=== PATIENT | female | born 1960 | race Caucasian/White ===

== ENCOUNTER 2023-04-05 09:28 | Outpatient (CLI) | payer OTHER, SELFPAY | END 2023-04-05 09:29 | disposition home or self-care (01) | PROVIDERS: PCP Emergency Medicine; Visit Provider Emergency Medicine | DX: Z00.00 Encounter for general adult medical examination without abnormal findings (principal); E03.9 Hypothyroidism, unspecified; E78.5 Hyperlipidemia, unspecified; E78.1 Pure hyperglyceridemia; E04.1 Nontoxic single thyroid nodule | CPT/HCPCS: 80053; 80061; 84443 ==

== ENCOUNTER 2023-06-20 14:42 | Outpatient (CLI) | payer OTHER, SELFPAY ==
--- NOTE | 2023-06-20 15:00 | CRLHL7_ITS ---
For Patients: As a result of the Century Cures Act, medical imaging exams and procedure reports are released immediately into your electronic medical record. You may view this report before your referring provider. If you have questions, please contact your health care provider. BILATERAL SCREENING MAMMOGRAM WITH COMPUTER-AIDED DETECTION AND TOMOSYNTHESIS TECHNIQUE: CC and MLO views were obtained. These mammographic images have been obtained using full-field digital technique. These mammographic images were interpreted with the benefit of computer-aided detection. Breast Tomosynthesis was used in this interpretation. COMPARISON FILM: 01/13/22, 01/12/21, 12/19/18. FINDINGS: There are scattered areas of fibroglandular density IMPRESSION: There is no radiographic evidence for malignancy. ASSESSMENT: BI-RADS Category 1: Negative RECOMMENDATION: Routine screening mammogram in 1 year. A lay language report of this examination will be provided to the patient. López Johnston M.D. Diagnostic Radiologist [email or web address] SHIRLEY/Dictated by: López Johnston MD @ 06/23/2023 9:04:00 AM (Electronically Signed)
== END 2023-06-20 14:43 | disposition home or self-care (01) ==
LOC: MAMMO 14:43
PROVIDERS: PCP Emergency Medicine; Visit Provider Emergency Medicine
DX: Z12.31 Encounter for screening mammogram for malignant neoplasm of breast (principal)
CPT/HCPCS: 77063; 77067

== ENCOUNTER 2023-10-18 09:04 | Outpatient (CLI) | payer OTHER, SELFPAY | END 2023-10-18 09:05 | disposition home or self-care (01) | LOC: NFLDREF 10-25 15:24 | PROVIDERS: PCP Emergency Medicine; Referring Provider Emergency Medicine; Visit Provider Emergency Medicine | DX: E78.2 Mixed hyperlipidemia (principal) | CPT/HCPCS: 80061 ==

== ENCOUNTER 2024-06-12 08:11 | Outpatient (CLI) | payer OTHER, SELFPAY ==
--- OUTSIDE RECORDS SUMMARY | 2024-06-12 08:15 | XMS_ITS | Clinical Summary ---
Author Organization [facility] Address [address] [place] [address] Care Team Providers Care Assembler Name Role Phone Chritsa Mortensen Primary Care Provider [phone] Allergies Active Allergy Reactions Criticality Noted Date Comments Amoxicillin 12/03/2013 Ampicillin 12/03/2013 Iodinated Contrast Media Swelling,Rash,Cough Low Lip Swelling Sulfa Antibiotics 12/03/2013 Medications Medication Sig Dispensed Refills Start Date End Date Status Venlafaxine HCl (EFFEXOR PO) Take 75 mg by mouth daily Active LEVOTHYROXINE SODIUM PO Take 75 mcg by mouth daily Active Simvastatin (ZOCOR PO) Take 20 mg by mouth At Bedtime Active HYDROcodone-acetamin ophen (NORCO) 5-325 MG per tablet Take 1 tablet by mouth every 6 hours as needed for moderate to severe pain or pain 15 tablet 07/11/2017 Active Active Problems Problem Noted Date Diagnosed Date S/P total right hip arthroplasty 05/23/2024 COVID-19 05/23/2024 Fear of flying 05/23/2024 Hepatic steatosis 05/23/2024 History of thyroidectomy 05/23/2024 Hx of blood clots 05/23/2024 Irritable bowel 05/23/2024 Osteoarthritis of foot 05/23/2024 Carpal tunnel syndrome 03/22/2022 Constipation 04/02/2020 Fatigue 04/02/2020 Tendinitis 12/19/2018 Pulmonary nodule 09/19/2016 Thyroid nodule 09/19/2016 Personal history of other malignant neoplasm of skin 02/13/2015 Benign renal tumor 05/21/2014 Overview: Overview: cryotherapy at [place] Chronic insomnia 05/21/2014 Fibromyalgia 05/21/2014 Hyperlipidemia 05/21/2014 Menopause present 05/21/2014 AAKASH on CPAP 05/21/2014 Pulmonary embolism 05/21/2014 Overview: Overview: on BCP. Seasonal allergies 05/21/2014 Squamous cell cancer of skin of forearm 05/21/20 14 Vaginal atrophy 05/21/2014 Encounters Date Type Department Care Team Description 05/23/2024 5:48 PM CDT - 05/23/2024 11:[address] [facility] Emergency Dept [address] [place] [address] Rober Hernandez MD Closed dislocation of right hip, initial encounter (H) (Primary Dx); Right hip pain; S/P total right hip arthroplasty Discharge Disposition: Home or Self Care 05/23/2024 Travel from Last 3 Months Social History Tobacco Use Types Packs/Day Years Used Date Smoking Tobacco: Never Assessed Adolescent Education Answer Date Record ed Getting School Help Needed Not on file 05/23 Sex and Gender Information Value Date Recorded Sex Assigned at Not on file Gender Identity Not on file Sexual Orientation Not on file Last Filed Vital Signs Vital Sign Reading Time Taken Comments Blood Pressure 128/88 05/23/2024 10:45 PM CDT Pulse 84 05/23/2024 10:45 PM CDT Temperature 36.4 ??C (97.6 ??F) 05/23/2024 7:30 PM CD T Respiratory Rate 19 05/23/2024 9:28 PM CDT Oxygen Saturation 97% 05/23/2024 10:55 PM CDT Inhaled Oxygen Concentration - - Weight 90.7 kg (200 lb) 05/23/2024 7:58 PM CDT Height 162.6 cm (5' 4) 05/23/2024 7:58 PM CDT Body Mass Index 34.33 05/23/2024 7:58 PM CDT Plan of Treatment Health Maintenance Due Date Last Done Comments ADVANCE CARE PLANNING 1959 ANNUAL REVIEW OF HM ORDERS 1959 CT COLONOGRAPHY 1959 FIT 1959 FLEX SIG 1959 GLUCOSE 1959 LIPID 1959 TSH W/FREE T4 REFLEX 1959 YEARLY PREVENTIVE VISIT 1959 COLONOSCOPY 1969 HIV SCREENING 1974 HEPATITIS C SCREENING 1977 RSV VACCINE ( & 60+) (1 - 1-dose 60+ series) 2019 PAP 04/02/2023 04/02/2020 PHQ-2 (once per calendar year) 2023 MAMMO SCREENING 01/14/2024 01/13/2022, 12/16, 01/13/2022, Additional history exists INFLUENZA VACCINE (#1) 2024 , 07/11/2022, 07/11/2022, Additional history exists COLORECTAL CANCER SCREENING 02/08/2025 sDNA (Cologuard) 02/08/2025 02/08/2022 DTAP/TDAP/TD IMMUNIZATION (7 - Td or Tdap) 01/14/2032 01/13/2022, 04/13/2011, 05/16/2003, Additional history exists Pneumococcal Vaccine: Pediatrics (0 to 5 Years) and At-Risk Patients (6 to 64 Years) Aged Out 02/22/2012 No longer eligible based on patient's age to complete this topic ZOSTER IMMUNIZATION Completed 04/01/2019, 01/12/2019, 12/19/2018 COVID-19 Vaccine Completed 09/03/2023, 12/2021, 01/14/2022, Additional history exists HPV IMMUNIZATION Aged Out No longer e ligible based on patient's age to complete this topic MENINGITIS IMMUNIZATION Aged Out No l onger eligible based on patient's age to complete this topic RSV MONOCLONAL ANTIBODY Aged Out No l onger eligible based on patient's age to complete this topic Procedures Procedure Name Priority Date/Time Associated Diagnosis Comments XR PELVIS AND HIP RIGHT 1 VIEW STAT 05/23/2024 9:47 PM CDT SEDATION Routine 05/23/2024 8:15 PM CDT XR PELVIS AND HIP RIGHT 1 VIEW STAT 05/23/2024 6:45 PM CDT from Last 3 Months Results * XR Pelvis w Hip Right 1 View (05/23/2024 9:47 PM CDT) Only the most recent of2 resultswithin the time period is included. Anatomical Region Laterality Modality Abdomen/Pelvis Right Digital Radiogra phy 05/23/2024 9:47 PM CDT Impressions 05/23/2024 9:49 PM CDT IMPRESSION: No comparisons/prereduction film is available. Postoperative changes of bilateral total hip arthroplasty. Components appear well-seated on this examination and there is no dislocation. Pelvis negative for fracture. Degenerative change at the SI joints bilaterally. Narrative 05/23/2024 9:49 PM CDT EXAM: XR PELVIS AND HIP RIGHT 1 VIEW LOCATION: [facility] DATE: 05/23/2024 INDICATION: assess dislocation reduction COMPARISON: None. Procedure Note Dwain Jones MD - 05/23/2024 EXAM: XR PELVIS AND HIP RIGHT 1 VIEW LOCATION: [facility] DATE: 05/23/2024 INDICATION: assess dislocation reduction COMPARISON: None. IMPRESSION: No comparisons/prereduction film is available. Postoperativechanges of bilateral total hip arthroplasty. Components appear well-seatedon this examination and there is no dislocation. Pelvis negative forfracture. Degenerative change at the SI joints bilaterally. Rober Hernandez MD IMG DIAGNOSTIC IMAGI NG ORDERABLES * Sedation (05/23/2024 8:15 PM CDT) Narrative Rober Hernandez MD - 05/23/2024 8:15 PM CDT Rober Hernandez MD ? 05/23/2024 11:05 PM [facility] Procedure: Sedation Date/Time: 05/23/2024 8:15 PM Performed by: Rober Hernandez MD Authorized by: Rober Hernandez MD ?? Risks, benefits and alternatives discussed. ED EVALUATION: ?I have performed an Emergency Department Evaluation including taking a history and physical examination, this evaluation will be documented in the electronic medical record for this ED encounter. ??ASA Class: Class 2- mild systemic disease, no acute problems, no functional limitations ??Mallampati: Grade 3- soft palate visible, posterior pharyngeal wall not visible ??NPO Status: appropriately NPO for procedure UNIVERSAL PROTOCOL Site Marked: Yes Prior Images Obtained and Reviewed: ??Yes Required items: Required blood products, implants, devices and special equipment available ?? Patient identity confirmed: ??Verbally with patient and provided demographic data Patient was reevaluated immediately before administering moderate or deep sedation or anesthesia Confirmation Checklist: ??Patient's identity using two indicators, relevant allergies, procedure was appropriate and matched the consent or emergent situation and correct equipment/implants were available Time out: Immediately prior to the procedure a time out was called ?? [place] Protocol: the Joint Commission [place] Protocol was followed ?? Preparation: Patient was prepped and draped in usual sterile fashion ?? SEDATION Patient Sedated: Yes ?? Sedation: ??Propofol Vital signs: Vital signs monitored during sedation ?? PROCEDURE Patient Tolerance: ??Patient tolerated the procedure well with no immediate complications Length of time physician/provider present for 1:1 monitoring during sedation: 5 Rober Hernandez MD PROCEDURE/MINOR SURG ICAL ORDERABLES from Last 3 Months Care Teams Assembler Relationship Specialty Start Date End Date Christa Mortensen PCP - General Internal Medicine 07/11/17
--- OUTSIDE RECORDS SUMMARY | 2024-06-12 08:15 | XMS_ITS | Encounter Summary ---
Author Organization [facility] Address [address] [place] [id number] Care Team Providers Care [employer] Machine Operator Name Role Phone Christa Mortensen Primary Care Provider Encounter Details Date Type Department Care Team (Latest Contact Info) Description 05/23/2024 Travel Social History Tobacco Use Types Packs/Day Years Used Date Smoking Tobacco: Never Assessed Adolescent Education Answer Date Record ed Getting School Help Needed Not on file 05/23 Sex and Gender Information Value Date Recorded Sex Assigned at Not on file Gender Identity Not on file Sexual Orientation Not on file documented as of this encounter Plan of Treatment Not on file documented as of this encounter Visit Diagnoses Not on filedocumented in this encounter Care Teams [employer] Machine Operator Relationship Specialty Start Date End Date Christa Mortensen PCP - General Internal Medicine 07/11/17 documented as of this encounter
--- OUTSIDE RECORDS SUMMARY | 2024-06-12 08:15 | XMS_ITS | Clinical Summary ---
Author Organization [facility] Address [address] [place] [address] Care Team Providers Care Appellate Court Judge Name Role Phone Elsewhere, Pcp Primary Care Provider Unavailabl e Source Comments Patient records contain information from all sites at [facility]. For routine questions regarding patient records, call [phone] during business hours, M-F 8:00 AM - 5:00 PM Central Time. Record requests for emergency care only can be directed to [phone] at any time.[facility] Allergies Active Allergy Reactions Criticality Noted Date Comments Adhesive Tape-Silicones Other (see comments) Low 12/31/2002 Tingles-irritation. Amoxicillin Hives (Reselect Reaction) Medium 09/13/2012 Ampicillin Hives (Reselect Reaction) Medium 09/29/2017 Erythromycin GI intolerance Medium 11/01/2013 Iodinated Contrast Media Cough,Itching,Rash,Sh ortness of breath (Reselect Reaction),Anaphylaxis High 12/24/2019 lips , face itchy, coughing flushed Pollen Extracts Other (see comments),GI intolerance,Headache Medium 01/12/2021 Itchy eyes, congestion, sinus infection Seasonal allergies Sulfa (Sulfonamide Antibiotics) Itching High 05/21/2009 Hives, dry mouth Medications Medication Sig Dispensed Refills Start Date End Date Status cetirizine HCl (ZYRTEC ORAL) Take 1 tablet by mouth daily as needed. Active DME CPAPIndications:Obst ructive Sleep Apnea Adult DME Order 1 Device 05/03/2021 Active ALPRAZolam (Xanax) 0.5 mg tablet Take 1 tablet (0.5 mg total) by mouth as needed for anxiety. For flying 15 tablet 3 01/13/2022 Active triamcinolone (NASACORT) 55 mcg/actuation nasal spray INSTILL 2 SPRAYS IN EACH NOSTRIL DAILY. 6.7 mL 1 11/16/2022 Active levothyroxine (SYNTHROID, LEVOTHROID) 75 mcg tabletIndications:No dule Thyroid Take 1 tablet (75 mcg total) by mouth every morning before breakfast. 30 tablet 02/27/2023 Active DULoxetine (CYMBALTA) [address] capsuleIndications:F ibromyalgia Take 1 capsule (20 mg total) by mouth daily. 90 capsule 02/27/2023 Active rosuvastatin (CRESTOR) 10 mg tablet Take 10 mg by mouth daily. 04/28/2023 Active amitriptyline (ELAVIL) 25 mg tablet Take 25 mg by mouth at bedtime. 06/28/2023 Active Wegovy 0.25 mg/0.5 mL pen injector injection 0.25 mg. 05/20/2024 Active Hospital, Clinic, or Other Facility Administered Medication Ordered Dose Route Frequency Start Date End Date Status aminolevulinic acid HCL 20 % external solution 1 Application (Levulan)Indications:Kerat osis Actinic 1 Application top Once 05/23/2024 05/23/2024 Ended Active Problems Problem Noted Date Diagnosed Date Carpal Tunnel Syndrome Left 03/23/2023 Carpal Tunnel Syndrome Right 10/04/2022 Carpal Tunnel Syndrome Bilateral 03/22/2022 Morbid Obesity Body Mass Index 40.0-44.9 Adult 0 01/13/2022 Postmenopausal Atrophic Vaginitis 01/13/2022 Encounter For Immunization 01/13/2022 Constipation 04/02/2020 Fatigue 04/02/2020 Cancer Skin Basal Cell Personal History 04/02/20 20 Tendinitis 12/19/2018 Nodule Thyroid 09/21/2016 Cancer Skin Squamous Cell Personal History 02/13 Fibromyalgia 05/21/2014 Menopause 05/21/2014 Mass Kidney 01/05/2012 Hyperlipidemia 09/14/2006 Sleep Apnea Resolved Problems Problem Noted Date Diagnosed Date Resolved Date 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 Instability Total Hip Arthroplasty Initial Right (HCC) (Primary Dx) 05/29/2024 12:45 PM CDT - 05/29/2024 11:59 PM CDT Hospital Encounter Department of Radiology, [facility], in [place], [place] [address] [place] [phone] Steven Hui M.D. Arthroplasty Total Hip Replacement Status Post Right Discharge Disposition: Home or Self Care 05/28/2024 10:30 AM CDT Clinical Communication Virtual Review in [address] [phone] Pre-visit Intake 05/24/2024 Clinical Communication Department of Orthopedic Surgery in [address] [phone] Hamzah Todd M.D. Return Call Request 05/23/2024 1:00 PM CDT Clinical Support Department of Dermatology in [address] [phone] Nabila Guerrero, [facility] Vanda Finley, R.N. Keratosis Actinic Discharge Disposition: Home or Self Care 05/09/2024 CPAP Download Remote Patient Monitoring [facility] [address] [place] [address] [facility], Provider 04/08/2024 CPAP Download Remote Patient Monitoring [facility] [address] [place] [address] [facility], Provider from Last 3 Months Immunizations Name Administration Dates Next Due H1N1 All Forms 12/07/2009 Influenza (IM) Preservative Free 08/08/2011,08/16 Influenza Split 07/16/2017, 6,06/16/2015,2013,07/16/2013,07/16/2011,08/11/2010,0 06/19/2009,08/27/2003,08/16/2002, 996 Influenza, Injectable, Mdck, Preservative Free, Quadrivalent 07/11/2022,07/19/2017 Influenza, Seasonal, Injectable 07/18/20 13,08/06/2007,09/14/2006,2002,08/16/2002,10/16/1995 Influenza, Unspecified 07/28/2021,2014,06/11/2014,2010,08/11/2010,06/19/2009 PPSV23 02/22/2012 RZV (SHINGRIX) 04/01/2019, 9,12/19/2018(Deferr ed: 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) SARS-COV-2 (COVID-19) - MODERNA(Discontinued) 01/04/2021 Td (Adult), adsorbed 05/16/2003,10/16/1992 Td, (Adult) Unspecified 05/16/2003,10/16/1992 Tdap 01/13/2022,04/13/2011 influenza high dose (65 year s or older) (PF) 07/16/2017,07/16/2016,06/16/2015 influenza vaccine quad (FLUZONE/FLUARIX) (6 months and older)(PF) 07/11/2020,08/11/2019,07/09/2018,2015,07/21/2015,06/11/2014 Family History Medical History Relation Name Comments Coronary artery disease Father Tyrel Ernst Coronary artery disease Maternal Grandfather Du Bhatt ing Stroke Maternal Grandmother Ingrid Segundo Lung cancer Mother Ambreen Purdyterer Stroke Paternal Grandfather Manoj Purdyterer Stroke Paternal Grandmother Vane Blanchard Other cancer Sister Bladder cancer Relation Name Status Comments Father Tyrel Ernst Maternal Grandfather Du Valencia Maternal Grandmother Ingrid Segundo Mother Ambreen Fitterer Paternal Grandfather Manoj Fitterer Paternal Grandmother Vane Blanchard Sister Bladder cancer Social History Tobacco Use Types Packs/Day Years Used Date Smoking Tobacco: Never Passive Smoke Exposure: Past Smokeless Tobacco: Never Passive Exposure Comments:Mo m & Dad Smoked growing up Alcohol Use Standard Drinks/Week Comments Yes 0 (1 standard drink = 0.6 oz pur e alcohol) [facility] Utilities Answer Date Recorded In the past 12 months has th e electric, gas, oil, or water company threatened to shut off services in your home? No 01/01/2024 Humiliation, Afraid, Rape, and Kick questionnair e Answer Date Recorded Within the last year, have y ou been afraid of your partner or ex-partner? No 09/29/2022 Within the last year, have y ou been humiliated or emotionally abused in other ways by your partner or ex-partner? No Within the last year, have y ou been kicked, hit, slapped, or otherwise physically hurt by your partner or ex-partner? No 09/29/2022 Within the last year, have y ou been raped or forced to have any kind of sexual activity by your partner or ex-partner? No 09/29/2022 Social Connection and Isolat ion Panel [NHANES] Answer Date Recorded In a typical week, how many times do you talk on the phone with family, friends, or neighbors? More than three times a week 09/29/2022 How often do you get togethe r with friends or relatives? Twice a week 09/29/2022 How often do you attend chur or sabianism services? Never 09/29/2022 Do you belong to any clubs o r organizations such as jehovah's witness groups, unions, fraternal or athletic groups, or school groups? Yes 09/29/2022 How often do you attend meet ings of the clubs or organizations you belong to? More than 4 times per year 09/29/2022 Are you , , di vorced, , never , or living with a partner? 09/29/2022 AUDIT-C Answer Date Recorded Q1: How often do you have a drink containing alc ohol? Monthly or less 09/29/2022 Q2: How many drinks containi ng alcohol do you have on a typical day when you are drinking? 1 or 2 09/29/2022 Q3: How often do you have si x or more drinks on one occasion? Never 09/29/2022 Overall Financial Resource Strain (CARDIA) Answe r Date Recorded How hard is it for you to pa y for the very basics like food, housing, medical care, and heating? Not hard at all 09/29/2022 PHQ-2 Answer Date Recorded PHQ-2 Score 0 03/18/2022 [facility] - Occupational Stress Questionnaire Answer Date Recorded Do you feel stress - tense, restless, nervous, or anxious, or unable to sleep at night because your mind is troubled all the time - these days? Not at all 09/29/2022 Exercise Vital Sign Answer Date Recorde d On average, how many days pe r week do you engage in moderate to strenuous exercise (like a brisk walk)? 3 days 01/01/2024 On average, how many minutes do you engage in exercise at this level? 40 min 01/01/2024 Hunger Vital Sign Answer Date Recorded Within the past 12 months, y ou worried that your food would run out before you got the money to buy more. Never true 01/01/20 24 Within the past 12 months, t he food you bought just didn't last and you didn't have money to get more. Never true 01/01/2024 PRAPARE - Transportation Answer Date Re corded In the past 12 months, has l ack of transportation kept you from medical appointments or from getting medications? No 12/14 In the past 12 months, has l ack of transportation kept you from meetings, work, or from getting things needed for daily living? No 01/01/2024 Depression Answer Date Recor ded PHQ-9 Total Score (max 27) 1 03/18 Nutrition Answer Date Recorded On average, how many serving s of fruits and vegetables do you eat per day (serving size is equal to 1 cup or approximately the size of a tennis ball)? 3-5 01/01/2024 Dental Answer Date Recorded Dental: Regular Dentist Yes 05/02/20 21 Employment Answer Date Recorded Employment status Retired 01/01/2024 Housing Stability Answer Date Recorded What is your living situation today? I have a [facility] place to live 01/01/2024 Education Answer Date Recorded What is the highest level of school you have completed or the highest degree you have received? 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) 09/29/2022 Sex and Gender Information Value Date Recorded Sex Assigned at Female 12/17/2018 7:47 AM DIRECTOR OF HOME ECONOMICS Gender Identity Female 12/17/2018 7:47 AM DIRECTOR OF HOME ECONOMICS Sexual Orientation Straight 12/17/2018 7: 47 AM DIRECTOR OF HOME ECONOMICS Last Filed Vital Signs Vital Sign Reading Time Taken Comments Blood Pressure 113/75 04/28/2023 11:00 AM CDT Pulse 65 04/28/2023 11:05 AM CDT Temperature 37 ??C (98.6 ??F) 04/28/2023 11:05 AM CDT Respiratory Rate 15 04/28/2023 11:05 AM CDT Oxygen Saturation 92% 04/28/2023 11:05 AM CDT Inhaled Oxygen Concentration - - Weight 103 kg (226 lb 13.7 oz) 04/28/2023 7:58 A M CDT Height 162.6 cm (5' 4) 04/28/2023 7:58 AM CDT Body Mass Index 38.94 04/28/2023 7:58 AM CDT Plan of Treatment Health Maintenance Due Date Last Done Comments CT Colonography 1959 FIT 1959 HIV Screening 1960 Colonoscopy 09/01/2018 09/01/2008 Mammogram 01/13/2023 01/13/2022, 12/16, 01/12/2021, Additional history exists Thyroid Stimulating Hormone (TSH) test for thyroid function 01/13/2023 01/13/2022, 01/12/2021, 03/30/2020, Additional history exists Depression Screening (Annual PHQ-2) 10/16/2023 Influenza Vaccine (#1) 2024 , 07/11/2022, 07/28/2021, Additional history exists Fasting Glucose for Diabetes Screening 01/13/2025 01/13/2022, 01/12/2021, 12/24/2019, Additional history exists Cologuard 02/15/2025 02/15/2022, 0403/2022, 02/06/2019 Colorectal Cancer Screening 02/15/2025 Cervical Cancer Screening 04/02/20252019, 04/02/2020, 09/29/2017, Additional history exists Lipid (Cholesterol) Screening 06/09/2027 06/09/2022, 05/18/2022, 01/13/2022, Additional history exists DTaP,Tdap,and Td Vaccines (3 - Td or Tdap) 01/14/2032 01/13/2022, 04/13/2011, 05/16/2003, Additional history exists Pneumococcal vaccine (0-64 years) Aged Out 02/22/2012 No longer eligible based on patient's age to complete this topic Hepatitis C Screening Completed 05/09/2014 , 05/09/2014, 10/23/2013, Additional history exists Zoster Vaccines Completed 04/01/2019, 12/16, 12/19/2018 COVID-19 Vaccine Completed 09/03/2023, 12/2021, 01/14/2022, Additional history exists Medical Devices Implanted Type Area Flight Follower Device Identifier Shelf Expiration Date Model / Serial / Lot Hardware E.G. Pins/Screws/Ro ds Hardware e.g. pins/screws/ rods Neck Description:Clips present af ter thyroid removal. Guide Wire-Ball Tip 3 X 800 - Orr [id number] Implanted:Qty: 1 on 05/07/2013 Hardware e.g. pins/screws/ rods Ivelisse Description:Device Manufactu rer - Minden Bandar.. Device Status Text - HARDWARE- 80867. [facility] Data - [id number]. Pullman Screw 2 Canc 6.5 X 20 - [place]r [id number] Implanted:Qty: 1 on 05/07/2013 Hardware e.g. pins/screws/ rods [employer] Description:Device Manufactu rer - [employer]. Device Status Text - HARDWARE-46288. Pullman Screw 2 Canc 6.5 X 25 - [place]r [id number] Implanted:Qty: 1 on 05/07/2013 Hardware e.g. pins/screws/ rods [employer] Description:Device Manufactu rer - [employer]. Device Status Text - HARDWARE-01322. Pullman Screw 2 Canc 6.5 X 15 - Orr [id number] Implanted:Qty: 2 on 05/07/2013 Hardware e.g. pins/screws/ rods [employer] Description:Device Manufactu rer - J [employer]. Device Status Text - HARDWARE-67584. Guide Wire-Ball Tip 3 X 800 - [place]r [id number] Implanted:Qty: 1 on 10/22/2013 Hardware e.g. pins/screws/ rods [employer]velisse Description:Device Manufactu rer - Minden Bandar.. Device Status Text - HARDWARE- 93727. [facility] Data - [id number]. Pullman Screw 2 Canc 6.5 X 15 - [place]r [id number] Implanted:Qty: 1 on 10/22/2013 Hardware e.g. pins/screws/ rods [employer] Description:Device Manufactu rer - [employer]. Device Status Text - HARDWARE-76548. Pullman Screw 2 Canc 6.5 X 25 - [place]r [id number] Implanted:Qty: 2 on 10/22/2013 Hardware e.g. pins/screws/ rods [employer] Description:Device Manufactu rer - [employer]. Device Status Text - HARDWARE-18565. Pullman Liner Altrx +4 Neut 32x48 - Orr [id number] Implanted:Qty: 1 on 05/07/2013 Hip Implant Other/Legacy - See Implant Description [employer] Description:Device Manufactu [employer] - [email or web address]. Body Location - Other. Left. Device Status Text - HIP [id number]. Pullman Shell Multi 2 48mm - Orr [id number] Implanted:Qty: 1 on 05/07/2013 Hip Implant Other/Legacy - See Implant Description [employer] Description:Device Manufactu [employer] - [employer]. Body Location - Other. Left. Device Status Text - HIP [id number]. [place]-Stem [place] 3 Hi - Orr [id number] Implanted:Qty: 1 on 05/07/2013 Hip Implant Other/Legacy - See Implant Description [employer] Description:Device Manufactu [employer] - [employer]. Body Location - Other. Left. Device Status Text - HIP [id number]. Delta-Head Ceramic 32mm +1 - Orr [id number] Implanted:Qty: 1 on 05/07/2013 Hip Implant Other/Legacy - See Implant Description [employer] Description:Device Manufactu [employer]ius - [employer]. Body Location - Other. Left. Device Status Text - HIP [id number]. Delta-Head Ceramic 32mm +1 - Orr [id number] Implanted:Qty: 1 on 10/22/2013 Hip Implant Other/Legacy - See Implant Description [employer] Description:Device Manufactu rer - [employer]. Body Location - Other. Right. Device Status Text - [id number] [id number]. Stem [place] 3x Hi 135 - Orr [id number] Implanted:Qty: 1 on 10/22/2013 Hip Implant Other/Legacy - See Implant Description [employer] Description:Device Manufactu rer - [employer]. Body Location - Other. Right. Device Status Text - HIP [id number]. Pullman Shell Multi 2 48mm - Orr [id number] Implanted:Qty: 1 on 10/22/2013 Hip Implant Other/Legacy - See Implant Description [employer] Description:Device Manufactu rer - [employer]. Body Location - Other. Right. Device Status Text - HIP [id number]. Pullman Liner Altrx +4 Neut 32x48 - Orr [id number] Implanted:Qty: 1 on 10/22/2013 Hip Implant Other/Legacy - See Implant Description [employer] Description:Device Manufactu rer - [employer]. Body Location - Other. Right. Device Status Text - HIP [id number]. Mitralclip-10/16 Implanted:10/2016 (Quantity not on file) Mitralclip Neck Procedures Procedure Name Priority Date/Time Associated Diagnosis Comments DX HIP AND PELVIS RIGHT 2-3 VIEWS RAD - Routine (most inpatients and all outpatients) 05/29/2024 1:23 PM CDT Arthroplasty Total Hip Replacement Status Post Right OUTSIDE DX SKELETAL Routine 05/23/2024 9 :45 PM CDT OUTSIDE DX SKELETAL Routine 05/23/2024 6 :35 PM CDT LIPID PANEL, S Routine 06/09/2022 8:32 AM CDT Hyperlipidemia COLOGUARD Routine 02/08/2022 1:00 PM CDT Screening Cancer Colon BI BREAST SCREENING BILATERAL WITH TOMOSYNTHESIS RAD - Routine (most inpatients and all outpatients) 01/13/2022 11:53 AM CDT Screening Mammogram Breast Cancer BASIC METABOLIC PANEL, S/P Routine 01/13/2022 9:44 AM CDT General Medical Examination Adult THYROID-STIMULATING HORMONE-SENSITIVE (S-TSH) Routine 01/13/2022 9:44 AM CDT Nodule Thyroid General Medical Examination Adult THINPREP W/HPV CO-TEST SCREEN Routine 04/02/2020 1:26 PM CDT Pap Smear Examination BONE DONOR 6 MONTH SCREEN TEST SET Routine 05/09/2014 9:32 AM CDT from Last 3 Months or Most Recently Relevant to Health Maintenance Results * DX Hip And Pelvis Right 2-3 Views (05/29/2024 1:23 PM CDT) Anatomical Region Laterality Modality Lower Extremity, Pelvis, Hip , Musculoskeletal RST LOS, Musculoskeletal ARZ LOS, Muskuloskeletal FLA LOS Right Digit al Radiography Impressions 05/29/2024 1:57 PM CDT Right HERMES. No radiographic evidence of loosening. Left HERMES. 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 Bilateral greater trochanter enthesopathy. Narrative 05/29/2024 1:57 PM CDT EXAM: ??DX HIP AND PELVIS RIGHT 2-3 VIEWS Procedure Note Chun Keller M.D. - 05/29/2024 EXAM: DX HIP AND PELVIS RIGHT 2-3 VIEWS IMPRESSION: Right HERMES. No radiographic evidence of loosening. Left HERMES. Degenerativearthritis of the lower lumbar spine, SI joints and pubic symphysis.Bilateral greater trochanter enthesopathy. Steven ALVAREZ DIAGNOSTIC IMAGI NG PROCEDURES * XR PELVIS AND HIP RIGHT 1 VIEW-Outside Skeletal Xray (05/23/2024 9:45 PM CDT) Only the most recent of2 resultswithin the time period is included. Narrative [facility]IMS - 05/24/2024 2:18 PM CDT This order has been created and auto-finalized to support the import of outside images. If available, original interpretation can be found on the Media Tab in Chart Review, in Document Viewer, as an image in QREADS or as an Addendum. If a re-interpretation or overread is required please follow defined workflow.?? Provider Not In System IMG DIAGNOSTIC IM AGING PROCEDURES [facility] NA * (ABNORMAL) Lipid Panel (06/09/2022 8:32 AM CDT) Triglycerides 363(H) mg/dL 06/10/2022 4:00 PM CDT DTL Comment: ----REFERENCE VALUE---- Normal: <150 mg/dL Borderline High: 150-199 mg/dL High: 200-499 mg/dL Very High: > or =500 mg/dL Cholesterol, Total 190 mg/dL 2021 4:00 PM CDT DTL Comment: ----REFERENCE VALUE---- Desirable: < 200 mg/dL Borderline High: 200 - 239 mg/dL High: > or = 240 mg/dL Cholesterol, LDL, Calculated 90 mg/dL 06/10/2022 4:00 PM CDT DTL Comment: ----REFERENCE VALUE---- Desirable: <100 mg/dL Above Desirable: 100-129 mg/dL Borderline High: 130-159 mg/dL High: 160-189 mg/dL Very High: >=190 mg/dL ----ADDITIONAL INFORMATION---- LDL cholesterol calculated using the Tsai/NIH equation. Cholesterol, HDL, S 40(L) >=50 mg/dL 06/10/2022 4:00 PM CDT DTL Cholesterol, Non-HDL, Calculated 150 mg/dL 06/10/2022 4:00 PM CDT DTL Comment: ----REFERENCE VALUE---- Desirable: <130 mg/dL Above Desirable: 130-159 mg/dL Borderline High: 160-189 mg/dL High: 190-219 mg/dL Very High: > or =220 mg/dL Fasting (8 HR or more) Unknown 06/10/2022 2:59 PM CDT DTL Blood (Blood, Venous) 06/09/2022 8:32 AM CDT 06/10/2022 2:59 PM CDT Narrative Resulting Agency Comment Mailed In Specimen Cammy Joe Marni THOMAS C.N.P., M.S.N. LAB BLOOD ADD-ON [facility] [address] [place] [address], [facility] [address] [place] [address] * Cologuard-Sent Out Lab (02/08/2022 1:00 PM CDT) Result Negative Negative 02/15/2022 6:59 PM CDT EXLI Comment: NEGATIVE TEST RESULT. A negative Cologuard result indicates a low likelihood that a colorectal cancer (CRC) or advanced adenoma (adenomatous polyps with more advanced pre-malignant features) ??is present. The chance that a person with a negative Cologuard test has a colorectal cancer is less than 1 in 1500 (negative predictive value >99.9%) or has an ??advanced adenoma is less than ??5.3% (negative predictive value 94.7%). These data are based on a prospective cross-sectional study of 10,000 individuals at average risk for colorectal cancer who were screened with both Cologuard and colonoscopy. (Tori Meraz et al, N Engl J Med 2014;370(14):7442-9083) The normal value (reference range) for this assay is negative. COLOGUARD RE-SCREENING RECOMMENDATION: Periodic colorectal cancer screening is an important part of preventive healthcare for asymptomatic individuals at average risk for colorectal cancer. ??Following a negative Cologuard result, the [place] Cancer Society and U.S. Multi-Society Task Force screening guidelines recommend a Cologuard re-screening interval of 3 years. References: [place] [employer] Guideline for Colorectal Cancer Screening: https://www.cancer.org/cancer/xrbyz-ujazhk-mfmjud/detection- diagnosis-staging/acs-recommendations.html.; Regis ALLISON, Hoang RICKETTS, Melina CHAN, Colorectal Cancer Screening: Recommendations for Physicians and Patients from the U.S. Multi-Society Task Force on Colorectal Cancer Screening , Am J Gastroenterology 2017; 112:0872-7083. TEST DESCRIPTION: Composite algorithmic analysis of stool DNA-biomarkers with hemoglobin immunoassay. ?? Quantitative values of individual biomarkers are not reportable and are not associated with individual biomarker result reference ranges. Cologuard is intended for colorectal cancer screening of adults of either sex, 45 years or older, who are at average-risk for colorectal cancer (CRC). Cologuard has been approved for use by the U.S. FDA. The performance of Cologuard was established in a cross sectional study of average-risk adults aged 50-84. Cologuard performance in patients ages 45 to 49 years was estimated by sub-group analysis of near-age groups. Colonoscopies performed for a positive result may find as the most clinically significant lesion: colorectal cancer [4.0%], advanced adenoma (including sessile serrated polyps greater than or equal to 1cm diameter) [20%] or non- advanced adenoma [31%]; or no colorectal neoplasia [45%]. These estimates are derived from a prospective cross-sectional screening study of 10,000 individuals at average risk for colorectal cancer who were screened with both Cologuard and colonoscopy. (Tori Joe. et al, N Engl J Med 2014;370(14):2588-8274.) Cologuard may produce a false negative or false positive result (no colorectal cancer or precancerous polyp present at colonoscopy follow up). A negative Cologuard test result does not guarantee the absence of CRC or advanced adenoma (pre-cancer). The current Cologuard screening interval is every 3 years. ([place] [employer] and U.S. Multi-Society Task Force). Cologuard performance data in a 10,000 patient pivotal study using colonoscopy as the reference method can be accessed at the following location: [email or web address] Additional description of the [employer] test process, warnings and precautions can be found at [email or web address]. Stool (Stool) 02/08/2022 1:0 0 PM CDT 02/09/2022 1:22 PM CDT Cammy Grider APRN, C.N.P., M.S.N. LAB BODY FLUIDS AND STOOLS ORDERABLES [facility] [address] [place] [address] [facility] [address] [facility], [address] [place] [address] * BI Breast Screening Bilateral with Tomosynthesis (01/13/2022 11:53 AM CDT) Anatomical Region Laterality Modality Breast, Breast Imaging RST L OS, Breast Imaging ARZ LOS, Breast Imaging FLA LOS Bilateral Mammography 01/13/2022 12:2 1 PM CDT Impressions 01/13/2022 1:25 PM CDT Negative. RECOMMENDATION: ??Annual Screening Mammogram ASSESSMENT: ??BI-RADS: 1: Negative. Narrative 01/13/2022 1:25 PM CDT EXAM: ??BI BREAST SCREENING BILATERAL WITH TOMOSYNTHESIS Current study was evaluated with a Computer Aided Detection (CAD) system. INDICATION: ??Screening mammogram. COMPARISON: ??Prior exam(s) were available and reviewed for comparison. DENSITY: ??b. There are scattered areas of fibroglandular density. FINDINGS: ??No mammographic findings of malignancy. Procedure Note Juani Templeton M.D. - 01/13/2022 EXAM: BI BREAST SCREENING BILATERAL WITH TOMOSYNTHESIS Current study was evaluated with a Computer Aided Detection (CAD) system. INDICATION: Screening mammogram. COMPARISON: Prior exam(s) were available and reviewed for comparison. DENSITY: b. There are scattered areas of fibroglandular density. FINDINGS: No mammographic findings of malignancy. IMPRESSION: Negative. RECOMMENDATION: Annual Screening Mammogram ASSESSMENT: BI-RADS: 1: Negative. Cammy Grider APRN, C.N.P., M.S.N. IMG BI PROCEDURES * S-TSH (Thyroid-Stimulating Hormone - Sensitive) (01/13/2022 9:44 AM CDT) TSH, Sensitive 2.8 0.3 - 4.2 mIU/L 01/13/2022 11:10 AM CDT DTL Blood (Blood, Venous) 01/13/2022 9:44 AM CDT 01/13/2022 10:41 AM CDT Cammy Joe Marni THOMAS C.N.P., M.S.N. LAB BLOOD ADD-ON [facility] [address] [place] [address], [facility] [address] [place] [address] * (ABNORMAL) Basic Metabolic Panel (01/13/2022 9:44 AM CDT) Pathologist [facility] Potassium, S 4.9 3.6 - 5.2 mmol/L 01/13/2022 11:01 AM CDT DTL Sodium, S 144 135 - 145 mmol/L 01/13/2022 11:01 AM CDT DTL Chloride, S 105 98 - 107 mmol/L 01/13/2022 11:01 AM CDT DTL Bicarbonate, S 27 22 - 29 mmol/L 01/13/2022 11:01 AM CDT DTL Anion Gap 12 7 - 15 01/13/2022 11:01 AM CDT DTL BUN (Blood Urea Nitrogen), S 18 6 - 21 mg/dL 01/13/2022 11:01 AM CDT DTL Creatinine 1.06(H) 0.59 - 1.04 mg/dL 01/13/2022 11:01 AM CDT DTL eGFR-Non Black/ 56(L) >=60 mL/min/BSA 01/13/2022 11:01 AM CDT DTL Comment: ----ADDITIONAL INFORMATION---- Estimated GFR calculated using the 2009 CKD_EPI creatinine equation. eGFR-Black/Afri can Cuban 65 >=60 mL/min/BSA 01/13/2022 11:01 AM CDT DTL Comment: ----ADDITIONAL INFORMATION---- Estimated GFR calculated using the 2009 CKD_EPI creatinine equation. Calcium, Total, S 9.1 8.8 - 10.2 mg/dL 01/13/2022 11:01 AM CDT DTL Glucose, S 98 70 - 140 mg/dL 01/13/2022 11:01 AM CDT DTL Blood (Blood, Venous) 01/13/2022 9:44 AM CDT 01/13/2022 10:40 AM CDT Cammy T Marni THOMAS C.N.P., M.S.N. LAB BLOOD ADD-ON [facility] [address] [place] [address], [facility] D[facility] [address] [place] [address] * ThinPrep w/HPV Co-Test Screen (04/02/2020 1:26 PM CDT) 04/21/2020 8:09 AM CDT DTL Report electronically signed by JACQUELINE Tanner(ASCP) I verify that I have examined all relevant slides/materials for the specimen(s) and rendered or confirmed the diagnosis. 04/21/2020 8:09 AM CDT DTL Gross Description Received specimen in a ThinPrep vial. 04/21/2020 8:09 AM CDT DTL Pap Test Source Cervical/Endocervi ravi 04/21/2020 8:09 AM CDT DTL Clinical History post menopausal 04/2020 8:09 AM CDT DTL Menstrual Status(LMP, PM, ) post menopausal 04/21/2020 8:09 AM CDT DTL Hormone Therapy/Contracep tives estrogen ring 04/21/2020 8:09 AM CDT DTL Interpretation Cervical/Endocervi ravi ??(ThinPrep): Satisfactory for Evaluation Endocervical/trans formation zone components absent Negative for Intraepithelial Lesion or Malignancy ??High Risk HPV testing results are NEGATIVE. See specific genotype results below. HPV with Genotyping, PCR, ThinPrep: ??HPV High Risk Type 16, PCR: ??NEGATIVE ??HPV High Risk Type 18, PCR: ??NEGATIVE ??HPV other High Risk types, PCR: ??NEGATIVE Other High Risk HPV types include: 31, 33, 35, 39, 45, 51, 52, 56, 58, 59, 66, and 68. 04/21/2020 8:09 AM CDT DTL Varies (Cervix/Endocerv ix) 04/02/2020 1:26 PM CDT 04/02/2020 4:01 PM CDT Mariely Kaiser APRN.NJuan AP., M.S.N. LAB PAP PATHDX ORDERABLES Performing Organization Address City/[facility]/ZIP Co de Phone Number [facility] [address] [place] [address], [facility] D[facility] [address] [place] [address] * Bone Donor 6 Month Screen Test Set (05/09/2014 9:32 AM CDT) Donor HBcore Antibody Negative [facility] HCV Ab Screen Donor Negative [facility] HX Hiv-1/-2, Plus O Ab Screen Donor Negative [facility] 05/09/2014 9:32 AM CDT 05/09/2014 9:32 AM CDT Girish Bradford M.D. 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
--- OUTSIDE RECORDS SUMMARY | 2024-06-12 08:15 | XMS_ITS | Encounter Summary ---
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 Name Role Phone Lennie Mortensenanne Primary Care Provider [phone] Reason for Visit * Reason Comments Hip Pain Dislocation Encounter Details Date Type Department Care Team (Late st Contact Info) Description 05/23/2024 5:48 PM CDT - 05/23/2024 11:06 PM CDT Emergency [facility] Emergency Dept [address] [place] [address] Rober Hernandez MD [facility] [address] [place] [place], [place] [id number] Closed dislocation of right hip, initial encounter (H) (Primary Dx); Right hip pain; S/P total right hip arthroplasty Discharge Disposition: Home or Self Care Social History Tobacco Use Types Packs/Day Years Used Date Smoking Tobacco: Never Assessed Adolescent Education Answer Date Record ed Getting School Help Needed Not on file 05/23 Sex and Gender Information Value Date Recorded Sex Assigned at Not on file Gender Identity Not on file Sexual Orientation Not on file documented as of this encounter Last Filed Vital Signs Vital Sign Reading [...] Mass Index 34.33 05/23/2024 7:58 PM CDT documented in this encounter Discharge Instructions * Discharge Instructions* Rober Hernandez MD - 05/23/2024 6:10 PM CDT Use crutches for walking. Do not put more than toe-touch weight on your right foot. Follow-up with orthopedic surgery for reevaluation of your repeated dislocations. Keep your knees and toes pointed forward when you sit in a chair, walk, or stand. Do not sit with your legs crossed. Do not bend at the waist more than 90??. Be careful when leaning or when moving in bed to keep yourlegs as straight ahead as possible. * Attachments The following attachments cannot be sent through Care Everywhere. * Hip Dislocation (Gabonese) documented in this encounter Medications at Time of Discharge Medication Sig Dispensed Refills Start Date End Date HYDROcodone-acetaminophe n (NORCO) 5-325 MG per tablet Take 1 tablet by mouth every 6 hours as needed for moderate to severe pain or pain 15 tablet 07/11/2017 LEVOTHYROXINE SODIUM PO Take 75 mcg by mouth daily Simvastatin (ZOCOR PO) Take 20 mg by mouth At Bedtime Venlafaxine HCl (EFFEXOR PO) Take 75 mg by mouth daily documented as of this encounter Progress Notes * Kaelyn Toledo RT - 05/23/2024 8:14 PM CDT An ETCO2 monitor was placed on the pt with 7LPM bled in. Pt sats dropped to the mid 70s and ETCO2 to 0. The Ambu bag was used for about 2 minutes, and sat went back up into the high 90s. ETCO2 went up to 42 Suction, and airways were setup and present in the room, but not needed. Pt was able to maintain airway throughout the procedure with no intervention needed. ETCO2 levels were maintained between 33-42 documented in this encounter ED Notes * Barbara Anna RN - 05/23/2024 7:04 PM CDT Bed: ED32 Expected date: Expected time: Means of arrival: Comments: Room 30 * Barbara Milton RN - 05/23/2024 5:51 PM CDT Pt BIBA from home for suspected hip dislocation. Pt had hip replacement 2013 and hip dislocation [id number]. Pt was leaning over in chair and felt her hip slide out. Pain 10/10, pt given 1mg dilaudid by EMS without much relief. VSS, BG 126. * Barbara Anna RN - 05/23/2024 5:48 PM CDT Bed: ED30 Expected date: Expected time: Means of arrival: Comments: [facility]-63 y/o F * Rober Hernandez MD - 05/23/2024 5:48 PM CDTAssociated Order(s): Sedation Emergency Department Note History of Present Illness Chief Complaint Right hip pain HPI Kyleigh Toure is a very pleasant 63 year old female presenting with right hip pain. The patientreports she was sitting in a chair at home, when she leaned down to itch her foot and felt her right hip dislocate. She rates her pain 10/10 at the emergency department. Kyleigh states she has had her right hip dislocated before in 2018, and notes this feels the same. She endorses bilateral hip repl acement surgery, from 2012 and 2013. While present at the emergency department, Kyleigh claims to be experiencing a muscle spasm in her right hip region. Independent Historian None Review of External Notes I personally reviewed notes from the patient's clinic visit dated today. This provided me with information regarding patient's recent clinical course. I personally reviewed the patient's chart, including available medication list and available past medical history, past surgical history, family history, and social history. Physical Exam Patient Vitals for the past 24 hrs: BP Temp Temp src Pulse Resp SpO2 Height Weight 05/23/245 -- -- -- -- -- 97 % -- -- 05/23/242244 128/88 -- -- 84 -- -- -- -- 05/23/242236 -- -- -- -- -- 100 % -- -- 05/23/242231 136/85 -- -- 77 -- -- -- -- 05/23/242218 127/89 -- -- 80 -- 97 % -- -- 05/23/242200 -- -- -- -- -- 92 % -- -- 05/23/242199 (!) 147/99 -- -- 80 -- (!) 86 % -- -- 05/23/242152 -- -- -- 73 -- 93 % -- -- 05/23/242147 133/88 -- -- -- -- -- -- -- 05/23/242127 124/82 -- -- 80 19 100 % -- -- 05/23/242114 121/77 -- -- 81 18 (!) 85 % -- -- 05/23/242103 -- -- -- 82 19 93 % -- -- 05/23/242099 107/77 -- -- 78 16 (!) 87 % -- -- 05/23/242049 128/86 -- -- 76 10 96 % -- -- 05/23/242044 (!) 132/108 -- -- 75 -- -- -- -- 05/23/242043 -- -- -- 76 (!) 32 98 % -- -- 05/23/242029 106/76 -- -- 74 -- -- -- -- 05/23/242029 116/77 -- -- 74 12 100 % -- -- 05/23/242014 103/73 -- -- 79 13 97 % -- -- 05/23/242010 -- -- -- 81 13 99 % -- -- 05/23/242009 111/79 -- -- 90 10 99 % -- -- 05/23/242007 -- -- -- 91 10 (!) 87 % -- -- 05/23/242006 113/89 -- -- 90 12 98 % -- -- 05/23/241999 -- -- -- 78 -- -- -- -- 05/23/241999 131/87 -- -- 79 14 93 % -- -- 05/23/241958 -- -- -- -- (!) 7 -- -- -- 05/23/241957 -- -- -- -- -- -- 1.626 m (5' 4) 90.7 kg (200 lb) 05/23/241944 -- -- -- 84 11 95 % -- -- 05/23/241929 128/82 97.6 ??F (36.4 ??C) Oral 75 12 96 % -- -- 05/23/241929 128/82 -- -- -- -- -- -- -- 05/23/241928 -- -- -- 79 12 96 % -- -- 05/23/241925 -- -- -- 77 13 93 % -- -- 05/23/24 1819 -- -- -- -- -- 98 % -- -- 05/23/24 1753 (!) 141/85 97.5 ??F (36.4 ??C) Oral 95 22 99 % -- -- Physical Exam Vitals and nursing note reviewed. Constitutional: General: She is in acute distress. Appearance: Normal appearance. She is not ill-appearing or diaphoretic. Cardiovascular: Rate and Rhythm: Normal rate. Pulses: Normal pulses. Musculoskeletal: General: No swelling, tenderness, deformity or signs of injury. Comments: Right lower extremity is held in internal rotation of the hip in flexion at the knee. Significant pain with range of motion. Skin: General: Skin is warm and dry. Findings: No bruising or erythema. Neurological: Mental Status: She is alert and oriented to person, place, and time. Sensory: No sensory deficit. Motor: No weakness. Diagnostics Lab Results Labs Ordered and Resulted from Time of ED Arrival to Time of ED Departure - No data to display Imaging XR Pelvis w Hip Right 1 View Final Result IMPRESSION: No comparisons/prereduction film is available. Postoperative changes of bilateral totalhip arthroplasty. Components appear well-seated on this examination and there is no dislocation. Pelvis negative for fracture. Degenerative change at the SI joints bilaterally. XR Pelvis w Hip Right 1 View (Results Pending) EKG No ECG performed. Independent Interpretation See ED Course below ED Course Medications Administered Medications HYDROmorphone (PF) (DILAUDID) injection 0.5 mg (0.5 mg Intravenous $Given 05/23/241924) ondansetron (ZOFRAN) injection 4 mg (4 mg Intravenous $Given 05/23/241922) propofol (DIPRIVAN) injection 10 mg/mL vial (has no administration in time range) HYDROmorphone (DILAUDID) injection 1 mg (1 mg Intravenous $Given 05/23/241802) propofol (DIPRIVAN) injection 10 mg/mL vial (100 mg Intravenous $Given 05/23/242005) [facility] Procedure: Sedation Date/Time: 05/23/2024 8:15 PM Performed by: Rober Hernandez MD Authorized by: Rober Hernandez MD Risks, benefits and alternatives discussed. ED EVALUATION: I have performed an Emergency Department Evaluation including taking a history and physical examination, this evaluation will be documented in the electronic medical record for this ED encounter. ASA Class: Class 2- mild systemic disease, no acute problems, no functional limitations Mallampati: Grade 3- soft palate visible, posterior pharyngeal wall not visible NPO Status: appropriately NPO for procedure UNIVERSAL PROTOCOL Site Marked: Yes Prior Images Obtained and Reviewed: Yes Required items: Required blood products, implants, devices and special equipment available Patient identity confirmed: Verbally with patient and provided demographic data Patient was reevaluated immediately before administering moderate or deep sedation or anesthesia Confirmation Checklist: Patient's identity using two indicators, relevant allergies, procedure was appropriate and matched the consent or emergent situation and correct equipment/implants were available Time out: Immediately prior to the procedure a time out was called [place] Protocol: the Joint Commission [place] Protocol was followed Preparation: Patient was prepped and draped in usual sterile fashion SEDATION Patient Sedated: Yes Sedation: Propofol Vital signs: Vital signs monitored during sedation PROCEDURE Patient Tolerance: Patient tolerated the procedure well with no immediate complications Length of time physician/provider present for 1:1 monitoring during sedation: 5 Dislocation Reduction Procedure: Dislocation Reduction Consent: Written from Patient Risks Discussed: Pain, need for repeat attempts, fracture, neurovascular injury, unsuccessful attempts, and need to go to [place] Protocol: [place] protocol was followed and time out conducted just prior to starting procedure, confirming patient identity, site/side, procedure, patient position, and availability of correct equipment and implants. Indication: Dislocated Hip Right Location: Right Hip Anesthesia/Sedation: Sedation: The patient was sedated, see separate procedure note for details. Procedure Detail: I manipulated the joint including External rotation and Traction-counter traction Post procedure assessment: Gross deformity resolved , Neurovascular intact , and ROM improved Patient Status: The patient tolerated the procedure well: Yes. There were no complications. Discussion of Management See ED Course below Social Determinants of Health adding to complexity of care None. ED Course Independent Interpretation / Discussion of Management / Repeat Assessments ED Course as of 05/23/24 2305 Maria May 23, [id number] I obtained history and examined the patient as noted above 1856 XR Pelvis w Hip Right 1 View I independently interpreted the patient's pelvis and hip x-ray; notable for hip dislocation. 2302 XR Pelvis w Hip Right 1 View I independently interpreted the patient's pelvis and right hip x-ray; successful reduction of dislocation. Medical Decision Making / Diagnosis [facility] Diagnoses: None MIPS None MDM Patient presenting with right hip pain. No history of trauma. High suspicion for hip dislocation based on presentation and patient history. Patient is neurovascularly intact upon arrival. Obtained x-ray of pelvis and right hip, confirming dislocation of artificial hip. This was reduced using procedural sedation as above. Patient was monitored in the emergency department, repeat imaging was performed and showed successful reduction. Patient was provided with crutches and advised to follow-up with orthopedic surgery with toe-touch weightbearing until then. Patient did have some low SpO2 readings while in the emergency department. I did reevaluate her. I suspect this is secondary to the total of 2.5 mg of hydromorphone she received via EMS and while in the emergency department; owing to decrease in sympathetic tone following reduction. On reevaluation, the patient is breathing easily, has no complaints, feels comfortable, SpO2 reading 97%. Patient was discharged. Disposition The patient was discharged. Diagnosis ICD-10-CM 1. Closed dislocation of right hip, initial encounter (H) S73.004A Crutches Order 2. Right hip pain M25.551 3. S/P total right hip arthroplasty Z96.641 Discharge Medications New Prescriptions No medications on file Rober Hernandez MD 05/23/24 9732 documented in this encounter Plan of Treatment Not on file documented as of this encounter Procedures Procedure Name Priority Date/Time Associated Diagnosis Comments XR PELVIS AND HIP RIGHT 1 VIEW STAT 05/23/2024 9:47 PM CDT SEDATION Routine 05/23/2024 8:15 PM CDT XR PELVIS AND HIP RIGHT 1 VIEW STAT 05/23/2024 6:45 PM CDT documented in this encounter Results * XR Pelvis w Hip Right 1 View (05/23/2024 9:47 PM CDT) Anatomical Region Laterality Modality Abdomen/Pelvis Right Digital [...] PELVIS AND HIP RIGHT 1 VIEW LOCATION: [facility] DATE: 05/23/2024 INDICATION: assess dislocation reduction COMPARISON: None. Procedure Note Dwain Jones MD - 05/23/2024 EXAM: XR PELVIS AND HIP RIGHT 1 VIEW LOCATION: [facility] DATE: 05/23/2024 INDICATION: assess dislocation reduction [...] Rober Hernandez MD ? 05/23/2024 11:05 PM [facility] Procedure: Sedation Date/Time: 05/23/2024 8:15 PM [...] procedure a time out was called ?? [place] Protocol: the Joint Commission [place] Protocol was followed ?? Preparation: Patient was prepped and draped in usual sterile fashion ?? SEDATION Patient Sedated: Yes ?? Sedation: ??Propofol Vital signs: Vital signs monitored during sedation ?? PROCEDURE Patient Tolerance: ??Patient tolerated the procedure well with no immediate complications Length of time physician/provider present for 1:1 monitoring during sedation: 5 Rober Hernandez MD PROCEDURE/MINOR SURG ICAL ORDERABLES * XR Pelvis w Hip Right 1 View (05/23/2024 6:45 PM CDT) Anatomical Region Laterality Modality Abdomen/Pelvis Right Digital Radiogra phy 05/23/2024 6:45 PM CDT Impressions 05/24/2024 9:54 AM CDT IMPRESSION: Postoperative changes bilateral total hip arthroplasty. Superolateral dislocation of the right hip. No evidence for fracture but repeat films following reduction recommended. Pelvis negative for fracture. Degenerative change at the SI joint bilaterally. Narrative 05/24/2024 9:54 AM CDT EXAM: XR PELVIS AND HIP RIGHT 1 VIEW LOCATION: [facility] DATE: 05/23/2024 INDICATION: cncern for dislocatin COMPARISON: None. Procedure Note Dwain Jones MD - 05/24/2024 EXAM: XR PELVIS AND HIP RIGHT 1 VIEW LOCATION: [facility] DATE: 05/23/2024 INDICATION: cncern for dislocatin COMPARISON: None. IMPRESSION: Postoperative changes bilateral total hip arthroplasty.Superolateral dislocation of the right hip. No evidence for fracture butrepeat films following reduction recommended. Pelvis negative forfracture. Degenerative change at the SI joint bilaterally. Rober Hernandez MD IMG DIAGNOSTIC IMAGI NG ORDERABLES documented in this encounter Visit Diagnoses Diagnosis Closed dislocation of right hip, initial encounter (H)- Primary Right hip pain Pain in joint, pelvic region and thigh S/P total right hip arthroplasty S/P total right hip arthroplasty documented in this encounter Administered Medications Inactive Administered Medications - up to 3 most recent administrations Medication Order MAR Action Action Date Dose Rate Site HYDROmorphone (DILAUDID) injection 1 mg 1 mg, Intravenous, ONCE, On Maria 05/23/24 at 1800, For 1 dose $Given 05/23/2024 6:03 PM CDT 1 mg HYDROmorphone (PF) (DILAUDID) injection 0.5 mg 0.5 mg, Intravenous, EVERY 30 MIN PRN, severe pain, Starting on Maria 05/23/24 at 1801 $Given 05/23/2024 7:25 PM CDT 0.5 mg ondansetron (ZOFRAN) injection 4 mg 4 mg, Intravenous, EVERY 30 MIN PRN, nausea, vomiting, Administer over 2-5 Minutes, Starting on Maria 05/23/24 at 1809, For 3 doses, May repeat in 30 minutes as needed, up to 3 doses. $Given 05/23/2024 7:23 PM CDT 4 mg $Given 05/23/2024 6:13 PM CDT 4 mg propofol (DIPRIVAN) injection 10 mg/mL vial 91 mg (rounded from 90.7 mg = 1 mg/kg ? 90.7 kg), Intravenous, ONCE, On Maria 05/23/24 at 1850, For 1 dose, Split dose into 20-40 mg increments and give IV push every 10 seconds until induction. Provider must be present. For non-intubated patients follow Deep Sedation Policy. $Given 05/23/2024 8:06 PM CDT 100 mg propofol (DIPRIVAN) injection 10 mg/mL vial 23 mg (rounded from 22.675 mg = 0.25 mg/kg ? 90.7 kg), Intravenous, EVERY 1 MIN PRN, sedation, Starting on Maria 05/23/24 at 1844, IV push every 30-60 seconds to maintain sedation. Provider must be present. For non-intubated patients follow Deep Sedation Policy. documented in this encounter Active and Recently Administered Medications Times are shown in CDT. Scheduled Medication Order 05/21/2024 05/22/2024 05/23/2024 HYDROmorphone (DILAUDID) injection 1 mg (COMPLETED) 1 mg, Intravenous, ONCE, On Maria 05/23/24 at 1800, For 1 dose 1803 ($Given - Provi caroline: Babrara Milton RN) propofol (DIPRIVAN) injection 10 mg/mL vial (COMPLETED) 91 mg (rounded from 90.7 mg = 1 mg/kg ? 90.7 kg), Intravenous, ONCE, On Maria 05/23/24 at 1850, For 1 dose, Split dose into 20-40 mg increments and give IV push every 10 seconds until induction. Provider must be present. For non-intubated patients follow Deep Sedation Policy. 2005 ($Given - Provi caroline: Ishan Wallace RN - Comment: MILO Hernandez) PRN Medication Order 05/21/2024 05/22/2024 05/23/2024 HYDROmorphone (PF) (DILAUDID) injection 0.5 mg 0.5 mg, Intravenous, EVERY 30 MIN PRN, severe pain, Starting on Maria 05/23/24 at 1801 192 ($Given - Provi caroline: Betty Patterson RN) ondansetron (ZOFRAN) injection 4 mg 4 mg, Intravenous, EVERY 30 MIN PRN, nausea, vomiting, Administer over 2-5 Minutes, Starting on Maria 05/23/24 at 1809, For 3 doses, May repeat in 30 minutes as needed, up to 3 doses. 181 ($Given - Provi caroline: Barbara Milton RN)1922 ($Given - Provider: Betty Patterson RN) propofol (DIPRIVAN) injection 10 mg/mL vial 23 mg (rounded from 22.675 mg = 0.25 mg/kg ? 90.7 kg), Intravenous, EVERY 1 MIN PRN, sedation, Starting on Maria 05/23/24 at 1844, IV push every 30-60 seconds to maintain sedation. Provider must be present. For non-intubated patients follow Deep Sedation Policy. 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
--- OUTSIDE RECORDS SUMMARY | 2024-06-12 08:15 | XMS_ITS | Referral Summary ---
Author Organization [place] Address [address] [place] [address] Care Team Providers Care Scrap Crane Operator Name Role Phone Christa Mortensen Primary Care Provider Encounters Date Type Department Care Team Description 05/23/2024 Travel 05/23/2024 5:48 PM CDT - 05/23/2024 11:06 PM CDT Emergency [facility] Emergency Dept [address] [place] [address] Rober Hernandez MD Closed dislocation of right hip, initial encounter (H) (Primary Dx); Right hip pain; S/P total right hip arthroplasty Discharge Disposition: Home or Self Care from Last 3 Months Allergies Active Allergy Reactions Criticality Noted Date [...] renal tumor 05/21/2014 Overview: Overview: cryotherapy at [facility] Chronic insomnia 05/21/2014 Fibromyalgia 05/21/2014 Hyperlipidemia 05/21/2014 Menopause present 05/21/2014 AAKASH on CPAP 05/21/2014 Pulmonary embolism 05/21/2014 Overview: Overview: on BCP. Seasonal allergies 05/21/2014 Squamous cell cancer of skin of forearm 05/21/20 14 Vaginal atrophy 05/21/2014 Social History Tobacco Use Types Packs/Day Years [...] 05/23/2024 7:58 PM CDT Plan of Treatment Not on file Procedures Procedure Name Priority Date/Time Associated Diagnosis [...] PELVIS AND HIP RIGHT 1 VIEW LOCATION: [facility] DATE: 05/23/2024 INDICATION: assess dislocation reduction COMPARISON: None. Procedure Note Dwain Jones MD - 05/23/2024 EXAM: XR PELVIS AND HIP RIGHT 1 VIEW LOCATION: [facility] DATE: 05/23/2024 INDICATION: assess dislocation reduction [...] Rober Hernandez MD ? 05/23/2024 11:05 PM [facility] Procedure: Sedation Date/Time: 05/23/2024 8:15 PM [...] procedure a time out was called ?? [place] Protocol: the Joint [facility] [place] Protocol was followed ?? Preparation: Patient was [...] ORDERABLES from Last 3 Months Care Teams Scrap Crane Operator Relationship Specialty Start Date End Date Christa Mortensen PCP - General Internal Medicine 07/11/17
--- OUTSIDE RECORDS SUMMARY | 2024-06-12 08:16 | XMS_ITS | Encounter Summary ---
Author Organization [facility] Address [address] [place] [address] Care Team Providers Care Weather Strip Mechanic Name Role Phone Elsewhere, Pcp Primary Care Provider Unavailabl e Encounter Details Date Type Department Care Team (Late st Contact Info) Description 04/08/2024 CPAP Download Remote Patient Monitoring [facility] [address] [place] [address] [facility], Provider Social History Tobacco Use Types Packs/Day Years Used Date Smoking Tobacco: Never Passive Smoke Exposure: Past Smokeless Tobacco: Never Passive Exposure Comments:Mo m & Dad Smoked growing up Alcohol Use Standard Drinks/Week Comments Yes 0 (1 standard drink = 0.6 oz pur e alcohol) [facility] Utilities Answer Date Recorded In the past 12 months has e electric, gas, oil, or water [employer] threatened to shut off services in your [...] 09/29/2022 How often do you attend chur ch or catholic services? Never 09/29/2022 Do you belong to any clubs o r organizations such as worship groups, unions, fraternal or athletic groups, or [...] Answer Date Recorded PHQ-2 Score 0 03/18/2022 [facility] - Occupational Stress Questionnaire Answer Date Recorded [...] Date Recorded Dental: Regular Dentist Yes 05/02/20 Employment Answer Date Recorded Employment status Retired 01/01/2024 Housing Stability Answer Date Recorded What is your living situation today? I have a [facility] place to live 01/01/2024 Education Answer Date Recorded What is the highest level of school you have completed or the highest degree you have received? 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, CHERYL) 09/29/2022 Sex and Gender Information Value Date Recorded Sex Assigned at Female 12/17/2018 7:47 AM RADIOLOGY SUPERVISOR Gender Identity Female 12/17/2018 7:47 AM RADIOLOGY SUPERVISOR Sexual Orientation Straight 12/17/2018 7: 47 AM RADIOLOGY SUPERVISOR documented as of this encounter Plan of Treatment Not on file documented as of this encounter Visit Diagnoses Not on filedocumented in this encounter Additional Health Concerns Assessment Noted Time PHQ-9 Depression Total Score: 1 03/18/20 22 7:24 AM CDT documented as of this encounter Care Teams Weather Strip Mechanic Relationship Specialty Start Date End Date Elsewhere, Pcp PCP - General Family Medicine 10/07/21 documented as of this encounter
--- OUTSIDE RECORDS SUMMARY | 2024-06-12 08:16 | XMS_ITS | Encounter Summary ---
Author Organization [facility] Address [address] [place] [address] Care Team Providers Care Wood Buffer Name Role Phone Elsewhere, Pcp Primary Care Provider Unavailabl e Encounter Details Date Type Department Care Team (Late st Contact Info) Description 11/13/2013 Historical Ophthalmology RST OPH Brad Hodges M.D. [facility] [place] [address] Social History Tobacco Use Types Packs/Day Years Used Date Smoking Tobacco: Never Assessed Sex and Gender Information Value Date Recorded Sex Assigned at Female 12/17/2018 7:47 AM SUPERVISOR RESIDENTIAL Gender Identity Female 12/17/2018 7:47 AM SUPERVISOR RESIDENTIAL Sexual Orientation Straight 12/17/2018 7: 47 AM SUPERVISOR RESIDENTIAL documented as of this encounter Progress Notes * Brad Hodges M.D. - 11/13/2013 3:10 PM CST Eye General CHIEF COMPLAINT Shingles HISTORY OF PRESENT ILLNESS Patient states that focusing has been difficult, she also states she is haveing Headache; both eyes; x 3 weeks; improving since first noted; symptoms reported at level of 2/10. Patient denies flashesof light, or floaters. NILES - Confirmed above. IMPRESSION / REPORT / PLAN #1 Zoster V1 distribution, RIGHT No ocular involvement at this time. Completed course of Valtrex Discussed if pain continues in [place] may need to discuss with PCP for treatment of neuropathic pain Dilated exam annually, sooner prn #2 Dry eye syndrome, bilateral preservative free artificial tears prn, humidifier, omega 3 supplements, lid hygiene DIAGNOSIS #1 Zoster V1 distribution, RIGHT #2 Dry eye syndrome, bilateral CDM Reports - EYEGEN Id: [id number] Status: Fnl documented in this encounter Plan of Treatment Not on file documented as of this encounter Visit Diagnoses Not on filedocumented in this encounter Care Teams Wood Buffer Relationship Specialty Start Date End Date Elsewhere, Pcp PCP - General Family Medicine 10/07/21 documented as of this encounter
--- OUTSIDE RECORDS SUMMARY | 2024-06-12 08:16 | XMS_ITS | Clinical Summary ---
Author Organization [facility] Address [place], [place] [address] Care Team Providers Care Die Storage Clerk Name Role Phone Christa Mortensen Primary Care Provider [phone] Allergies Active Allergy Reactions Criticality Noted Date Comments Amoxicillin Hives 03/04/2014 Ampicillin Hives 03/04/2014 Iodinated Contrast Media Cough,Flushing 020 Sulfa (Sulfonamide Antibiotics) Hives 02/14 Medications Medication Sig Dispensed Refills Start Date End Date Status levothyroxine (SYNTHROID) 25 mcg tablet Take 75 mcg by mouth. Active rosuvastatin (CRESTOR) 5 mg tablet Take 5 mg by mouth once daily. 3 09/17/2019 Active ESTRING 2 mg (7.5 mcg /24 hour) vaginal ring INSERT ONE RING INTO THE VAGINA ONCE FOR ONE DOSE, FOLLOW PACKAGE DIRECTIONS 3 09/17/2019 Active triamcinolone, 55 mcg each actuation, nasal (NASACORT AQ) 55 mcg nasal spray Inhale in the nostril(s). 03/04/2014 Active DULoxetine (CYMBALTA) 20 mg Delayed-release capsule Take 20 mg by mouth. 07/13/2020 Acti ve Active Problems No known active problems Social History Tobacco Use Types Packs/Day Years Used Date Smoking Tobacco: Never Smokeless Tobacco: Never Social Connections Answer Date Recorded Frequency of Communication with Friends and Fami ly Not on file 10/16/2021 Financial Resource Strain Answer Date R ecorded Difficulty of Paying Living Expenses Not on file 10/16/2021 Difficulty of Paying Living Expenses Not on file 10/16/2021 Sex and Gender Information Value Date Recorded Sex Assigned at Not on file Gender Identity Not on file Sexual Orientation Not on file Obstetrics History Last Filed Vital Signs Vital Sign Reading Time Taken Comments Blood Pressure 119/60 07/23/2020 5:07 PM CDT Pulse 81 07/23/2020 5:07 PM CDT Temperature 36.9 ??C (98.5 ??F) 09/26/2019 12:[address] Respiratory Rate - - Oxygen Saturation 98% 07/23/2020 5:16 PM CDT Inhaled Oxygen Concentration - - Weight - - Height - - Body Mass Index - - Plan of Treatment Health Maintenance Due Date Last Done Comments Tdap 1970 Depression screening for age 12+ 1971 HIV for age 15-65 1974 BMI (ht and wt on same day) for age 18+ 1977 Hepatitis C screening for ag e 18-79 1977 Tetanus booster 1979 Pap test for age 21-65 1980 Colonoscopy through age 75 2004 Lipids for age 45-75 2004 Mammogram for age 45-75 2004 Zoster (shingles) series for age 50+ (1 of 2) 2009 COVID-19 vaccine series ( - 2022-24 season) 2023 Influenza for age 50-64 06/16/2024 Pneumococcal series for age 6-64 Aged Out No longer eligible based on patient's age to complete this topic Care Teams Die Storage Clerk Relationship Specialty Start Date End Date Christa Mortensen PCP - General 09/26/19
--- OUTSIDE RECORDS SUMMARY | 2024-06-12 08:16 | XMS_ITS | Encounter Summary ---
Author Organization [facility] Address [address] [place] [address] Care Team Providers Care Goring Cutter Name Role Phone Elsewhere, Pcp Primary Care Provider Unavailabl e Reason for Visit * Outpatient (Routine) - Closed Specialty Diagnoses / Procedures Referred By Nathalia t Referred To Contact Orthopedic Surgery Steven Hui M.D. [address] [place] [phone] Hamzah Todd M.D. [address] [place] [phone] Referral ID Status Reason Start Date Expiration Date Visits Re quested Visits Authorized [id number] Closed 05/26/2024 2025 1 1 Encounter Details Date Type Department Care Team (Late st Contact Info) Description 05/29/2024 2:00 PM CDT Office Visit Department of Orthopedic Surgery in [place], [place] [address] [place] [phone] Hamzah Todd M.D. [address] [place] [phone] Instability Total Hip Arthroplasty Initial Right (HCC) (Primary Dx) Social History Tobacco Use Types Packs/Day Years Used Date Smoking Tobacco: Never Passive Smoke Exposure: Past Smokeless Tobacco: Never Passive Exposure Comments:Mo m & Dad Smoked growing up Alcohol Use Standard Drinks/Week Comments Yes 0 (1 standard drink = 0.6 oz pur e alcohol) [facility] Utilities Answer Date Recorded In the past 12 months has e electric, gas, oil, or water company [...] How often do you attend chur or latter day services? Never 09/29/2022 Do you belong to [...] Answer Date Recorded PHQ-2 Score 0 03/18/2022 [facility] - Occupational Stress Questionnaire Answer Date Recorded [...] 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, ACCESS REP, CHERYL) 09/29/2022 Sex and Gender Information Value Date Recorded Sex Assigned at Female 12/17/2018 7:47 AM GARMENT TAG STRINGER Gender Identity Female 12/17/2018 7:47 AM GARMENT TAG STRINGER Sexual Orientation Straight 12/17/2018 7: 47 AM GARMENT TAG STRINGER documented as of this encounter Progress Notes * Hamzah Todd M.D. - 05/29/2024 2:00 PM CDT SUBJECTIVE CHIEF COMPLAINT/REASON FOR VISIT Right hip recurrent instability. HISTORY OF PRESENT ILLNESS The patient is a delightful 63-year-old woman well known to me. She underwent ceramic on polyethylene right total hip replacement back in 2013. She had an early subluxation episode within the first 6weeks or so of surgery and sustained a true dislocation requiring closed reduction under anesthesiain 2017. She had been doing very well until approximately 1 week ago when she engaged in a flexion internal rotation maneuver to scratch her leg and sustained another dislocation. This was successfully treated at an outside hospital with closed reduction. Since this episode, she is not having any apprehension, but does have some discomfort and some lateral clicking sensation. She has been rather cautious and has been using crutches. OBJECTIVE PHYSICAL EXAMINATION General: Awake and alert. No acute distress. Musculoskeletal : She is walking with a level gait. She has good motor strength to manual motor testing. I did not stress range of motion. Her neurovascular examination distally is grossly intact forstrength and sensation. DIAGNOSTICS Plain radiographs show well-fixed implants in good position. There is no evidence for implant damage. There is no evidence for wear or osteolysis. She does have some degenerative change in the visualized lower lumbar spine. ASSESSMENT / PLAN #1 Recurrent instability, status post primary right total hip arthroplasty PLAN: I had a lengthy discussion with the patient and her today. We reviewed options to include muscle strengthening with continued hip precautions plus or minus planning for revision surgery. We discussed the revision surgery in detail. This would most likely entail acetabular revision with slight component reorientation and conversion to a dual-mobility articulation. At this time, she would like to go ahead and start planning for surgery. She understands that the risk of continued dislocation episodes is rather high at this point, given her multiple prior dislocations as well as the length of time since her surgery to this dislocation episode. The patient does have some travel upcoming, and we will do our best to identify a time that works for her for surgical scheduling. All questions answered. Hamzah Todd M.D. CT CT Job ID: [id number] documented in this encounter Plan of Treatment Not on file documented as of this encounter Visit Diagnoses Diagnosis Instability Total Hip Arthroplasty Initial Right (HCC)- Primary documented in this encounter Additional Health Concerns Assessment Noted Time PHQ-9 Depression Total Score: 1 03/18/20 22 7:24 AM CDT documented as of this encounter Care Teams Goring Cutter Relationship Specialty Start Date End Date Elsewhere, Pcp PCP - General Family Medicine 10/07/21 documented as of this encounter
--- OUTSIDE RECORDS SUMMARY | 2024-06-12 08:16 | XMS_ITS | Encounter Summary ---
Author Organization [facility] Address [address] [place] [address] Care Team Providers Care Director University Name Role Phone Elsewhere, Pcp Primary Care Provider Unavailabl e Encounter Details Date Type Department Care Team (Late st Contact Info) Description 11/01/2013 Historical Ophthalmology RST OPH Brad Hodges M.D. [facility] [place] [address] Social History Tobacco Use Types Packs/Day Years Used Date Smoking Tobacco: Never Assessed Sex and Gender Information Value Date Recorded Sex Assigned at Female 12/17/2018 7:47 AM OSCILLOGRAPH TECHNICIAN Gender Identity Female 12/17/2018 7:47 AM OSCILLOGRAPH TECHNICIAN Sexual Orientation Straight 12/17/2018 7: 47 AM OSCILLOGRAPH TECHNICIAN documented as of this encounter Progress Notes * Brad Hodges M.D. - 11/01/2013 2:40 PM CST Eye General CHIEF COMPLAINT Shingles, right forehead HISTORY OF PRESENT ILLNESS Shingles; right forehead area; x 2 days; constant; worse since first noticed. Feels like she is having a hard time finding clear vision is glasses. NILES - Confirmed above. IMPRESSION / REPORT / PLAN #1 Zoster V1 distribution, RIGHT No ocular involvement at this time. Started Valtrex 1g TID today given by PCP RTC 10-14 days to reassess for any uveitis component and recheck IOP, sooner prn worsening DIAGNOSIS #1 Zoster V1 distribution, RIGHT CDM Reports - EYEGEN Id: [id number] Status: Fnl documented in this encounter Plan of Treatment Not on file documented as of this encounter Visit Diagnoses Not on filedocumented in this encounter Care Teams Director University Relationship Specialty Start Date End Date Elsewhere, Pcp PCP - General Family Medicine 10/07/21 documented as of this encounter
--- OUTSIDE RECORDS SUMMARY | 2024-06-12 08:16 | XMS_ITS | Encounter Summary ---
Author Organization [facility] Address [address] [place] [address] Care Team Providers Care Brokerage Clerk Name Role Phone Elsewhere, Pcp Primary Care Provider Unavailnoé e Reason for Referral * Outpatient (Routine) - Closed Specialty Diagnoses / Procedures Referred By Nathalia t Referred To Contact Diagnoses Arthroplasty Total Hip Replacement Status Post Right Procedures DX Hip And Pelvis Right 2-3 Views DX Hip And Pelvis Right 4+ Views Steven Hui M.D. 200 [place] [phone] [facility] Referral ID Status Reason Start Date Expiration Date Visits Re quested Visits Authorized [id number] Closed 05/26/2024 05/26/2025 1 1 * Outpatient (Routine) - Closed Specialty Diagnoses / Procedures Referred By Nathalia t Referred To Contact Orthopedic Surgery Steven Hui M.D. 200 [place] [phone] Hamzah Todd M.D. 200 [place] [phone] Referral ID Status Reason Start Date Expiration Date Visits Re quested Visits Authorized [id number] Closed 05/26/2024 2025 1 1 Reason for Visit * Reason Onset Date Comments Return Call Request 05/24/2024 Encounter Details Date Type Department Care Team (Latest Contact Info) Description 05/24/2024 Clinical Communication Department of Orthopedic Surgery in [place], [place] 200 [place] [address] Hamzah Todd M.D. 200 [place] [phone] Return Call Request Social History Tobacco Use Types Packs/Day Years Used Date Smoking Tobacco: Never Passive Smoke Exposure: Past Smokeless Tobacco: Never Passive Exposure Comments:Mo m & Dad Smoked growing up Alcohol Use Standard Drinks/Week Comments Yes 0 (1 standard drink = 0.6 oz pur e alcohol) [facility] Utilities Answer Date Recorded In the past 12 months has e electric, gas, oil, or water [employer] threatened to shut off services in your [...] often do you attend chur ch or restoration services? Never 09/29/2022 Do you belong to any clubs o r organizations such as muslim groups, unions, fraternal or athletic groups, or [...] Answer Date Recorded PHQ-2 Score 0 03/18/2022 [facility]at [facility] - Occupational Stress Questionnaire Answer Date [...] your living situation today? I have a [facility] place to live 01/01/2024 Education Answer Date Recorded What is the highest level of school you have completed or the highest degree you have received? 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, ACTING MANAGER, CHERYL) 09/29/2022 Sex and Gender Information Value Date Recorded Sex Assigned at Female 12/17/2018 7:47 AM AFTER SCHOOL TEACHER Gender Identity Female 12/17/2018 7:47 AM AFTER SCHOOL TEACHER Sexual Orientation Straight 12/17/2018 7: 47 AM AFTER SCHOOL TEACHER documented as of this encounter Miscellaneous Notes * Telephone Encounter - Steven Hui M.D. - 05/26/2024 7:21 PM CDT I spoke with Mrs. Kyleigh Edgar over the phone this afternoon. Recall that she underwent right THAwith Dr. Todd in 2013. This was complicated by a provoked dislocation (combination flexion-internal rotation position) in 2016 that was closed reduced at an OSH. She was seen in Dr. Todd's clinic shortly thereafter and recommended to return to activities involving the hip as tolerated, and counseled on hip dislocation precautions. Unfortunately, she patient reports sustaining another provoked dislocation last week 05/23/24. This was successfully close reduced in [place] [facility]. Since that time she has remained nonweightbearing on the right hip with crutches, per the recommendations of the ED providers. She denies current pain within the hip, and denies any antecedent sensations of pain or instability leading up to her most recent dislocation. I recommended that she remain touch weightbearing on the right lower extremity, to maintain strict posterior hip precautions, and orders were placed for her to return to Dr. Todd clinic on a first available basis (with XR to precede) for re-evaluation and further discussion. The patient expressed understanding of and agreement with this treatment plan. All questions and concerns were addressed. Steven Hui MD Resident to Dr. Todd documented in this encounter Plan of Treatment Scheduled Referrals Name Type Priority Associated Diagnoses Order Schedule Orthopedic Surgery office visit (clinic) Outpatient Referral Routine Expected: 05/26/2024, Expires: 08/26/2025 documented as of this encounter Results * DX Hip And Pelvis Right [...] and pubic symphysis.Bilateral greater trochanter enthesopathy. Steven Hui M.D. IMG DIAGNOSTIC IMAGI NG PROCEDURES documented in this encounter Visit Diagnoses Diagnosis Arthroplasty Total Hip Replacement Status Post Right- Primary Arthroplasty Total Hip Replacement Status Post Right documented in this encounter Additional Health Concerns Assessment Noted Time PHQ-9 Depression Total Score: 1 03/18/20 22 7:24 AM CDT documented as of this encounter Care Teams Brokerage Clerk Relationship Specialty Start Date End Date Elsewhere, Pcp PCP - General Family Medicine 10/07/21 documented as of this encounter
--- OUTSIDE RECORDS SUMMARY | 2024-06-12 08:16 | XMS_ITS | Encounter Summary ---
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 [address] [place] [phone] [facility] Referral ID Status Reason Start Date Expiration Date Visits Re quested Visits Authorized [id number] Closed 05/26/2024 05/26/2025 1 1 Encounter Details Date Type Department Care Team (Latest Contact Info) Description 05/29/2024 12:45 PM CDT - 05/29/2024 11:59 PM CDT Hospital Encounter Department of Radiology, [facility], in [place], [place] [address] [place] [address] Steven Hui M.D. 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 Never 09/29/2022 Do you belong to any clubs o r organizations such as orthodoxy groups, unions, fraternal or athletic groups, or [...] Answer Date Recorded PHQ-2 Score 0 03/18/2022 [facility] of Occupat ional [facility] - Occupational Stress Questionnaire Answer Date [...] 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, ROOM SERVICE ATTENDANT, CHERYL) 09/29/2022 Sex and Gender Information Value Date Recorded Sex Assigned at Female 12/17/2018 7:47 AM GAS DISPATCHER Gender Identity Female 12/17/2018 7:47 AM GAS DISPATCHER Sexual Orientation Straight 12/17/2018 7: 47 AM GAS DISPATCHER documented as of this encounter Medications at Time of Discharge Medication Sig Dispensed Refills Start Date End Date ALPRAZolam (Xanax) 0.5 mg tablet Take 1 tablet (0.5 mg total) by mouth as needed for anxiety. For flying 15 tablet 3 01/13/2022 amitriptyline (ELAVIL) 25 mg tablet Take 25 mg by mouth at bedtime. 06/28/2023 cetirizine HCl (ZYRTEC ORAL) Take 1 tablet by mouth daily as needed. DME CPAPIndications:Obstruct chris Sleep Apnea Adult DME Order 1 Device 05/03/2021 DULoxetine (CYMBALTA) [address] capsuleIndications:Fibro myalgia Take 1 capsule (20 mg total) by mouth daily. 90 capsule 02/27/2023 levothyroxine (SYNTHROID, LEVOTHROID) 75 mcg tabletIndications:Nodule Thyroid Take 1 tablet (75 mcg total) by mouth every morning before breakfast. 30 tablet 02/27/2023 rosuvastatin (CRESTOR) 10 mg tablet Take 10 mg by mouth daily. 04/28/2023 triamcinolone (NASACORT) 55 mcg/actuation nasal spray INSTILL 2 SPRAYS IN EACH NOSTRIL DAILY. 6.7 mL 1 11/16/2022 Wegovy 0.25 mg/0.5 mL pen injector injection 0.25 mg. 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
--- OUTSIDE RECORDS SUMMARY | 2024-06-12 08:16 | XMS_ITS | Encounter Summary ---
Author Organization [facility] Address [address] [place] [address] Care Team Providers Care Information Technology Professor Name Role Phone Elsewhere, Pcp Primary Care Provider Unavailabl e Reason for Visit * Reason Onset Date Comments Pre-visit Intake 05/28/2024 Encounter Details Date Type Department Care Team (Latest Contact Info) Description 05/28/2024 10:30 AM CDT Clinical Communication Virtual Review in [place], [place] [address] [place] [address] Pre-visit Intake Social History Tobacco Use Types Packs/Day Years Used Date Smoking Tobacco: Never Passive Smoke Exposure: Past Smokeless Tobacco: Never Passive Exposure Comments:Mo m & Dad Smoked growing up Alcohol Use Standard Drinks/Week Comments Yes 0 (1 standard drink = 0.6 oz pur e alcohol) [facility] Utilities Answer Date Recorded In the past 12 months has [facility] [employer], gas, oil, or water [employer] threatened to shut off services in your [...] often do you attend chur ch or nondenominational services? Never 09/29/2022 Do you belong to any clubs o r organizations such as jain groups, unions, fraternal or athletic groups, or [...] Answer Date Recorded PHQ-2 Score 0 03/18/2022 [facility] Questionnaire Answer Date [...] your living situation today? I have a [facility] place to live 01/01/2024 Education Answer Date Recorded What is the highest level of school you have completed or the highest degree you have received? 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, SEED CUTTER, CHERYL) 09/29/2022 Sex and Gender Information Value Date Recorded Sex Assigned at Female 12/17/2018 7:47 AM CIO Gender Identity Female 12/17/2018 7:47 AM CIO Sexual Orientation Straight 12/17/2018 7: 47 AM CIO documented as of this encounter Plan of Treatment Not on file documented as of this encounter Visit Diagnoses Not on filedocumented in this encounter Additional Health Concerns Assessment Noted Time PHQ-9 Depression Total Score: 1 03/18/20 22 7:24 AM CDT documented as of this encounter Care Teams Information Technology Professor Relationship Specialty Start Date End Date Elsewhere, Pcp PCP - General Family Medicine 10/07/21 documented as of this encounter
--- OUTSIDE RECORDS SUMMARY | 2024-06-12 08:16 | XMS_ITS | Encounter Summary ---
Author Organization [facility] Address [address] [place] [address] Care Team Providers Care Graphic Design Teacher Name Role Phone Elsewhere, Pcp Primary Care Provider Unavailabl e Encounter Details Date Type Department Care Team (Late st Contact Info) Description 08/06/2007 Historical Ophthalmology [facility] O[facility] Felicitas Flores M.D. Social History Tobacco Use Types Packs/Day Years Used Date Smoking Tobacco: Never Assessed Sex and Gender Information Value Date Recorded Sex Assigned at Female 12/17/2018 7:47 AM SURVEYOR GEOPHYSICAL PROSPECTING Gender Identity Female 12/17/2018 7:47 AM SURVEYOR GEOPHYSICAL PROSPECTING Sexual Orientation Straight 12/17/2018 7: 47 AM SURVEYOR GEOPHYSICAL PROSPECTING documented as of this encounter Progress Notes * Felicitas Flores M.D. - 08/06/2007 2:48 PM CDT Eye General CHIEF COMPLAINT Patient states headaches and vertigo HISTORY OF PRESENT ILLNESS Automated visual field completed. States that she has had headaches for years. Vertigo started before labor day 07. Earlier in the year she had a severe headache and at that time she noted blurred vision in the right eye off to the right. It resolved in a few minutes. No numbness or tingling. Aleveusually relieves the headaches. Denies eye pain, flashing lights or double vision. JAL: She wasn't having any field defects but on the internists exam she couldn't see fingers way down to the left. Had side vision problems for an hour with a RODNEY ~ a year ago. Hx of migraines and fibromyalgia. IMPRESSION / REPORT / PLAN #1 Visual field report, Normal visual field both eyes. #2 Headache, with no ocular cause, with no ocular findings. #3 Vertigo, with no ocular cause, with no ocular findings. DIAGNOSIS #1 Visual field report, Normal visual field both eyes. #2 Headache, with no ocular cause, with no ocular findings. #3 Vertigo, with no ocular cause, with no ocular findings. CDM Reports - EYEGEN Id: [id number] Status: Fnl documented in this encounter Plan of Treatment Not on file documented as of this encounter Visit Diagnoses Not on filedocumented in this encounter Care Teams Graphic Design Teacher Relationship Specialty Start Date End Date Elsewhere, Pcp PCP - General Family Medicine 10/07/21 documented as of this encounter
--- OUTSIDE RECORDS SUMMARY | 2024-06-12 08:16 | XMS_ITS | Clinical Summary ---
Author Organization [facility] Address [address], [place] [address] Care Team Providers Care Gas Station Clerk Name Role Phone Nilda Molina MD Primary Care Provider + [phone] Source Comments You are receiving this document as you are listed as the primary care provider,follow-up provider, or the patient has been referred to you for consultation.This is in compliance with the Medicare andMedicaid EHR Incentive Program,which states Providers who transition their patient to another setting of careor provider of care or refers their patient to another provider of care shouldprovide summary care record for each transition of care or referral. Supremex Allergies Active Allergy Reactions Criticality Noted Date Comments Amoxicillin 03/04/2014 Ampicillin 03/04/2014 Iodinated Contrast Media Rash 09/13/2021 Erythromycin 11/01/2013 Other reaction(s): GI intolerance Sulfa Antibiotics Hives 03/04/2014 Medications Medication Sig Dispensed Refills Start Date End Date Status ESTRADIOL VAGINAL (AKA ESTRING) [address] 2 mg vaginally every 3 months. Insert 1 ring. Remove and replace with a new ring every 3 months 05/21/2014 Active simvastatin (AKA ZOCOR) 10 MG tabletIndications:H yperlipidemia (HRC) Take 1 tablet by mouth nightly. 90 tablet 3 05/21/2014 Active diphenhydrAMINE (AKA BENADRYL) 25 MG capsule Take 25 mg by mouth every 6 hours as needed for Itching. taking two tablets nightly 12/26/2014 Active Triamcinolone Acetonide (NASACORT NA) Place into each nostril. Two puffs in each nostril daily 03/04/2014 Active venlafaxine (EFFEXOR) 75 MG tablet Take 75 mg by mouth daily (every 24 hours). 03/04/2014 Active levothyroxine (SYNTHROID) 25 MCG tablet Take 75 mcg by mouth. Active simvastatin (ZOCOR) 40 MG tablet Take 40 mg by mouth daily at bedtime. Active ALBUterol sulfate HFA 108 (90 Base) MCG/ACT inhaler Inhale 1-2 Puffs every 4 hours as needed for Wheezing. 1 Inhaler 02/09/2019 Active Additional Information Patient not taking.Reported on 09/13/2021 guaifenesin-codeine (ROBITUSSINAC) 100-10 MG/5ML solution Take 5 mL by mouth every 4 hours as needed. 118 mL 02/09/2019 Active Additional Information Patient not taking.Reported on 09/13/2021 DULoxetine (CYMBALTA) 20 MG capsule 07/08/2021 Active rosuvastatin (CRESTOR) 5 MG tablet 07/08/2021 Active naproxen sodium (ANAPROX) 220 MG tablet Take 220 mg by mouth two times a day with meals. Active Active Problems Problem Noted Date Diagnosed Date Thyroid nodule 09/19/2016 Pulmonary nodule 09/19/2016 Fibromyalgia 05/21/2014 Hyperlipidemia 05/21/2014 AAKASH on CPAP 05/21/2014 Chronic insomnia 05/21/2014 Seasonal allergies 05/21/2014 Menopause 05/21/2014 Pulmonary embolism 05/21/2014 Overview (05/20/2016): on BCP. 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 at [place] Squamous cell cancer of skin of forearm 05/21/20 14 Immunizations Name Administration Dates Next Due Influenza IIV4 (Quadrivalent) 0.5mL (88048) 02/2016,07/21/2015,06/11/2014 PPSV23 (Pneumovax) 02/22/2012 TDAP (BOOSTRIX) 04/13/2011 Family History Medical History Relation Name Comments Early Father Heart Attack Father Heart Disease Father High Cholesterol Father Cancer Mother Cancer, Lung Mother Heart Disease Maternal Grandfather High Cholesterol Maternal Grandfather Arthritis Maternal Grandmother Stroke Maternal Grandmother Heart Disease Paternal Grandfather High Cholesterol Paternal Grandfather Stroke Paternal Grandmother Miscarriages / Stillbirths Sister Relation Name Status Comments Father (Age 51) Mother Alive Daughter Alive Maternal Grandfather Maternal Grandmother Paternal Grandfather Paternal Grandmother Sister Alive 2 Social History Tobacco Use Types Packs/Day Years Used Date Smoking Tobacco: Never Smokeless Tobacco: Never Alcohol Use Standard Drinks/Week Comments Yes 2 (1 standard drink = 0.6 oz pur e alcohol) occasionally Sex and Gender Information Value Date Recorded Sex Assigned at Not on file Gender Identity Not on file Sexual Orientation Not on file Last Filed Vital Signs Vital Sign Reading Time Taken Comments Blood Pressure 120/79 09/13/2021 4:57 PM NETWORK PRICING CONSULTANT Pulse 73 09/13/2021 4:57 PM NETWORK PRICING CONSULTANT Temperature 36.4 ??C (97.5 ??F) 04/26/2022 4:52 PM CD T Respiratory Rate 20 09/13/2021 4:57 PM NETWORK PRICING CONSULTANT Oxygen Saturation 97% 09/13/2021 4:57 PM NETWORK PRICING CONSULTANT Inhaled Oxygen Concentration - - Weight 101.6 kg (224 lb) 04/26/2022 4:52 PM CDT Height 162.6 cm (5' 4) 04/26/2022 4:52 PM CDT Body Mass Index 38.45 04/26/2022 4:52 PM CDT Plan of Treatment Health Maintenance Due Date Last Done Comments Cervical Cancer Screening Due 1959 Hep C Screening (Preventive Services) 1959 HIV Screening (Preventive Services) 1975 Adult Preventive Visit 1977 Cholesterol 2004 Colonoscopy 10/16/2018 10/16/2008 (Completed) Mammogram 11/20/2018 11/20/2017 (Completed) COVID-19 Vaccine ( season) 2023 01/14/2022, 08/30/2021, 02/01/2021, Additional history exists Influenza (#1) 2024 07/28/2021, 06/17, 08/11/2019, Additional history exists DTaP/Tdap/Td (3 - Tdap) 01/14/2032 01/14/20 22, 04/13/2011, 05/16/2003, Additional history exists Pneumococcal Aged Out 02/22/2012 No longer eligi ble based on patient's age to complete this topic Zoster/Shingles Completed 04/01/2019, 01/12/2019 HepA Aged Out No longer eligi ble based on patient's age to complete this topic HepB Aged Out No longer eligi ble based on patient's age to complete this topic Hib Aged Out No longer eligi ble based on patient's age to complete this topic IPV (Polio) Aged Out No longer eligi ble based on patient's age to complete this topic MCV4 Aged Out No longer eligi ble based on patient's age to complete this topic Care Teams Gas Station Clerk Relationship Specialty [place] [address] [place] [address] PCP - General Family Practice 06/07/21
--- OUTSIDE RECORDS SUMMARY | 2024-06-12 08:16 | XMS_ITS | Referral Summary ---
Author Organization [facility] Address [address] [place] [address] Care Team Providers Care Offset Proof Press Operator Name Role Phone Elsewhere, Pcp Primary Care Provider Unavailabl e Source Comments Patient records contain information from all sites at [facility]. For routine questions regarding patient records, call [phone] during business hours, M-F 8:00 AM - 5:00 PM Central Time. Record requests for emergency care only can be directed to [phone] at any time.[facility] Encounters Date Type Department Care Team Description 06/09/2024 CPAP Download Remote Patient Monitoring [facility] [address] [place] [address] [facility], Provider 05/29/2024 12:45 PM CDT - 05/29/2024 11:59 PM CDT Hospital Encounter Department of Radiology, [facility], in [place], [place] [address] [place] [phone] Steven Hui M.D. Arthroplasty Total Hip Replacement Status Post Right Discharge Disposition: Home or Self Care 05/29/2024 2:00 PM CDT Office Visit Department of Orthopedic Surgery in [place], [place] [address] [place] [phone] Hamzah Todd M.D. Instability Total Hip Arthroplasty Initial Right (HCC) (Primary Dx) 05/28/2024 10:30 AM CDT Clinical Communication Virtual Review in [place], [place] 200 [place] [address] Pre-visit Intake 05/24/2024 Clinical Communication Department of Orthopedic Surgery in [place], [place] [address] [place] [phone] Hamzah Todd M.D. Return Call Request 05/23/2024 1:00 PM CDT Clinical Support Department of Dermatology in [place], [place] [address] [place] [address] Nabila Guerrero, ION, PJuan AAVanda Enriquez R.N. Keratosis Actinic Discharge Disposition: Home or Self Care 05/09/2024 CPAP Download Remote Patient Monitoring [facility] [address] [place] [address] [facility], Provider 04/08/2024 CPAP Download Remote Patient Monitoring [facility] [address] [place] [address] [facility], Provider from Last 3 Months Allergies Active Allergy [...] 12/19/2018 Overview (12/19/2018): Overview: Overview: cryotherapy at [facility] Keratosis Seborrheic 04/20/2012 019 Immunizations Name Administration Dates Next Due H1N1 All Forms 12/07/2009 Influenza (IM) Preservative Free 08/08/2011,08/16 Influenza Split 07/16/2017, 6,06/16/2015,2013,07/16/2013,07/16/2011,08/11/2010,0 06/19/2009,08/27/2003,08/16/2002, 996 Influenza, Injectable, Mdck, Preservative Free, Quadrivalent 07/11/2022,07/19/2017 Influenza, Seasonal, Injectable 07/18/20 13,08/06/2007,09/14/2006,2002,08/16/2002,10/16/1995 Influenza, Unspecified 07/28/2021,2014,06/11/2014,2010,08/11/2010,06/19/2009 PPSV23 02/22/2012 RZV (SHINGRIX) 04/01/2019, 9,12/19/2018(Deferr ed: Not available from mail sorting supervisor) SARS-COV-2 (COVID-19) - MODERNA(Discontinued) 01/04/2021 Td (Adult), adsorbed 05/16/2003,10/16/1992 Td, (Adult) Unspecified 05/16/2003,10/16/1992 Tdap 01/13/2022,04/13/2011 influenza high dose (65 year s or older) (PF) 07/16/2017,07/16/2016,06/16/2015 influenza vaccine quad (FLUZONE/FLUARIX) (6 months and older)(PF) 07/11/2020,08/11/2019,07/09/2018,2015,07/21/2015,06/11/2014 Social History Tobacco Use Types Packs/Day Years Used Date Smoking Tobacco: Never Passive Smoke Exposure: Past Smokeless Tobacco: Never Passive Exposure Comments:Mo m & Dad Smoked growing up Alcohol Use Standard Drinks/Week Comments Yes 0 (1 standard drink = 0.6 oz pur e alcohol) [facility] Utilities Answer Date Recorded In the past 12 months has e [employer], gas, oil, or water [employer] threatened to shut off services in your [...] How often do you attend chur or adventist services? Never 09/29/2022 Do you belong to any clubs o r organizations such as restorationist groups, unions, fraternal or athletic groups, or [...] Answer Date Recorded PHQ-2 Score 0 03/18/2022 [facility] [place] of Occupat ional Health - Occupational Stress [...] your living situation today? I have a [facility] place to live 01/01/2024 Education Answer Date Recorded What is the highest level of school you have completed or the highest degree you have received? 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, DIRECTOR PART, CHERYL) 09/29/2022 Sex and Gender Information Value Date Recorded Sex Assigned at Female 12/17/2018 7:47 AM LUMBER SORTER Gender Identity Female 12/17/2018 7:47 AM LUMBER SORTER Sexual Orientation Straight 12/17/2018 7: 47 AM LUMBER SORTER Last Filed Vital Signs Vital Sign Reading [...] 04/28/2023 7:58 AM CDT Plan of Treatment Not on file Medical Devices Implanted Type Area Supplier Diversity Director Device Identifier Shelf Expiration Date Model / Serial / Lot Hardware E.G. Pins/Screws/Ro ds Hardware e.g. pins/screws/ rods Neck Description:Clips present af ter thyroid removal. Guide Wire-Ball Tip 3 X 800 - [place]r [id number] Implanted:Qty: 1 on 05/07/2013 Hardware e.g. pins/screws/ rods [place] Description:Device Manufactu rer - Ivelisse Bandar.. Device Status Text - HARDWARE- 84067. GELA Data - [id number]. [place] Screw 2 Canc 6.5 X 20 - [place]r [id number] Implanted:Qty: 1 on 05/07/2013 Hardware e.g. pins/screws/ rods [employer] Description:Device Manufactu rer - [employer]. Device Status Text - HARDWARE-24157. [place] Screw 2 Canc 6.5 X 25 - [place]r [id number] Implanted:Qty: 1 on 05/07/2013 Hardware e.g. pins/screws/ rods [employer] Description:Device Manufactu rer - [employer]. Device Status Text - HARDWARE-79054. [place] Screw 2 Canc 6.5 X 15 - [place]r [id number] Implanted:Qty: 2 on 05/07/2013 Hardware e.g. pins/screws/ rods [employer] Description:Device Manufactu rer - [employer]. Device Status Text - HARDWARE-61667. Guide Wire-Ball Tip 3 X 800 - [place] [id number] Implanted:Qty: 1 on 10/22/2013 Hardware e.g. pins/screws/ rods [place] Description:Device Manufactu rer - Ivelisse Bandar.. Device Status Text - HARDWARE- 71732. GELA Data - [id number]. [place] Screw 2 Canc 6.5 X 15 - [place] [id number] Implanted:Qty: 1 on 10/22/2013 Hardware e.g. pins/screws/ rods [employer] Description:Device Manufactu rer - [employer]. Device Status Text - HARDWARE-79444. [place] Screw 2 Canc 6.5 X 25 - [place] [id number] Implanted:Qty: 2 on 10/22/2013 Hardware e.g. pins/screws/ rods [employer] Description:Device Manufactu rer - [employer]. Device Status Text - HARDWARE-78810. [place] Liner Altrx +4 Neut 32x48 - Orr [id number] Implanted:Qty: 1 on 05/07/2013 Hip Implant Other/Legacy - See Implant Description [employer] Description:Device Manufactu rer - [employer]. Body Location - Other. Left. Device Status Text - HIP [id number]. [place] Shell Multi 2 48mm - Orr [id number] Implanted:Qty: 1 on 05/07/2013 Hip Implant Other/Legacy - See Implant Description [employer] Description:Device Manufactu rer - [employer]. Body Location - Other. Left. Device Status Text - HIP [id number]. [place]em [place] 3 Hi - Orr [id number] Implanted:Qty: 1 on 05/07/2013 Hip Implant Other/Legacy - See Implant Description [employer] Description:Device Manufactu rer - [employer]. Body Location - Other. Left. Device Status Text - HIP [id number]. Delta-Head Ceramic 32mm +1 - Orr [id number] Implanted:Qty: 1 on 05/07/2013 Hip Implant Other/Legacy - See Implant Description [employer] Description:Device Manufactu rer - [employer]. Body Location - Other. Left. Device Status Text - HIP [id number]. Delta-Head Ceramic 32mm +1 - Orr [id number] Implanted:Qty: 1 on 10/22/2013 Hip Implant Other/Legacy - See Implant Description [employer] Description:Device Manufactu rer - [employer]. Body Location - Other. Right. Device Status Text - HIP [id number]. Stem [place] 3x Hi 135 - Orr [id number] Implanted:Qty: 1 on 10/22/2013 Hip Implant Other/Legacy - See Implant Description [employer] Description:Device Manufactu rer - [employer]. Body Location - Other. Right. Device Status Text - HIP IMP-538164. [place] Shell Multi 2 48mm - Orr [id number] Implanted:Qty: 1 on 10/22/2013 Hip Implant Other/Legacy - See Implant Description [employer] Description:Device Manufactu rer - [employer]. Body Location - Other. Right. Device Status Text - HIP [id number]. [place] Liner Altrx +4 Neut 32x48 - Orr [id number] Implanted:Qty: 1 on 10/22/2013 Hip Implant Other/Legacy - See Implant Description [employer] Description:Device Manufactu rer - [employer]. Body Location - Other. Right. Device Status Text - HIP [id number]. Mitralclip-10/16 Implanted:10/2016 (Quantity not on file) Mitralclip [...] In System IMG DIAGNOSTIC IM AGING PROCEDURES IIMS NA * (ABNORMAL) Lipid Panel (06/09/2022 8:32 [...] Resulting Agency Comment Mailed In Specimen Cammy Grider APRN, C.N.P., M.S.N. LAB BLOOD ADD-ON [facility] - [facility] [address] [place] [address], [place] DTL [facility] [address] [place] [address] * Cologuard-Sent Out Lab (02/08/2022 1:00 PM [...] Joe. et al, N Engl J Med 2014;370(14):1514-4203) The normal value (reference range) for this assay is negative. COLOGUARD RE-SCREENING RECOMMENDATION: Periodic colorectal cancer screening is an important part of preventive healthcare for asymptomatic individuals at average risk for colorectal cancer. ??Following a negative Cologuard result, the [place] Cancer Society and U.S. Multi-Society Task Force screening guidelines recommend a Cologuard re-screening interval of 3 years. References: [place] Cancer Society Guideline for Colorectal Cancer Screening: https://www.cancer.org/cancer/usmiy-jeetzu-fazaij/detection- diagnosis-staging/acs-recommendations.html.; Regis DK, Hoang RICKETTS, Melina SolorioK, Colorectal Cancer Screening: Recommendations for Physicians and Patients from the U.S. Multi-Society Task Force on Colorectal Cancer Screening , Am J Gastroenterology 2017; 112:4973-1122. TEST DESCRIPTION: Composite algorithmic analysis of stool [...] Joe. et al, N Engl J Med 2014;370(14):4945-5271.) Cologuard may produce a false negative or false positive result (no colorectal cancer or precancerous polyp present at colonoscopy follow up). A negative Cologuard test result does not guarantee the absence of CRC or advanced adenoma (pre-cancer). The current Cologuard screening interval is every 3 years. ([place] Cancer Society and U.S. Multi-Society Task Force). Cologuard performance data in a 10,000 patient pivotal study using colonoscopy as the reference method can be accessed at the following location: www.L2/results. Additional description of the Cologuard test process, warnings and precautions can be found at www.BehavioSecogROLIrd.com. Stool (Stool) 02/08/2022 1:0 0 PM CDT 02/09/2022 1:22 PM CDT Cammy Grider APRN C.N.P., M.S.N. LAB BODY FLUIDS AND STOOLS ORDERABLES [employer] [address] [place] [address] [employer] [address] [facility], [address] [place] [address] * BI Breast Screening Bilateral with Tomosynthesis [...] Annual Screening Mammogram ASSESSMENT: BI-RADS: 1: Negative. Isrrael Kaiser APRNN.P., M.S.N. IMG BI PROCEDURES * S-TSH (Thyroid-Stimulating Hormone - Sensitive) (01/13/2022 9:44 AM CDT) TSH, Sensitive 2.8 0.3 - 4.2 mIU/L 01/13/2022 11:10 AM CDT DTL Blood (Blood, Venous) 01/13/2022 9:44 AM CDT 01/13/2022 10:41 AM CDT Isrrael Kaiser APRNN.P., M.S.N. LAB BLOOD ADD-ON [facility] [address] [place] [address], [facility] [address] [place] [address] * (ABNORMAL) Basic Metabolic Panel (01/13/2022 9:44 AM CDT) Potassium, S 4.9 3.6 - 5.2 mmol/L [...] the 2009 CKD_EPI creatinine equation. eGFR-Black/Afri can Fijian 65 >=60 mL/min/BSA 01/13/2022 11:01 AM CDT DTL Comment: ----ADDITIONAL INFORMATION---- Estimated GFR calculated using the 2009 CKD_EPI creatinine equation. Calcium, Total, S 9.1 8.8 - 10.2 mg/dL 01/13/2022 11:01 AM CDT DTL Glucose, S 98 70 - 140 mg/dL 01/13/2022 11:01 AM CDT DTL Blood (Blood, Venous) 01/13/2022 9:44 AM CDT 01/13/2022 10:40 AM CDT Cammy Joe Marni THOMAS C.N.P., M.S.N. LAB BLOOD ADD-ON [facility] [address] [place] [address], [place] DTL [facility] [address] [place] [address] * ThinPrep w/HPV Co-Test Screen (04/02/2020 1:26 [...] 1:26 PM CDT 04/02/2020 4:01 PM CDT Cammy Grider APRN, C.N.P., M.S.N. LAB PAP PATHDX ORDERABLES Performing Organization Address City/[facility]/ZIP Co de Phone Number [facility] [address] [place] [address], [facility] DTL [facility] [address] [place] [address] * Bone Donor 6 Month Screen Test Set (05/09/2014 9:32 AM CDT) Donor HBcore Antibody Negative [facility] HCV Ab Screen Donor Negative [facility] HX Hiv-1/-2, Plus O Ab Screen Donor Negative [facility] 05/09/2014 9:32 AM CDT 05/09/2014 9:32 AM CDT Girish Bradford M.D. LAB BLOOD NON ADD-ON Performing Organization Address City/[facility]/ZIP Co de Phone Number [facility] [address] [place], [place] [address] from Last 3 Months or Most Recently Relevant to Health Maintenance Care Teams Offset Proof Press Operator Relationship Specialty Start Date End Date Elsewhere, Pcp PCP - General Family Medicine 10/07/21
--- OUTSIDE RECORDS SUMMARY | 2024-06-12 08:16 | XMS_ITS | Encounter Summary ---
Author Organization [facility] Address [address] [place] [address] Care Team Providers Care Heel Curver Name Role Phone Elsewhere, Pcp Primary Care Provider Unavailabl e Encounter Details Date Type Department Care Team (Late st Contact Info) Description 05/09/2024 CPAP Download Remote Patient Monitoring [facility] [address] [place] [address] [facility], Provider Social History Tobacco Use Types Packs/Day Years Used Date Smoking Tobacco: Never Passive Smoke Exposure: Past Smokeless Tobacco: Never Passive Exposure Comments:Mo m & Dad Smoked growing up Alcohol Use Standard Drinks/Week Comments Yes 0 (1 standard drink = 0.6 oz pur e alcohol) [facility] Utilities Answer Date Recorded In the past 12 months has e electric, gas, oil, or water [employer] threatened to shut off services in your [...] often do you attend chur ch or rastafarian services? Never 09/29/2022 Do you belong to any clubs o r organizations such as mandaeism groups, unions, fraternal or athletic groups, or [...] Answer Date Recorded PHQ-2 Score 0 03/18/2022 [facility] - [...] living situation today? I have a [facility] place to live 01/01/2024 Education Answer Date Recorded What is the highest level of school you have completed or the highest degree you have received? 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, CRM SOLUTION ARCHITECT, CHERYL) 09/29/2022 Sex and Gender Information Value Date Recorded Sex Assigned at Female 12/17/2018 7:47 AM EDGER SAW OPERATOR Gender Identity Female 12/17/2018 7:47 AM EDGER SAW OPERATOR Sexual Orientation Straight 12/17/2018 7: 47 AM EDGER SAW OPERATOR documented as of this encounter Plan of Treatment Not on file documented as of this encounter Visit Diagnoses Not on filedocumented in this encounter Additional Health Concerns Assessment Noted Time PHQ-9 Depression Total Score: 1 03/18/20 22 7:24 AM CDT documented as of this encounter Care Teams Heel Curver Relationship Specialty Start Date End Date Elsewhere, Pcp PCP - General Family Medicine 10/07/21 documented as of this encounter
--- OUTSIDE RECORDS SUMMARY | 2024-06-12 08:16 | XMS_ITS | Encounter Summary ---
Author Organization [facility] Address [address] [place] [address] Care Team Providers Care Compactor Driver Name Role Phone Elsewhere, Pcp Primary Care Provider Unavailabl e Encounter Details Date Type Department Care Team (Late st Contact Info) Description 06/09/2024 CPAP Download Remote Patient Monitoring [facility] [address] [place] [address] [facility], Provider Social History Tobacco Use Types Packs/Day Years Used Date Smoking Tobacco: Never Passive Smoke Exposure: Past Smokeless Tobacco: Never Passive Exposure Comments:Mo m & Dad Smoked growing up Alcohol Use Standard Drinks/Week Comments Yes 0 (1 standard drink = 0.6 oz pur e alcohol) [facility] Utilities Answer Date Recorded In the past 12 months has e electric, gas, oil, or water [employer] threatened to shut off services in your [...] often do you attend chur ch or voodoo services? Never 09/29/2022 Do you belong to any clubs o r organizations such as orthodox groups, unions, fraternal or athletic groups, or [...] Answer Date Recorded PHQ-2 Score 0 03/18/2022 [facility] Occupat ional Health - Occupational Stress [...] your living situation today? I have a [facility] place to live 01/01/2024 Education Answer Date Recorded What is the highest level of school you have completed or the highest degree you have received? 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, SKIN CARVER, CHERYL) 09/29/2022 Sex and Gender Information Value Date Recorded Sex Assigned at Female 12/17/2018 7:47 AM COOK HELPER Gender Identity Female 12/17/2018 7:47 AM COOK HELPER Sexual Orientation Straight 12/17/2018 7: 47 AM COOK HELPER documented as of this encounter Plan of Treatment Not on file documented as of this encounter Visit Diagnoses Not on filedocumented in this encounter Additional Health Concerns Assessment Noted Time PHQ-9 Depression Total Score: 1 03/18/20 22 7:24 AM CDT documented as of this encounter Care Teams Compactor Driver Relationship Specialty Start Date End Date Elsewhere, Pcp PCP - General Family Medicine 10/07/21 documented as of this encounter
--- OUTSIDE RECORDS SUMMARY | 2024-06-12 08:16 | XMS_ITS | Encounter Summary ---
Author Organization [facility] Address [address] [place] [address] Care Team Providers Care Government Auditor Name Role Phone Elsewhere, Pcp Primary Care Provider Unavailabl e Reason for Visit * Outpatient (Routine) - Closed Specialty Diagnoses / Procedures Referred By Contmaite t Referred To Contact Dermatology Diagnoses Keratosis Actinic Procedures MAGGI JESSIKA-U/ ALA (PDT) Nabila Guerrero MPAS, P.A.-[facility] Referral ID Status Reason Start Date Expiration Date Visits Re quested Visits Authorized [id number] Closed 01/03/2024 01/02/2025 1 1 Encounter Details Date Type Department Care Team (Latest Contact Info) Description 05/23/2024 1:00 PM CDT Clinical Support Department of Dermatology in [place], [place] [address] [place] [phone] Nabila Guerrero MPAS, P.A.-CVanda Rodríguez, R.NJuan A [address] [place] [phone] Keratosis Actinic Discharge Disposition: Home or Self Care Social History Tobacco Use Types Packs/Day Years Used Date Smoking Tobacco: Never Passive Smoke Exposure: Past Smokeless Tobacco: Never Passive Exposure Comments:Mo m & Dad Smoked growing up Alcohol Use Standard Drinks/Week Comments Yes 0 (1 standard drink = 0.6 oz pur e alcohol) [facility] Utilities Answer Date Recorded In the past 12 months has [employer] electric, gas, oil, or water company threatened [...] week 09/29/2022 How often do you attend [facility] or taoism services? Never 09/29/2022 Do you belong to any clubs o r organizations such as islam groups, unions, fraternal or athletic groups, or [...] Answer Date Recorded PHQ-2 Score 0 03/18/2022 [facility] Occupat ional Health - Occupational [...] your living situation today? I have a [facility] place to live 01/01/2024 Education Answer Date Recorded What is the highest level of school you have completed or the highest degree you have received? 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, AUTOMATION DESIGN ENGINEER, CHERYL) 09/29/2022 Sex and Gender Information Value Date Recorded Sex Assigned at Female 12/17/2018 7:47 AM LEAD ELECTRICAL CONTROLS ENGINEER Gender Identity Female 12/17/2018 7:47 AM LEAD ELECTRICAL CONTROLS ENGINEER Sexual Orientation Straight 12/17/2018 7: 47 AM LEAD ELECTRICAL CONTROLS ENGINEER documented as of this encounter Plan of Treatment Not on file documented as of this encounter Visit Diagnoses Diagnosis Keratosis Actinic documented in this encounter Administered Medications Inactive Administered Medications - up to 3 most recent administrations Medication Order MAR Action Action Date Dose Rate Site aminolevulinic acid HCL 20 % external solution 1 Application (Levulan) 1 Application, topical, Once, On Maria 05/23/24 at 1345, For 1 dose Given 05/23/2024 1:22 PM CDT 1 Application documented in this encounter Additional Health Concerns Assessment Noted Time PHQ-9 Depression Total Score: 1 03/18/20 22 7:24 AM CDT documented as of this encounter Care Teams Government Auditor Relationship Specialty Start Date End Date Elsewhere, Pcp PCP - General Family Medicine 10/07/21 documented as of this encounter
--- OUTSIDE RECORDS SUMMARY | 2024-06-12 08:16 | XMS_ITS | Encounter Summary ---
Author Organization [facility] Address [address] [place] [address] Care Team Providers Care Head Miller Name Role Phone Elsewhere, Pcp Primary Care Provider Unavailabl e Encounter Details Date Type Department Care Team (Late st Contact Info) Description 03/08/2024 CPAP Download Remote Patient Monitoring [facility] [address] [place] [address] [facility], Provider Social History Tobacco Use Types Packs/Day Years Used Date Smoking Tobacco: Never Passive Smoke Exposure: Past Smokeless Tobacco: Never Passive Exposure Comments:Mo m & Dad Smoked growing up Alcohol Use Standard Drinks/Week Comments Yes 0 (1 standard drink = 0.6 oz pur e alcohol) [facility] Utilities Answer Date Recorded In the past 12 months has e electric, gas, oil, or water [employer] threatened to shut off services in your [...] often do you attend chur ch or synagogue services? Never 09/29/2022 Do you belong to any clubs o r organizations such as holiness groups, unions, fraternal or athletic groups, or [...] Answer Date Recorded PHQ-2 Score 0 03/18/2022 [facility] of Occupat ional Health - Occupational [...] your living situation today? I have a [facility] place to live 01/01/2024 Education Answer Date Recorded What is the highest level of school you have completed or the highest degree you have received? 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eina, MEd, CANTEEN MANAGER, CHERYL) 09/29/2022 Sex and Gender Information Value Date Recorded Sex Assigned at Female 12/17/2018 7:47 AM FERMENTING CELLARS SUPERVISOR Gender Identity Female 12/17/2018 7:47 AM FERMENTING CELLARS SUPERVISOR Sexual Orientation Straight 12/17/2018 7: 47 AM FERMENTING CELLARS SUPERVISOR documented as of this encounter Plan of Treatment Not on file documented as of this encounter Visit Diagnoses Not on filedocumented in this encounter Additional Health Concerns Assessment Noted Time PHQ-9 Depression Total Score: 1 03/18/20 22 7:24 AM CDT documented as of this encounter Care Teams Head Miller Relationship Specialty Start Date End Date Elsewhere, Pcp PCP - General Family Medicine 10/07/21 documented as of this encounter
--- OUTSIDE RECORDS SUMMARY | 2024-06-12 08:16 | XMS_ITS ---
Author Organization [facility] Address [address] [place] [address] Care Team Providers Care Community Center Director Name Role Phone Unavailable Unavailable Unavailable Surgery Details Not on file Complications Check Surgery Details section. Procedure Estimated Blood Loss Check Surgery Details section. Procedure Findings Check Surgery Details section. Procedure Specimens Taken Check Surgery Details section.
== END 2024-06-12 08:12 | disposition home or self-care (01) ==
PROVIDERS: PCP Emergency Medicine; Visit Provider Emergency Medicine
DX: R73.03 Prediabetes (principal); E78.1 Pure hyperglyceridemia; E78.2 Mixed hyperlipidemia; E03.9 Hypothyroidism, unspecified; G47.00 Insomnia, unspecified
CPT/HCPCS: 80048

== ENCOUNTER 2024-06-25 18:26 | Outpatient (CLI) | payer OTHER, SELFPAY ==
--- OUTSIDE RECORDS SUMMARY | 2024-06-25 18:28 | XMS_ITS | Clinical Summary ---
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 Seasonal allergies 05/21/2014 Squamous cell cancer of skin of forearm 05/21/20 14 Vaginal atrophy 05/21/2014 Encounters Date Type Department Care Team Description 05/23/2024 5:48 PM CDT - 05/23/2024 11:06 PM CDT Emergency [facility] Emergency Dept [address] [place] [address] Rober Hernandez MD Closed dislocation of right [...] 1974 HEPATITIS C SCREENING 1977 RSV VACCINE (1 - 1-dose 60+ series) 2019 PAP [...] PELVIS AND HIP RIGHT 1 VIEW LOCATION: [facility] DATE: 05/23/2024 INDICATION: assess dislocation reduction COMPARISON: None. Procedure Note Dwain Jones MD - 05/23/2024 EXAM: XR PELVIS AND HIP RIGHT 1 VIEW LOCATION: [facility] DATE: 05/23/2024 INDICATION: assess dislocation reduction COMPARISON: [...] Rober Hernandez MD ? 05/23/2024 11:[address] [facility] Procedure: Sedation Date/Time: 05/23/2024 8:15 PM Performed [...] procedure a time out was called ?? [place] Protocol: the Joint Commission [place] Protocol was followed ?? Preparation: Patient was [...] ORDERABLES from Last 3 Months Care Teams Preschool Aide Relationship Specialty Start Date End Date Christa Mortensen PCP - General Internal Medicine 07/11/17
--- OUTSIDE RECORDS SUMMARY | 2024-06-25 18:28 | XMS_ITS | Encounter Summary ---
Author Organization [facility] Address [address] [place] [address] Care Team Providers Care Vamp Strap Ironer Name Role Phone Christa Mortensen Primary Care [...] on filedocumented in this encounter Care Teams Vamp Strap Ironer Relationship Specialty Start Date End Date Christa Mortensen PCP - General Internal Medicine 07/11/17 documented as of this encounter
--- OUTSIDE RECORDS SUMMARY | 2024-06-25 18:28 | XMS_ITS | Encounter Summary ---
Author Organization [facility] Address [address] [place] [address] Care Team Providers Care Electro Plater Name Role Phone Lennie Mortensenanne Primary Care Provider [phone] Reason for Visit * Reason Comments Hip Pain Dislocation Encounter Details Date Type Department Care Team (Late st Contact Info) Description 05/23/2024 5:48 PM CDT - 05/23/2024 11:06 PM CDT Emergency [facility] Emergency Dept [address] [place] [address] Rober Hernandez MD [facility] [address] [place], [place] [id number] Closed dislocation of right hip, initial encounter [...] sent through Care Everywhere. * Hip Dislocation (Thai) documented in this encounter Medications at Time [...] had hip replacement 2013 and hip dislocation [id number]. Pt was leaning over in chair and [...] mg/mL vial (100 mg Intravenous $Given 05/23/242005) [facility] Procedure: Sedation Date/Time: 05/23/2024 8:15 PM Performed [...] the procedure a time out was called [place] Protocol: the Joint Commission [place] Protocol was followed Preparation: Patient was prepped [...] attempts, and need to go to [place] Protocol: [place] protocol was followed and time out conducted [...] of dislocation. Medical Decision Making / Diagnosis [facility] Diagnoses: None MIPS None MDM Patient presenting [...] medications on file Rober Hernandez MD 05/23/24 [id number] documented in this encounter Plan of Treatment [...] PELVIS AND HIP RIGHT 1 VIEW LOCATION: [facility] DATE: 05/23/2024 INDICATION: assess dislocation reduction COMPARISON: None. Procedure Note Dwain Jones MD - 05/23/2024 EXAM: XR PELVIS AND HIP RIGHT 1 VIEW LOCATION: [facility] DATE: 05/23/2024 INDICATION: assess dislocation reduction [...] Rober Hernandez MD ? 05/23/2024 11:05 PM [facility] Procedure: Sedation Date/Time: 05/23/2024 8:15 PM [...] procedure a time out was called ?? [place] Protocol: the Joint Commission [place] Protocol was followed ?? Preparation: Patient was [...] PELVIS AND HIP RIGHT 1 VIEW LOCATION: [facility] DATE: 05/23/2024 INDICATION: cncern for dislocatin COMPARISON: None. Procedure Note Dwain Jones MD - 05/24/2024 EXAM: XR PELVIS AND HIP RIGHT 1 VIEW LOCATION: [facility] DATE: 05/23/2024 INDICATION: cncern for dislocatin [...] 1 dose 1803 ($Given - Provi caroline: Barbara Milton RN) propofol (DIPRIVAN) injection 10 mg/mL [...] order) documented in this encounter Care Teams Electro Plater Relationship Specialty Start Date End Date Christa Mortensen PCP - General Internal Medicine 07/11/17 documented as of this encounter
--- OUTSIDE RECORDS SUMMARY | 2024-06-25 18:28 | XMS_ITS | Referral Summary ---
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 Procedure Note Dwain Jones MD - 05/23/2024 EXAM: XR PELVIS AND HIP RIGHT 1 VIEW LOCATION: [facility] DATE: 05/23/2024 INDICATION: assess dislocation [...] Rober Hernandez MD ? 05/23/2024 11:05 PM [facility] Procedure: Sedation Date/Time: 05/23/2024 8:15 [...] procedure a time out was called ?? [place] Protocol: [facility] [place] Protocol was followed ?? Preparation: Patient was [...] ORDERABLES from Last 3 Months Care Teams Hardware Designer Relationship Specialty Start Date End Date FestusChrista PCP - General Internal Medicine 07/11/17
--- OUTSIDE RECORDS SUMMARY | 2024-06-25 18:28 | XMS_ITS | Clinical Summary ---
Author Organization [facility] Address [address] [place] [address] Care Team Providers Care Services Manager Name Role Phone Elsewhere, Pcp Primary Care Provider Unavailabl e Source Comments Patient records contain information from all sites at [facility]. For routine questions regarding patient records, call [phone] during business hours, M-F 8:00 AM - 5:00 PM Central Time. Record requests for emergency care only can be directed to [phone] at any time.[facility] Allergies Active Allergy Reactions Criticality Noted Date [...] pen injector injection 0.25 mg. 05/20/2024 Active Active Problems Problem Noted Date Diagnosed [...] 12/19/2018 Overview (12/19/2018): Overview: Overview: cryotherapy at [place] Keratosis Seborrheic 04/20/2012 019 Encounters Date Type Department Care Team Description 06/09/2024 CPAP Download Remote Patient Monitoring [address] [phone] [facility], Reny Sosa, Ph.D. 05/29/2024 2:00 PM CDT Office Visit Department of Orthopedic Surgery in [place], [place] [address] [place] [phone] Hamzah Todd M.D. Instability Total Hip Arthroplasty Initial Right (HCC) (Primary Dx) 05/29/2024 12:45 PM CDT - 05/29/2024 11:59 PM CDT Hospital Encounter Department of Radiology, [facility], in [place], [place] [address] [place] [phone] Steven Hui M.D. Arthroplasty Total Hip Replacement Status Post Right Discharge Disposition: Home or Self Care 05/28/2024 10:30 AM CDT Clinical Communication Virtual Review in [address] [phone] Pre-visit Intake 05/24/2024 Clinical Communication Department of Orthopedic Surgery in [address] [phone] Hamzah Todd M.D. Return Call Request 05/23/2024 1:00 PM CDT Clinical Support Department of Dermatology in [address] [address] Nabila Guerrero, [facility] Vanda Finley, R.N. Keratosis [facility]inic Discharge Disposition: Home or Self Care 05/09/2024 CPAP Download Remote Patient Monitoring [facility] [address] [place] [phone] [facility], ProviderReny, Ph.D. 04/08/2024 CPAP Download Remote Patient Monitoring [facility] [address] [place] [phone] [facility], ProviderReny, Ph.D. from Last 3 Months Immunizations Name Administration Dates Next Due H1N1 All Forms 12/07/2009 Influenza Split 07/16/2017, 6,06/16/2015,2013,07/16/2013,07/16/2011,08/11/2010,0 06/19/2009,08/27/2003,08/16/2002, 996 Influenza, Injectable, Mdck, Preservative Free, Quadrivalent 07/11/2022,07/19/2017 Influenza, Seasonal, Injectable 07/18/20 13,08/06/2007,09/14/2006,2002,08/16/2002,10/16/1995 Influenza, Unspecified 07/28/2021,2014,06/11/2014,2010,08/11/2010,06/19/2009 PPSV23 02/22/2012 RZV (SHINGRIX) 04/01/2019, 9,12/19/2018(Deferr ed: Not available from flat examiner) SARS-COV-2 (COVID-19) - MODERNA(Discontinued) 01/04/2021 Td (Adult), adsorbed 05/16/2003,10/16/1992 Td, (Adult) Unspecified 05/16/2003,10/16/1992 Tdap 01/13/2022,04/13/2011 influenza trivalent high dos e (HD)(PF) 07/16/2017,07/16/2016,06/16/2015 influenza trivalent vaccine (6 months and older)(PF) 08/08/2011,09/02/2008 influenza vaccine quad (FLUZONE/FLUARIX) (6 months and older)(PF) 07/11/2020,08/11/2019,07/09/2018,2015,07/21/2015,06/11/2014 Family History Medical History Relation Name Comments Coronary artery disease Father Tyrel Ernst Coronary artery disease Maternal Grandfather Du Dem ing Stroke Maternal Grandmother Ingrid Segundo Lung cancer Mother Ambreenryann Purdyterer Stroke Paternal Grandfather Manoj Purdyterer Stroke Paternal Grandmother Vane Blanchard Other cancer Sister Bladder cancer Relation Name Status Comments Father Tyrel Fitterer Maternal Grandfather [place] Maternal Grandmother Ingrid Honken Mother Ambreen Fitterer Paternal Grandfather Manoj Fitterer Paternal Grandmother Vane Blanchard Sister Bladder cancer Social History Tobacco Use Types Packs/Day Years Used Date Smoking Tobacco: Never Passive Smoke Exposure: Past Smokeless Tobacco: Never Passive Exposure Comments:Mo m & Dad Smoked growing up Alcohol Use Standard Drinks/Week Comments Yes 0 (1 standard drink = 0.6 oz pur e alcohol) [facility] Utilities Answer Date Recorded In [...] often do you attend chur ch or sikhism services? Never 09/29/2022 Do you belong to [...] Answer Date Recorded PHQ-2 Score 0 03/18/2022 [facility] - Occupational Stress Questionnaire Answer Date [...] 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, MEDICAL TECHNOLOGIST CLINICAL, CHERYL) 09/29/2022 Sex and Gender Information Value Date Recorded Sex Assigned at Female 12/17/2018 7:47 AM TEXTILE SLITTING MACHINE OPERATOR Gender Identity Female 12/17/2018 7:47 AM TEXTILE SLITTING MACHINE OPERATOR Sexual Orientation Straight 12/17/2018 7: 47 AM TEXTILE SLITTING MACHINE OPERATOR Last Filed Vital Signs Vital Sign Reading [...] 04/28/2023 7:58 AM CDT Plan of Treatment Upcoming Encounters Date Type Department Care Team (Latest Contact Info) Description 09/16/2024 11:43 AM TEXTILE SLITTING MACHINE OPERATOR Hospital Encounter [facility] 02 4 AM ADMIT [address] [place] [address] Hamzah Todd M.D. [address] [place] [phone] 09/16/2024 11:43 AM TEXTILE SLITTING MACHINE OPERATOR - 09/16/2024 3:15 PM TEXTILE SLITTING MACHINE OPERATOR Surgery [facility] MAIN OR [address] [place] [address] Hamzah Todd M.D. [address] [place] [address] ARTHROPLASTY REVISION HIP - ACETABULAR Scheduled Procedures Name Priority Associated Diagnoses Date/Ti me ARTHROPLASTY REVISION HIP Instability Total Hip Arthroplasty Subsequent Right 09/16/2024 11:43 AM TEXTILE SLITTING MACHINE OPERATOR Health Maintenance Due Date Last Done Comments [...] 12/24/2019, Additional history exists Cologuard 02/15/2025 02/15/2022, /03/2022, 02/06/2019 Colorectal Cancer Screening 02/15/2025 Cervical Cancer [...] exists Medical Devices Implanted Type Area Flight Radio Operator Device Identifier Shelf Expiration Date Model / Serial / Lot Hardware E.G. Pins/Screws/Ro ds Hardware e.g. pins/screws/ rods Neck Description:Clips present af ter thyroid removal. Guide Wire-Ball Tip 3 X 800 - [place]r [id number] Implanted:Qty: 1 on 05/07/2013 Hardware e.g. pins/screws/ rods [place] Description:Device Manufactu [facility] [place] Bandar.. Device Status Text - HARDWARE- 90233. [facility] Data - [id number]. [place] Screw 2 Canc 6.5 X 20 - Orr [id number] Implanted:Qty: 1 on 05/07/2013 Hardware e.g. pins/screws/ rods [employer] Description:Device Manufactu rer - [employer]. Device Status Text - HARDWARE-49247. [place] Screw 2 Canc 6.5 X 25 - Orr [id number] Implanted:Qty: 1 on 05/07/2013 Hardware e.g. pins/screws/ rods [employer] Description:Device Manufactu rer - [employer]. Device Status Text - HARDWARE-90644. [place] Screw 2 Canc 6.5 X 15 - Orr [id number] Implanted:Qty: 2 on 05/07/2013 Hardware e.g. pins/screws/ rods [employer] Description:Device Manufactu rer - [employer]. Device Status Text - HARDWARE-96272. Guide Wire-Ball Tip 3 X 800 - Orr [id number] Implanted:Qty: 1 on 10/22/2013 Hardware e.g. pins/screws/ rods [place] Description:Device Manufactu rer - Ivelisse Bandar.. Device Status Text - HARDWARE- 91530. [facility] Data - [id number]. [place] Screw 2 Canc 6.5 X 15 - Orr [id number] Implanted:Qty: 1 on 10/22/2013 Hardware e.g. pins/screws/ rods [employer] Description:Device Manufactu rer - [employer]. Device Status Text - HARDWARE-92165. [place] Screw 2 Canc 6.5 X 25 - Orr [id number] Implanted:Qty: 2 on 10/22/2013 Hardware e.g. pins/screws/ rods [employer] Description:Device Manufactu rer - [employer]. Device Status Text - HARDWARE-00996. [place] Liner Altrx +4 Neut 32x48 - Orr [id number] Implanted:Qty: 1 on 05/07/2013 Hip Implant Other/Legacy - See Implant Description [employer] Description:Device Manufactu [place] - [employer]. Body Location - Other. Left. Device Status Text - HIP IMP-048631. [place] Shell Multi 2 48mm - Orr [id number] Implanted:Qty: 1 on 05/07/2013 Hip Implant Other/Legacy - See Implant Description [employer] Description:Device Manufactu rer - [employer]. Body Location - Other. Left. Device Status Text - HIP IMP-809927. [place]-Stem [place] 3 Hi - Orr [id number] Implanted:Qty: 1 on 05/07/2013 Hip Implant Other/Legacy - See Implant Description [employer] Description:Device Manufactu rer - [employer]. Body Location - Other. Left. Device Status Text - HIP IMP-109710. Delta-Head Ceramic 32mm +1 - Orr [id number] Implanted:Qty: 1 on 05/07/2013 Hip Implant Other/Legacy - See Implant Description [employer] Description:Device Manufactu rer - [employer]. Body Location - Other. Left. Device Status Text - HIP IMP-105278. Delta-Head Ceramic 32mm +1 - Orr [id number] Implanted:Qty: 1 on 10/22/2013 Hip Implant Other/Legacy - See Implant Description [employer] Description:Device Manufactu rer - [employer]. Body Location - Other. Right. Device Status Text - HIP IMP-418882. Stem [place] 3x Hi 135 - Orr [id number] Implanted:Qty: 1 on 10/22/2013 Hip Implant Other/Legacy - See Implant Description [employer] Description:Device Manufactu rer - [employer]. Body Location - Other. Right. Device Status Text - HIP IMP-165992. [place] Shell Multi 2 48mm - Orr [id number] Implanted:Qty: 1 on 10/22/2013 Hip Implant Other/Legacy - See Implant Description [employer] Description:Device Manufactu rer - [employer]. Body Location - Other. Right. Device Status Text - HIP IMP-368996. [place] Liner Altrx +4 Neut 32x48 - Orr [id number] Implanted:Qty: 1 on 10/22/2013 Hip Implant Other/Legacy - See Implant Description [employer] Description:Device Manufactu rer - [employer]. Body Location - Other. Right. Device Status Text - HIP IMP-111166. Mitralclip-10/16 Implanted:10/2016 (Quantity not on file) Mitralclip [...] Hui M.D. IMG DIAGNOSTIC IMAGI NG PROCEDURES * XR PELVIS [...] Grider APRN, C.N.P., M.S.N. LAB BLOOD ADD-ON [facility] [address] [place] [address], [facility] [address] [place] [address] * Cologuard-Sent Out Lab (02/08/2022 1:00 PM [...] screened with both Cologuard and colonoscopy. (Tori Pham al, N Engl J Med 2014;370(14):3995-6568) The normal value (reference range) for this assay is negative. COLOGUARD RE-SCREENING RECOMMENDATION: Periodic colorectal cancer screening is an important part of preventive healthcare for asymptomatic individuals at average risk for colorectal cancer. ??Following a negative Cologuard result, the [place] Cancer Society and U.S. Multi-Society Task Force screening guidelines recommend a Cologuard re-screening interval of 3 years. References: [place] Cancer Society Guideline for Colorectal Cancer Screening: https://www.cancer.org/cancer/ucrxd-gsmazd-dlwido/detection- diagnosis-staging/acs-recommendations.html.; Regis DK, Hoang RICKETTS, Melina SolorioK, Colorectal Cancer Screening: Recommendations for Physicians and Patients from the U.S. Multi-Society Task Force on Colorectal Cancer Screening , Am J Gastroenterology 2017; 112:0024-6601. TEST DESCRIPTION: Composite algorithmic analysis of stool [...] screened with both Cologuard and colonoscopy. (Tori Pham al, N Engl J Med 2014;370(14):1934-7695.) Cologuard may produce a false negative or false positive result (no colorectal cancer or precancerous polyp present at colonoscopy follow up). A negative Cologuard test result does not guarantee the absence of CRC or advanced adenoma (pre-cancer). The current Cologuard screening interval is every 3 years. ([place] Cancer Society and U.S. Multi-Society Task Force). Cologuard performance data in a 10,000 patient pivotal study using colonoscopy as the reference method can be accessed at the following location: www.Sprout/results. Additional description of the Cologuard test process, warnings and precautions can be found at www.cologuard.com. Stool (Stool) 02/08/2022 1:0 0 PM CDT 02/09/2022 1:22 PM CDT Isrrael Kaiser APRNN.P., M.S.N. LAB BODY FLUIDS AND STOOLS ORDERABLES Performing Organization Address City/State/[facility] Co de Phone Number [employer] [address] [place] [address] [employer] [address] [facility], [address] [place] [address] * BI Breast Screening Bilateral with Tomosynthesis [...] AM CDT 01/13/2022 10:41 AM CDT Cammy Grider APRN, C.N.P., M.S.N. LAB BLOOD ADD-ON [facility] [place] [address] [place] [address], [facility] [address] [place] [address] * (ABNORMAL) Basic Metabolic Panel (01/13/2022 9:44 [...] the 2009 CKD_EPI creatinine equation. eGFR-Black/Afri can [place] 65 >=60 mL/min/BSA 01/13/2022 11:01 AM CDT DTL Comment: ----ADDITIONAL INFORMATION---- Estimated GFR calculated using the 2009 CKD_EPI creatinine equation. Calcium, Total, S 9.1 8.8 - 10.2 mg/dL 01/13/2022 11:01 AM CDT DTL Glucose, S 98 70 - 140 mg/dL 01/13/2022 11:01 AM CDT DTL Blood (Blood, Venous) 01/13/2022 9:44 AM CDT 01/13/2022 10:40 AM CDT Cammy Grider APRN C.N.P., M.S.N. LAB BLOOD ADD-ON [facility] [place] [address], [facility] [place] [address] * ThinPrep w/HPV Co-Test Screen (04/02/2020 1:26 PM CDT) 04/21/2020 8:09 AM CDT DTL Report electronically signed by JACQEULINE Tanner(ASCP) I verify that I have examined [...] CDT 04/02/2020 4:01 PM CDT Cammy Grider APRN C.N.P., M.S.N. LAB PAP PATHDX ORDERABLES Performing Organization Address City/State/[facility] Co de Phone Number [facility] [place] [address] [place] [address], [facility] [address] [place] [address] * Bone Donor 6 Month Screen Test Set (05/09/2014 9:32 AM CDT) Donor HBcore Antibody Negative [facility] [place] HCV Ab Screen Donor Negative [facility] [place] HX Hiv-1/-2, Plus O Ab Screen Donor Negative [facility] [place] 05/09/2014 9:32 AM CDT 05/09/2014 9:32 AM CDT Girish Bradford M.D. LAB BLOOD NON ADD-ON [facility] [address] [place] [address], [facility] from Last 3 Months or Most Recently Relevant to Health Maintenance Care Teams Services Manager Relationship Specialty Start Date End Date Elsewhere, Pcp PCP - General Family Medicine 10/07/21
--- OUTSIDE RECORDS SUMMARY | 2024-06-25 18:29 | XMS_ITS | Encounter Summary ---
Author Organization [facility] Address [address] [place] [address] Care Team Providers Care Grain Elevator Operator Name Role Phone Elsewhere, Pcp Primary Care Provider Unavailabl e Reason for Visit * Outpatient (Routine) - Closed Specialty Diagnoses / Procedures Referred By Nathalia t Referred To Contact Orthopedic Surgery Steven Hui M.D. [address] [place] [phone] Hamzah Todd M.D. [address] [place] [phone] Referral ID Status Reason Start Date Expiration Date Visits Re quested Visits Authorized [id number] Closed 05/26/2024 2025 1 1 Encounter Details Date Type Department Care Team (Late st Contact Info) Description 05/29/2024 2:00 PM CDT Office Visit Department of Orthopedic Surgery in [place], [place] [address] [place] [phone] Hamzah Todd M.D. [address] [place] [phone] Instability Total Hip Arthroplasty Initial Right (HCC) (Primary Dx) Social History Tobacco Use Types Packs/Day Years Used Date Smoking Tobacco: Never Passive Smoke Exposure: Past Smokeless Tobacco: Never Passive Exposure Comments:Mo m & Dad Smoked growing up Alcohol Use Standard Drinks/Week Comments Yes 0 (1 standard drink = 0.6 oz pur e alcohol) [facility] Utilities Answer Date Recorded In [...] How often do you attend chur or orthodoxy services? Never 09/29/2022 Do you belong to any clubs o r organizations such as mormonism groups, unions, fraternal or athletic groups, or [...] Answer Date Recorded PHQ-2 Score 0 03/18/2022 [facility] - Occupational Stress Questionnaire Answer Date Recorded [...] 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, PUBLIC WELFARE DIRECTOR, CHERYL) 09/29/2022 Sex and Gender Information Value Date Recorded Sex Assigned at Female 12/17/2018 7:47 AM MACHINE SNELLER Gender Identity Female 12/17/2018 7:47 AM MACHINE SNELLER Sexual Orientation Straight 12/17/2018 7: 47 AM MACHINE SNELLER documented as of this encounter Progress Notes [...] Hamzah Todd M.D. CT CT Job ID: [id number] documented in this encounter Plan of Treatment Upcoming Encounters Date Type Department Care Team (Latest Contact Info) Description 09/16/2024 11:43 AM MACHINE SNELLER Hospital Encounter [facility] 02 4 AM ADMIT [address] [place] [address] Hamzah Todd M.D. [address] [place] [phone] 09/16/2024 11:43 AM MACHINE SNELLER - 09/16/2024 3:15 PM MACHINE SNELLER Surgery [facility] MAIN OR [address] [place] [address] Hamzah Todd M.D. [address] [place] [phone] ARTHROPLASTY REVISION HIP - ACETABULAR Scheduled Procedures Name Priority Associated Diagnoses Date/Ti me ARTHROPLASTY REVISION HIP Instability Total Hip Arthroplasty Subsequent Right 09/16/2024 11:43 AM MACHINE SNELLER documented as of this encounter Visit Diagnoses Diagnosis Instability Total Hip Arthroplasty Initial Right (HCC)- Primary Instability Total Hip Arthroplasty Subsequent Right documented in this encounter Additional Health Concerns Assessment Noted Time PHQ-9 Depression Total Score: 1 03/18/20 22 7:24 AM CDT documented as of this encounter Care Teams Grain Elevator Operator Relationship Specialty Start Date End Date Elsewhere, Pcp PCP - General Family Medicine 10/07/21 documented as of this encounter
--- OUTSIDE RECORDS SUMMARY | 2024-06-25 18:29 | XMS_ITS | Encounter Summary ---
Author Organization [facility] Address [address] [place] [address] Care Team Providers Care Orthopedic Coder Name Role Phone Elsewhere, Pcp Primary Care Provider Unavailabl e Encounter Details Date Type Department Care Team (Late st Contact Info) Description 04/08/2024 CPAP Download Remote Patient Monitoring [facility] [address] [place] [address] [facility], Provider, M.B., Ph.D. Social History Tobacco Use Types Packs/Day Years Used Date Smoking Tobacco: Never Passive Smoke Exposure: Past Smokeless Tobacco: Never Passive Exposure Comments:Mo m & Dad Smoked growing up Alcohol Use Standard Drinks/Week Comments Yes 0 (1 standard drink = 0.6 oz pur e alcohol) [facility] Utilities Answer Date Recorded In the past 12 months has [employer], gas, oil, or water [employer] threatened to shut off services in your [...] often do you attend chur ch or restorationism services? Never 09/29/2022 Do you belong to any clubs o r organizations such as congregational groups, unions, fraternal or athletic groups, or [...] Answer Date Recorded PHQ-2 Score 0 03/18/2022 [facility] Questionnaire Answer Date Recorded [...] your living situation today? I have a [facility] place to live 01/01/2024 Education Answer Date Recorded What is the highest level of school you have completed or the highest degree you have received? 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, BOND TRADER, CHERYL) 09/29/2022 Sex and Gender Information Value Date Recorded Sex Assigned at Female 12/17/2018 7:47 AM WHARF LABOURER Gender Identity Female 12/17/2018 7:47 AM WHARF LABOURER Sexual Orientation Straight 12/17/2018 7: 47 AM WHARF LABOURER documented as of this encounter Plan of Treatment Upcoming Encounters Date Type Department Care Team (Latest Contact Info) Description 09/16/2024 11:43 AM WHARF LABOURER Hospital Encounter [facility] 02 4 AM ADMIT [address] [place] [phone] Hamzah Todd M.D. [address] [place] [phone] 09/16/2024 11:43 AM WHARF LABOURER - 09/16/2024 3:15 PM WHARF LABOURER Surgery [facility] MAIN OR [address] [place] [phone] Hamzah Todd M.D. [address] [place] [address] ARTHROPLASTY REVISION HIP - ACETABULAR Scheduled Procedures Name Priority Associated Diagnoses Date/Ti me ARTHROPLASTY REVISION HIP Instability Total Hip Arthroplasty Subsequent Right 09/16/2024 11:43 AM WHARF LABOURER documented as of this encounter Visit Diagnoses Not on filedocumented in this encounter Additional Health Concerns Assessment Noted Time PHQ-9 Depression Total Score: 1 03/18/20 22 7:24 AM CDT documented as of this encounter Care Teams Orthopedic Coder Relationship Specialty Start Date End Date Elsewhere, Pcp PCP - General Family Medicine 10/07/21 documented as of this encounter
--- OUTSIDE RECORDS SUMMARY | 2024-06-25 18:29 | XMS_ITS | Clinical Summary ---
Author Organization [email or web address] Address [address], [place] [address] Care Team Providers Care Assistant Customer Service Manager Name Role Phone Nilda Molina MD Primary Care Provider + [phone] Source Comments You are receiving this document [...] for each transition of care or referral. 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 Overview (05/20/2016): cryotherapy at [place] Squamous cell cancer of skin of forearm 05/21/20 14 Immunizations Name Administration Dates Next Due Influenza IIV4 (Quadrivalent) 0.5mL (62956) 02/2016,07/21/2015,06/11/2014 PPSV23 (Pneumovax) 02/22/2012 TDAP (BOOSTRIX) 04/13/2011 [...] Comments Blood Pressure 120/79 09/13/2021 4:57 PM TELEPHONE LINES REPAIRER Pulse 73 09/13/2021 4:57 PM TELEPHONE LINES REPAIRER Temperature 36.4 ??C (97.5 ??F) 04/26/2022 4:52 PM CD T Respiratory Rate 20 09/13/2021 4:57 PM TELEPHONE LINES REPAIRER Oxygen Saturation 97% 09/13/2021 4:57 PM TELEPHONE LINES REPAIRER Inhaled Oxygen Concentration - - Weight 101.6 [...] 11/20/2018 11/20/2017 (Completed) COVID-19 Vaccine ( season) 2024 01/14/2022, 08/30/2021, 02/01/2021, Additional history exists Influenza [...] age to complete this topic Care Teams Assistant Customer Service Manager Relationship Specialty [place] [address] [place] [address] PCP - General Family Practice 06/07/21
--- OUTSIDE RECORDS SUMMARY | 2024-06-25 18:29 | XMS_ITS | Encounter Summary ---
Author Organization [facility] Address [address] [place] [address] Care Team Providers Care Hammer Driver Name Role Phone Elsewhere, Pcp Primary Care Provider Unavailabl e Encounter Details Date Type Department Care Team (Late st Contact Info) Description 06/09/2024 CPAP Download Remote Patient Monitoring [facility] [address] [place] [address] [facility], Provider, M.B., Ph.D. Social History Tobacco Use Types Packs/Day Years Used Date Smoking Tobacco: Never Passive Smoke Exposure: Past Smokeless Tobacco: Never Passive Exposure Comments:Mo m & Dad Smoked growing up Alcohol Use Standard Drinks/Week Comments Yes 0 (1 standard drink = 0.6 oz pur e alcohol) [facility] Utilities Answer Date Recorded In the past 12 months has e [employer], gas, oil, or water [employer] threatened to shut off services in your [...] often do you attend chur ch or amish services? Never 09/29/2022 Do you belong to any clubs o r organizations such as mandaen groups, unions, fraternal or athletic groups, or [...] Answer Date Recorded PHQ-2 Score 0 03/18/2022 [facility]ational Stress Questionnaire Answer Date [...] your living situation today? I have a [facility] place to live 01/01/2024 Education Answer Date Recorded What is the highest level of school you have completed or the highest degree you have received? 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, MECHANICAL MANUFACTURING TECHNICIAN, CHERYL) 09/29/2022 Sex and Gender Information Value Date Recorded Sex Assigned at Female 12/17/2018 7:47 AM COLLISION CENTER MANAGER Gender Identity Female 12/17/2018 7:47 AM COLLISION CENTER MANAGER Sexual Orientation Straight 12/17/2018 7: 47 AM COLLISION CENTER MANAGER documented as of this encounter Plan of Treatment Upcoming Encounters Date Type Department Care Team (Latest Contact Info) Description 09/16/2024 11:43 AM COLLISION CENTER MANAGER Hospital Encounter RST 02 4 AM ADMIT [address] [place] [phone] Hamzah Todd M.D. [address] [place] [phone] 09/16/2024 11:43 AM COLLISION CENTER MANAGER - 09/16/2024 3:15 PM COLLISION CENTER MANAGER Surgery [facility] MAIN OR [address] [place] [phone] Hamzah Todd M.D. [address] [place] [address] ARTHROPLASTY REVISION HIP - ACETABULAR Scheduled Procedures Name Priority Associated Diagnoses Date/Ti me ARTHROPLASTY REVISION HIP Instability Total Hip Arthroplasty Subsequent Right 09/16/2024 11:43 AM COLLISION CENTER MANAGER documented as of this encounter Visit Diagnoses Not on filedocumented in this encounter Additional Health Concerns Assessment Noted Time PHQ-9 Depression Total Score: 1 03/18/20 22 7:24 AM CDT documented as of this encounter Care Teams Hammer Driver Relationship Specialty Start Date End Date Elsewhere, Pcp PCP - General Family Medicine 10/07/21 documented as of this encounter
--- OUTSIDE RECORDS SUMMARY | 2024-06-25 18:29 | XMS_ITS | Encounter Summary ---
Author Organization [facility] Address [address] [place] [address] Care Team Providers Care Retail Business Analyst Name Role Phone Elsewhere, Pcp Primary Care Provider Unavailabl e Encounter Details Date Type Department Care Team (Late st Contact Info) Description 11/01/2013 Historical Ophthalmology RST OPH rBad Hodges M.D. [facility] [place] [address] Social History Tobacco Use Types Packs/Day Years Used Date Smoking Tobacco: Never Assessed Sex and Gender Information Value Date Recorded Sex Assigned at Female 12/17/2018 7:47 AM DIRECTOR INDUSTRIAL MUSEUM Gender Identity Female 12/17/2018 7:47 AM DIRECTOR INDUSTRIAL MUSEUM Sexual Orientation Straight 12/17/2018 7: 47 AM DIRECTOR INDUSTRIAL MUSEUM documented as of this encounter Progress Notes [...] distribution, RIGHT CDM Reports - EYEGEN Id: [id number] Status: Fnl documented in this encounter Plan of Treatment Upcoming Encounters Date Type Department Care Team (Latest Contact Info) Description 09/16/2024 11:43 AM DIRECTOR INDUSTRIAL MUSEUM Hospital Encounter BRENNAN MANE 4 AM ADMIT [address] [place] [address] Hamzah Todd M.D. [address] [place] [phone] 09/16/2024 11:43 AM DIRECTOR INDUSTRIAL MUSEUM - 09/16/2024 3:15 PM DIRECTOR INDUSTRIAL MUSEUM Surgery [facility] MAIN OR [address] [place] [address] Hamzah Todd M.D. [address] [place] [phone] ARTHROPLASTY REVISION HIP - ACETABULAR Scheduled Procedures Name Priority Associated Diagnoses Date/Ti me ARTHROPLASTY REVISION HIP Instability Total Hip Arthroplasty Subsequent Right 09/16/2024 11:43 AM DIRECTOR INDUSTRIAL MUSEUM documented as of this encounter Visit Diagnoses Not on filedocumented in this encounter Care Teams Retail Business Analyst Relationship Specialty Start Date End Date Elsewhere, Pcp PCP - General Family Medicine 10/07/21 documented as of this encounter
--- OUTSIDE RECORDS SUMMARY | 2024-06-25 18:29 | XMS_ITS | Encounter Summary ---
Author Organization [facility] Address [address] [place] [address] Care Team Providers Care Novelty Balloon Assembler And Packer Name Role Phone Elsewhere, Pcp Primary Care Provider Unavailabl e Encounter Details Date Type Department Care Team (Late st Contact Info) Description 05/09/2024 CPAP Download Remote Patient Monitoring [facility] [address] [place] [address] [facility], Provider, M.B., Ph.D. Social History Tobacco Use Types Packs/Day Years Used Date Smoking Tobacco: Never Passive Smoke Exposure: Past Smokeless Tobacco: Never Passive Exposure Comments:Mo m & Dad Smoked growing up Alcohol Use Standard Drinks/Week Comments Yes 0 (1 standard drink = 0.6 oz pur e alcohol) [facility] Utilities Answer Date Recorded In the past 12 months has e [employer], gas, oil, or water [employer] threatened to shut off services in your [...] often do you attend chur ch or zoroastrianism services? Never 09/29/2022 Do you belong to any clubs o r organizations such as latter-day groups, unions, fraternal or athletic groups, or [...] Answer Date Recorded PHQ-2 Score 0 03/18/2022 [facility] Questionnaire Answer Date [...] your living situation today? I have a [facility] place to live 01/01/2024 Education Answer Date Recorded What is the highest level of school you have completed or the highest degree you have received? 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, BOOKKEEPER, CHERYL) 09/29/2022 Sex and Gender Information Value Date Recorded Sex Assigned at Female 12/17/2018 7:47 AM PROCESSING REP Gender Identity Female 12/17/2018 7:47 AM PROCESSING REP Sexual Orientation Straight 12/17/2018 7: 47 AM PROCESSING REP documented as of this encounter Plan of Treatment Upcoming Encounters Date Type Department Care Team (Latest Contact Info) Description 09/16/2024 11:43 AM PROCESSING REP Hospital Encounter RST 02 4 AM ADMIT [address] [place] [phone] Hamzah Todd M.D. [address] [place] [phone] 09/16/2024 11:43 AM PROCESSING REP - 09/16/2024 3:15 PM PROCESSING REP Surgery RST [facility] MAIN OR [address] [place] [phone] Hamzah Todd M.D. [address] [place] [address] ARTHROPLASTY REVISION HIP - ACETABULAR Scheduled Procedures Name Priority Associated Diagnoses Date/Ti me ARTHROPLASTY REVISION HIP Instability Total Hip Arthroplasty Subsequent Right 09/16/2024 11:43 AM PROCESSING REP documented as of this encounter Visit Diagnoses Not on filedocumented in this encounter Additional Health Concerns Assessment Noted Time PHQ-9 Depression Total Score: 1 03/18/20 22 7:24 AM CDT documented as of this encounter Care Teams Novelty Balloon Assembler And Packer Relationship Specialty Start Date End Date Elsewhere, Pcp PCP - General Family Medicine 10/07/21 documented as of this encounter
--- OUTSIDE RECORDS SUMMARY | 2024-06-25 18:29 | XMS_ITS | Referral Summary ---
Author Organization [facility] Address [address] [place] [address] Care Team Providers Care Clay Carman Name Role Phone Elsewhere, Pcp Primary Care Provider Unavailabl e Source Comments Patient records contain information from all sites at [facility]. For routine questions regarding patient records, call [phone] during business hours, M-F 8:00 AM - 5:00 PM Central Time. Record requests for emergency care only can be directed to [phone] at any time.[facility] Encounters Date Type Department Care Team Description 06/09/2024 CPAP Download Remote Patient Monitoring [facility] [address] [place] [address] [facility], Provider, M.B., Ph.D. 05/29/2024 12:45 PM CDT - 05/29/2024 11:59 PM CDT Hospital Encounter Department of Radiology, [facility], in [place], [place] [address] [place] [phone] Steven Hui M.D. Arthroplasty Total Hip Replacement Status Post Right Discharge Disposition: Home or Self Care 05/29/2024 2:00 PM CDT Office Visit Department of Orthopedic Surgery in [place], [place] [address] [place] [phone] Hamzah Todd M.D. Instability Total Hip Arthroplasty Initial Right (HCC) (Primary Dx) 05/28/2024 10:30 AM CDT Clinical Communication Virtual Review in [place], [place] [address] [place] [address] Pre-visit Intake 05/24/2024 Clinical Communication Department of Orthopedic Surgery in [place], [place] [address] [place] [address] Hamzah Todd M.D. Return Call Request 05/23/2024 1:00 PM CDT Clinical Support Department of Dermatology in [place], [place] [address] [place] [phone] Nabila Guerrero, ION, P.A.-C. Vanda Finley R.N. Keratosis Actinic Discharge Disposition: Home or Self Care 05/09/2024 CPAP Download Remote Patient Monitoring [facility] [address] [place] [address] [facility], ProviderReny, Ph.D. 04/08/2024 CPAP Download Remote Patient Monitoring [facility] [address] [place] [address] [facility], ProviderReny, Ph.D. 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 Overview (12/19/2018): Overview: Overview: cryotherapy at [facility] Keratosis Seborrheic 04/20/2012 019 Immunizations Name Administration Dates Next Due H1N1 All Forms 12/07/2009 Influenza Split 07/16/2017, 6,06/16/2015,2013,07/16/2013,07/16/2011,08/11/2010,0 06/19/2009,08/27/2003,08/16/2002, 996 Influenza, Injectable, Mdck, Preservative Free, Quadrivalent 07/11/2022,07/19/2017 Influenza, Seasonal, Injectable 07/18/20 13,08/06/2007,09/14/2006,2002,08/16/2002,10/16/1995 Influenza, Unspecified 07/28/2021,2014,06/11/2014,2010,08/11/2010,06/19/2009 PPSV23 02/22/2012 RZV (SHINGRIX) 04/01/2019, 9,12/19/2018(Deferr ed: Not available from business excellence leader) SARS-COV-2 (COVID-19) - MODERNA(Discontinued) 01/04/2021 Td (Adult), [...] drink = 0.6 oz pur e alcohol) [facility] Utilities Answer Date Recorded In the past 12 months has e [employer], gas, oil, or water [employer] threatened to shut off services in your [...] How often do you attend chur or jainism services? Never 09/29/2022 Do you belong to any clubs o r organizations such as episcopalian groups, unions, fraternal or athletic groups, or [...] Answer Date Recorded PHQ-2 Score 0 03/18/2022 [facility] [place] [facility] - Occupational Stress [...] your living situation today? I have a [facility] place to live 01/01/2024 Education Answer Date Recorded What is the highest level of school you have completed or the highest degree you have received? 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, SPEECH AND LANGUAGE ASSISTANT, CHERYL) 09/29/2022 Sex and Gender Information Value Date Recorded Sex Assigned at Female 12/17/2018 7:47 AM SENIOR DENTIST Gender Identity Female 12/17/2018 7:47 AM SENIOR DENTIST Sexual Orientation Straight 12/17/2018 7: 47 AM SENIOR DENTIST Last Filed Vital Signs Vital Sign Reading [...] (Latest Contact Info) Description 09/16/2024 11:43 AM SENIOR DENTIST Hospital Encounter RST RO 02 4 AM ADMIT [address] [place] [address] Hamzah Todd M.D. [address] [place] [phone] 09/16/2024 11:43 AM SENIOR DENTIST - 09/16/2024 3:15 PM SENIOR DENTIST Surgery RST [facility] MAIN OR [address] [place] [address] Hamzah Todd M.D. [address] [place] [address] ARTHROPLASTY REVISION HIP - ACETABULAR Scheduled Procedures Name Priority Associated Diagnoses Date/Ti me ARTHROPLASTY REVISION HIP Instability Total Hip Arthroplasty Subsequent Right 09/16/2024 11:43 AM SENIOR DENTIST Medical Devices Implanted Type Area Associate Entertainment Editor Device Identifier Shelf Expiration Date Model / Serial / Lot Hardware E.G. Pins/Screws/Ro ds Hardware e.g. pins/screws/ rods Neck Description:Clips present af ter thyroid removal. Guide Wire-Ball Tip 3 X 800 - [place]r [id number] Implanted:Qty: 1 on 05/07/2013 Hardware e.g. pins/screws/ rods [employer]isse Description:Device Manufactu rer - Gipsy Bandar.. Device Status Text - HARDWARE- 79080. [facility] Data - [id number]. [place] Screw 2 Canc 6.5 X 20 - Orr [id number] Implanted:Qty: 1 on 05/07/2013 Hardware e.g. pins/screws/ rods [employer] Description:Device Manufactu rer - J [employer] J [employer]o. Device Status Text - HARDWARE-23098. [place] Screw 2 Canc 6.5 X 25 - Orr [id number] Implanted:Qty: 1 on 05/07/2013 Hardware e.g. pins/screws/ rods [employer] Description:Device Manufactu rer - J & J Ortho. Device Status Text - HARDWARE-27411. [place] Screw 2 Canc 6.5 X 15 - Orr [id number] Implanted:Qty: 2 on 05/07/2013 Hardware e.g. pins/screws/ rods [employer] Description:Device Manufactu rer - J & J Ortho. Device Status Text - HARDWARE-50397. Guide Wire-Ball Tip 3 X 800 - Orr [id number] Implanted:Qty: 1 on 10/22/2013 Hardware e.g. pins/screws/ rods Gipsy Description:Device Manufactu rer - Gipsy Bandar.. Device Status Text - HARDWARE- 82118. [facility] Data - [id number]. [place] Screw 2 Canc 6.5 X 15 - Orr [id number] Implanted:Qty: 1 on 10/22/2013 Hardware e.g. pins/screws/ rods [employer] Description:Device Manufactu rer - J & Kuailexue Ortho. Device Status Text - HARDWARE-20455. [place] Screw 2 Canc 6.5 X 25 - Orr [id number] Implanted:Qty: 2 on 10/22/2013 Hardware e.g. pins/screws/ rods [employer] Description:Device Manufactu H2Mob - J & J Ortho. Device Status Text - HARDWARE-95129. [place] Liner Altrx +4 Neut 32x48 - Orr [id number] Implanted:Qty: 1 on 05/07/2013 Hip Implant Other/Legacy - See Implant Description [employer] Description:Device Manufactu [place]. Body Location - Other. Left. Device Status Text - HIP [id number]. [place] Shell Multi 2 48mm - Orr [id number] Implanted:Qty: 1 on 05/07/2013 Hip Implant Other/Legacy - See Implant Description [employer] Description:Device Manufactu [place]key. Body Location - Other. Left. Device Status Text - HIP [id number]. [place]-Stem [place] 3 Hi - Orr [id number] Implanted:Qty: 1 on 05/07/2013 Hip Implant Other/Legacy - See Implant Description [employer] Description:Device Manufactu rer - J [employer] J [employer]. Body Location - Other. Left. Device Status Text - HIP [id number]. Delta-Head Ceramic 32mm +1 - Orr [id number] Implanted:Qty: 1 on 05/07/2013 Hip Implant Other/Legacy - See Implant Description [employer] Description:Device Manufactu rer - J & J Healthcare. Body Location - Other. Left. Device Status Text - HIP [id number]. Delta-Head Ceramic 32mm +1 - Orr [id number] Implanted:Qty: 1 on 10/22/2013 Hip Implant Other/Legacy - See Implant Description [employer] Description:Device Manufactu rer - J [employer] J Healthcare. Body Location - Other. Right. Device Status Text - HIP IMP-260339. Stem [place] 3x Hi 135 - Orr [id number] Implanted:Qty: 1 on 10/22/2013 Hip Implant Other/Legacy - See Implant Description [employer] Description:Device Manufactu rer - J [employer] J Healthcare. Body Location - Other. Right. Device Status Text - HIP [id number]. [place] Shell Multi 2 48mm - Orr [id number] Implanted:Qty: 1 on 10/22/2013 Hip Implant Other/Legacy - See Implant Description [employer] Description:Device Manufactu rer - J & J Healthcare. Body Location - Other. Right. Device Status Text - HIP [id number]. [place] Liner Altrx +4 Neut 32x48 - Orr [id number] Implanted:Qty: 1 on 10/22/2013 Hip Implant Other/Legacy - See Implant Description [employer] Description:Device Manufactu rer - J & J Healthcare. Body Location - Other. Right. Device Status Text - HIP IMP-[id number]. Mitralclip-10/16 Implanted:10/2016 (Quantity not on file) Mitralclip [...] PELVIS RIGHT 2-3 VIEWS Procedure Note Chun Kellre M.D. - 05/29/2024 EXAM: DX HIP AND [...] resultswithin the time period is included. Narrative IIWI - 05/24/2024 2:18 PM CDT This order [...] In System IMG DIAGNOSTIC IM AGING PROCEDURES [facility] NA * (ABNORMAL) Lipid Panel (06/09/2022 [...] Grider APRN, C.N.P., M.S.N. LAB BLOOD ADD-ON [facility] [address] [place] [address] * Cologuard-Sent Out Lab (02/08/2022 1:00 PM [...] (Tori Pham al, N Engl J Med 2014;370(14):6647-8749) The normal value (reference range) for this assay is negative. COLOGUARD RE-SCREENING RECOMMENDATION: Periodic colorectal cancer screening is an important part of preventive healthcare for asymptomatic individuals at average risk for colorectal cancer. ??Following a negative Cologuard result, the [place] Cancer Society and U.S. Multi-Society Task Force screening guidelines recommend a Cologuard re-screening interval of 3 years. References: [place] Cancer Society Guideline for Colorectal Cancer Screening: https://www.cancer.org/cancer/bhlqa-jjarfo-kahuvt/detection- diagnosis-staging/acs-recommendations.html.; Regis DK, Hoang RICKETTS, Melina SolorioK, Colorectal Cancer Screening: Recommendations for Physicians and Patients from the U.S. Multi-Society Task Force on Colorectal Cancer Screening , Am J Gastroenterology 2017; 112:3542-6191. TEST DESCRIPTION: Composite algorithmic analysis of stool [...] Meraz et al, N Engl J Med 2014;370(14):1476-8687.) Cologuard may produce a false negative or false positive result (no colorectal cancer or precancerous polyp present at colonoscopy follow up). A negative Cologuard test result does not guarantee the absence of CRC or advanced adenoma (pre-cancer). The current Cologuard screening interval is every 3 years. ([place] Cancer Society and U.S. Multi-Society Task Force). Cologuard performance data in a 10,000 patient pivotal study using colonoscopy as the reference method can be accessed at the following location: www.Explorra/results. Additional description of the Cologuard test process, warnings and precautions can be found at www.cologuard.com. Stool (Stool) 02/08/2022 1:0 0 PM CDT 02/09/2022 1:22 PM CDT Isrrael Kaiser APRNN.P., M.S.N. LAB BODY FLUIDS AND STOOLS ORDERABLES [employer] [address] [place] [address] [employer] [address] [place] [address], [address] [place] [address] * BI Breast Screening Bilateral with Tomosynthesis [...] Hormone - Sensitive) (01/13/2022 9:44 AM CDT) Pathologist [facility] [place] TSH, Sensitive 2.8 0.3 - 4.2 mIU/L 01/13/2022 11:10 AM CDT DTL Blood (Blood, Venous) 01/13/2022 9:44 AM CDT 01/13/2022 10:41 AM CDT Cammy Grider APRN, C.N.P., M.S.N. LAB BLOOD ADD-ON [facility] [address] [facility] [address] [place] [address] * (ABNORMAL) Basic Metabolic Panel (01/13/2022 9:44 AM CDT) Pathologist [facility] [place] Potassium, S 4.9 3.6 - 5.2 mmol/L [...] the 2009 CKD_EPI creatinine equation. eGFR-Black/Afri can [place] 65 >=60 mL/min/BSA 01/13/2022 11:01 AM CDT DTL Comment: ----ADDITIONAL INFORMATION---- Estimated GFR calculated using the 2009 CKD_EPI creatinine equation. Calcium, Total, S 9.1 8.8 - 10.2 mg/dL 01/13/2022 11:01 AM CDT DTL Glucose, S 98 70 - 140 mg/dL 01/13/2022 11:01 AM CDT DTL Blood (Blood, Venous) 01/13/2022 9:44 AM CDT 01/13/2022 10:40 AM CDT Cammy Grider APRN, C.N.P., M.S.N. LAB BLOOD ADD-ON [facility] 200 [place] [address], [place] [address] * ThinPrep w/HPV Co-Test Screen (04/02/2020 1:26 [...] CDT 04/02/2020 4:01 PM CDT Mariely Kaiser APRN.N.P., M.S.N. LAB PAP PATHDX ORDERABLES Performing Organization Address City/[facility]/ZIP Co de Phone Number [facility] [address] [place] [address], [facility] DTL [facility] [address] [place] [address] * Bone Donor 6 Month Screen Test Set (05/09/2014 9:32 AM CDT) Donor HBcore Antibody Negative [facility] HCV Ab Screen Donor Negative [facility] HX Hiv-1/-2, Plus O Ab Screen Donor Negative [facility] 05/09/2014 9:32 AM CDT 05/09/2014 9:32 AM CDT Girish Bradford M.D. LAB BLOOD NON ADD-ON [facility] [address] from Last 3 Months or Most Recently Relevant to Health Maintenance Care Teams Clay Carman Relationship Specialty Start Date End Date Elsewhere, Pcp PCP - General Family Medicine 10/07/21
--- OUTSIDE RECORDS SUMMARY | 2024-06-25 18:29 | XMS_ITS | Encounter Summary ---
Author Organization [facility] Address [address] [place] [address] Care Team Providers Care Hammer Setter Name Role Phone Elsewhere, Pcp Primary Care Provider Unavailabl e Reason for Visit * Outpatient (Routine) - Closed Specialty Diagnoses / Procedures Referred By Contmaite t Referred To Contact Dermatology Diagnoses Keratosis Actinic Procedures MAGGI JESSIKA-U/ ALA (PDT) Nabila Guerrero MPAS, P.A.-C. [facility] Referral ID Status Reason Start Date Expiration Date Visits Re quested Visits Authorized [id number] Closed 01/03/2024 01/02/2025 1 1 Encounter Details Date Type Department Care Team (Latest Contact Info) Description 05/23/2024 1:00 PM CDT Clinical Support Department of Dermatology in [place], [place] [address] [place] [phone] Nabila Guerrero MPAS, P.A.-CVanda Rodríguez, R.NJuan A [address] [place] [phone] Keratosis Actinic Discharge Disposition: Home or Self Care Social History Tobacco Use Types Packs/Day Years Used Date Smoking Tobacco: Never Passive Smoke Exposure: Past Smokeless Tobacco: Never Passive Exposure Comments:Mo m & Dad Smoked growing up Alcohol Use Standard Drinks/Week Comments Yes 0 (1 standard drink = 0.6 oz pur e alcohol) [facility] Utilities Answer Date Recorded In the past 12 months has [employer] electric, gas, oil, or water company threatened [...] week 09/29/2022 How often do you attend [facility] or sabianist services? Never 09/29/2022 Do you belong to any clubs o r organizations such as faith groups, unions, fraternal or athletic groups, or [...] Answer Date Recorded PHQ-2 Score 0 03/18/2022 [facility] of Occupat ional Health - Occupational Stress [...] your living situation today? I have a [facility] place to live 01/01/2024 Education Answer Date Recorded What is the highest level of school you have completed or the highest degree you have received? 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, GLASS SANDER, CHERYL) 09/29/2022 Sex and Gender Information Value Date Recorded Sex Assigned at Female 12/17/2018 7:47 AM AUTOMOBILE UPHOLSTERER Gender Identity Female 12/17/2018 7:47 AM AUTOMOBILE UPHOLSTERER Sexual Orientation Straight 12/17/2018 7: 47 AM AUTOMOBILE UPHOLSTERER documented as of this encounter Plan of Treatment Upcoming Encounters Date Type Department Care Team (Latest Contact Info) Description 09/16/2024 11:43 AM AUTOMOBILE UPHOLSTERER Hospital Encounter [facility] 02 4 AM ADMIT [address] [place] [address] Hamzah Todd M.D. [address] [place] [address] 09/16/2024 11:43 AM AUTOMOBILE UPHOLSTERER - 09/16/2024 3:15 PM AUTOMOBILE UPHOLSTERER Surgery [facility] MAIN OR [address] [place] [address] Hamzah Todd M.D. [address] [place] [address] ARTHROPLASTY REVISION HIP - ACETABULAR Scheduled Procedures Name Priority Associated Diagnoses Date/Ti me ARTHROPLASTY REVISION HIP Instability Total Hip Arthroplasty Subsequent Right 09/16/2024 11:43 AM AUTOMOBILE UPHOLSTERER documented as of this encounter Visit Diagnoses Diagnosis Keratosis Actinic Instability Total Hip Arthroplasty Subsequent Right documented in this encounter Administered Medications Inactive [...] as of this encounter Care Teams Hammer Setter Relationship Specialty Start Date End Date Elsewhere, Pcp PCP - General Family Medicine 10/07/21 documented as of this encounter
--- OUTSIDE RECORDS SUMMARY | 2024-06-25 18:29 | XMS_ITS | Encounter Summary ---
Author Organization [facility] Address [address] [place] [address] Care Team Providers Care Decontamination Worker Name Role Phone Elsewhere, Pcp Primary Care Provider Unavailabl e Reason for Visit * Reason Onset Date Comments Pre-visit Intake 05/28/2024 Encounter Details Date Type Department Care Team (Latest Contact Info) Description 05/28/2024 10:30 AM CDT Clinical Communication Virtual Review in [place], [place] 200 [place] [address] Pre-visit Intake Social History Tobacco Use Types Packs/Day Years Used Date Smoking Tobacco: Never Passive Smoke Exposure: Past Smokeless Tobacco: Never Passive Exposure Comments:Mo m & Dad Smoked growing up Alcohol Use Standard Drinks/Week Comments Yes 0 (1 standard drink = 0.6 oz pur e alcohol) [facility] Utilities Answer Date Recorded In the past 12 months has [facility] [employer], gas, oil, or water [employer] threatened to shut off services in your [...] often do you attend chur ch or jain services? Never 09/29/2022 Do you belong to any clubs o r organizations such as taoism groups, unions, fraternal or athletic groups, or [...] Answer Date Recorded PHQ-2 Score 0 03/18/2022 [facility]ational [facility] Questionnaire Answer Date [...] your living situation today? I have a [facility] place to live 01/01/2024 Education Answer Date Recorded What is the highest level of school you have completed or the highest degree you have received? 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, PROFESSOR OF BIBLICAL STUDIES, CHERYL) 09/29/2022 Sex and Gender Information Value Date Recorded Sex Assigned at Female 12/17/2018 7:47 AM UX RESEARCHER Gender Identity Female 12/17/2018 7:47 AM UX RESEARCHER Sexual Orientation Straight 12/17/2018 7: 47 AM UX RESEARCHER documented as of this encounter Plan of Treatment Upcoming Encounters Date Type Department Care Team (Latest Contact Info) Description 09/16/2024 11:43 AM UX RESEARCHER Hospital Encounter [facility] 02 4 AM ADMIT [address] [place] [phone] Hamzah Todd M.D. [address] [place] [phone] 09/16/2024 11:43 AM UX RESEARCHER - 09/16/2024 3:15 PM UX RESEARCHER Surgery [facility] MAIN OR [address] [place] [phone] Hamzah Todd M.D. [address] [place] [address] ARTHROPLASTY REVISION HIP - ACETABULAR Scheduled Procedures Name Priority Associated Diagnoses Date/Ti me ARTHROPLASTY REVISION HIP Instability Total Hip Arthroplasty Subsequent Right 09/16/2024 11:43 AM UX RESEARCHER documented as of this encounter Visit Diagnoses Not on filedocumented in this encounter Additional Health Concerns Assessment Noted Time PHQ-9 Depression Total Score: 1 03/18/20 22 7:24 AM CDT documented as of this encounter Care Teams Decontamination Worker Relationship Specialty Start Date End Date Elsewhere, Pcp PCP - General Family Medicine 10/07/21 documented as of this encounter
--- OUTSIDE RECORDS SUMMARY | 2024-06-25 18:29 | XMS_ITS | Encounter Summary ---
Author Organization [facility] Address [address] [place] [address] Care Team Providers Care Open Claims Representative Name Role Phone Elsewhere, Pcp Primary Care Provider Unavailabl e Encounter Details Date Type Department Care Team (Late st Contact Info) Description 08/06/2007 Historical Ophthalmology [facility] Felicitas Flores M.D. Social History Tobacco Use Types Packs/Day Years Used Date Smoking Tobacco: Never Assessed Sex and Gender Information Value Date Recorded Sex Assigned at Female 12/17/2018 7:47 AM FINANCIAL PLANNER Gender Identity Female 12/17/2018 7:47 AM FINANCIAL PLANNER Sexual Orientation Straight 12/17/2018 7: 47 AM FINANCIAL PLANNER documented as of this encounter Progress Notes [...] ocular findings. CDM Reports - EYEGEN Id: [id number] Status: Fnl documented in this encounter Plan of Treatment Upcoming Encounters Date Type Department Care Team (Latest Contact Info) Description 09/16/2024 11:43 AM FINANCIAL PLANNER Hospital Encounter [facility] 02 4 AM ADMIT [address] [place] [address] Hamzah Todd M.D. [address] [place] [phone] 09/16/2024 11:43 AM FINANCIAL PLANNER - 09/16/2024 3:15 PM FINANCIAL PLANNER Surgery [facility] MAIN OR [address] [place] [address] Hamzah Todd M.D. [address] [place] [phone] ARTHROPLASTY REVISION HIP - ACETABULAR Scheduled Procedures Name Priority Associated Diagnoses Date/Ti me ARTHROPLASTY REVISION HIP Instability Total Hip Arthroplasty Subsequent Right 09/16/2024 11:43 AM FINANCIAL PLANNER documented as of this encounter Visit Diagnoses Not on filedocumented in this encounter Care Teams Open Claims Representative Relationship Specialty Start Date End Date Elsewhere, Pcp PCP - General Family Medicine 10/07/21 documented as of this encounter
--- OUTSIDE RECORDS SUMMARY | 2024-06-25 18:29 | XMS_ITS | Encounter Summary ---
Author Organization [facility] Address [address] [place] [address] Care Team Providers Care Foot Roentgenologist Name Role Phone Elsewhere, Pcp Primary Care Provider Unavailabl e Encounter Details Date Type Department Care Team (Late st Contact Info) Description 11/13/2013 Historical Ophthalmology [facility] Brad Hodges M.D. [facility] [place] [address] Social History Tobacco Use Types Packs/Day Years Used Date Smoking Tobacco: Never Assessed Sex and Gender Information Value Date Recorded Sex Assigned at Female 12/17/2018 7:47 AM STITCHING DEPARTMENT SUPERVISOR Gender Identity Female 12/17/2018 7:47 AM STITCHING DEPARTMENT SUPERVISOR Sexual Orientation Straight 12/17/2018 7: 47 AM STITCHING DEPARTMENT SUPERVISOR documented as of this encounter Progress Notes [...] syndrome, bilateral CDM Reports - EYEGEN Id: [id number] Status: Fnl documented in this encounter Plan of Treatment Upcoming Encounters Date Type Department Care Team (Latest Contact Info) Description 09/16/2024 11:43 AM STITCHING DEPARTMENT SUPERVISOR Hospital Encounter [place] [address] 4 AM ADMIT [address] [place] [address] Hamzah Todd M.D. [address] [place] [phone] 09/16/2024 11:43 AM STITCHING DEPARTMENT SUPERVISOR - 09/16/2024 3:15 PM STITCHING DEPARTMENT SUPERVISOR Surgery [facility] OR [address] [place] [address] Hamzah Todd M.D. [address] [place] [phone] ARTHROPLASTY REVISION HIP - ACETABULAR Scheduled Procedures Name Priority Associated Diagnoses Date/Ti me ARTHROPLASTY REVISION HIP Instability Total Hip Arthroplasty Subsequent Right 09/16/2024 11:43 AM STITCHING DEPARTMENT SUPERVISOR documented as of this encounter Visit Diagnoses Not on filedocumented in this encounter Care Teams Foot Roentgenologist Relationship Specialty Start Date End Date Elsewhere, Pcp PCP - General Family Medicine 10/07/21 documented as of this encounter
--- OUTSIDE RECORDS SUMMARY | 2024-06-25 18:29 | XMS_ITS | Clinical Summary ---
Author Organization [facility] Address [place], [place] [address] Care Team Providers Care It Solutions Sales Consultant Name Role Phone Christa Mortensen Primary Care Provider [phone] Allergies Active Allergy Reactions Criticality Noted Date [...] COVID-19 vaccine series ( - 2022-24 season) 2024 Influenza for age 50-64 06/16/2024 Pneumococcal series for age 6-64 Aged Out No longer eligible based on patient's age to complete this topic Care Teams It Solutions Sales Consultant Relationship Specialty Start Date End Date Christa Mortensen PCP - General 09/26/19
--- OUTSIDE RECORDS SUMMARY | 2024-06-25 18:29 | XMS_ITS | Encounter Summary ---
Author Organization [facility] Address [address] [place] [address] Care Team Providers Care Sales Engineer Engineered Products Name Role Phone Elsewhere, Pcp Primary Care Provider Unavailnoé e Reason for Referral * Outpatient (Routine) - Closed Specialty Diagnoses / Procedures Referred By Nathalia t Referred To Contact Diagnoses Arthroplasty Total Hip Replacement Status Post Right Procedures DX Hip And Pelvis Right 2-3 Views DX Hip And Pelvis Right 4+ Views Steven Hui M.D. 200 [place] [address] [facility] Referral ID Status Reason Start Date Expiration Date Visits Re quested Visits Authorized [id number] Closed 05/26/2024 05/26/2025 1 1 * Outpatient (Routine) - Closed Specialty Diagnoses / Procedures Referred By Nathalia t Referred To Contact Orthopedic Surgery Steven Hui M.D. 200 [place] [address] Hamzah Todd M.D. 200 [place] [address] Referral ID Status Reason Start Date Expiration Date Visits Re quested Visits Authorized [id number] Closed 05/26/2024 2025 1 1 Reason for Visit * Reason Onset Date Comments Return Call Request 05/24/2024 Encounter Details Date Type Department Care Team (Latest Contact Info) Description 05/24/2024 Clinical Communication Department of Orthopedic Surgery in [place], [place] 200 [place] [address] Hamzah Todd M.D. 200 [place] [address] Return Call Request Social History Tobacco Use Types Packs/Day Years Used Date Smoking Tobacco: Never Passive Smoke Exposure: Past Smokeless Tobacco: Never Passive Exposure Comments:Mo m & Dad Smoked growing up Alcohol Use Standard Drinks/Week Comments Yes 0 (1 standard drink = 0.6 oz pur e alcohol) [facility] Utilities Answer Date Recorded In the past 12 months has e electric, gas, oil, or water [employer] threatened to shut off services in your [...] any clubs o r organizations such as buddhism groups, unions, fraternal or athletic groups, or [...] Answer Date Recorded PHQ-2 Score 0 03/18/2022 [facility] of Occupat ional [facility] - Occupational Stress Questionnaire Answer Date [...] your living situation today? I have a [facility] place to live 01/01/2024 Education Answer Date Recorded What is the highest level of school you have completed or the highest degree you have received? 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, FOOD TECHNOLOGIST, CHERYL) 09/29/2022 Sex and Gender Information Value Date Recorded Sex Assigned at Female 12/17/2018 7:47 AM SAP TREASURY CONSULTANT Gender Identity Female 12/17/2018 7:47 AM SAP TREASURY CONSULTANT Sexual Orientation Straight 12/17/2018 7: 47 AM SAP TREASURY CONSULTANT documented as of this encounter Miscellaneous Notes [...] 05/23/24. This was successfully close reduced in [facility]. Since that time she has remained [...] (Latest Contact Info) Description 09/16/2024 11:43 AM SAP TREASURY CONSULTANT Hospital Encounter [facility] 02 4 AM ADMIT [address] [place] [address] Hamzah Todd M.D. [address] [place] [address] 09/16/2024 11:43 AM SAP TREASURY CONSULTANT - 09/16/2024 3:15 PM SAP TREASURY CONSULTANT Surgery [facility] MAIN OR [address] [place] [address] Hamzah Todd M.D. [address] [place] [address] ARTHROPLASTY REVISION HIP - ACETABULAR Scheduled Procedures Name Priority Associated Diagnoses Date/Ti me ARTHROPLASTY REVISION HIP Instability Total Hip Arthroplasty Subsequent Right 09/16/2024 11:43 AM SAP TREASURY CONSULTANT Scheduled Referrals Name Type Priority Associated Diagnoses [...] Arthroplasty Total Hip Replacement Status Post Right Instability Total Hip Arthroplasty Subsequent Right documented in this encounter Additional Health Concerns Assessment Noted Time PHQ-9 Depression Total Score: 1 03/18/20 22 7:24 AM CDT documented as of this encounter Care Teams Sales Engineer Engineered Products Relationship Specialty Start Date End Date Elsewhere, Pcp PCP - General Family Medicine 10/07/21 documented as of this encounter
--- OUTSIDE RECORDS SUMMARY | 2024-06-25 18:29 | XMS_ITS | Encounter Summary ---
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 200 [place] [address] [facility] Referral ID Status Reason Start Date Expiration Date Visits Re quested Visits Authorized [id number] Closed 05/26/2024 05/26/2025 1 1 Reason for Visit * Outpatient (Routine) - Closed Specialty Diagnoses / Procedures Referred By Nathalia colon Referred To Contact Diagnoses Arthroplasty Total Hip Replacement Status Post Right Procedures DX Hip And Pelvis Right 2-3 Views DX Hip And Pelvis Right 4+ Views Setven Hui M.D. [address] [place] [phone] [facility] Referral ID Status Reason Start Date Expiration Date Visits Re quested Visits Authorized [id number] Closed 05/26/2024 05/26/2025 1 1 Encounter Details Date Type Department Care Team (Latest Contact Info) Description 05/29/2024 12:45 PM CDT - 05/29/2024 11:59 PM CDT Hospital Encounter Department of Radiology, [facility], in [place], [place] [address] [place] [address] Steven Hui M.D. 200 [place] [address] Arthroplasty Total Hip Replacement Status Post Right Discharge Disposition: Home or Self Care Social History Tobacco Use Types Packs/Day Years Used Date Smoking Tobacco: Never Passive Smoke Exposure: Past Smokeless Tobacco: Never Passive Exposure Comments:Mo m & Dad Smoked growing up Alcohol Use Standard Drinks/Week Comments Yes 0 (1 standard drink = 0.6 oz pur e alcohol) [facility] Utilities Answer Date Recorded In [...] often do you attend chur ch or buddhist services? Never 09/29/2022 Do you belong to [...] Date Recorded PHQ-2 Score 0 03/18/2022 [facility] of Occupat ional [facility] - Occupational Stress Questionnaire Answer Date [...] 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, CHEMICAL PRODUCTION ENGINEER, CHERYL) 09/29/2022 Sex and Gender Information Value Date Recorded Sex Assigned at Female 12/17/2018 7:47 AM PRESTO LOG OPERATOR Gender Identity Female 12/17/2018 7:47 AM PRESTO LOG OPERATOR Sexual Orientation Straight 12/17/2018 7: 47 AM PRESTO LOG OPERATOR documented as of this encounter Medications at [...] (Latest Contact Info) Description 09/16/2024 11:43 AM PRESTO LOG OPERATOR Hospital Encounter [facility] 02 4 AM ADMIT [address] [place] [address] Hamzah Todd M.D. [address] [place] [address] 09/16/2024 11:43 AM PRESTO LOG OPERATOR - 09/16/2024 3:15 PM PRESTO LOG OPERATOR Surgery [facility] MAIN OR [address] [place] [address] Hamzah Todd M.D. [address] [place] [address] ARTHROPLASTY REVISION HIP - ACETABULAR Scheduled Procedures Name Priority Associated Diagnoses Date/Ti me ARTHROPLASTY REVISION HIP Instability Total Hip Arthroplasty Subsequent Right 09/16/2024 11:43 AM PRESTO LOG OPERATOR documented as of this encounter Procedures Procedure [...] HERMES. No radiographic evidence of loosening. Left HERMSE. Degenerativearthritis of the lower lumbar spine, SI [...] documented as of this encounter Care Teams Bingo Clerk Relationship Specialty Start Date End Date Elsewhere, Pcp PCP - General Family Medicine 10/07/21 documented as of this encounter
--- OUTSIDE RECORDS SUMMARY | 2024-06-25 18:29 | XMS_ITS ---
Author Organization [facility] Address [address] [place] [address] Care Team Providers Care Reducer Name Role Phone Unavailable Unavailable Unavailable Surgery Details Not on file Complications Check Surgery Details section. Procedure Estimated Blood Loss Check Surgery Details section. Procedure Findings Check Surgery Details section. Procedure Specimens Taken Check Surgery Details section.
--- NOTE | 2024-06-25 18:40 | CRLHL7_ITS ---
For Patients: As a result of the Century Cures Act, medical imaging exams and procedure reports are released immediately into your electronic medical record. You may view this report before your referring provider. If you have questions, please contact your health care provider. BILATERAL SCREENING MAMMOGRAM WITH COMPUTER-AIDED DETECTION AND TOMOSYNTHESIS TECHNIQUE: CC and MLO views were obtained. These mammographic images have been obtained using full-field digital technique. These mammographic images were interpreted with the benefit of computer-aided detection. Breast Tomosynthesis was used in this interpretation. COMPARISON FILM: 06/20/23, 01/13/22, 01/12/21. FINDINGS: There are scattered areas of fibroglandular density. IMPRESSION: There is no radiographic evidence for malignancy. ASSESSMENT: BI-RADS Category 1: Negative RECOMMENDATION: Routine screening mammogram in 1 year. A lay language report of this examination will be provided to the patient. López Johnston M.D. Diagnostic Radiologist [email or web address] SP/Dictated by: López Johnston MD @ 06/27/2024 10:22:00 AM (Electronically Signed)
== END 2024-06-25 18:27 | disposition home or self-care (01) ==
LOC: MAMMO 18:27
PROVIDERS: PCP Emergency Medicine; Visit Provider Emergency Medicine
DX: Z12.31 Encounter for screening mammogram for malignant neoplasm of breast (principal)
CPT/HCPCS: 77063; 77067

== ENCOUNTER 2024-07-17 09:02 | Outpatient (CLI) | payer OTHER, SELFPAY ==
--- OUTSIDE RECORDS SUMMARY | 2024-07-18 08:39 | XMS_ITS | Clinical Summary ---
Author Organization [facility] Address [address] [place] [address] Care Team Providers Care Machine Packaging Technician Name Role Phone Christa Mortensen Primary Care Provider [phone] Allergies Active Allergy Reactions Criticality Noted Date [...] renal tumor 05/21/2014 Overview: Overview: cryotherapy at [facility] Chronic insomnia 05/21/2014 Fibromyalgia 05/21/2014 Hyperlipidemia 05/21/2014 Menopause present 05/21/2014 AAKASH on CPAP 05/21/2014 Pulmonary embolism 05/21/2014 Overview: Overview: on BCP. Seasonal allergies 05/21/2014 Squamous cell cancer of skin of forearm 05/21/20 14 Vaginal atrophy 05/21/2014 Encounters Date Type Department Care Team Description 05/23/2024 5:48 PM CDT - 05/23/2024 11:06 PM CDT Emergency [facility] [place] [facility] [address] [place] [address] Rober Hernandez MD Closed dislocation of right [...] HIV SCREENING 1974 HEPATITIS C SCREENING 1977 PAP 04/02/2023 04/02/2020 PHQ-2 (once per calendar year) 2023 MAMMO SCREENING 01/14/2024 01/13/2022, 03/10/2021, 01/13/2022, Additional history exists COVID-19 Vaccine ( season) 2024 09/03/2023, 06/18/2022, 01/14/2022, Additional history exists INFLUENZA VACCINE (#1) 2024 , 07/11/2022, 07/11/2022, Additional history exists COLORECTAL CANCER SCREENING 02/08/2025 sDNA (Cologuard) 02/08/2025 02/08/2022 DTAP/TDAP/TD IMMUNIZATION (7 - Td or Tdap) 01/14/2032 01/13/2022, 04/13/2011, 05/16/2003, Additional history exists RSV VACCINE (1 - 1-dose 75+ series) 2034 Pneumococcal Vaccine: Pediatrics (0 to 5 Years) and At-Risk Patients (6 to 64 Years) Aged Out 02/22/2012 No longer eligible based on patient's age to complete this topic ZOSTER IMMUNIZATION Completed 04/01/2019, 01/12/2019, 12/19/2018 HPV IMMUNIZATION Aged Out No longer e [...] PELVIS AND HIP RIGHT 1 VIEW LOCATION: [facility] DATE: 05/23/2024 INDICATION: assess dislocation reduction COMPARISON: None. Procedure Note Dwain Jones MD - 05/23/2024 EXAM: XR PELVIS AND HIP RIGHT 1 VIEW LOCATION: [facility] DATE: 05/23/2024 INDICATION: assess [...] Rober Hernandez MD ? 05/23/2024 11:05 PM [facility] Procedure: Sedation Date/Time: 05/23/2024 [...] procedure a time out was called ?? [place] Protocol: the Joint Commission [place] Protocol was followed ?? Preparation: Patient was [...] ORDERABLES from Last 3 Months Care Teams Machine Packaging Technician Relationship Specialty Start Date End Date Christa Mortensen PCP - General Internal Medicine 07/11/17
--- OUTSIDE RECORDS SUMMARY | 2024-07-18 08:39 | XMS_ITS | Referral Summary ---
Author Organization [facility] Address [address] [place] [address] Care Team Providers Care Road Passenger Firer Name Role Phone Christa Mortensen Primary Care Provider Encounters Date Type Department Care Team Description 05/23/2024 Travel 05/23/2024 5:48 PM CDT - 05/23/2024 11:[address] 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 Procedure Note Dwain Jones MD - 05/23/2024 EXAM: XR PELVIS AND HIP RIGHT 1 VIEW LOCATION: [facility] DATE: 05/23/2024 INDICATION: assess dislocation reduction [...] Hernandez MD - 05/23/2024 8:15 PM CDT Roebr Hernandez MD ? 05/23/2024 11:05 PM [facility] Procedure: Sedation Date/Time: 05/23/2024 8:15 PM [...] procedure a time out was called ?? Phenix Protocol: the Joint [facility] Phenix Protocol was followed ?? Preparation: Patient was [...] ORDERABLES from Last [address] Passenger Firer Relationship Specialty Start Date End Date FestusChrista PCP - General Internal Medicine 07/11/17
--- OUTSIDE RECORDS SUMMARY | 2024-07-18 08:39 | XMS_ITS | Encounter Summary ---
Author Organization [facility] Address [address] [place] [address] Care Team Providers Care Child Therapist Name Role Phone Lennie Mortensenanne Primary Care Provider [phone] Reason for Visit * Reason Comments Hip Pain Dislocation Encounter Details Date Type Department Care Team (Late st Contact Info) Description 05/23/2024 5:48 PM CDT - 05/23/2024 11:[address] [facility] Emergency Dept [address] [place] [address] Rober Hernandez MD [facility] [address] [place], [place] [id number] Closed dislocation of right hip, initial encounter [...] sent through Care Everywhere. * Hip Dislocation (Bolivian) documented in this encounter Medications at Time [...] had hip replacement 2013 and hip dislocation [id number]. Pt was leaning over in chair and [...] mg/mL vial (100 mg Intravenous $Given 05/23/242005) [facility] Procedure: Sedation Date/Time: 05/23/2024 8:15 [...] the procedure a time out was called Anderson Protocol: the Joint Commission Anderson Protocol was followed Preparation: Patient was prepped [...] attempts, and need to go to [place] Anderson Protocol: Anderson protocol was followed and time out conducted [...] of dislocation. Medical Decision Making / Diagnosis [facility] Diagnoses: None MIPS None MDM Patient presenting [...] medications on file Rober Hernandez MD 05/23/24 2435 documented in this encounter Plan of Treatment [...] PELVIS AND HIP RIGHT 1 VIEW LOCATION: [facility] DATE: 05/23/2024 INDICATION: assess dislocation reduction COMPARISON: None. Procedure Note Dwain Jones MD - 05/23/2024 EXAM: XR PELVIS AND HIP RIGHT 1 VIEW LOCATION: [facility] DATE: 05/23/2024 INDICATION: assess dislocation [...] Rober Hernandez MD ? 05/23/2024 11:05 PM [facility] Procedure: Sedation Date/Time: 05/23/2024 8:15 [...] procedure a time out was called ?? Anderson Protocol: the Joint Commission Anderson Protocol was followed ?? Preparation: Patient was [...] PELVIS AND HIP RIGHT 1 VIEW LOCATION: [facility] DATE: 05/23/2024 INDICATION: cncern for dislocatin COMPARISON: None. Procedure Note Dwain Jones MD - 05/24/2024 EXAM: XR PELVIS AND HIP RIGHT 1 VIEW LOCATION: [facility] DATE: 05/23/2024 INDICATION: cncern for [...] order) documented in this encounter Care Teams Child Therapist Relationship Specialty Start Date End Date Christa Mortensen PCP - General Internal Medicine 07/11/17 documented as of this encounter
--- OUTSIDE RECORDS SUMMARY | 2024-07-18 08:39 | XMS_ITS | Encounter Summary ---
Author Organization [facility] Address [address] [place] [address] Care Team Providers Care Equipment Operat0R Name Role Phone Christa Mortensen Primary Care [...] on filedocumented in this encounter Care Teams Equipment Operat0R Relationship Specialty Start Date End Date Christa Mortensen PCP - General Internal Medicine 07/11/17 documented as of this encounter
--- OUTSIDE RECORDS SUMMARY | 2024-07-18 08:39 | XMS_ITS | Clinical Summary ---
Author Organization [facility] Address [address] [place] [address] Care Team Providers Care Optician Manager Name Role Phone Elsewhere, Pcp Primary Care Provider Unavailabl e Source Comments Patient records contain information from all sites at [facility]. For routine questions regarding patient records, call [phone] during business hours, M-F 8:00 AM - 5:00 PM Central Time. Record requests for emergency care only can be directed to [phone] at any time.[facility] Allergies Active Allergy Reactions Criticality Noted Date [...] Active Problems Problem Noted Date Diagnosed Date Obesity Body Mass Index 30-39.9 Adult 07/10/2024 Other Pulmonary Embolism Without Acute Cor Pulmo nale 07/10/2024 Fatty Liver 05/23/2024 Hypothyroidism Postsurgical 05/23/2024 Carpal Tunnel Syndrome Left 03/23/2023 Carpal Tunnel [...] 12/19/2018 Overview (12/19/2018): Overview: Overview: cryotherapy at [facility] Keratosis Seborrheic 04/20/2012 019 Encounters Date Type Department Care Team Description 07/10/2024 CPAP Download Remote Patient Monitoring [facility] [address] [place] [address] [facility], Reny Sosa, Ph.D. 06/09/2024 CPAP Download Remote Patient Monitoring [facility] [address] [place] [phone] [facility], Reny Sosa, Ph.D. 05/29/2024 2:00 PM CDT Office Visit Department of Orthopedic Surgery in [address] [address] Hamzah Todd M.D. Instability Total Hip Arthroplasty Initial Right (HCC) (Primary Dx) 05/29/2024 12:45 PM CDT - 05/29/2024 11:59 PM CDT Hospital Encounter Department of Radiology, [facility], in [address] [address] Steven Hui M.D. Arthroplasty Total Hip Replacement Status Post Right Discharge Disposition: Home or Self Care 05/28/2024 10:30 AM CDT Clinical Communication Virtual Review in [address] [address] Pre-visit Intake 05/24/2024 Clinical Communication Department of Orthopedic Surgery in [address] [address] Hamzah Todd M.D. Return Call Request 05/23/2024 1:00 PM CDT Clinical Support Department of Dermatology in [address] [address] Nabila Guerrero, [facility] Vanda Finley, R.N. Keratosis Actinic Discharge Disposition: Home or Self Care 05/09/2024 CPAP Download Remote Patient Monitoring [facility] [address] [place] [phone] [facility], Reny Sosa, Ph.D. from Last 3 Months Immunizations Name Administration Dates Next Due H1N1 All Forms 12/07/2009 Influenza Split 07/16/2017, 6,06/16/2015,2013,07/16/2013,07/16/2011,08/11/2010,0 06/19/2009,08/27/2003,08/16/2002, 996 Influenza, Injectable, Mdck, Preservative Free, Quadrivalent 07/11/2022,07/19/2017 Influenza, Seasonal, Injectable 07/18/20 13,08/06/2007,09/14/2006,2002,08/16/2002,10/16/1995 Influenza, Unspecified 07/28/2021,2014,06/11/2014,2010,08/11/2010,06/19/2009 PPSV23 02/22/2012 RZV (SHINGRIX) 04/01/2019, 9,12/19/2018(Deferr ed: Not available from recruiting associate) SARS-COV-2 (COVID-19) - MODERNA(Discontinued) 01/04/2021 Td (Adult), [...] Grandmother Ingrid Segundo Lung cancer Mother Ambreen Fitterer Stroke Paternal Grandfather Manoj Fitterer Stroke Paternal Grandmother Vane Blanchard Other cancer Sister Bladder cancer Relation Name Status Comments Father Tyrel Fitterer Maternal Grandfather Du Valencia Maternal Grandmother Ingrid Honken Mother Ambreen Fitterer Paternal Grandfather Manoj Fitterer Paternal Grandmother Vane Blanchard Sister Bladder cancer Social History Tobacco Use Types Packs/Day Years Used Date Smoking Tobacco: Never Passive Smoke Exposure: Past Smokeless Tobacco: Never Passive Exposure Comments:Mo m & Dad Smoked growing up Alcohol Use Standard Drinks/Week Comments Yes 0 (1 standard drink = 0.6 oz pur e alcohol) [facility] Utilities Answer Date Recorded In [...] How often do you attend chur or confucianism services? Never 09/29/2022 Do you belong to any clubs o r organizations such as mu-ism groups, unions, fraternal or athletic groups, or [...] Answer Date Recorded PHQ-2 Score 0 03/18/2022 [facility]at [facility] - Occupational Stress Questionnaire Answer Date [...] 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, CAUSTIC CRESYLATE SHIFT SUPERINTENDENT, CHERYL) 09/29/2022 Sex and Gender Information Value Date Recorded Sex Assigned at Female 12/17/2018 7:47 AM SUPERVISOR NEWSP[employer] Gender Identity Female 12/17/2018 7:47 AM SUPERVISOR [employer] Sexual Orientation Straight 12/17/2018 7: 47 AM SUPERVISOR NEWSP[employer] Last Filed Vital Signs Vital Sign Reading [...] Department Care Team (Latest Contact Info) Description 08/29/2024 9:30 AM SUPERVISOR NEWSP[employer] Clinical Communication Virtual Review in [address] [phone] 09/02/2024 7:50 AM SUPERVISOR NEWSPAPER DELIVERIES Appointment Department of Laboratory Medicine and Pathology, [facility] in [address] [phone] Hamzah Todd M.D. [address] [place] [phone] 09/02/2024 9:00 AM SUPERVISOR NEWSP[employer] Comprehensive Visit Preoperative Evaluation Center in [address] [address] Hamzah Todd M.D. [address] [place] [phone] 09/02/2024 1:30 PM SUPER[employer]OR [employer] Office Visit Department of Orthopedic Surgery in [address] [address] Hamzah Todd M.D. [address] [place] [phone] 09/03/2024 1:30 PM SUPER[employer] Procedure visit Department of Orthopedic Surgery in [place], [place] [address] [place] [address] Hola Gross M.D. [address] [place] [phone] 09/16/2024 11:43 AM SUPERVISOR NEWSP[employer]IVER[employer] Hospital Encounter [facility] 02 4 AM ADMIT [address] [place] [phone] Hamzah Todd M.D. [address] [place] [phone] 09/16/2024 11:43 AM SUPERVISOR NEWSPAPER DELIVERIES - 09/16/2024 3:15 PM SUPERVISOR NEWSPAPER DELIVERIES Surgery [facility] MAIN OR [address] [place] [address] Hamzah Todd M.D. [address] [place] [phone] ARTHROPLASTY REVISION HIP - ACETABULAR Scheduled Procedures Name Priority Associated Diagnoses Date/Ti me ARTHROPLASTY REVISION HIP Instability Total Hip Arthroplasty Subsequent Right 09/16/2024 11:43 AM SUPERVISOR NEWSP[employer]IVERIES Health Maintenance Due Date Last Done Comments CT Colonography 1959 FIT 1959 HIV Screening 1960 Colonoscopy 09/01/2018 09/01/2008 RSV vaccine - (32-36 weeks) or 60+ years (1 - Risk 60-74 years 1-dose series) 2019 Mammogram 01/13/2023 01/13/2022, 12/16, 01/12/2021, Additional history exists Thyroid Stimulating Hormone (TSH) test for thyroid function 01/13/2023 01/13/2022, 01/12/2021, 03/30/2020, Additional history exists Depression Screening (Annual PHQ-2) 10/16/2023 COVID-19 Vaccine ( season) 2024 09/03/2023, 06/18/2022, 01/14/2022, Additional history exists Influenza Vaccine (#1) 2024 , 07/11/2022, 07/28/2021, Additional history exists Fasting Glucose for Diabetes Screening 01/13/2025 01/13/2022, 01/12/2021, 12/24/2019, Additional history exists Cologuard 02/15/2025 02/15/2022, 01/15, 02/06/2019 Colorectal Cancer Screening 02/15/2025 Cervical Cancer [...] exists Zoster Vaccines Completed 04/01/2019, 12/16, 12/19/2018 Medical Devices Implanted Type Area Ammonium Nitrate Crystallizer Device Identifier Shelf Expiration Date Model / Serial / Lot Hardware E.G. Pins/Screws/Ro ds Hardware e.g. pins/screws/ rods Neck Description:Clips present af ter thyroid removal. Guide Wire-Ball Tip 3 X 800 - Orr [id number] Implanted:Qty: 1 on 05/07/2013 Hardware e.g. pins/screws/ rods Elrod Description:Device Manufactu [facility] - Ivelisse Bandar.. Device Status Text - HARDWARE- 26422. [facility] Data - [id number]. Gowen Screw 2 Canc 6.5 X 20 - Orr [id number] Implanted:Qty: 1 on 05/07/2013 Hardware e.g. pins/screws/ rods [employer]im [employer] Description:Device Manufactu rer - [employer]. Device Status Text - HARDWARE-33499. Gowen Screw 2 Canc 6.5 X 25 - Orr [id number] Implanted:Qty: 1 on 05/07/2013 Hardware e.g. pins/screws/ rods [employer] Description:Device Manufactu rer - [employer]. Device Status Text - HARDWARE-66415. Gowen Screw 2 Canc 6.5 X 15 - Orr [id number] Implanted:Qty: 2 on 05/07/2013 Hardware e.g. pins/screws/ rods [employer] Description:Device Manufactu rer - [employer]. Device Status Text - HARDWARE-96889. Guide Wire-Ball Tip 3 X 800 - Orr [id number] Implanted:Qty: 1 on 10/22/2013 Hardware e.g. pins/screws/ rods Elrod Description:Device Manufactu rer - Ivelisse Bandar.. Device Status Text - HARDWARE- 03259. [facility] Data - [id number]. Gowen Screw 2 Canc 6.5 X 15 - Orr [id number] Implanted:Qty: 1 on 10/22/2013 Hardware e.g. pins/screws/ rods [employer] Description:Device Manufactu rer - [employer]. Device Status Text - HARDWARE-95900. Gowen Screw 2 Canc 6.5 X 25 - Orr [id number] Implanted:Qty: 2 on 10/22/2013 Hardware e.g. pins/screws/ rods [employer] Description:Device Manufactu rer - [employer]. Device Status Text - HARDWARE-76578. Gowen Liner Altrx +4 Neut 32x48 - Orr [id number] Implanted:Qty: 1 on 05/07/2013 Hip Implant Other/Legacy - See Implant Description [employer] Description:Device Manufactu Kim[employer] - [employer]. Body Location - Other. Left. Device Status Text - HIP IMP-[id number]. Gowen Shell Multi 2 48mm - Orr [id number] Implanted:Qty: 1 on 05/07/2013 Hip Implant Other/Legacy - See Implant Description [employer] Description:Device Manufactu rer - [employer]. Body Location - Other. Left. Device Status Text - HIP IMP-112652. [place]-Stem [place] 3 Hi - Orr [id number] Implanted:Qty: 1 on 05/07/2013 Hip Implant Other/Legacy - See Implant Description [employer] Description:Device Manufactu rer - [employer]. Body Location - Other. Left. Device Status Text - HIP IMP-044433. Delta-Head Ceramic 32mm +1 - Orr [id number] Implanted:Qty: 1 on 05/07/2013 Hip Implant Other/Legacy - See Implant Description [employer] Description:Device Manufactu rer - [employer]. Body Location - Other. Left. Device Status Text - HIP IMP-624388. Delta-Head Ceramic 32mm +1 - Orr [id number] Implanted:Qty: 1 on 10/22/2013 Hip Implant Other/Legacy - See Implant Description [employer] Description:Device Manufactu rer - [employer]. Body Location - Other. Right. Device Status Text - HIP IMP-735258. Stem [place] 3x Hi 135 - Orr [id number] Implanted:Qty: 1 on 10/22/2013 Hip Implant Other/Legacy - See Implant Description [employer] Description:Device Manufactu rer - [employer]. Body Location - Other. Right. Device Status Text - HIP IMP-[id number]. Gowen Shell Multi 2 48mm - Orr [id number] Implanted:Qty: 1 on 10/22/2013 Hip Implant Other/Legacy - See Implant Description [employer] Description:Device Manufactu rer - [employer]. Body Location - Other. Right. Device Status Text - HIP IMP-228331. Gowen Liner Altrx +4 Neut 32x48 - Orr [id number] Implanted:Qty: 1 on 10/22/2013 Hip Implant Other/Legacy - See Implant Description [employer] Description:Device Manufactu rer - [employer]. Body Location - Other. Right. Device Status Text - HIP IMP-812069. Mitralclip-10/16 Implanted:10/2016 (Quantity not on file) Mitralclip [...] In System IMG DIAGNOSTIC IM AGING PROCEDURES [facility] NA * (ABNORMAL) Lipid Panel (06/09/2022 [...] Grider APRN, C.N.P., M.S.N. LAB BLOOD ADD-ON [place] [address] [place] [address], [facility] [address] [place] [address] * Cologuard-Sent Out Lab (02/08/2022 1:00 PM [...] screened with both Cologuard and colonoscopy. (Tori Nguyen, N Engl J Med 2014;370(14):8359-7737) The normal value (reference range) for this assay is negative. COLOGUARD RE-SCREENING RECOMMENDATION: Periodic colorectal cancer screening is an important part of preventive healthcare for asymptomatic individuals at average risk for colorectal cancer. ??Following a negative Cologuard result, the [place] [employer] Society and U.S. Multi-Society Task Force screening guidelines recommend a Cologuard re-screening interval of 3 years. References: [place] [employer] Guideline for Colorectal Cancer Screening: https://www.cancer.org/cancer/wfoaz-pibsab-valvos/detection- diagnosis-staging/acs-recommendations.html.; Regis DK, Hoang RICKETTS, Melina SolorioK, Colorectal Cancer Screening: Recommendations for Physicians and Patients from the U.S. Multi-Society Task Force on Colorectal Cancer Screening , Am J Gastroenterology 2017; 112:6345-9296. TEST DESCRIPTION: Composite algorithmic analysis of stool [...] screened with both Cologuard and colonoscopy. (Tori Nguyen, N Engl J Med 2014;370(14):6265-5458.) Cologuard may produce a false negative or false positive result (no colorectal cancer or precancerous polyp present at colonoscopy follow up). A negative Cologuard test result does not guarantee the absence of CRC or advanced adenoma (pre-cancer). The current Cologuard screening interval is every 3 years. ([place] [employer] Society and U.S. Multi-Society Task Force). Cologuard performance data in a 10,000 patient pivotal study using colonoscopy as the reference method can be accessed at the following location: www.SimplyBox.kooldiner/results. Additional description of the Cologuard test process, warnings and precautions can be found at www.cologuard.com. Stool (Stool) 02/08/2022 1:0 0 PM CDT 02/09/2022 1:22 PM CDT Cammy Grider APRN, C.N.P., M.S.N. LAB BODY FLUIDS AND STOOLS ORDERABLES [employer] [address] [place] [address] [employer] [address] [place] [address], [address] [place] [address] * BI Breast Screening Bilateral with Tomosynthesis [...] Grider APRN, C.N.P., M.S.N. LAB BLOOD ADD-ON [address] [address], [facility] [address] [place] [address] * (ABNORMAL) Basic Metabolic Panel (01/13/2022 9:44 [...] the 2009 CKD_EPI creatinine equation. eGFR-Black/Afri can Haitian 65 >=60 mL/min/BSA 01/13/2022 11:01 AM CDT [...] Grider APRN C.N.P., M.S.N. [place] [address], [facility] [place] [address] * ThinPrep w/HPV Co-Test Screen (04/02/2020 1:26 [...] 1:26 PM CDT 04/02/2020 4:01 PM CDT Isrrael Kaiser APRNNJuan AP., M.S.N. LAB PAP PATHDX ORDERABLES Performing Organization Address City/[facility]/ZIP Co de Phone Number [facility] [address] [place] [address], [facility] DTL [facility] [address] [place] [address] * Bone Donor 6 Month Screen Test Set (05/09/2014 9:32 AM CDT) Donor HBcore Antibody Negative [facility] HCV Ab Screen Donor Negative [facility] HX Hiv-1/-2, Plus O Ab Screen Donor Negative [facility] 05/09/2014 9:32 AM CDT 05/09/2014 9:32 AM CDT Girish Bradford M.D. LAB BLOOD NON ADD-ON [facility] [address] [place] [address], [facility] from Last 3 Months or Most Recently Relevant to Health Maintenance Care Teams Optician Manager Relationship Specialty Start Date End Date Elsewhere, Pcp PCP - General Family Medicine 10/07/21
--- OUTSIDE RECORDS SUMMARY | 2024-07-18 08:40 | XMS_ITS | Encounter Summary ---
Author Organization [facility] Address [address] [place] [address] Care Team Providers Care Consulting Systems Engineer Name Role Phone Elsewhere, Pcp Primary Care Provider Unavailabl e Encounter Details Date Type Department Care Team (Late st Contact Info) Description 04/08/2024 CPAP Download Remote Patient Monitoring [facility] [address] [place] [address] [facility], Provider, M.B., Ph.D. Social History Tobacco Use Types Packs/Day Years Used Date Smoking Tobacco: Never Passive Smoke Exposure: Past Smokeless Tobacco: Never Passive Exposure Comments:Mo m & Dad Smoked growing up Alcohol Use Standard Drinks/Week Comments Yes 0 (1 standard drink = 0.6 oz pur e alcohol) [facility] Utilities Answer Date Recorded In the past 12 months has e [email or web address], gas, oil, or water [employer] threatened to shut off services in your [...] often do you attend chur ch or samaritan services? Never 09/29/2022 Do you belong to any clubs o r organizations such as christian groups, unions, fraternal or athletic groups, or [...] Answer Date Recorded PHQ-2 Score 0 03/18/2022 [facility] Questionnaire Answer Date [...] your living situation today? I have a [facility] place to live 01/01/2024 Education Answer Date Recorded What is the highest level of school you have completed or the highest degree you have received? 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, BRINELL TESTER, CHERYL) 09/29/2022 Sex and Gender Information Value Date Recorded Sex Assigned at Female 12/17/2018 7:47 AM COMPLIANCE REPRESENTATIVE Gender Identity Female 12/17/2018 7:47 AM COMPLIANCE REPRESENTATIVE Sexual Orientation Straight 12/17/2018 7: 47 AM COMPLIANCE REPRESENTATIVE documented as of this encounter Plan of Treatment Upcoming Encounters Date Type Department Care Team (Latest Contact Info) Description 08/29/2024 9:30 AM COMPLIANCE REPRESENTATIVE Clinical Communication Virtual Review in [place], [place] 200 [place] [address] 09/02/2024 7:50 AM COMPLIANCE REPRESENTATIVE Appointment Department of Laboratory Medicine and Pathology, [facility], in [place], [place] [address] [place] [phone] Hamzah Todd M.D. [address] [place] [phone] 09/02/2024 9:00 AM COMPLIANCE REPRESENTATIVE Comprehensive Visit Preoperative Evaluation Center in [place], [place] [address] [place] [phone] Hamzah Todd M.D. [address] [place] [phone] 09/02/2024 1:30 PM COMPLIANCE REPRESENTATIVE Office Visit Department of Orthopedic Surgery in [place], [place] [address] [place] [phone] Hamzah Todd M.D. [address] [place] [phone] 09/03/2024 1:30 PM COMPLIANCE REPRESENTATIVE Procedure visit Department of Orthopedic Surgery in [place], [place] [address] [place] [phone] Hola Gross M.D. [address] [place] [phone] 09/16/2024 11:43 AM COMPLIANCE REPRESENTATIVE Hospital Encounter RST RO 02 4 AM ADMIT [address] [place] [phone] Hamzah Todd M.D. [address] [place] [phone] 09/16/2024 11:43 AM COMPLIANCE REPRESENTATIVE - 09/16/2024 3:15 PM COMPLIANCE REPRESENTATIVE Surgery RST RO MAIN OR [address] [place] [address] Hamzah Todd M.D. [address] [place] [phone] ARTHROPLASTY REVISION HIP - ACETABULAR Scheduled Procedures Name Priority Associated Diagnoses Date/Ti me ARTHROPLASTY REVISION HIP Instability Total Hip Arthroplasty Subsequent Right 09/16/2024 11:43 AM COMPLIANCE REPRESENTATIVE documented as of this encounter Visit Diagnoses Not on filedocumented in this encounter Additional Health Concerns Assessment Noted Time PHQ-9 Depression Total Score: 1 03/18/20 22 7:24 AM CDT documented as of this encounter Care Teams Consulting Systems Engineer Relationship Specialty Start Date End Date Elsewhere, Pcp PCP - General Family Medicine 12/23/21 documented as of this encounter
--- OUTSIDE RECORDS SUMMARY | 2024-07-18 08:40 | XMS_ITS | Encounter Summary ---
Author Organization [facility] Address [address] [place] [address] Care Team Providers Care Non Destructive Testing Engineer Name Role Phone Elsewhere, Pcp Primary Care Provider Unavailabl e Encounter Details Date Type Department Care Team (Late st Contact Info) Description 07/10/2024 CPAP Download Remote Patient Monitoring [facility] [address] [place] [address] [facility], Provider, M.B., Ph.D. Social History Tobacco Use Types Packs/Day Years Used Date Smoking Tobacco: Never Passive Smoke Exposure: Past Smokeless Tobacco: Never Passive Exposure Comments:Mo m & Dad Smoked growing up Alcohol Use Standard Drinks/Week Comments Yes 0 (1 standard drink = 0.6 oz pur e alcohol) [facility] Utilities Answer Date Recorded In the past 12 months has e [employer], gas, oil, or water [employer] threatened to shut off services in your [...] often do you attend chur ch or evangelical services? Never 09/29/2022 Do you belong to [...] Answer Date Recorded PHQ-2 Score 0 03/18/2022 [facility] Questionnaire Answer Date Recorded [...] your living situation today? I have a [facility] place to live 01/01/2024 Education Answer Date Recorded What is the highest level of school you have completed or the highest degree you have received? 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, [employer] PIPING DESIGNER, CHERYL) 09/29/2022 Sex and Gender Information Value Date Recorded Sex Assigned at Female 12/17/2018 7:47 AM PLUMBING WAREHOUSE HELPER Gender Identity Female 12/17/2018 7:47 AM PLUMBING WAREHOUSE HELPER Sexual Orientation Straight 12/17/2018 7: 47 AM PLUMBING WAREHOUSE HELPER documented as of this encounter Plan of Treatment Upcoming Encounters Date Type Department Care Team (Latest Contact Info) Description 08/29/2024 9:30 AM PLUMBING WAREHOUSE HELPER Clinical Communication Virtual Review in [place], [place] 200 [place] [address] 09/02/2024 7:50 AM PLUMBING WAREHOUSE HELPER Appointment Department of Laboratory Medicine and Pathology, [facility], in [place], [place] [address] [place] [phone] Hamzah Todd M.D. [address] [place] [phone] 09/02/2024 9:00 AM PLUMBING WAREHOUSE HELPER Comprehensive Visit Preoperative Evaluation Center in [place], [place] [address] [place] [phone] Hamzah Todd M.D. [address] [place] [phone] 09/02/2024 1:30 PM PLUMBING WAREHOUSE HELPER Office Visit Department of Orthopedic Surgery in [place], [place] [address] [place] [phone] Hamzah Todd M.D. [address] [place] [phone] 09/03/2024 1:30 PM PLUMBING WAREHOUSE HELPER Procedure visit Department of Orthopedic Surgery in [place], [place] [address] [place] [phone] Hola Gross M.D. [address] [place] [phone] 09/16/2024 11:43 AM PLUMBING WAREHOUSE HELPER Hospital Encounter RST RO 02 4 AM ADMIT [address] [place] [phone] Hamzah Todd M.D. [address] [place] [phone] 09/16/2024 11:43 AM PLUMBING WAREHOUSE HELPER - 09/16/2024 3:15 PM PLUMBING WAREHOUSE HELPER Surgery RST RO MAIN OR [address] [place] [address] Hamzah Todd M.D. [address] [place] [phone] ARTHROPLASTY REVISION HIP - ACETABULAR Scheduled Procedures Name Priority Associated Diagnoses Date/Ti me ARTHROPLASTY REVISION HIP Instability Total Hip Arthroplasty Subsequent Right 09/16/2024 11:43 AM PLUMBING WAREHOUSE HELPER documented as of this encounter Visit Diagnoses Not on filedocumented in this encounter Additional Health Concerns Assessment Noted Time PHQ-9 Depression Total Score: 1 03/18/20 22 7:24 AM CDT documented as of this encounter Care Teams Non Destructive Testing Engineer Relationship Specialty Start Date End Date Elsewhere, Pcp PCP - General Family Medicine 12/23/21 documented as of this encounter
--- OUTSIDE RECORDS SUMMARY | 2024-07-18 08:40 | XMS_ITS ---
Author Organization [facility] Address [address] [place] [address] Care Team Providers Care Allergy And Immunology Chief Name Role Phone Unavailable Unavailable Unavailable Surgery Details Not on file Complications Check Surgery Details section. Procedure Estimated Blood Loss Check Surgery Details section. Procedure Findings Check Surgery Details section. Procedure Specimens Taken Check Surgery Details section.
--- OUTSIDE RECORDS SUMMARY | 2024-07-18 08:40 | XMS_ITS | Referral Summary ---
Author Organization [facility] Address [address] [place] [address] Care Team Providers Care Rehabilitation Therapist Name Role Phone Elsewhere, Pcp Primary Care Provider Unavailabl e Source Comments Patient records contain information from all sites at [facility]. For routine questions regarding patient records, call [phone] during business hours, M-F 8:00 AM - 5:00 PM Central Time. Record requests for emergency care only can be directed to [phone] at any time.[facility] Encounters Date Type Department Care Team Description 07/10/2024 CPAP Download Remote Patient Monitoring [facility] [address] [place] [address] [facility], Reny Sosa, Ph.D. 06/09/2024 CPAP Download Remote Patient Monitoring [facility] [address] [place] [address] [facility], Reny Sosa, Ph.D. 05/29/2024 12:45 PM CDT - 05/29/2024 11:59 PM CDT Hospital Encounter Department of Radiology, [facility], in [place], [place] [address] [place] [phone] Steven Hui M.D. Arthroplasty Total Hip Replacement Status Post Right Discharge Disposition: Home or Self Care 05/29/2024 2:00 PM CDT Office Visit Department of Orthopedic Surgery in [place], [place] [address] [place] [phone] Hamzah Todd M.D. Instability Total Hip Arthroplasty Initial Right (HCC) (Primary Dx) 05/28/2024 10:30 AM CDT Clinical Communication Virtual Review in [place], [place] 200 [place] [address] Pre-visit Intake 05/24/2024 Clinical Communication Department of Orthopedic Surgery in [place], [place] [address] [place] [phone] Hamzah Todd M.D. Return Call Request 05/23/2024 1:00 PM CDT Clinical Support Department of Dermatology in [place], [place] [address] [place] [phone] Nabila Guerrero, ION, P.A.-C. Vanda Finley RJuan AN. Keratosis Actinic Discharge Disposition: Home or Self Care 05/09/2024 CPAP Download Remote Patient Monitoring [facility] [address] [place] [address] [facility], Sheila, MNani, Ph.D. from Last 3 Months Allergies Active [...] 12/19/2018 Overview (12/19/2018): Overview: Overview: cryotherapy at [place] Keratosis Seborrheic 04/20/2012 019 Immunizations Name Administration Dates Next Due H1N1 All Forms 12/07/2009 Influenza Split 07/16/2017, 6,06/16/2015,2013,07/16/2013,07/16/2011,08/11/2010,0 06/19/2009,08/27/2003,08/16/2002, 996 Influenza, Injectable, Mdck, Preservative Free, Quadrivalent 07/11/2022,07/19/2017 Influenza, Seasonal, Injectable 07/18/20 13,08/06/2007,09/14/2006,2002,08/16/2002,10/16/1995 Influenza, Unspecified 07/28/2021,2014,06/11/2014,2010,08/11/2010,06/19/2009 PPSV23 02/22/2012 RZV (SHINGRIX) 04/01/2019, 9,12/19/2018(Deferr ed: Not available from systems checkout mechanic) SARS-COV-2 (COVID-19) - MODERNA(Discontinued) 01/04/2021 Td (Adult), [...] drink = 0.6 oz pur e alcohol) [facility] Utilities Answer Date Recorded In the past 12 months has e [employer], gas, oil, or water [employer] threatened to shut off services in your [...] often do you attend chur ch or islam services? Never 09/29/2022 Do you belong to any clubs o r organizations such as catholic groups, unions, fraternal or athletic groups, or [...] Score 0 03/18/2022 [facility] - Occupational [...] living situation today? I have a [facility] place to live 01/01/2024 Education Answer Date Recorded What is the highest level of school you have completed or the highest degree you have received? 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 [address] [place] [phone] 09/02/2024 9:00 AM MOTORCYCLE SUBASSEMBLY REPAIRER Comprehensive Visit Preoperative Evaluation Center in [address] [phone] Hamzah Todd M.D. [address] [place] [phone] 09/02/2024 1:30 PM MOTORCYCLE SUBASSEMBLY REPAIRER Office Visit Department of Orthopedic Surgery in [address] [phone] Hamzah Todd M.D. [address] [place] [phone] 09/03/2024 1:30 PM MOTORCYCLE SUBASSEMBLY REPAIRER Procedure visit Department of Orthopedic Surgery in [address] [phone] Hola Gross M.D. [address] [place] [phone] 09/16/2024 11:43 AM MOTORCYCLE SUBASSEMBLY REPAIRER Hospital Encounter RST ROEI 02 4 AM ADMIT [address] [place] [address] Hamzah Todd M.D. [address] [place] [address] 09/16/2024 11:43 AM MOTORCYCLE SUBASSEMBLY REPAIRER - 09/16/2024 3:15 PM MOTORCYCLE SUBASSEMBLY REPAIRER Surgery RST ROEI MAIN OR [address] [place] [address] Hamzah Todd M.D. [address] [place] [address] ARTHROPLASTY REVISION HIP - ACETABULAR Scheduled Procedures Name Priority Associated Diagnoses Date/Ti me ARTHROPLASTY REVISION HIP Instability Total Hip Arthroplasty Subsequent Right 09/16/2024 11:43 AM MOTORCYCLE SUBASSEMBLY REPAIRER Medical Devices Implanted Type Area Commercial Front Load Driver Device Identifier Shelf Expiration Date Model / Serial / Lot Hardware E.G. Pins/Screws/Ro ds Hardware e.g. pins/screws/ rods Neck Description:Clips present af ter thyroid removal. Guide Wire-Ball Tip 3 X 800 - [place]r [id number] Implanted:Qty: 1 on 05/07/2013 Hardware e.g. pins/screws/ rods Potter Description:Device Manufactu rer - Ivelisse Bandar.. Device Status Text - HARDWARE- 14375. [facility] Data - [id number]. Guys Screw 2 Canc 6.5 X 20 - [place]r [id number] Implanted:Qty: 1 on 05/07/2013 Hardware e.g. pins/screws/ rods [employer] Description:Device Manufactu rer - J [employer]. Device Status Text - HARDWARE-20701. Guys Screw 2 Canc 6.5 X 25 - [place]r [id number] Implanted:Qty: 1 on 05/07/2013 Hardware e.g. pins/screws/ rods [employer] Description:Device Manufactu rer - J [employer]. Device Status Text - HARDWARE-94642. Guys Screw 2 Canc 6.5 X 15 - [place]r [id number] Implanted:Qty: 2 on 05/07/2013 Hardware e.g. pins/screws/ rods [employer] Description:Device Manufactu rer - J [employer] Orth[employer]. Device Status Text - HARDWARE-79666. Guide Wire-Ball Tip 3 X 800 - Orr [id number] Implanted:Qty: 1 on 10/22/2013 Hardware e.g. pins/screws/ rods Potter Description:Device Manufactu rer - Potter Bandar.. Device Status Text - HARDWARE- 77457. [facility] Data - [id number]. Guys Screw 2 Canc 6.5 X 15 - [place]r [id number] Implanted:Qty: 1 on 10/22/2013 Hardware e.g. pins/screws/ rods [employer] Description:Device Manufactu rer - J [employer]. Device Status Text - HARDWARE-89488. Guys Screw 2 Canc 6.5 X 25 - [place]r [id number] Implanted:Qty: 2 on 10/22/2013 Hardware e.g. pins/screws/ rods [employer] Description:Device Manufactu rer - J [employer]. Device Status Text - HARDWARE-61416. Guys Liner Altrx +4 Neut 32x48 - Orr [id number] Implanted:Qty: 1 on 05/07/2013 Hip Implant Other/Legacy - See Implant Description [employer] Description:Device Manufactu [employer] - [employer]. Body Location - Other. Left. Device Status Text - HIP IMP-[id number]. Guys Shell Multi 2 48mm - Orr [id number] Implanted:Qty: 1 on 05/07/2013 Hip Implant Other/Legacy - See Implant Description [employer] Description:Device Manufactu [employer] - [employer]. Body Location - Other. Left. Device Status Text - HIP [id number]. Codington-Stem [place] 3 Hi - Orr [id number] Implanted:Qty: 1 on 05/07/2013 Hip Implant Other/Legacy - See Implant Description [employer] Description:Device Manufactu [employer] - [employer] & [employer]. Body Location - Other. Left. Device Status Text - HIP [id number]. Delta-Head Ceramic 32mm +1 - Orr [id number] Implanted:Qty: 1 on 05/07/2013 Hip Implant Other/Legacy - See Implant Description [employer] Description:Device Manufactu rer - J [employer]. Body Location - Other. Left. Device Status Text - HIP [id number]. Delta-Head Ceramic 32mm +1 - Orr [id number] Implanted:Qty: 1 on 10/22/2013 Hip Implant Other/Legacy - See Implant Description [employer]im [employer] Description:Device Manufactu rer - J [employer]. Body Location - Other. Right. Device Status Text - HIP IMP-237384. Stem Codington 3x Hi 135 - Orr [id number] Implanted:Qty: 1 on 10/22/2013 Hip Implant Other/Legacy - See Implant Description [employer] Description:Device Manufactu rer - J [employer]. Body Location - Other. Right. Device Status Text - HIP [id number]. Guys Shell Multi 2 48mm - Orr [id number] Implanted:Qty: 1 on 10/22/2013 Hip Implant Other/Legacy - See Implant Description [employer] Description:Device Manufactu rer - J [employer]. Body Location - Other. Right. Device Status Text - HIP IMP-[id number]. Guys Liner Altrx +4 Neut 32x48 - Orr [id number] Implanted:Qty: 1 on 10/22/2013 Hip Implant Other/Legacy - See Implant Description [employer] Description:Device Manufactu rer - J [employer]. Body Location - Other. Right. Device Status Text - HIP IMP-[id number]. Mitralclip-10/16 Implanted:10/2016 (Quantity not on file) Mitralclip [...] symphysis.Bilateral greater trochanter enthesopathy. Steven Hui M.D. [facility] DIAGNOSTIC IMAGI NG PROCEDURES * XR PELVIS AND HIP RIGHT 1 VIEW-Outside Skeletal Xray (05/23/2024 9:45 PM CDT) Only the most recent of2 resultswithin the time period is included. Narrative GABRIELA - 05/24/2024 2:18 PM CDT This order [...] In System IMG DIAGNOSTIC IM AGING PROCEDURES [facility] NA * (ABNORMAL) Lipid Panel (06/09/2022 8:32 [...] Resulting Agency Comment Mailed In Specimen Cammy Mariely Drake APRN.N.Darius., M.S.N. LAB BLOOD ADD-ON [facility] [address] [place] [address], [facility] [address] [place] [address] * Cologuard-Sent Out Lab (02/08/2022 1:00 PM [...] Meraz et al, N Engl J Med 2014;370(14):7818-1746) The normal value (reference range) for this assay is negative. COLOGUARD RE-SCREENING RECOMMENDATION: Periodic colorectal cancer screening is an important part of preventive healthcare for asymptomatic individuals at average risk for colorectal cancer. ??Following a negative Cologuard result, the [place] Cancer Society and U.S. Multi-Society Task Force screening guidelines recommend a Cologuard re-screening interval of 3 years. References: [place] [employer] Society Guideline for Colorectal Cancer Screening: https://www.cancer.org/cancer/louwn-tgoydg-fdhlrn/detection- diagnosis-staging/acs-recommendations.html.; Regis ALLISON, Hoang RICKETTS, Melina SolorioK, Colorectal Cancer Screening: Recommendations for Physicians and Patients from the U.S. Multi-Society Task Force on Colorectal Cancer Screening , Am J Gastroenterology 2017; 112:7013-6627. TEST DESCRIPTION: Composite algorithmic analysis of stool [...] Meraz et al, N Engl J Med 2014;370(14):0066-0424.) Cologuard may produce a false negative or false positive result (no colorectal cancer or precancerous polyp present at colonoscopy follow up). A negative Cologuard test result does not guarantee the absence of CRC or advanced adenoma (pre-cancer). The current Cologuard screening interval is every 3 years. ([place] Cancer Society and U.S. Multi-Society Task Force). Cologuard performance data in a 10,000 patient pivotal study using colonoscopy as the reference method can be accessed at the following location: www.[employer].convoy therapeutics/results. Additional description of the Cologuard test process, warnings and precautions can be found at www.[employer].convoy therapeutics. Stool (Stool) 02/08/2022 1:0 0 PM CDT 02/09/2022 1:22 PM CDT Cammy Grider APRN, C.N.P., M.S.N. LAB BODY FLUIDS AND STOOLS ORDERABLES [facility] [address] [place] [address] [facility] [employer] [address] [facility], [address] [place] [address] * BI Breast Screening Bilateral with Tomosynthesis [...] Mammogram ASSESSMENT: BI-RADS: 1: Negative. Isrrael Kaiser APRNNJensen, M.S.N. IMG BI PROCEDURES * S-TSH (Thyroid-Stimulating Hormone - Sensitive) (01/13/2022 9:44 AM CDT) TSH, Sensitive 2.8 0.3 - 4.2 mIU/L 01/13/2022 11:10 AM CDT DTL Blood (Blood, Venous) 01/13/2022 9:44 AM CDT 01/13/2022 10:41 AM CDT Cmamy Grider APRN C.N.P., M.S.N. LAB BLOOD ADD-ON [facility] [address] [place] [address], [facility] [address] [place] [address] * (ABNORMAL) Basic Metabolic Panel (01/13/2022 9:44 AM CDT) Pathologist [facility] Potassium, S 4.9 3.6 - 5.2 mmol/L [...] the 2009 CKD_EPI creatinine equation. eGFR-Black/Afri can [place] 65 >=60 mL/min/BSA 01/13/2022 11:01 AM CDT DTL Comment: ----ADDITIONAL INFORMATION---- Estimated GFR calculated using the 2009 CKD_EPI creatinine equation. Calcium, Total, S 9.1 8.8 - 10.2 mg/dL 01/13/2022 11:01 AM CDT DTL Glucose, S 98 70 - 140 mg/dL 01/13/2022 11:01 AM CDT DTL Blood (Blood, Venous) 01/13/2022 9:44 AM CDT 01/13/2022 10:40 AM CDT Cammy Tatyana Grider APRN C.N.P., M.S.N. LAB BLOOD ADD-ON [facility] [address] [place] [address], [facility] [place] [address] [place] [address] * ThinPrep w/HPV Co-Test Screen (04/02/2020 1:26 [...] APRN, C.N.P., M.S.N. LAB PAP PATHDX ORDERABLES [facility] [address] [place] [address], [facility] DTL [facility] [address] [place] [address] * Bone Donor 6 Month Screen Test Set (05/09/2014 9:32 AM CDT) Donor HBcore Antibody Negative [facility] HCV Ab Screen Donor Negative [facility] HX Hiv-1/-2, Plus O Ab Screen Donor Negative [facility] 05/09/2014 9:32 AM CDT 05/09/2014 9:32 AM CDT Girish Bradford M.D. LAB BLOOD NON ADD-ON [facility] [address] [place] [address], [facility] from Last 3 Months or Most Recently Relevant to Health Maintenance Care Teams Rehabilitation Therapist Relationship Specialty Start Date End Date Elsewhere, Pcp PCP - General Family Medicine 10/07/21
--- OUTSIDE RECORDS SUMMARY | 2024-07-18 08:40 | XMS_ITS | Encounter Summary ---
Author Organization [facility] Address [address] [place] [address] Care Team Providers Care Work Over Rig Operator Name Role Phone Elsewhere, Pcp Primary Care Provider Unavailabl e Reason for Visit * Outpatient (Routine) - Closed Specialty Diagnoses / Procedures Referred By Contmaite t Referred To Contact Dermatology Diagnoses Keratosis Actinic Procedures MAGGI JESSIKA-U/ ALA (PDT) Nabila Guerrero MPAS, P.A.-C. [facility] Referral ID Status Reason Start Date Expiration Date Visits Re quested Visits Authorized [id number] Closed 01/03/2024 01/02/2025 1 1 Encounter Details Date Type Department Care Team (Latest Contact Info) Description 05/23/2024 1:00 PM CDT Clinical Support Department of Dermatology in [place], [place] [address] [place] [phone] Nabila Guerrero MPAS, P.A.-CVanda Rodríguez, R.NJuan A [address] [place] [phone] Keratosis Actinic Discharge Disposition: Home or Self Care Social History Tobacco Use Types Packs/Day Years Used Date Smoking Tobacco: Never Passive Smoke Exposure: Past Smokeless Tobacco: Never Passive Exposure Comments:Mo m & Dad Smoked growing up Alcohol Use Standard Drinks/Week Comments Yes 0 (1 standard drink = 0.6 oz pur e alcohol) [facility] Utilities Answer Date Recorded In the past 12 months has [employer], gas, oil, or water company threatened [...] often do you attend [facility] or baptist services? Never 09/29/2022 Do you belong to any clubs o r organizations such as baptism groups, unions, fraternal or athletic groups, or [...] Answer Date Recorded PHQ-2 Score 0 03/18/2022 [facility] - Occupational [...] your living situation today? I have a [facility] place to live 01/01/2024 Education Answer Date Recorded What is the highest level of school you have completed or the highest degree you have received? 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, RIVET BUCKER, CHERYL) 09/29/2022 Sex and Gender Information Value Date Recorded Sex Assigned at Female 12/17/2018 7:47 AM INFECTION CONTROL MANAGER Gender Identity Female 12/17/2018 7:47 AM INFECTION CONTROL MANAGER Sexual Orientation Straight 12/17/2018 7: 47 AM INFECTION CONTROL MANAGER documented as of this encounter Plan of Treatment Upcoming Encounters Date Type Department Care Team (Latest Contact Info) Description 08/29/2024 9:30 AM INFECTION CONTROL MANAGER Clinical Communication Virtual Review in [place], [place] 200 [place] [address] 09/02/2024 7:50 AM INFECTION CONTROL MANAGER Appointment Department of Laboratory Medicine and Pathology, [facility], in [place], [place] [address] [place] [phone] Hamzah Todd M.D. [address] [place] [phone] 09/02/2024 9:00 AM INFECTION CONTROL MANAGER Comprehensive Visit Preoperative Evaluation Center in [place], [place] [address] [place] [phone] Hamzah Todd M.D. [address] [place] [phone] 09/02/2024 1:30 PM INFECTION CONTROL MANAGER Office Visit Department of Orthopedic Surgery in [place], [place] [address] [place] [phone] Hamzah Todd M.D. [address] [place] [phone] 09/03/2024 1:30 PM INFECTION CONTROL MANAGER Procedure visit Department of Orthopedic Surgery in [place], [place] [address] [place] [phone] Hola Gross M.D. [address] [place] [phone] 09/16/2024 11:43 AM INFECTION CONTROL MANAGER Hospital Encounter RST ROEI 02 4 AM ADMIT [address] [place] [phone] Hamzah Todd M.D. [address] [place] [phone] 09/16/2024 11:43 AM INFECTION CONTROL MANAGER - 09/16/2024 3:15 PM INFECTION CONTROL MANAGER Surgery RST RO MAIN OR [address] [place] [address] Hamzah Todd M.D. [address] [place] [address] ARTHROPLASTY REVISION HIP - ACETABULAR Scheduled Procedures Name Priority Associated Diagnoses Date/Ti me ARTHROPLASTY REVISION HIP Instability Total Hip Arthroplasty Subsequent Right 09/16/2024 11:43 AM INFECTION CONTROL MANAGER documented as of this encounter Visit [...] documented as of this encounter Care Teams Work Over Rig Operator Relationship Specialty Start Date End Date Elsewhere, Pcp PCP - General Family Medicine 10/07/21 documented as of this encounter
--- OUTSIDE RECORDS SUMMARY | 2024-07-18 08:40 | XMS_ITS | Encounter Summary ---
Author Organization [facility] Address [address] [place] [address] Care Team Providers Care Prom Burn Off Operator Name Role Phone Elsewhere, Pcp Primary Care Provider Unavailabl e Reason for Visit * Reason Onset Date Comments Pre-visit Intake 05/28/2024 Encounter Details Date Type Department Care Team (Latest Contact Info) Description 05/28/2024 10:30 AM CDT Clinical Communication Virtual Review in [place], [place] 200 [place] [address] Pre-visit Intake Social History Tobacco Use Types Packs/Day Years Used Date Smoking Tobacco: Never Passive Smoke Exposure: Past Smokeless Tobacco: Never Passive Exposure Comments:Mo m & Dad Smoked growing up Alcohol Use Standard Drinks/Week Comments Yes 0 (1 standard drink = 0.6 oz pur e alcohol) [facility] Utilities Answer Date Recorded In the past 12 months has [facility] [employer], gas, oil, or water [employer] threatened to shut off services in your [...] often do you attend chur ch or moravian services? Never 09/29/2022 Do you belong to any clubs o r organizations such as confucianism groups, unions, fraternal or athletic groups, or [...] Answer Date Recorded PHQ-2 Score 0 03/18/2022 [facility] Questionnaire Answer Date Recorded [...] your living situation today? I have a [facility] place to live 01/01/2024 Education Answer Date Recorded What is the highest level of school you have completed or the highest degree you have received? 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) 09/29/2022 Sex and Gender Information Value Date Recorded Sex Assigned at Female 12/17/2018 7:47 AM WEB PRESS ROLL TENDER Gender Identity Female 12/17/2018 7:47 AM WEB PRESS ROLL TENDER Sexual Orientation Straight 12/17/2018 7: 47 AM WEB PRESS ROLL TENDER documented as of this encounter Plan of Treatment Upcoming Encounters Date Type Department Care Team (Latest Contact Info) Description 08/29/2024 9:30 AM WEB PRESS ROLL TENDER Clinical Communication Virtual Review in [place], [place] 200 [place] [phone] 09/02/2024 7:50 AM WEB PRESS ROLL TENDER Appointment Department of Laboratory Medicine and Pathology, [facility], in [place], [place] [address] [place] [phone] Hamzah Todd M.D. [address] [place] [phone] 09/02/2024 9:00 AM WEB PRESS ROLL TENDER Comprehensive Visit Preoperative Evaluation Center in [place], [place] [address] [place] [address] Hamzah Todd M.D. [address] [place] [phone] 09/02/2024 1:30 PM WEB PRESS ROLL TENDER Office Visit Department of Orthopedic Surgery in [place], [place] [address] [place] [phone] Hamzah Todd M.D. [address] [place] [phone] 09/03/2024 1:30 PM WEB PRESS ROLL TENDER Procedure visit Department of Orthopedic Surgery in [place], [place] [address] [place] [phone] Hola Gross M.D. [address] [place] [phone] 09/16/2024 11:43 AM WEB PRESS ROLL TENDER Hospital Encounter RST ROEI 02 4 AM ADMIT [address] [place] [phone] Hamzah Todd M.D. [address] [place] [phone] 09/16/2024 11:43 AM WEB PRESS ROLL TENDER - 09/16/2024 3:15 PM WEB PRESS ROLL TENDER Surgery [facility] MAIN OR [address] [place] [address] Hamzah Todd M.D. [address] [place] [phone] ARTHROPLASTY REVISION HIP - ACETABULAR Scheduled Procedures Name Priority Associated Diagnoses Date/Ti me ARTHROPLASTY REVISION HIP Instability Total Hip Arthroplasty Subsequent Right 09/16/2024 11:43 AM WEB PRESS ROLL TENDER documented as of this encounter Visit Diagnoses Not on filedocumented in this encounter Additional Health Concerns Assessment Noted Time PHQ-9 Depression Total Score: 1 03/18/20 22 7:24 AM CDT documented as of this encounter Care Teams Prom Burn Off Operator Relationship Specialty Start Date End Date Elsewhere, Pcp PCP - General Family Medicine 10/07/21 documented as of this encounter
--- OUTSIDE RECORDS SUMMARY | 2024-07-18 08:40 | XMS_ITS | Encounter Summary ---
Author Organization [facility] Address [address] [place] [address] Care Team Providers Care Project Manager/Team Coach Name Role Phone Elsewhere, Pcp Primary Care Provider Unavailabl e Encounter Details Date Type Department Care Team (Late st Contact Info) Description 11/13/2013 Historical Ophthalmology RST OPH Brad Hodges M.D. [facility] [place] [address] Social History Tobacco Use Types Packs/Day Years Used Date Smoking Tobacco: Never Assessed Sex and Gender Information Value Date Recorded Sex Assigned at Female 12/17/2018 7:47 AM TUBE STATION ATTENDANT Gender Identity Female 12/17/2018 7:47 AM TUBE STATION ATTENDANT Sexual Orientation Straight 12/17/2018 7: 47 AM TUBE STATION ATTENDANT documented as of this encounter Progress Notes [...] syndrome, bilateral CDM Reports - EYEGEN Id: [id number] Status: Fnl documented in this encounter Plan of Treatment Upcoming Encounters Date Type Department Care Team (Latest Contact Info) Description 08/29/2024 9:30 AM TUBE STATION ATTENDANT Clinical Communication Virtual Review in [address] [phone] 09/02/2024 7:50 AM TUBE STATION ATTENDANT Appointment Department of Laboratory Medicine and Pathology, [facility], in [address] [phone] Hamzah Todd M.D. [address] [place] [phone] 09/02/2024 9:00 AM TUBE STATION ATTENDANT Comprehensive Visit Preoperative Evaluation Center in [address] [phone] Hamzah Todd M.D. [address] [place] [phone] 09/02/2024 1:30 PM TUBE STATION ATTENDANT Office Visit Department of Orthopedic Surgery in [address] [phone] Hamzah Todd M.D. [address] [place] [phone] 09/03/2024 1:30 PM TUBE STATION ATTENDANT Procedure visit Department of Orthopedic Surgery in [address] [phone] Hola Gross M.D. [address] [place] [phone] 09/16/2024 11:43 AM TUBE STATION ATTENDANT Hospital Encounter RST ROEI 02 4 AM ADMIT [address] [place] [phone] Hamzah Todd M.D. [address] [place] [address] 09/16/2024 11:43 AM TUBE STATION ATTENDANT - 09/16/2024 3:15 PM TUBE STATION ATTENDANT Surgery [facility] MAIN OR [address] [place] [address] Hamzah Todd M.D. [address] [place] [address] ARTHROPLASTY REVISION HIP - ACETABULAR Scheduled Procedures Name Priority Associated Diagnoses Date/Ti me ARTHROPLASTY REVISION HIP Instability Total Hip Arthroplasty Subsequent Right 09/16/2024 11:43 AM TUBE STATION ATTENDANT documented as of this encounter Visit Diagnoses Not on filedocumented in this encounter Care Teams Project Manager/Team Coach Relationship Specialty Start Date End Date Elsewhere, Pcp PCP - General Family Medicine 10/07/21 documented as of this encounter
--- OUTSIDE RECORDS SUMMARY | 2024-07-18 08:40 | XMS_ITS | Encounter Summary ---
Author Organization [facility] Address [address] [place] [address] Care Team Providers Care Extrusion Die Corrector Name Role Phone Elsewhere, Pcp Primary Care Provider Unavailabl e Encounter Details Date Type Department Care Team (Late st Contact Info) Description 06/09/2024 CPAP Download Remote Patient Monitoring [facility] [address] 200 [place] [address] [facility], Provider, M.B., Ph.D. Social History Tobacco Use Types Packs/Day Years Used Date Smoking Tobacco: Never Passive Smoke Exposure: Past Smokeless Tobacco: Never Passive Exposure Comments:Mo m & Dad Smoked growing up Alcohol Use Standard Drinks/Week Comments Yes 0 (1 standard drink = 0.6 oz pur e alcohol) [facility] Utilities Answer Date Recorded In the past 12 months has e [employer], gas, oil, or water [employer] threatened to shut off services in [...] often do you attend chur ch or congregational services? Never 09/29/2022 Do you belong to any clubs o r organizations such as mormon groups, unions, fraternal or athletic groups, or [...] 0 03/18/2022 [facility] Questionnaire Answer [...] your living situation today? I have a [facility] place to live 01/01/2024 Education Answer Date Recorded What is the highest level of school you have completed or the highest degree you have received? 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, SILK BLOCKER, CHERYL) 09/29/2022 Sex and Gender Information Value Date Recorded Sex Assigned at Female 12/17/2018 7:47 AM SOCIAL SERVICE WORKER Gender Identity Female 12/17/2018 7:47 AM SOCIAL SERVICE WORKER Sexual Orientation Straight 12/17/2018 7: 47 AM SOCIAL SERVICE WORKER documented as of this encounter Plan of Treatment Upcoming Encounters Date Type Department Care Team (Latest Contact Info) Description 08/29/2024 9:30 AM SOCIAL SERVICE WORKER Clinical Communication Virtual Review in [place], [place] 200 [place] [address] 09/02/2024 7:50 AM SOCIAL SERVICE WORKER Appointment Department of Laboratory Medicine and Pathology, [facility], in [place], [place] [address] [place] [phone] Hamzah Todd M.D. [address] [place] [phone] 09/02/2024 9:00 AM SOCIAL SERVICE WORKER Comprehensive Visit Preoperative Evaluation Center in [place], [place] [address] [place] [phone] Hamzah Todd M.D. [address] [place] [phone] 09/02/2024 1:30 PM SOCIAL SERVICE WORKER Office Visit Department of Orthopedic Surgery in [place], [place] [address] [place] [phone] Hamzah Todd M.D. [address] [place] [phone] 09/03/2024 1:30 PM SOCIAL SERVICE WORKER Procedure visit Department of Orthopedic Surgery in [place], [place] [address] [place] [phone] Hola Gross M.D. [address] [place] [phone] 09/16/2024 11:43 AM SOCIAL SERVICE WORKER Hospital Encounter RST RO 02 4 AM ADMIT [address] [place] [phone] Hamzah Todd M.D. [address] [place] [phone] 09/16/2024 11:43 AM SOCIAL SERVICE WORKER - 09/16/2024 3:15 PM SOCIAL SERVICE WORKER Surgery RST RO MAIN OR [address] [place] [address] Hamzah Todd M.D. [address] [place] [phone] ARTHROPLASTY REVISION HIP - ACETABULAR Scheduled Procedures Name Priority Associated Diagnoses Date/Ti me ARTHROPLASTY REVISION HIP Instability Total Hip Arthroplasty Subsequent Right 09/16/2024 11:43 AM SOCIAL SERVICE WORKER documented as of this encounter Visit Diagnoses Not on filedocumented in this encounter Additional Health Concerns Assessment Noted Time PHQ-9 Depression Total Score: 1 03/18/20 22 7:24 AM CDT documented as of this encounter Care Teams Extrusion Die Corrector Relationship Specialty Start Date End Date Elsewhere, Pcp PCP - General Family Medicine 12/23/21 documented as of this encounter
--- OUTSIDE RECORDS SUMMARY | 2024-07-18 08:40 | XMS_ITS | Encounter Summary ---
Author Organization [facility] Address [address] [place] [address] Care Team Providers Care Hand Coke Drawer Name Role Phone Elsewhere, Pcp Primary Care Provider Unavailabl e Encounter Details Date Type Department Care Team (Late st Contact Info) Description 08/06/2007 Historical Ophthalmology RST OPH Felicitas Flores M.D. Social History Tobacco Use Types Packs/Day Years Used Date Smoking Tobacco: Never Assessed Sex and Gender Information Value Date Recorded Sex Assigned at Female 12/17/2018 7:47 AM BUSINESS SYSTEMS LEAD Gender Identity Female 12/17/2018 7:47 AM BUSINESS SYSTEMS LEAD Sexual Orientation Straight 12/17/2018 7: 47 AM BUSINESS SYSTEMS LEAD documented as of this encounter Progress Notes [...] ocular findings. CDM Reports - EYEGEN Id: [id number] Status: Fnl documented in this encounter Plan of Treatment Upcoming Encounters Date Type Department Care Team (Latest Contact Info) Description 08/29/2024 9:30 AM BUSINESS SYSTEMS LEAD Clinical Communication Virtual Review in [address] [phone] 09/02/2024 7:50 AM BUSINESS SYSTEMS LEAD Appointment Department of Laboratory Medicine and Pathology, [facility], in [address] [phone] Hamzah Todd M.D. [address] [place] [phone] 09/02/2024 9:00 AM BUSINESS SYSTEMS LEAD Comprehensive Visit Preoperative Evaluation Center in [address] [phone] Hamzah Todd M.D. [address] [place] [phone] 09/02/2024 1:30 PM BUSINESS SYSTEMS LEAD Office Visit Department of Orthopedic Surgery in [address] [phone] Hamzah Todd M.D. [address] [place] [phone] 09/03/2024 1:30 PM BUSINESS SYSTEMS LEAD Procedure visit Department of Orthopedic Surgery in [address] [phone] Hola Gross M.D. [address] [place] [phone] 09/16/2024 11:43 AM BUSINESS SYSTEMS LEAD Hospital Encounter RST RO 02 4 AM ADMIT [address] [place] [address] Hamzah Todd M.D. [address] [place] [address] 09/16/2024 11:43 AM BUSINESS SYSTEMS LEAD - 09/16/2024 3:15 PM BUSINESS SYSTEMS LEAD Surgery [facility] MAIN OR [address] [place] [address] Hamzah Todd M.D. [address] [place] [phone] ARTHROPLASTY REVISION HIP - ACETABULAR Scheduled Procedures Name Priority Associated Diagnoses Date/Ti me ARTHROPLASTY REVISION HIP Instability Total Hip Arthroplasty Subsequent Right 09/16/2024 11:43 AM BUSINESS SYSTEMS LEAD documented as of this encounter Visit Diagnoses Not on filedocumented in this encounter Care Teams Hand Coke Drawer Relationship Specialty Start Date End Date Elsewhere, Pcp PCP - General Family Medicine 10/07/21 documented as of this encounter
--- OUTSIDE RECORDS SUMMARY | 2024-07-18 08:40 | XMS_ITS | Encounter Summary ---
Author Organization [facility] Address [address] [place] [address] Care Team Providers Care Ict Managers Name Role Phone Elsewhere, Pcp Primary Care Provider Unavailabl e Reason for Referral * Outpatient (Routine) - Closed Specialty Diagnoses / Procedures Referred By Nathalia colon Referred To Contact Diagnoses Arthroplasty Total Hip Replacement Status Post Right Procedures DX Hip And Pelvis Right 2-3 Views DX Hip And Pelvis Right 4+ Views Steven Hui M.D. 200 [place] [address] [facility] Referral ID Status Reason Start Date Expiration Date Visits Re quested Visits Authorized [id number] Closed 05/26/2024 05/26/2025 1 1 Reason for Visit * Outpatient (Routine) - Closed Specialty Diagnoses / Procedures Referred By Nathalia colon Referred To Contact Diagnoses Arthroplasty Total Hip Replacement Status Post Right Procedures DX Hip And Pelvis Right 2-3 Views DX Hip And Pelvis Right 4+ Views Steven Hui M.D. [address] [place] [phone] [facility] Referral ID Status Reason Start Date Expiration Date Visits Re quested Visits Authorized [id number] Closed 05/26/2024 05/26/2025 1 1 Encounter Details Date Type Department Care Team (Latest Contact Info) Description 05/29/2024 12:45 PM CDT - 05/29/2024 11:59 PM CDT Hospital Encounter Department of Radiology, [facility], in [place], [place] [address] [place] [address] Steven Hui M.D. 200 [place] [address] Arthroplasty Total Hip Replacement Status Post Right Discharge Disposition: Home or Self Care Social History Tobacco Use Types Packs/Day Years Used Date Smoking Tobacco: Never Passive Smoke Exposure: Past Smokeless Tobacco: Never Passive Exposure Comments:Mo m & Dad Smoked growing up Alcohol Use Standard Drinks/Week Comments Yes 0 (1 standard drink = 0.6 oz pur e alcohol) [facility] Utilities Answer Date Recorded In the [...] often do you attend chur ch or latter-day services? Never 09/29/2022 Do you belong to any clubs o r organizations such as judaism groups, unions, fraternal or athletic groups, or [...] Answer Date Recorded PHQ-2 Score 0 03/18/2022 [facility] of Occupat ional [facility] - Occupational Stress Questionnaire Answer Date [...] 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, DIGITAL CARTOGRAPHIC TECHNICIAN, CHERYL) 09/29/2022 Sex and Gender Information Value Date Recorded Sex Assigned at Female 12/17/2018 7:47 AM UNION REPRESENTATIVE Gender Identity Female 12/17/2018 7:47 AM UNION REPRESENTATIVE Sexual Orientation Straight 12/17/2018 7: 47 AM UNION REPRESENTATIVE documented as of this encounter Medications at [...] (Latest Contact Info) Description 08/29/2024 9:30 AM UNION REPRESENTATIVE Clinical Communication Virtual Review in [place], [place] 200 [place] [address] 09/02/2024 7:50 AM UNION REPRESENTATIVE Appointment Department of Laboratory Medicine and Pathology, [facility], in [place], [place] [address] [place] [phone] Hamzah Todd M.D. [address] [place] [phone] 09/02/2024 9:00 AM UNION REPRESENTATIVE Comprehensive Visit Preoperative Evaluation Center in [place], [place] [address] [place] [phone] Hamzah Todd M.D. [address] [place] [phone] 09/02/2024 1:30 PM UNION REPRESENTATIVE Office Visit Department of Orthopedic Surgery in [place], [place] [address] [place] [phone] Hamzah Todd M.D. [address] [place] [phone] 09/03/2024 1:30 PM UNION REPRESENTATIVE Procedure visit Department of Orthopedic Surgery in [place], [place] [address] [place] [phone] Hola Gross M.D. [address] [place] [phone] 09/16/2024 11:43 AM UNION REPRESENTATIVE Hospital Encounter RST [facility]I 02 4 AM ADMIT [address] [place] [phone] Hamzah Todd M.D. [address] [place] [phone] 09/16/2024 11:43 AM UNION REPRESENTATIVE - 09/16/2024 3:15 PM UNION REPRESENTATIVE Surgery [facility] MAIN OR [address] [place] [address] Hamzah Todd M.D. [address] [place] [address] ARTHROPLASTY REVISION HIP - ACETABULAR Scheduled Procedures Name Priority Associated Diagnoses Date/Ti me ARTHROPLASTY REVISION HIP Instability Total Hip Arthroplasty Subsequent Right 09/16/2024 11:43 AM UNION REPRESENTATIVE documented as of this encounter Procedures Procedure [...] documented as of this encounter Care Teams Ict Managers Relationship Specialty Start Date End Date Elsewhere, Pcp PCP - General Family Medicine 10/07/21 documented as of this encounter
--- OUTSIDE RECORDS SUMMARY | 2024-07-18 08:40 | XMS_ITS | Encounter Summary ---
Author Organization [facility] Address [address] [place] [address] Care Team Providers Care Medical Record Coder Name Role Phone Elsewhere, Pcp Primary Care Provider Unavailabl e Encounter Details Date Type Department Care Team (Late st Contact Info) Description 11/01/2013 Historical Ophthalmology RST OPH Brad Hodges M.D. [facility] [place] [address] Social History Tobacco Use Types Packs/Day Years Used Date Smoking Tobacco: Never Assessed Sex and Gender Information Value Date Recorded Sex Assigned at Female 12/17/2018 7:47 AM CARTON WRAPPER Gender Identity Female 12/17/2018 7:47 AM CARTON WRAPPER Sexual Orientation Straight 12/17/2018 7: 47 AM CARTON WRAPPER documented as of this encounter Progress Notes [...] distribution, RIGHT CDM Reports - EYEGEN Id: [id number] Status: Fnl documented in this encounter Plan of Treatment Upcoming Encounters Date Type Department Care Team (Latest Contact Info) Description 08/29/2024 9:30 AM CARTON WRAPPER Clinical Communication Virtual Review in [place], [place] 200 [place] [address] 09/02/2024 7:50 AM CARTON WRAPPER Appointment Department of Laboratory Medicine and Pathology, [facility], in [place], [place] [address] [place] [phone] Hamzah Todd M.D. [address] [place] [phone] 09/02/2024 9:00 AM CARTON WRAPPER Comprehensive Visit Preoperative Evaluation Center in [place], [place] [address] [place] [phone] Hamzah Todd M.D. [address] [place] [phone] 09/02/2024 1:30 PM CARTON WRAPPER Office Visit Department of Orthopedic Surgery in [place], [place] [address] [place] [phone] Hamzah Todd M.D. [address] [place] [phone] 09/03/2024 1:30 PM CARTON WRAPPER Procedure visit Department of Orthopedic Surgery in [place], [place] [address] [place] [phone] Hola Gross M.D. [address] [place] [phone] 09/16/2024 11:43 AM CARTON WRAPPER Hospital Encounter RST SONALEI 02 4 AM ADMIT [address] [place] [phone] Hamzah Todd M.D. [address] [place] [phone] 09/16/2024 11:43 AM CARTON WRAPPER - 09/16/2024 3:15 PM CARTON WRAPPER Surgery RST ROEI MAIN OR [address] [place] [phone] Hamzah Todd M.D. [address] [place] [address] ARTHROPLASTY REVISION HIP - ACETABULAR Scheduled Procedures Name Priority Associated Diagnoses Date/Ti me ARTHROPLASTY REVISION HIP Instability Total Hip Arthroplasty Subsequent Right 09/16/2024 11:43 AM CARTON WRAPPER documented as of this encounter Visit Diagnoses Not on filedocumented in this encounter Care Teams Medical Record Coder Relationship Specialty Start Date End Date Elsewhere, Pcp PCP - General Family Medicine 10/07/21 documented as of this encounter
--- OUTSIDE RECORDS SUMMARY | 2024-07-18 08:40 | XMS_ITS | Encounter Summary ---
Author Organization [facility] Address [address] [place] [address] Care Team Providers Care Estimator And Drafter Name Role Phone Elsewhere, Pcp Primary Care Provider Unavailabl e Encounter Details Date Type Department Care Team (Late st Contact Info) Description 05/09/2024 CPAP Download Remote Patient Monitoring [facility] 200 [place] [address] [facility], Provider, M.B., Ph.D. Social History Tobacco Use [...] In the past 12 months has e [employer], gas, oil, or water [employer] threatened to shut off services in your [...] often do you attend chur ch or mandaen services? Never 09/29/2022 Do you belong to any clubs o r organizations such as nondenominational groups, unions, fraternal or athletic groups, or [...] Recorded PHQ-2 Score 0 03/18/2022 [facility] Questionnaire Answer Date [...] your living situation today? I have a [facility] place to live 01/01/2024 Education Answer Date Recorded What is the highest level of school you have completed or the highest degree you have received? 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, ELECTRIC METER REPAIRER HELPER, CHERYL) 09/29/2022 Sex and Gender Information Value Date Recorded Sex Assigned at Female 12/17/2018 7:47 AM HOG STICKER Gender Identity Female 12/17/2018 7:47 AM HOG STICKER Sexual Orientation Straight 12/17/2018 7: 47 AM HOG STICKER documented as of this encounter Plan of Treatment Upcoming Encounters Date Type Department Care Team (Latest Contact Info) Description 08/29/2024 9:30 AM HOG STICKER Clinical Communication Virtual Review in [place], [place] 200 [place] [address] 09/02/2024 7:50 AM HOG STICKER Appointment Department of Laboratory Medicine and Pathology, [facility], in [place], [place] [address] [place] [phone] Hamzah Todd M.D. [address] [place] [phone] 09/02/2024 9:00 AM HOG STICKER Comprehensive Visit Preoperative Evaluation Center in [place], [place] [address] [place] [phone] Hamzah Todd M.D. [address] [place] [phone] 09/02/2024 1:30 PM HOG STICKER Office Visit Department of Orthopedic Surgery in [place], [place] [address] [place] [phone] Hamzah Todd M.D. [address] [place] [phone] 09/03/2024 1:30 PM HOG STICKER Procedure visit Department of Orthopedic Surgery in [place], [place] [address] [place] [phone] Hola Gross M.D. [address] [place] [phone] 09/16/2024 11:43 AM HOG STICKER Hospital Encounter RST RO 02 4 AM ADMIT [address] [place] [phone] Hamzah Todd M.D. [address] [place] [phone] 09/16/2024 11:43 AM HOG STICKER - 09/16/2024 3:15 PM HOG STICKER Surgery RST RO MAIN OR [address] [place] [address] Hamzah Todd M.D. [address] [place] [phone] ARTHROPLASTY REVISION HIP - ACETABULAR Scheduled Procedures Name Priority Associated Diagnoses Date/Ti me ARTHROPLASTY REVISION HIP Instability Total Hip Arthroplasty Subsequent Right 09/16/2024 11:43 AM HOG STICKER documented as of this encounter Visit Diagnoses Not on filedocumented in this encounter Additional Health Concerns Assessment Noted Time PHQ-9 Depression Total Score: 1 03/18/20 22 7:24 AM CDT documented as of this encounter Care Teams Estimator And Drafter Relationship Specialty Start Date End Date Elsewhere, Pcp PCP - General Family Medicine 12/23/21 documented as of this encounter
--- OUTSIDE RECORDS SUMMARY | 2024-07-18 08:40 | XMS_ITS | Encounter Summary ---
Author Organization [facility] Address [address] [place] [address] Care Team Providers Care Aviation Operations Specialist Name Role Phone Elsewhere, Pcp Primary Care Provider Unavailabl e Reason for Visit * Outpatient (Routine) - Closed Specialty Diagnoses / Procedures Referred By Nathalia t Referred To Contact Orthopedic Surgery Steven Hui M.D. [address] [place] [phone] Hamzah Todd M.D. [address] [place] [phone] Referral ID Status Reason Start Date Expiration Date Visits Re quested Visits Authorized [id number] Closed 05/26/2024 2025 1 1 Encounter Details Date Type Department Care Team (Late st Contact Info) Description 05/29/2024 2:00 PM CDT Office Visit Department of Orthopedic Surgery in [place], [place] [address] [place] [phone] Hamzah Todd M.D. [address] [place] [phone] Instability Total Hip Arthroplasty Initial Right (HCC) (Primary Dx) Social History Tobacco Use Types Packs/Day Years Used Date Smoking Tobacco: Never Passive Smoke Exposure: Past Smokeless Tobacco: Never Passive Exposure Comments:Mo m & Dad Smoked growing up Alcohol Use Standard Drinks/Week Comments Yes 0 (1 standard drink = 0.6 oz pur e alcohol) [facility] Utilities Answer Date Recorded In [...] any clubs o r organizations such as quaker groups, unions, fraternal or athletic groups, or [...] Answer Date Recorded PHQ-2 Score 0 03/18/2022 [facility] - Occupational Stress Questionnaire Answer [...] 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, TELETYPEWRITER INSTALLER, CHERYL) 09/29/2022 Sex and Gender Information Value Date Recorded Sex Assigned at Female 12/17/2018 7:47 AM REDUCING MACHINE OPERATOR Gender Identity Female 12/17/2018 7:47 AM REDUCING MACHINE OPERATOR Sexual Orientation Straight 12/17/2018 7: 47 AM REDUCING MACHINE OPERATOR documented as of this encounter Progress Notes [...] Hamzah Todd M.D. CT CT Job ID: [id number] documented in this encounter Plan of Treatment Upcoming Encounters Date Type Department Care Team (Latest Contact Info) Description 08/29/2024 9:30 AM REDUCING MACHINE OPERATOR Clinical Communication Virtual Review in [address] [phone] 09/02/2024 7:50 AM REDUCING MACHINE OPERATOR Appointment Department of Laboratory Medicine and Pathology, [facility], in [address] [phone] Hamzah Todd M.D. [address] [place] [phone] 09/02/2024 9:00 AM REDUCING MACHINE OPERATOR Comprehensive Visit Preoperative Evaluation Center in [address] [phone] Hamzah Todd M.D. [address] [place] [phone] 09/02/2024 1:30 PM REDUCING MACHINE OPERATOR Office Visit Department of Orthopedic Surgery in [address] [phone] Hamzah Todd M.D. [address] [place] [phone] 09/03/2024 1:30 PM REDUCING MACHINE OPERATOR Procedure visit Department of Orthopedic Surgery in [address] [phone] Hola Gross M.D. [address] [place] [phone] 09/16/2024 11:43 AM REDUCING MACHINE OPERATOR Hospital Encounter RST ROEI 02 4 AM ADMIT [address] [place] [phone] Hamzah Todd M.D. [address] [place] [address] 09/16/2024 11:43 AM REDUCING MACHINE OPERATOR - 09/16/2024 3:15 PM REDUCING MACHINE OPERATOR Surgery RST ROEI MAIN OR [address] [place] [address] Hamzah Todd M.D. [address] [place] [address] ARTHROPLASTY REVISION HIP - ACETABULAR Scheduled Procedures Name Priority Associated Diagnoses Date/Ti me ARTHROPLASTY REVISION HIP Instability Total Hip Arthroplasty Subsequent Right 09/16/2024 11:43 AM REDUCING MACHINE OPERATOR documented as of this encounter Visit Diagnoses Diagnosis Instability Total Hip Arthroplasty Initial Right (HCC)- Primary Instability Total Hip Arthroplasty Subsequent Right documented in this encounter Additional Health Concerns Assessment Noted Time PHQ-9 Depression Total Score: 1 03/18/20 22 7:24 AM CDT documented as of this encounter Care Teams Aviation Operations Specialist Relationship Specialty Start Date End Date Elsewhere, Pcp PCP - General Family Medicine 10/07/21 documented as of this encounter
--- OUTSIDE RECORDS SUMMARY | 2024-07-18 08:40 | XMS_ITS | Clinical Summary ---
Author Organization [facility] Address [place], [place] [address] Care Team Providers Care Tool And Die Supervisor Name Role Phone Christa Mortensen Primary Care Provider [phone] Allergies Active Allergy Reactions Criticality Noted Date [...] 2) 2009 COVID-19 vaccine series ( - 2023-25 season) 2024 Influenza for age 50-64 06/16/2024 Pneumococcal series for age 6-64 Aged Out No longer eligible based on patient's age to complete this topic Care Teams Tool And Die Supervisor Relationship Specialty Start Date End Date Christa Mortensen PCP - General 09/26/19
--- OUTSIDE RECORDS SUMMARY | 2024-07-18 08:40 | XMS_ITS | Encounter Summary ---
Author Organization [facility] Address [address] [place] [address] Care Team Providers Care Bmet Name Role Phone Elsewhere, Pcp Primary Care Provider Unavailnoé e Reason for Referral * Outpatient (Routine) - Closed Specialty Diagnoses / Procedures Referred By Nathalia t Referred To Contact Diagnoses Arthroplasty Total Hip Replacement Status Post Right Procedures DX Hip And Pelvis Right 2-3 Views DX Hip And Pelvis Right 4+ Views Steven Hui M.D. 200 [place] [address] [facility] Referral ID Status Reason Start Date Expiration Date Visits Re quested Visits Authorized [id number] Closed 05/26/2024 05/26/2025 1 1 * Outpatient (Routine) - Closed Specialty Diagnoses / Procedures Referred By Nathalia t Referred To Contact Orthopedic Surgery Steven Hui M.D. 200 [place] [address] Hamzah Todd M.D. 200 [place] [address] Referral ID Status Reason Start Date Expiration Date Visits Re quested Visits Authorized [id number] Closed 05/26/2024 2025 1 1 Reason for Visit * Reason Onset Date Comments Return Call Request 05/24/2024 Encounter Details Date Type Department Care Team (Latest Contact Info) Description 05/24/2024 Clinical Communication Department of Orthopedic Surgery in [place], [place] 200 [place] [address] Hamzah Todd M.D. 200 [place] [address] Return Call Request Social History Tobacco Use Types Packs/Day Years Used Date Smoking Tobacco: Never Passive Smoke Exposure: Past Smokeless Tobacco: Never Passive Exposure Comments:Mo m & Dad Smoked growing up Alcohol Use Standard Drinks/Week Comments Yes 0 (1 standard drink = 0.6 oz pur e alcohol) [facility] Utilities Answer Date Recorded In the past 12 months has e electric, gas, oil, or water [employer] threatened to shut off services in your [...] often do you attend chur ch or taoist services? Never 09/29/2022 Do you belong to any clubs o r organizations such as latter day groups, unions, fraternal or athletic groups, or [...] Answer Date Recorded PHQ-2 Score 0 03/18/2022 [facility] - Occupational Stress Questionnaire Answer [...] 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, AUTOMOTIVE GLASS TECHNICIAN, CHERYL) 09/29/2022 Sex and Gender Information Value Date Recorded Sex Assigned at Female 12/17/2018 7:47 AM BAND TUMBLER Gender Identity Female 12/17/2018 7:47 AM BAND TUMBLER Sexual Orientation Straight 12/17/2018 7: 47 AM BAND TUMBLER documented as of this encounter Miscellaneous Notes [...] 05/23/24. This was successfully close reduced in [place] ED. Since that time she has remained [...] (Latest Contact Info) Description 08/29/2024 9:30 AM BAND TUMBLER Clinical Communication Virtual Review in [place], [place] 200 [place] [address] 09/02/2024 7:50 AM BAND TUMBLER Appointment Department of Laboratory Medicine and Pathology, [facility] in [place], [place] [address] [place] [phone] Hamzah Todd M.D. [address] [place] [phone] 09/02/2024 9:00 AM BAND TUMBLER Comprehensive Visit Preoperative Evaluation Center in [place], [place] [address] [place] [phone] Hamzah Todd M.D. [address] [place] [phone] 09/02/2024 1:30 PM BAND TUMBLER Office Visit Department of Orthopedic Surgery in [place], [place] [address] [place] [phone] Hamzah Todd M.D. [address] [place] [phone] 09/03/2024 1:30 PM BAND TUMBLER Procedure visit Department of Orthopedic Surgery in [place], [place] [address] [place] [phone] Hola Gross M.D. [address] [place] [phone] 09/16/2024 11:43 AM BAND TUMBLER Hospital Encounter RST ROEI 02 4 AM ADMIT [address] [place] [phone] Hamzah Todd M.D. [address] [place] [phone] 09/16/2024 11:43 AM BAND TUMBLER - 09/16/2024 3:15 PM BAND TUMBLER Surgery RST ROEI MAIN OR [address] [place] [address] Hamzah Todd M.D. [address] [place] [address] ARTHROPLASTY REVISION HIP - ACETABULAR Scheduled Procedures Name Priority Associated Diagnoses Date/Ti me ARTHROPLASTY REVISION HIP Instability Total Hip Arthroplasty Subsequent Right 09/16/2024 11:43 AM BAND TUMBLER Scheduled Referrals Name Type Priority Associated Diagnoses [...] documented as of this encounter Care Teams Bmet Relationship Specialty Start Date End Date Elsewhere, Pcp PCP - General Family Medicine 10/07/21 documented as of this encounter
--- OUTSIDE RECORDS SUMMARY | 2024-07-18 08:41 | XMS_ITS | Clinical Summary ---
Author Organization [facility] Address [address], [place] [address] Care Team Providers Care J2Ee Programmer Name Role Phone Nilda Molina MD Primary Care Provider [phone] Source Comments You are receiving this document [...] for each transition of care or referral. [employer] Allergies Active Allergy Reactions Criticality Noted Date [...] renal tumor 05/21/2014 Overview (05/20/2016): cryotherapy at [facility] Squamous cell cancer of skin of forearm 05/21/20 14 Immunizations Name Administration Dates Next Due Influenza IIV4 (Quadrivalent) 0.5mL (69242) 02/2016,07/21/2015,06/11/2014 PPSV23 (Pneumovax) 02/22/2012 TDAP (BOOSTRIX) 04/13/2011 [...] Comments Blood Pressure 120/79 09/13/2021 4:57 PM CERTIFIED PATHOLOGY ASSISTANT Pulse 73 09/13/2021 4:57 PM CERTIFIED PATHOLOGY ASSISTANT Temperature 36.4 ??C (97.5 ??F) 04/26/2022 4:52 PM CD T Respiratory Rate 20 09/13/2021 4:57 PM CERTIFIED PATHOLOGY ASSISTANT Oxygen Saturation 97% 09/13/2021 4:57 PM CERTIFIED PATHOLOGY ASSISTANT Inhaled Oxygen Concentration - - Weight 101.6 [...] 01/14/20 22, 04/13/2011, 05/16/2003, Additional history exists RSV (1 - 1-dose 75+ series) 2034 Pneumococcal Aged Out 02/22/2012 No longer eligi [...] on patient's age to complete this topic Infant RSV Aged Out No longer eligi ble based on patient's age to complete this topic MCV4 Aged Out No longer eligi ble based on patient's age to complete this topic Care Teams J2Ee Programmer Relationship Specialty [place] [address] [place] [address] PCP - General Family Practice 06/07/21
== END 2024-07-17 09:03 | disposition home or self-care (01) ==
LOC: NFLDREF 07-18 08:36
PROVIDERS: PCP Emergency Medicine; Referring Provider Emergency Medicine; Visit Provider Emergency Medicine
DX: Z00.00 Encounter for general adult medical examination without abnormal findings (principal); R73.03 Prediabetes; E03.9 Hypothyroidism, unspecified; E78.2 Mixed hyperlipidemia; E78.1 Pure hyperglyceridemia; M79.7 Fibromyalgia
CPT/HCPCS: 80061; 84443

== ENCOUNTER 2024-08-06 13:54 | Outpatient (CLI) | payer OTHER, SELFPAY ==
--- OUTSIDE RECORDS SUMMARY | 2024-08-06 13:58 | XMS_ITS | Encounter Summary ---
Author Organization [facility] Address [address] [place] [address] Care Team Providers Care Recruitment Internship Name Role Phone Christa Mortensen Primary Care [...] on filedocumented in this encounter Care Teams Recruitment Internship Relationship Specialty Start Date End Date Christa Mortensen PCP - General Internal Medicine 07/11/17 documented as of this encounter
--- OUTSIDE RECORDS SUMMARY | 2024-08-06 13:58 | XMS_ITS | Encounter Summary ---
Author Organization [facility] Address [address] [place] [address] Care Team Providers Care Addiction Social Worker Name Role Phone Lennie Mortensenanne Primary Care Provider [phone] Reason for Visit * Reason Comments Hip Pain Dislocation Encounter Details Date Type Department Care Team (Late st Contact Info) Description 05/23/2024 5:48 PM CDT - 05/23/2024 11:06 PM CDT Emergency [facility] Emergency Dept [address] [place] [address] Rober Hernandez MD [facility] [address] [place], [place] [address] Closed dislocation of right hip, initial encounter [...] sent through Care Everywhere. * Hip Dislocation (Afghan) documented in this encounter Medications at Time [...] had hip replacement 2013 and hip dislocation [id number]. Pt was leaning over in chair and [...] mg/mL vial (100 mg Intravenous $Given 05/23/242005) [facility] Procedure: Sedation Date/Time: 05/23/2024 8:15 PM Performed [...] the procedure a time out was called [place] Protocol: the Joint Commission [place] Protocol was followed Preparation: Patient was prepped [...] attempts, and need to go to [place] Protocol: [place] protocol was followed and time out conducted [...] of dislocation. Medical Decision Making / Diagnosis [facility] Diagnoses: None MIPS None MDM [...] medications on file Rober Hernandez MD 05/23/24 [id number] documented in this encounter Plan of Treatment [...] PELVIS AND HIP RIGHT 1 VIEW LOCATION: [facility] DATE: 05/23/2024 INDICATION: assess dislocation reduction COMPARISON: None. Procedure Note Dwain Jones MD - 05/23/2024 EXAM: XR PELVIS AND HIP RIGHT 1 VIEW LOCATION: [facility] DATE: 05/23/2024 INDICATION: assess dislocation reduction COMPARISON: [...] Rober Hernandez MD ? 05/23/2024 11:05 PM [facility] Procedure: Sedation Date/Time: 05/23/2024 8:15 PM Performed [...] procedure a time out was called ?? [place] Protocol: the Joint Commission [place] Protocol was followed ?? Preparation: Patient was [...] PELVIS AND HIP RIGHT 1 VIEW LOCATION: [facility] DATE: 05/23/2024 INDICATION: cncern for dislocatin COMPARISON: None. Procedure Note Dwain Jones MD - 05/24/2024 EXAM: XR PELVIS AND HIP RIGHT 1 VIEW LOCATION: [facility] DATE: 05/23/2024 INDICATION: cncern for dislocatin COMPARISON: [...] order) documented in this encounter Care Teams Addiction Social Worker Relationship Specialty Start Date End Date Christa Mortensen PCP - General Internal Medicine 07/11/17 documented as of this encounter
--- OUTSIDE RECORDS SUMMARY | 2024-08-06 13:58 | XMS_ITS | Clinical Summary ---
Author Organization [facility] Address [address] [place] [address] Care Team Providers Care Remote Broadcast Engineer Name Role Phone Christa Mortensen Primary Care Provider [phone] Allergies Active Allergy Reactions Criticality Noted Date [...] renal tumor 05/21/2014 Overview: Overview: cryotherapy at [facility] Chronic insomnia 05/21/2014 Fibromyalgia 05/21/2014 Hyperlipidemia 05/21/2014 Menopause present 05/21/2014 AAKASH on CPAP 05/21/2014 Pulmonary embolism 05/21/2014 Overview: Overview: on BCP. Seasonal allergies 05/21/2014 Squamous cell cancer of skin of forearm 05/21/20 14 Vaginal atrophy 05/21/2014 Encounters Date Type Department Care Team Description 05/23/2024 5:48 PM CDT - 05/23/2024 11:06 PM CDT Emergency [facility] Emergency Dept [address] [place] [address] Rober Hernandez MD Closed dislocation of right [...] PELVIS AND HIP RIGHT 1 VIEW LOCATION: [facility] DATE: 05/23/2024 INDICATION: assess dislocation reduction COMPARISON: None. Procedure Note Dwain Jones MD - 05/23/2024 EXAM: XR PELVIS AND HIP RIGHT 1 VIEW LOCATION: [facility] DATE: 05/23/2024 INDICATION: assess dislocation reduction COMPARISON: [...] Rober Hernandez MD ? 05/23/2024 11:05 PM [facility] Procedure: Sedation Date/Time: 05/23/2024 8:15 PM Performed [...] procedure a time out was called ?? [place] Protocol: the Joint Commission [place] Protocol was followed ?? Preparation: Patient was [...] ORDERABLES from Last 3 Months Care Teams Remote Broadcast Engineer Relationship Specialty Start Date End Date Christa Mortensen PCP - General Internal Medicine 07/11/17
--- OUTSIDE RECORDS SUMMARY | 2024-08-06 13:58 | XMS_ITS | Referral Summary ---
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 Procedure Note Dwain Jones MD - 05/23/2024 EXAM: XR PELVIS AND HIP RIGHT 1 VIEW LOCATION: [facility] DATE: 05/23/2024 INDICATION: assess dislocation reduction COMPARISON: [...] Rober Hernandez MD ? 05/23/2024 11:05 PM [facility] Procedure: Sedation Date/Time: 05/23/2024 8:15 PM Performed [...] procedure a time out was called ?? [place] Protocol: the Joint [facility] [place] Protocol was followed ?? Preparation: Patient was [...] ORDERABLES from Last 3 Months Care Teams Concierge Manager Relationship Specialty Start Date End Date FestusChrista PCP - General Internal Medicine 07/11/17
--- OUTSIDE RECORDS SUMMARY | 2024-08-06 13:59 | XMS_ITS | Clinical Summary ---
Author Organization [facility] Address [address] [place] [address] Care Team Providers Care Shift Production Associate Name Role Phone Elsewhere, Pcp Primary Care Provider Unavailabl e Source Comments Patient records contain information from all sites at [facility]. For routine questions regarding patient records, call [phone] during business hours, M-F 8:00 AM - 5:00 PM Central Time. Record requests for emergency care only can be directed to [phone] at any time.[facility] Allergies Active Allergy Reactions Criticality Noted Date [...] Itching High 05/21/2009 Hives, dry mouth Medications * This document contains information received from the source organization and may not represent a complete record from that organization. cetirizine HCl (ZYRTEC ORAL) Take 1 tablet by mouth daily as needed. Active DME CPAPIndications :Obstructive Sleep Apnea Adult DME Order 1 Device 05/03/2021 Active ALPRAZolam (Xanax) 0.5 mg tablet Take 1 tablet (0.5 mg total) by mouth as needed for anxiety. For flying 15 tablet 3 01/13/2022 Active triamcinolone (NASACORT) 55 mcg/actuation nasal spray INSTILL 2 SPRAYS IN EACH NOSTRIL DAILY. 6.7 mL 1 11/16/2022 Active levothyroxine (SYNTHROID, LEVOTHROID) 75 mcg tabletIndicatio ns:Nodule Thyroid Take 1 tablet (75 mcg total) by mouth every morning before breakfast. 30 tablet 02/27/2023 Active DULoxetine (CYMBALTA) [address] capsuleIndicati ons:Fibromyalgi a Take 1 capsule (20 mg total) by [...] 12/19/2018 Overview (12/19/2018): Overview: Overview: cryotherapy at [facility] [place] Keratosis Seborrheic 04/20/2012 019 Encounters Date Type Department Care Team Description 07/10/2024 CPAP Download Remote Patient Monitoring [facility] [address] [place] [address] [facility], Provider, 06/09/2024 CPAP Download Remote Patient Monitoring [facility] [address] [place] [address] [facility], ProviderMD 05/29/2024 2:00 PM CDT Office Visit Department of Orthopedic Surgery in [address] [phone] Hamzah Todd M.D. Instability Total Hip Arthroplasty Initial Right (HCC) (Primary Dx) 05/29/2024 12:45 PM CDT - 05/29/2024 11:59 PM CDT Hospital Encounter Department of Radiology, [facility], in [address] [phone] Steven Hui M.D. Arthroplasty Total Hip Replacement Status Post Right Discharge Disposition: Home or Self Care 05/28/2024 10:30 AM CDT Clinical Communication Virtual Review in [address] [phone] Pre-visit Intake 05/24/2024 Clinical Communication Department of Orthopedic Surgery in [address] [phone] Hamzah Todd M.D. Return Call Request 05/23/2024 1:00 PM CDT Clinical Support Department of Dermatology in [address] [phone] Nabila Guerrero MPAS, P.A.-Vanda Raines, R.NJuan A Keratosis [facility] Discharge Disposition: Home or Self Care 05/09/2024 CPAP Download Remote Patient Monitoring [facility] [address] [place] [phone] [facility], ProviderMD from Last 3 Months Immunizations Name Administration Dates Next Due H1N1 All Forms 12/07/2009 Influenza Split 07/16/2017, 6,06/16/2015,2013,07/16/2013,07/16/2011,08/11/2010,0 06/19/2009,08/27/2003,08/16/2002, 996 Influenza, Injectable, Mdck, Preservative Free, Quadrivalent 07/11/2022,07/19/2017 Influenza, Seasonal, Injectable 07/18/20 13,08/06/2007,09/14/2006,2002,08/16/2002,10/16/1995 Influenza, Unspecified 07/28/2021,2014,06/11/2014,2010,08/11/2010,06/19/2009 PPSV23 02/22/2012 RZV (SHINGRIX) 04/01/2019, 9,12/19/2018(Deferr ed: Not available from die forger) SARS-COV-2 (COVID-19) - MODERNA(Discontinued) 01/04/2021 Td (Adult), [...] Comments Father Tyrel Fitterer Maternal Grandfather Du [place] Maternal Grandmother Ingrid Honken Mother Ambreen Fitterer Paternal Grandfather Manoj Fitterer Paternal Grandmother Vane Blanchard Sister Bladder cancer Social History Tobacco Use Types Packs/Day Years Used Date Smoking Tobacco: Never Passive Smoke Exposure: Past Smokeless Tobacco: Never Passive Exposure Comments:Mo m & Dad Smoked growing up Alcohol Use Standard Drinks/Week Comments Yes 0 (1 standard drink = 0.6 oz pur e alcohol) [facility] Utilities Answer Date Recorded In [...] How often do you attend chur or taoist services? Never 09/29/2022 Do you [...] Date Recorded PHQ-2 Score 0 03/18/2022 [facility] of Occupat ional [...] 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, CURING ROOM WORKER, CHERYL) 09/29/2022 Comments No Sex and Gender Information Value Date Recorded Sex Assigned at Female 12/17/2018 7:47 AM TIMBER ESTIMATOR Legal Sex Female 3:34 PM TIMBER ESTIMATOR Gender Identity Female 12/17/2018 7:47 AM TIMBER ESTIMATOR Sexual Orientation Straight 12/17/2018 7: 47 AM TIMBER ESTIMATOR Last Filed Vital Signs Vital Sign Reading [...] Department Care Team (Latest Contact Info) Description 09/06/2024 12:15 PM TIMBER ESTIMATOR Clinical Communication Virtual Review in [address] [phone] 09/10/2024 11:00 AM TIMBER ESTIMATOR Appointment Department of Laboratory Medicine and Pathology, [facility], in [address] [address] Hamzah Todd M.D. [address] [place] [phone] 09/10/2024 1:00 PM TIMBER ESTIMATOR Office Visit Department of Orthopedic Surgery in [address] [phone] Hamzah Todd M.D. [address] [place] [phone] 09/11/2024 8:00 AM TIMBER ESTIMATOR Comprehensive Visit Preoperative Evaluation Center in [place], [place] [address] [place] [address] Hamzah Todd M.D. [address] [place] [phone] 09/16/2024 11:43 AM TIMBER ESTIMATOR Hospital Encounter RST RO 02 4 AM ADMIT [address] [place] [address] Hamzah Todd M.D. [address] [place] [phone] 09/16/2024 11:43 AM TIMBER ESTIMATOR - 09/16/2024 3:15 PM TIMBER ESTIMATOR Surgery [facility]ST [facility] MA[facility] OR [address] [place] [address] Hamzah Todd M.D. [address] [place] [address] ARTHROPLASTY REVISION HIP - ACETABULAR Scheduled Procedures Name Priority Associated Diagnoses Date/Ti me ARTHROPLASTY REVISION HIP Instability Total Hip Arthroplasty Subsequent Right 09/16/2024 11:43 AM TIMBER ESTIMATOR Health Maintenance Due Date Last Done Comments [...] Additional history exists Influenza Vaccine (#1) 2024 3, 07/11/2022, 07/28/2021, Additional history exists Fasting Glucose for Diabetes Screening 01/13/2025 01/13/2022, 01/12/2021, 12/24/2019, Additional history exists Cologuard 02/15/2025 02/15/2022, 04/03/2022, 02/06/2019 Colorectal Cancer Screening 02/15/2025 Cervical Cancer [...] 12/16, 12/19/2018 Medical Devices Implanted Type Area Scale Adjuster Device Identifier Shelf Expiration Date Model / Serial / Lot Hardware E.G. Pins/Screws/Ro ds Hardware e.g. pins/screws/ rods Neck Description:Clips present af ter thyroid removal. Guide Wire-Ball Tip 3 X 800 - Orr [id number] Implanted:Qty: 1 on 05/07/2013 Hardware e.g. pins/screws/ rods Ivelisse Description:Device Manufactu rer - Ivelisse Bandar.. Device Status Text - HARDWARE- 50837. [facility] Data - [id number]. [place] Screw 2 Canc 6.5 X 20 - Orr [id number] Implanted:Qty: 1 on 05/07/2013 Hardware e.g. pins/screws/ rods [employer] Description:Device Manufactu rer - [employer]. Device Status Text - HARDWARE-05466. [place] Screw 2 Canc 6.5 X 25 - Orr [id number] Implanted:Qty: 1 on 05/07/2013 Hardware e.g. pins/screws/ rods [employer] Description:Device Manufactu rer - J [employer]. Device Status Text - HARDWARE-56164. [place] Screw 2 Canc 6.5 X 15 - Orr [id number] Implanted:Qty: 2 on 05/07/2013 Hardware e.g. pins/screws/ rods [employer] Description:Device Manufactu rer - J [employer]. Device Status Text - HARDWARE-94688. Guide Wire-Ball Tip 3 X 800 - Orr [id number] Implanted:Qty: 1 on 10/22/2013 Hardware e.g. pins/screws/ rods Ivelisse Description:Device Manufactu rer - Ivelisse Bandar.. Device Status Text - HARDWARE- 71597. [facility] Data - [id number]. [place] Screw 2 Canc 6.5 X 15 - Orr [id number] Implanted:Qty: 1 on 10/22/2013 Hardware e.g. pins/screws/ rods [employer] Description:Device Manufactu rer - J [employer]. Device Status Text - HARDWARE-95621. [place] Screw 2 Canc 6.5 X 25 - Orr [id number] Implanted:Qty: 2 on 10/22/2013 Hardware e.g. pins/screws/ rods [employer] Description:Device Manufactu rer - J [employer]. Device Status Text - HARDWARE-51785. [place] Liner Altrx +4 Neut 32x48 - Orr [id number] Implanted:Qty: 1 on 05/07/2013 Hip Implant Other/Legacy - See Implant Description [employer] Description:Device Manufactu Noxilizer - [employer]. Body Location - Other. Left. Device Status Text - HIP [id number]. [place]heim Shell Multi 2 48mm - Orr [id number] Implanted:Qty: 1 on 05/07/2013 Hip Implant Other/Legacy - See Implant Description [employer] Description:Device Manufactu Noxilizer - E-Box - [employer]. Body Location - Other. Left. Device Status Text - HIP IMP-100494. [place]-Stem [place] 3 Hi - Orr [id number] Implanted:Qty: 1 on 05/07/2013 Hip Implant Other/Legacy - See Implant Description [employer] Description:Device Manufactu rer - J [employer]. Body Location - Other. Left. Device Status Text - HIP [id number]. Delta-Head Ceramic 32mm +1 - Orr [id number] Implanted:Qty: 1 on 05/07/2013 Hip Implant Other/Legacy - See Implant Description [employer] Description:Device Manufactu rer - J [employer]. Body Location - Other. Left. Device Status Text - HIP [id number]. Delta-Head Ceramic 32mm +1 - Orr [id number] Implanted:Qty: 1 on 10/22/2013 Hip Implant Other/Legacy - See Implant Description [employer] Description:Device Manufactu rer - J [employer]. Body Location - Other. Right. Device Status Text - HIP [id number]. Stem [place] 3x Hi 135 - Orr [id number] Implanted:Qty: 1 on 10/22/2013 Hip Implant Other/Legacy - See Implant Description [employer] Description:Device Manufactu rer - J [employer]. Body Location - Other. Right. Device Status Text - HIP IMP-496353. Bl[place]heim Shell Multi 2 48mm - Orr [id number] Implanted:Qty: 1 on 10/22/2013 Hip Implant Other/Legacy - See Implant Description [employer] Description:Device Manufactu rer - J [employer]. Body Location - Other. Right. Device Status Text - HIP [id number]. [place] Liner Altrx +4 Neut 32x48 - Orr [id number] Implanted:Qty: 1 on 10/22/2013 Hip Implant Other/Legacy - See Implant Description [employer] Description:Device Manufactu rer - J [employer]. Body Location - Other. Right. Device Status Text - HIP IMP-770289. Mitralclip-10/16 Implanted:10/2016 (Quantity not on file) Mitralclip [...] joints and pubic symphysis.Bilateral greater trochanter enthesopathy. us Steven Hui M.D. IMG DIAGNOSTIC IMAGING PROCED URES Final Result * XR PELVIS AND HIP RIGHT 1 [...] overread is required please follow defined workflow.?? us Provider Not In System IMG DIAGNOSTIC IMAGING [place] OCEDURES Final Result [facility] * (ABNORMAL) Lipid Panel (06/09/2022 [...] Agency Comment Mailed In Specimen Cammy Grider APRN C.N.P., M.S.N. LAB BLO OD ADD-ON Final Result [facility] [address] [place] [address], [facility] [address] [place] [address] * Cologuard-Sent Out Lab (02/08/2022 1:00 PM [...] (Tori Pham al, N Engl J Med 2014;370(14):2937-3051) The normal value (reference range) for this assay is negative. COLOGUARD RE-SCREENING RECOMMENDATION: Periodic colorectal cancer screening is an important part of preventive healthcare for asymptomatic individuals at average risk for colorectal cancer. ??Following a negative Cologuard result, the [place] Cancer Society and U.S. Multi-Society Task Force screening guidelines recommend a Cologuard re-screening interval of 3 years. References: [place] Cancer Society Guideline for Colorectal Cancer Screening: https://www.cancer.org/cancer/hjvna-mwqqnr-zasehn/detection- diagnosis-staging/acs-recommendations.html.; Regis DK, Hoang RICKETTS, Melina SolorioK, Colorectal Cancer Screening: Recommendations for Physicians and Patients from the U.S. Multi-Society Task Force on Colorectal Cancer Screening , Am J Gastroenterology 2017; 112:4434-5080. TEST DESCRIPTION: Composite algorithmic analysis of stool [...] (Tori Pham al, N Engl J Med 2014;370(14):5445-5193.) Cologuard may produce a false negative or false positive result (no colorectal cancer or precancerous polyp present at colonoscopy follow up). A negative Cologuard test result does not guarantee the absence of CRC or advanced adenoma (pre-cancer). The current Cologuard screening interval is every 3 years. ([place] Cancer Society and U.S. Multi-Society Task Force). Cologuard performance data in a 10,000 patient pivotal study using colonoscopy as the reference method can be accessed at the following location: www.[employer]/results. Additional description of the Cologuard test process, warnings and precautions can be found at www.cologuard.com. Stool (Stool) 02/08/2022 1:0 0 PM CDT 02/09/2022 1:22 PM CDT Isrrael Kaiser APRN N.Darius., M.S.N. LAB BODY FLUIDS AND STOOLS ORDERABLES Final Result [facility] [address] [place] [address] [facility] [address] [place] [address], [address] [place] [address] * BI Breast Screening Bilateral with Tomosynthesis [...] Grider APRN, C.N.P., M.S.N. IMG BI PROCEDURES Final Result * S-TSH (Thyroid-Stimulating Hormone - Sensitive) (01/13/2022 9:44 AM CDT) TSH, Sensitive 2.8 0.3 - 4.2 mIU/L 01/13/2022 11:10 AM CDT DTL Blood (Blood, Venous) 01/13/2022 9:44 AM CDT 01/13/2022 10:41 AM CDT Cammy Grider APRN, C.N.P., M.S.N. LAB BLO OD ADD-ON Final Result [facility] [address] [place] [address], [facility] [address] [place] [address] * (ABNORMAL) Basic Metabolic Panel (01/13/2022 9:44 [...] the 2009 CKD_EPI creatinine equation. eGFR-Black/Afri can Malaysian 65 >=60 mL/min/BSA 01/13/2022 11:01 AM CDT DTL Comment: ----ADDITIONAL INFORMATION---- Estimated GFR calculated using the 2009 CKD_EPI creatinine equation. Calcium, Total, S 9.1 8.8 - 10.2 mg/dL 01/13/2022 11:01 AM CDT DTL Glucose, S 98 70 - 140 mg/dL 01/13/2022 11:01 AM CDT DTL Blood (Blood, Venous) 01/13/2022 9:44 AM CDT 01/13/2022 10:40 AM CDT Cammy Grider APRN, C.N.P., M.S.N. LAB BLO [place] [address], [facility] [place] [address] * ThinPrep w/HPV Co-Test Screen (04/02/2020 1:26 [...] APRN C.N.P., M.S.N. LAB PAP PATHDX ORDERABLES Final Result Performing Organization Address City/[facility]/ZIP Co de Phone Number [facility] [address] DTL [facility] 200 [place] [address] * Bone Donor 6 Month Screen Test Set (05/09/2014 9:32 AM CDT) Donor HBcore Antibody Negative [facility] HCV Ab Screen Donor Negative [facility] HX Hiv-1/-2, Plus O Ab Screen Donor Negative [facility] 05/09/2014 9:32 AM CDT 05/09/2014 9:32 AM CDT Girish Bradford M.D. LAB BLOOD NON ADD-ON Final Re sult Performing Organization Address City/[facility]/ZIP Co de Phone Number [facility] [address] from Last 3 Months or Most Recently Relevant to Health Maintenance Insurance [facility] Care Teams Shift Production Associate Relationship Specialty Start Date End Date Elsewhere, Pcp PCP - General Family Medicine 10/07/21
--- OUTSIDE RECORDS SUMMARY | 2024-08-06 13:59 | XMS_ITS | Encounter Summary ---
Author Organization [facility] Address [address] [place] [address] Care Team Providers Care Test Bore Helper Name Role Phone Elsewhere, Pcp Primary Care Provider Unavailabl e Encounter Details Date Type Department Care Team (Late st Contact Info) Description 07/10/2024 CPAP Download Remote Patient Monitoring [facility] [address] [place] [address] [facility], Provider, Social History Tobacco Use Types Packs/Day Years Used Date Smoking Tobacco: Never Passive Smoke Exposure: Past Smokeless Tobacco: Never Passive Exposure Comments:Mo m & Dad Smoked growing up Alcohol Use Standard Drinks/Week Comments Yes 0 (1 standard drink = 0.6 oz pur e alcohol) [facility] Utilities Answer Date Recorded In the past 12 months has e electric, gas, oil, or water [facility] threatened to shut off services in your [...] often do you attend chur ch or mormonism services? Never 09/29/2022 Do you belong to [...] 0 03/18/2022 [facility] of Occupat ional Health - [...] your living situation today? I have a [facility] place to live 01/01/2024 Education Answer Date Recorded What is the highest level of school you have completed or the highest degree you have received? 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, PEANUT [employer]OR[employer], CHERYL) 09/29/2022 Comments No Sex and Gender Information Value Date Recorded Sex Assigned at Female 12/17/2018 7:47 AM RADIO PRODUCER Legal Sex Female 3:34 PM RADIO PRODUCER Gender Identity Female 12/17/2018 7:47 AM RADIO PRODUCER Sexual Orientation Straight 12/17/2018 7: 47 AM RADIO PRODUCER documented as of this encounter Plan of Treatment Upcoming Encounters Date Type Department Care Team (Latest Contact Info) Description 09/06/2024 12:15 PM RADIO PRODUCER Clinical Communication Virtual Review in [place], [place] [address] [place] [address] 09/10/2024 11:00 AM RADIO PRODUCER Appointment Department of Laboratory Medicine and Pathology, [facility], in [place], [place] [address] [place] [phone] Hamzah Todd M.D. [address] [place] [phone] 09/10/2024 1:00 PM RADIO PRODUCER Office Visit Department of Orthopedic Surgery in [place], [place] [address] [place] [phone] Hamzah Todd M.D. [address] [place] [phone] 09/11/2024 8:00 AM RADIO PRODUCER Comprehensive Visit Preoperative Evaluation Center in [place], [place] [address] [place] [phone] Hamzah Todd M.D. [address] [place] [phone] 09/16/2024 11:43 AM RADIO PRODUCER Hospital Encounter RST ROEI 02 4 AM ADMIT [address] [place] [phone] Hamzah Todd M.D. [address] [place] [phone] 09/16/2024 11:43 AM RADIO PRODUCER - 09/16/2024 3:15 PM RADIO PRODUCER Surgery RST RO MAIN OR [address] [place] [address] Hamzah Todd M.D. [address] [place] [phone] ARTHROPLASTY REVISION HIP - ACETABULAR Scheduled Procedures Name Priority Associated Diagnoses Date/Ti me ARTHROPLASTY REVISION HIP Instability Total Hip Arthroplasty Subsequent Right 09/16/2024 11:43 AM RADIO PRODUCER documented as of this encounter Visit Diagnoses Not on filedocumented in this encounter Additional Health Concerns Assessment Noted Time PHQ-9 Depression Total Score: 1 03/18/20 22 7:24 AM CDT documented as of this encounter Care Teams Test Bore Helper Relationship Specialty Start Date End Date Elsewhere, Pcp PCP - General Family Medicine 10/07/21 documented as of this encounter
--- OUTSIDE RECORDS SUMMARY | 2024-08-06 13:59 | XMS_ITS | Encounter Summary ---
Author Organization [facility] Address [address] [place] [address] Care Team Providers Care Metalworking Instructor Name Role Phone Elsewhere, Pcp Primary Care Provider Unavailabl e Reason for Referral * Outpatient (Routine) - Closed Specialty Diagnoses / Procedures Referred By Lauraac t Referred To Contact Diagnoses Arthroplasty Total Hip Replacement Status Post Right Procedures DX Hip And Pelvis Right 2-3 Views DX Hip And Pelvis Right 4+ Views Steven Hui M.D. 200 [place] [address] Phone: tel: fax: [facility] Referral ID Status Reason Start Date Expiration Date Visits Re quested Visits Authorized [id number] Closed 05/26/2024 05/26/2025 1 1 * Outpatient (Routine) - Closed Specialty Diagnoses / Procedures Referred By Contmaite t Referred To Contact Orthopedic Surgery Steven Hui M.D. 200 [place] [address] Phone: tel: fax: Hamazh Todd M.D. [address] [place] [phone] Phone: tel: fax: Referral ID Status Reason Start Date Expiration Date Visits Re quested Visits Authorized [id number] Closed 05/26/2024 2025 1 1 Reason for Visit * Reason Onset Date Comments Return Call Request 05/24/2024 Encounter Details Date Type Department Care Team (Latest Contact Info) Description 05/24/2024 Clinical Communication Department of Orthopedic Surgery in [place], [place] [address] [place] [address] Hamzah Todd M.D. [address] [place] [phone] Return Call Request Social History Tobacco Use Types Packs/Day Years Used Date Smoking Tobacco: Never Passive Smoke Exposure: Past Smokeless Tobacco: Never Passive Exposure Comments:Mo m & Dad Smoked growing up Alcohol Use Standard Drinks/Week Comments Yes 0 (1 standard drink = 0.6 oz pur e alcohol) [facility] Utilities Answer Date Recorded In the past 12 months has [employer], gas, oil, or water [employer] threatened to shut off services in your [...] week 09/29/2022 How often do you attend [facility] or sikhism services? Never 09/29/2022 Do you belong to any clubs o r organizations such as yazdanism groups, unions, fraternal or athletic groups, or [...] Score 0 03/18/2022 [facility] - Occupational Stress Questionnaire Answer [...] your living situation today? I have a [facility] place to live 01/01/2024 Education Answer Date Recorded What is the highest level of school you have completed or the highest degree you have received? 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, BUNCH TRIMMER MOLD, CHERYL) 09/29/2022 Comments No Sex and Gender Information Value Date Recorded Sex Assigned at Female 12/17/2018 7:47 AM PIT AND AUXILIARIES SUPERVISOR Legal Sex Female 3:34 PM PIT AND AUXILIARIES SUPERVISOR Gender Identity Female 12/17/2018 7:47 AM PIT AND AUXILIARIES SUPERVISOR Sexual Orientation Straight 12/17/2018 7: 47 AM PIT AND AUXILIARIES SUPERVISOR documented as of this encounter Miscellaneous Notes [...] 05/23/24. This was successfully close reduced in [place] ED. Since that time she has remained [...] All questions and concerns were addressed. Steven uHi MD Resident to Dr. Todd documented in this encounter Plan of Treatment Upcoming Encounters Date Type Department Care Team (Latest Contact Info) Description 09/06/2024 12:15 PM PIT AND AUXILIARIES SUPERVISOR Clinical Communication Virtual Review in [address] [phone] 09/10/2024 11:00 AM PIT AND AUXILIARIES SUPERVISOR Appointment Department of Laboratory Medicine and Pathology, [facility], in [address] [phone] Hamzah Todd M.D. [address] [place] [phone] 09/10/2024 1:00 PM PIT AND AUXILIARIES SUPERVISOR Office Visit Department of Orthopedic Surgery in [address] [phone] Hamzah Todd M.D. [address] [place] [phone] 09/11/2024 8:00 AM PIT AND AUXILIARIES SUPERVISOR Comprehensive Visit Preoperative Evaluation Center in [address] [phone] Hamzah Todd M.D. [address] [place] [phone] 09/16/2024 11:43 AM PIT AND AUXILIARIES SUPERVISOR Hospital Encounter [facility] 02 4 AM ADMIT [address] [place] [phone] Hamzah Todd M.D. [address] [place] [phone] 09/16/2024 11:43 AM PIT AND AUXILIARIES SUPERVISOR - 09/16/2024 3:15 PM PIT AND AUXILIARIES SUPERVISOR Surgery [facility] MAIN OR [address] [place] [phone] Hamzah Todd M.D. [address] [place] [address] ARTHROPLASTY REVISION HIP - ACETABULAR Scheduled Procedures Name Priority Associated Diagnoses Date/Ti me ARTHROPLASTY REVISION HIP Instability Total Hip Arthroplasty Subsequent Right 09/16/2024 11:43 AM PIT AND AUXILIARIES SUPERVISOR Scheduled Referrals Name Type Priority Associated Diagnoses [...] trochanter enthesopathy. Steven Hui M.D. [facility] Final Result documented in this encounter Visit Diagnoses Diagnosis Arthroplasty Total Hip Replacement Status Post Right- Primary Arthroplasty Total Hip Replacement Status Post Right Instability Total Hip Arthroplasty Subsequent Right documented in this encounter Additional Health Concerns Assessment Noted Time PHQ-9 Depression Total Score: 1 03/18/20 22 7:24 AM CDT documented as of this encounter Care Teams Metalworking Instructor Relationship Specialty Start Date End Date Elsewhere, Pcp PCP - General Family Medicine 10/07/21 documented as of this encounter
--- OUTSIDE RECORDS SUMMARY | 2024-08-06 13:59 | XMS_ITS ---
Author Organization [facility] Address [address] [place] [address] Care Team Providers Care Box Cutter Name Role Phone Unavailable Unavailable Unavailable Surgery Details Not on file Complications Check Surgery Details section. Procedure Estimated Blood Loss Check Surgery Details section. Procedure Findings Check Surgery Details section. Procedure Specimens Taken Check Surgery Details section.
--- OUTSIDE RECORDS SUMMARY | 2024-08-06 13:59 | XMS_ITS | Encounter Summary ---
Author Organization [facility] Address [address] [place] [address] Care Team Providers Care C Application Developer Name Role Phone Elsewhere, Pcp Primary Care Provider Unavailabl e Reason for Visit * Outpatient (Routine) - Closed Specialty Diagnoses / Procedures Referred By Contmaite t Referred To Contact Dermatology Diagnoses Keratosis Actinic Procedures MAGGI JESSIKA-U/ ALA (PDT) Nabila Guerrero MPAS, P.A.-C. [facility] Referral ID Status Reason Start Date Expiration Date Visits Re quested Visits Authorized [id number] Closed 01/03/2024 01/02/2025 1 1 Encounter Details Date Type Department Care Team (Latest Contact Info) Description 05/23/2024 1:00 PM CDT Clinical Support Department of Dermatology in [place], [place] [address] [place] [phone] Nabila Guerrero MPAS, P.A.-CVanda Rodríguez, R.NJuan A [address] [place] [phone] Keratosis Actinic Discharge Disposition: Home or Self Care Social History Tobacco Use Types Packs/Day Years Used Date Smoking Tobacco: Never Passive Smoke Exposure: Past Smokeless Tobacco: Never Passive Exposure Comments:Mo m & Dad Smoked growing up Alcohol Use Standard Drinks/Week Comments Yes 0 (1 standard drink = 0.6 oz pur e alcohol) [facility] Utilities Answer Date Recorded In the past 12 months has [employer] electric, gas, oil, or water company threatened [...] week 09/29/2022 How often do you attend [facility] or mormonism services? Never 09/29/2022 Do you [...] Date Recorded PHQ-2 Score 0 03/18/2022 [facility] - [...] your living situation today? I have a [employer] place to live 01/01/2024 Education Answer Date Recorded What is the highest level of school you have completed or the highest degree you have received? 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, AUTO HIKER, CHERYL) 09/29/2022 Comments No Sex and Gender Information Value Date Recorded Sex Assigned at Female 12/17/2018 7:47 AM DATA MIGRATION LEAD Legal Sex Female 3:34 PM DATA MIGRATION LEAD Gender Identity Female 12/17/2018 7:47 AM DATA MIGRATION LEAD Sexual Orientation Straight 12/17/2018 7: 47 AM DATA MIGRATION LEAD documented as of this encounter Plan of Treatment Upcoming Encounters Date Type Department Care Team (Latest Contact Info) Description 09/06/2024 12:15 PM DATA MIGRATION LEAD Clinical Communication Virtual Review in [place], [place] [address] [place] [address] 09/10/2024 11:00 AM DATA MIGRATION LEAD Appointment Department of Laboratory Medicine and Pathology, [facility], in [place], [place] [address] [place] [phone] Hamzah Todd M.D. [address] [place] [phone] 09/10/2024 1:00 PM DATA MIGRATION LEAD Office Visit Department of Orthopedic Surgery in [place], [place] [address] [place] [phone] Hamzah Todd M.D. [address] [place] [phone] 09/11/2024 8:00 AM DATA MIGRATION LEAD Comprehensive Visit Preoperative Evaluation Center in [place], [place] [address] [place] [phone] Hamzah Todd M.D. [address] [place] [phone] 09/16/2024 11:43 AM DATA MIGRATION LEAD Hospital Encounter [facility] 02 4 AM ADMIT [address] [place] [phone] Hamzah Todd M.D. [address] [place] [phone] 09/16/2024 11:43 AM DATA MIGRATION LEAD - 09/16/2024 3:15 PM DATA MIGRATION LEAD Surgery [facility] MAIN OR [address] [place] [address] Hamzah Todd M.D. [address] [place] [phone] ARTHROPLASTY REVISION HIP - ACETABULAR Scheduled Procedures Name Priority Associated Diagnoses Date/Ti me ARTHROPLASTY REVISION HIP Instability Total Hip Arthroplasty Subsequent Right 09/16/2024 11:43 AM DATA MIGRATION LEAD documented as of this encounter Visit Diagnoses Diagnosis Keratosis Actinic Instability Total Hip Arthroplasty Subsequent Right documented in this encounter Administered Medications Inactive Administered Medications - up to 3 most recent administrations Medication Order MAR Action Action Date Dose Rate Site aminolevulinic acid HCL 20 % external solution 1 Application (Levulan) 1 Application, topical, Once, On Maria 05/23/24 at 1345, For 1 doseIndications:Keratosis Actinic Given 05/23/2024 1:22 PM CDT 1 Application documented in this encounter Additional Health Concerns Assessment Noted Time PHQ-9 Depression Total Score: 1 03/18/20 22 7:24 AM CDT documented as of this encounter Care Teams C Application Developer Relationship Specialty Start Date End Date Elsewhere, Pcp PCP - General Family Medicine 10/07/21 documented as of this encounter
--- OUTSIDE RECORDS SUMMARY | 2024-08-06 13:59 | XMS_ITS | Encounter Summary ---
Author Organization [facility] Address [address] [place] [address] Care Team Providers Care Business Technology Teacher Name Role Phone Elsewhere, Pcp Primary Care Provider Unavailabl e Reason for Visit * Reason Onset Date Comments Pre-visit Intake 05/28/2024 Encounter Details Date Type Department Care Team (Latest Contact Info) Description 05/28/2024 10:30 AM CDT Clinical Communication Virtual Review in [place], [place] 200 [place] [address] Pre-visit Intake Social History Tobacco Use Types Packs/Day Years Used Date Smoking Tobacco: Never Passive Smoke Exposure: Past Smokeless Tobacco: Never Passive Exposure Comments:Mo m & Dad Smoked growing up Alcohol Use Standard Drinks/Week Comments Yes 0 (1 standard drink = 0.6 oz pur e alcohol) [facility] Utilities Answer Date Recorded In the past 12 months has [facility] [employer], gas, oil, or water [employer] threatened to shut off services in your [...] 0 03/18/2022 [facility] Questionnaire Answer Date [...] your living situation today? I have a [facility] place to live 01/01/2024 Education Answer Date Recorded What is the highest level of school you have completed or the highest degree you have received? 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, SYSTEMS INTEGRATOR, CHERYL) 09/29/2022 Comments No Sex and Gender Information Value Date Recorded Sex Assigned at Female 12/17/2018 7:47 AM SUPERINTENDENT CONTAINER TERMINAL Legal Sex Female 3:34 PM SUPERINTENDENT CONTAINER TERMINAL Gender Identity Female 12/17/2018 7:47 AM SUPERINTENDENT CONTAINER TERMINAL Sexual Orientation Straight 12/17/2018 7: 47 AM SUPERINTENDENT CONTAINER TERMINAL documented as of this encounter Plan of Treatment Upcoming Encounters Date Type Department Care Team (Latest Contact Info) Description 09/06/2024 12:15 PM SUPERINTENDENT CONTAINER TERMINAL Clinical Communication Virtual Review in [place], [place] [address] [place] [address] 09/10/2024 11:00 AM SUPERINTENDENT CONTAINER TERMINAL Appointment Department of Laboratory Medicine and Pathology, [facility], in [place], [place] [address] [place] [phone] Hamzah Todd M.D. [address] [place] [phone] 09/10/2024 1:00 PM SUPERINTENDENT CONTAINER TERMINAL Office Visit Department of Orthopedic Surgery in [place], [place] [address] [place] [phone] Hamzah Todd M.D. [address] [place] [phone] 09/11/2024 8:00 AM SUPERINTENDENT CONTAINER TERMINAL Comprehensive Visit Preoperative Evaluation Center in [place], [place] [address] [place] [phone] Hamzah Todd M.D. [address] [place] [phone] 09/16/2024 11:43 AM SUPERINTENDENT CONTAINER TERMINAL Hospital Encounter RST RO 02 4 AM ADMIT [address] [place] [phone] Hamzah Todd M.D. [address] [place] [phone] 09/16/2024 11:43 AM SUPERINTENDENT CONTAINER TERMINAL - 09/16/2024 3:15 PM SUPERINTENDENT CONTAINER TERMINAL Surgery RST RO MAIN OR [address] [place] [address] Hamzah Todd M.D. [address] [place] [phone] ARTHROPLASTY REVISION HIP - ACETABULAR Scheduled Procedures Name Priority Associated Diagnoses Date/Ti me ARTHROPLASTY REVISION HIP Instability Total Hip Arthroplasty Subsequent Right 09/16/2024 11:43 AM SUPERINTENDENT CONTAINER TERMINAL documented as of this encounter Visit Diagnoses Not on filedocumented in this encounter Additional Health Concerns Assessment Noted Time PHQ-9 Depression Total Score: 1 03/18/20 22 7:24 AM CDT documented as of this encounter Care Teams Business Technology Teacher Relationship Specialty Start Date End Date Elsewhere, Pcp PCP - General Family Medicine 10/07/21 documented as of this encounter
--- OUTSIDE RECORDS SUMMARY | 2024-08-06 13:59 | XMS_ITS | Encounter Summary ---
Author Organization [facility] Address [address] [place] [address] Care Team Providers Care Histology Assistant Name Role Phone Elsewhere, Pcp Primary Care Provider Unavailabl e Encounter Details Date Type Department Care Team (Late st Contact Info) Description 06/09/2024 CPAP Download Remote Patient Monitoring [facility] [address] [place] [address] [facility], Provider, Social History Tobacco Use Types Packs/Day Years Used Date Smoking Tobacco: Never Passive Smoke Exposure: Past Smokeless Tobacco: Never Passive Exposure Comments:Mo m & Dad Smoked growing up Alcohol Use Standard Drinks/Week Comments Yes 0 (1 standard drink = 0.6 oz pur e alcohol) [facility] Utilities Answer Date Recorded In the past 12 months has e electric, gas, oil, or water [employer] threatened to shut off services in your [...] often do you attend chur ch or hoahaoism services? Never 09/29/2022 Do you belong to any clubs o r organizations such as jewish groups, unions, fraternal or athletic groups, or [...] Answer Date Recorded PHQ-2 Score 0 03/18/2022 [facility]at ional [facility] - [...] your living situation today? I have a [employer] place to live 01/01/2024 Education Answer Date Recorded What is the highest level of school you have completed or the highest degree you have received? 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, PEARL HAND, CHERYL) 09/29/2022 Comments No Sex and Gender Information Value Date Recorded Sex Assigned at Female 12/17/2018 7:47 AM LINE DIRECTOR Legal Sex Female 3:34 PM LINE DIRECTOR Gender Identity Female 12/17/2018 7:47 AM LINE DIRECTOR Sexual Orientation Straight 12/17/2018 7: 47 AM LINE DIRECTOR documented as of this encounter Plan of Treatment Upcoming Encounters Date Type Department Care Team (Latest Contact Info) Description 09/06/2024 12:15 PM LINE DIRECTOR Clinical Communication Virtual Review in [place], [place] [address] [place] [address] 09/10/2024 11:00 AM LINE DIRECTOR Appointment Department of Laboratory Medicine and Pathology, [facility], in [place], [place] [address] [place] [phone] Hamzah Todd M.D. [address] [place] [phone] 09/10/2024 1:00 PM LINE DIRECTOR Office Visit Department of Orthopedic Surgery in [place], [place] [address] [place] [phone] Hamzah Todd M.D. [address] [place] [phone] 09/11/2024 8:00 AM LINE DIRECTOR Comprehensive Visit Preoperative Evaluation Center in [place], [place] [address] [place] [phone] Hamzah Todd M.D. [address] [place] [phone] 09/16/2024 11:43 AM LINE DIRECTOR Hospital Encounter [facility] 02 4 AM ADMIT [address] [place] [phone] Hamzah Todd M.D. [address] [place] [phone] 09/16/2024 11:43 AM LINE DIRECTOR - 09/16/2024 3:15 PM LINE DIRECTOR Surgery RST RO MAIN OR [address] [place] [address] Hamzah Todd M.D. [address] [place] [phone] ARTHROPLASTY REVISION HIP - ACETABULAR Scheduled Procedures Name Priority Associated Diagnoses Date/Ti me ARTHROPLASTY REVISION HIP Instability Total Hip Arthroplasty Subsequent Right 09/16/2024 11:43 AM LINE DIRECTOR documented as of this encounter Visit Diagnoses Not on filedocumented in this encounter Additional Health Concerns Assessment Noted Time PHQ-9 Depression Total Score: 1 03/18/20 22 7:24 AM CDT documented as of this encounter Care Teams Histology Assistant Relationship Specialty Start Date End Date Elsewhere, Pcp PCP - General Family Medicine 10/07/21 documented as of this encounter
--- OUTSIDE RECORDS SUMMARY | 2024-08-06 13:59 | XMS_ITS | Referral Summary ---
Author Organization [facility] Address [address] [place] [address] Care Team Providers Care Java Grails Developer Name Role Phone Elsewhere, Pcp Primary Care Provider Unavailabl e Source Comments Patient records contain information from all sites at [facility]. For routine questions regarding patient records, call [phone] during business hours, M-F 8:00 AM - 5:00 PM Central Time. Record requests for emergency care only can be directed to [phone] at any time.[facility] Encounters Date Type Department Care Team Description 07/10/2024 CPAP Download Remote Patient Monitoring [facility] [address] [place] [phone] [facility], ProviderMD 06/09/2024 CPAP Download Remote Patient Monitoring [facility] [address] [place] [phone] [facility], ProviderMD 05/29/2024 12:45 PM CDT - 05/29/2024 11:59 PM CDT Hospital Encounter Department of Radiology, [facility], in [address] [address] Steven Hui M.D. Arthroplasty Total Hip Replacement Status Post Right Discharge Disposition: Home or Self Care 05/29/2024 2:00 PM CDT Office Visit Department of Orthopedic Surgery in [address] [address] Hamzah Todd M.D. Instability Total Hip Arthroplasty Initial Right (HCC) (Primary Dx) 05/28/2024 10:30 AM CDT Clinical Communication Virtual Review in [address] [address] Pre-visit Intake 05/24/2024 Clinical Communication Department of Orthopedic Surgery in [place], [place] [address] [place] [address] Hamzah Todd M.D. Return Call Request 05/23/2024 1:00 PM CDT Clinical Support Department of Dermatology in [place], [place] [address] [place] [address] Nabila Guerrero MPAS, P.A.-C. Vanda Finley R.N. Keratosis Actinic Discharge Disposition: Home or Self Care 05/09/2024 CPAP Download Remote Patient Monitoring [facility] [address] [place] [address] [facility], ProviderMD from Last 3 Months Allergies Active Allergy [...] 12/19/2018 Overview (12/19/2018): Overview: Overview: cryotherapy at [facility] Keratosis Seborrheic 04/20/2012 019 Immunizations Name Administration Dates Next Due H1N1 All Forms 12/07/2009 Influenza Split 07/16/2017, 6,06/16/2015,2013,07/16/2013,07/16/2011,08/11/2010,0 06/19/2009,08/27/2003,08/16/2002, 996 Influenza, Injectable, Mdck, Preservative Free, Quadrivalent 07/11/2022,07/19/2017 Influenza, Seasonal, Injectable 07/18/20 13,08/06/2007,09/14/2006,2002,08/16/2002,10/16/1995 Influenza, Unspecified 07/28/2021,2014,06/11/2014,2010,08/11/2010,06/19/2009 PPSV23 02/22/2012 RZV (SHINGRIX) 04/01/2019, 9,12/19/2018(Deferr ed: Not available from watermelon inspector) SARS-COV-2 (COVID-19) - MODERNA(Discontinued) 01/04/2021 Td (Adult), [...] drink = 0.6 oz pur e alcohol) [facility] Utilities Answer Date Recorded In the past 12 months has e [employer], gas, oil, or water [employer] threatened to shut off services in your [...] Answer Date Recorded PHQ-2 Score 0 03/18/2022 [facility] of Occupat ional Health - Occupational Stress [...] your living situation today? I have a [facility] place to live 01/01/2024 Education Answer Date Recorded What is the highest level of school you have completed or the highest degree you have received? 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, DIRECTOR ORACLE, CHERYL) 09/29/2022 Comments No Sex and Gender Information Value Date Recorded Sex Assigned at Female 12/17/2018 7:47 AM THREADER Legal Sex Female 3:34 PM THREADER Gender Identity Female 12/17/2018 7:47 AM THREADER Sexual Orientation Straight 12/17/2018 7: 47 AM THREADER Last Filed Vital Signs Vital Sign Reading [...] (Latest Contact Info) Description 09/06/2024 12:15 PM THREADER Clinical Communication Virtual Review in [place], [place] 200 [place] [address] 09/10/2024 11:00 AM THREADER Appointment Department of Laboratory Medicine and Pathology, [facility], in [address] [address] Hamzah Todd M.D. [address] [place] [phone] 09/10/2024 1:00 PM THREADER Office Visit Department of Orthopedic Surgery in [address] [address] Hamzah Todd M.D. [address] [place] [phone] 09/11/2024 8:00 AM THREADER Comprehensive Visit Preoperative Evaluation Center in [address] [address] Hamzah Todd M.D. [address] [place] [phone] 09/16/2024 11:43 AM THREADER Hospital Encounter [facility] 02 4 AM ADMIT [address] [place] [phone] Hamzah Todd M.D. [address] [place] [phone] 09/16/2024 11:43 AM THREADER - 09/16/2024 3:15 PM THREADER Surgery [facility] MAIN OR [address] [place] [address] Hamzah Todd M.D. [address] [place] [address] ARTHROPLASTY REVISION HIP - ACETABULAR Scheduled Procedures Name Priority Associated Diagnoses Date/Ti me ARTHROPLASTY REVISION HIP Instability Total Hip Arthroplasty Subsequent Right 09/16/2024 11:43 AM THREADER Medical Devices Implanted Type Area Freight Shipping Agent Device Identifier Shelf Expiration Date Model / Serial / Lot Hardware E.G. Pins/Screws/Ro ds Hardware e.g. pins/screws/ rods Neck Description:Clips present af ter thyroid removal. Guide Wire-Ball Tip 3 X 800 - [place]r [id number] Implanted:Qty: 1 on 05/07/2013 Hardware e.g. pins/screws/ rods [employer] Description:Device Manufactu rer - [place] Bandar.. Device Status Text - HARDWARE- 24758. [facility] Data - [id number]. Bracey Screw 2 Canc 6.5 X 20 - Orr [id number] Implanted:Qty: 1 on 05/07/2013 Hardware e.g. pins/screws/ rods [employer] Description:Device Manufactu rer - J [employer]. Device Status Text - HARDWARE-04837. Bracey Screw 2 Canc 6.5 X 25 - Orr [id number] Implanted:Qty: 1 on 05/07/2013 Hardware e.g. pins/screws/ rods [employer] Description:Device Manufactu rer - J [employer]. Device Status Text - HARDWARE-16812. Bracey Screw 2 Canc 6.5 X 15 - Orr [id number] Implanted:Qty: 2 on 05/07/2013 Hardware e.g. pins/screws/ rods [employer] Description:Device Manufactu rer - J & J Ortho. Device Status Text - HARDWARE-23930. Guide Wire-Ball Tip 3 X 800 - Orr [id number] Implanted:Qty: 1 on 10/22/2013 Hardware e.g. pins/screws/ rods [place] Description:Device Manufactu rer - [place] Band[employer].. Device Status Text - HARDWARE- 48152. [facility] Data - [id number]. Bracey Screw 2 Canc 6.5 X 15 - Orr [id number] Implanted:Qty: 1 on 10/22/2013 Hardware e.g. pins/screws/ rods [employer] Description:Device Manufactu rer - J [employer] J Orth[employer]. Device Status Text - HARDWARE-08079. Bracey Screw 2 Canc 6.5 X 25 - Orr [id number] Implanted:Qty: 2 on 10/22/2013 Hardware e.g. pins/screws/ rods [employer] Description:Device Manufactu rer - J [employer] J Ortho. Device Status Text - HARDWARE-77718. Bracey Liner Altrx +4 Neut 32x48 - Orr [id number] Implanted:Qty: 1 on 05/07/2013 Hip Implant Other/Legacy - See Implant Description [employer] Description:Device Manufactu Hatsize - J & Veris[employer]. Body Location - Other. Left. Device Status Text - HIP IMP-658902. Bracey Shell Multi 2 48mm - Orr [id number] Implanted:Qty: 1 on 05/07/2013 Hip Implant Other/Legacy - See Implant Description [employer] Description:Device Manufactu Hatsize - Verisim [employer]. Body Location - Other. Left. Device Status Text - HIP IMP-103399. [place]-Stem [place] 3 Hi - Orr [id number] Implanted:Qty: 1 on 05/07/2013 Hip Implant Other/Legacy - See Implant Description [employer] Description:Device Manufactu Hatsize - J & [employer]. Body Location - Other. Left. Device Status Text - HIP IMP-141355. Delta-Head Ceramic 32mm +1 - Orr [id number] Implanted:Qty: 1 on 05/07/2013 Hip Implant Other/Legacy - See Implant Description [employer] Description:Device Manufactu Hatsize - J & [employer]. Body Location - Other. Left. Device Status Text - HIP IMP-239042. Delta-Head Ceramic 32mm +1 - Orr [id number] Implanted:Qty: 1 on 10/22/2013 Hip Implant Other/Legacy - See Implant Description [employer] Description:Device Manufactu rer - J & J [employer]. Body Location - Other. Right. Device Status Text - HIP IMP-[id number]. Stem [place] 3x Hi 135 - Orr [id number] Implanted:Qty: 1 on 10/22/2013 Hip Implant Other/Legacy - See Implant Description [employer] Description:Device Manufactu rer - J [employer] J [employer]. Body Location - Other. Right. Device Status Text - HIP IMP-673669. Bracey Shell Multi 2 48mm - Orr [id number] Implanted:Qty: 1 on 10/22/2013 Hip Implant Other/Legacy - See Implant Description [employer] Description:Device Manufactu rer - J [employer]. Body Location - Other. Right. Device Status Text - HIP IMP-337209. Bracey Liner Altrx +4 Neut 32x48 - Orr [id number] Implanted:Qty: 1 on 10/22/2013 Hip Implant Other/Legacy - See Implant Description [employer] Description:Device Manufactu rer - J [employer] J [employer]. Body Location - Other. Right. Device Status Text - HIP IMP-010108. Mitralclip-10/16 Implanted:10/2016 (Quantity not on file) Mitralclip [...] trochanter enthesopathy. Steven Hui M.D. IMG DIAGNOSTIC IMAGING PROCED [...] Provider Not In System IMG DIAGNOSTIC IMAGING AL OCEDURES Final Result [facility]IM[facility] NA * (ABNORMAL) Lipid Panel (06/09/2022 [...] Agency Comment Mailed In Specimen Cammy Joe Isrrael Grider APRNNJensen, M.S.N. LAB BLO OD ADD-ON Final Result [facility] [address] [place] [address], [facility] [address] [place] [address] * Cologuard-Sent Out Lab (02/08/2022 1:00 PM [...] screened with both Cologuard and colonoscopy. (Tori T. et al, N Engl J Med 2014;370(14):7732-3347) The normal value (reference range) for this assay is negative. COLOGUARD RE-SCREENING RECOMMENDATION: Periodic colorectal cancer screening is an important part of preventive healthcare for asymptomatic individuals at average risk for colorectal cancer. ??Following a negative Cologuard result, the [place] Cancer Society and U.S. Multi-Society Task Force screening guidelines recommend a Cologuard re-screening interval of 3 years. References: [place] Cancer Society Guideline for Colorectal Cancer Screening: https://www.cancer.org/cancer/odzts-poixpq-xrlutm/detection- diagnosis-staging/acs-recommendations.html.; Regis ALLISON, Hoang RICKETTS, Melina CHAN, Colorectal Cancer Screening: Recommendations for Physicians and Patients from the U.S. Multi-Society Task Force on Colorectal Cancer Screening , Am J Gastroenterology 2017; 112:8698-2204. TEST DESCRIPTION: Composite algorithmic analysis of stool [...] Meraz et al, N Engl J Med 2014;370(14):7637-1226.) Cologuard may produce a false negative or false positive result (no colorectal cancer or precancerous polyp present at colonoscopy follow up). A negative Cologuard test result does not guarantee the absence of CRC or advanced adenoma (pre-cancer). The current Cologuard screening interval is every 3 years. ([place] Cancer Society and U.S. Multi-Society Task Force). Cologuard performance data in a 10,000 patient pivotal study using colonoscopy as the reference method can be accessed at the following location: www.Authentium/results. Additional description of the Cologuard test process, warnings and precautions can be found at www.FarmLogsrd.com. Stool (Stool) 02/08/2022 1:0 0 PM CDT 02/09/2022 1:22 PM CDT Mariely Kaiser APRN. N.P., M.S.N. LAB BODY FLUIDS AND STOOLS ORDERABLES Final Result [facility] [address] [place] [address] EXLI [facility] [address] [facility], [address] [place] [address] * BI Breast Screening Bilateral with Tomosynthesis [...] Mammogram ASSESSMENT: BI-RADS: 1: Negative. Cammy Grider APRN C.N.P., M.S.N. IMG BI PROCEDURES Final Result * S-TSH (Thyroid-Stimulating Hormone - Sensitive) (01/13/2022 9:44 AM CDT) TSH, Sensitive 2.8 0.3 - 4.2 mIU/L 01/13/2022 11:10 AM CDT DTL Blood (Blood, Venous) 01/13/2022 9:44 AM CDT 01/13/2022 10:41 AM CDT Cammy Taytana Grider APRN, C.N.P., M.S.N. LAB BLO OD ADD-ON Final Result [facility] [address] [place] [address], [facility] [address] [place] [address] * (ABNORMAL) Basic Metabolic Panel (01/13/2022 9:44 [...] the 2009 CKD_EPI creatinine equation. eGFR-Black/Afri can Czech 65 >=60 mL/min/BSA 01/13/2022 11:01 AM CDT DTL Comment: ----ADDITIONAL INFORMATION---- Estimated GFR calculated using the 2009 CKD_EPI creatinine equation. Calcium, Total, S 9.1 8.8 - 10.2 mg/dL 01/13/2022 11:01 AM CDT DTL Glucose, S 98 70 - 140 mg/dL 01/13/2022 11:01 AM CDT DTL Blood (Blood, Venous) 01/13/2022 9:44 AM CDT 01/13/2022 10:40 AM CDT Cammy Tatyana Grider APRN, C.N.P., M.S.N. LAB BLO OD ADD-ON Final Result [facility] [address] [place] [address], [facility] [address] [place] [address] * ThinPrep w/HPV Co-Test Screen (04/02/2020 1:26 [...] PATHDX ORDERABLES Final Result Performing Organization Address [facility]/ZIP Co de Phone Number [facility] [address] D[address] [facility] 200 [place] [address] * Bone Donor 6 Month Screen Test Set (05/09/2014 9:32 AM CDT) Donor HBcore Antibody Negative [facility] HCV Ab Screen Donor Negative [facility] HX Hiv-1/-2, Plus O Ab Screen Donor Negative [facility] 05/09/2014 9:32 AM CDT 05/09/2014 9:32 AM CDT Girish Bradford M.D. LAB BLOOD NON ADD-ON Final Re sult Performing Organization Address City/[facility]/ZIP Co de Phone Number [facility] [address] from Last 3 Months or Most Recently Relevant to Health Maintenance Insurance [employer] [facility] Care Teams Java Grails Developer Relationship Specialty Start Date End Date Elsewhere, Pcp PCP - General Family Medicine 10/07/21
--- OUTSIDE RECORDS SUMMARY | 2024-08-06 13:59 | XMS_ITS | Encounter Summary ---
Author Organization [facility] Address [address] [place] [address] Care Team Providers Care Devulcanizer Head Name Role Phone Elsewhere, Pcp Primary Care Provider Unavailabl e Reason for Referral * Outpatient (Routine) - Closed Specialty Diagnoses / Procedures Referred By Nathalia colon Referred To Contact Diagnoses Arthroplasty Total Hip Replacement Status Post Right Procedures DX Hip And Pelvis Right 2-3 Views DX Hip And Pelvis Right 4+ Views Steven Hui M.D. 200 [place] [address] Phone: tel: fax: [facility] Referral ID Status Reason Start Date Expiration Date Visits Re quested Visits Authorized [id number] Closed 05/26/2024 05/26/2025 1 1 Reason for Visit * Outpatient (Routine) - Closed Specialty Diagnoses / Procedures Referred By Nathalia colon Referred To Contact Diagnoses Arthroplasty Total Hip Replacement Status Post Right Procedures DX Hip And Pelvis Right 2-3 Views DX Hip And Pelvis Right 4+ Views Steven Hui M.D. [address] [place] [address] Phone: tel: fax: [facility] Referral ID Status Reason Start Date Expiration Date Visits Re quested Visits Authorized [id number] Closed 05/26/2024 05/26/2025 1 1 Encounter Details Date Type Department Care Team (Latest Contact Info) Description 05/29/2024 12:45 PM CDT - 05/29/2024 11:59 PM CDT Hospital Encounter Department of Radiology, [facility], in [place], [place] [address] [place] [address] Steven Hui M.D. [address] [place] [address] Arthroplasty Total Hip Replacement Status Post Right Discharge Disposition: Home or Self Care Social History Tobacco Use Types Packs/Day Years Used Date Smoking Tobacco: Never Passive Smoke Exposure: Past Smokeless Tobacco: Never Passive Exposure Comments:Mo m & Dad Smoked growing up Alcohol Use Standard Drinks/Week Comments Yes 0 (1 standard drink = 0.6 oz pur e alcohol) [facility] Utilities Answer Date Recorded In the past 12 months has e electric, gas, oil, or water [employer] threatened to shut off services in your [...] often do you attend chur ch or jainism services? Never 09/29/2022 Do you belong to any clubs o r organizations such as anglican groups, unions, fraternal or athletic groups, or [...] Answer Date Recorded PHQ-2 Score 0 03/18/2022 [facility] of Occupat ional Health - Occupational Stress [...] your living situation today? I have a [facility] place to live 01/01/2024 Education Answer Date Recorded What is the highest level of school you have completed or the highest degree you have received? 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 For flying 15 tablet 3 01/13/2022 amitriptyline (ELAVIL) 25 mg tablet Take 25 mg by mouth at bedtime. 06/28/2023 cetirizine HCl (ZYRTEC ORAL) Take 1 tablet by mouth daily as needed. DME CPAPIndications:O bstructive Sleep Apnea Adult DME Order 1 Device 05/03/2021 DULoxetine (CYMBALTA) [address] capsuleIndication s:Fibromyalgia Take 1 capsule (20 mg total) by mouth daily. 90 capsule 02/27/2023 levothyroxine (SYNTHROID, LEVOTHROID) 75 mcg tabletIndications :Nodule Thyroid Take 1 tablet (75 mcg total) [...] (Latest Contact Info) Description 09/06/2024 12:15 PM GENERAL FOUNDRY WORKER Clinical Communication Virtual Review in [place], [place] 200 [place] [address] 09/10/2024 11:00 AM GENERAL FOUNDRY WORKER Appointment Department of Laboratory Medicine and Pathology, [facility], in [place], [place] [address] [place] [phone] Hamzha Todd M.D. [address] [place] [phone] 09/10/2024 1:00 PM GENERAL FOUNDRY WORKER Office Visit Department of Orthopedic Surgery in [place], [place] [address] [place] [phone] Hamzah Todd M.D. [address] [place] [phone] 09/11/2024 8:00 AM GENERAL FOUNDRY WORKER Comprehensive Visit Preoperative Evaluation Center in [place], [place] [address] [place] [phone] Hamzah Todd M.D. [address] [place] [phone] 09/16/2024 11:43 AM GENERAL FOUNDRY WORKER Hospital Encounter RST RO 02 4 AM ADMIT [address] [place] [phone] Hamzah Todd M.D. [address] [place] [phone] 09/16/2024 11:43 AM GENERAL FOUNDRY WORKER - 09/16/2024 3:15 PM GENERAL FOUNDRY WORKER Surgery RST RO MAIN OR [address] [place] [address] Hamzah Todd M.D. [address] [place] [phone] ARTHROPLASTY REVISION HIP - ACETABULAR Scheduled Procedures Name Priority Associated Diagnoses Date/Ti me ARTHROPLASTY REVISION HIP Instability Total Hip Arthroplasty Subsequent Right 09/16/2024 11:43 AM GENERAL FOUNDRY WORKER documented as of this encounter Procedures Procedure [...] symphysis.Bilateral greater trochanter enthesopathy. Steven ALVAREZ DIAGNOSTIC IMAGING PROCED URES Final Result documented in this encounter Visit Diagnoses Diagnosis Arthroplasty Total Hip Replacement Status Post Right Instability Total Hip Arthroplasty Subsequent Right documented in this encounter Additional Health Concerns Assessment Noted Time PHQ-9 Depression Total Score: 1 03/18/20 22 7:24 AM CDT documented as of this encounter Care Teams Devulcanizer Head Relationship Specialty Start Date End Date Elsewhere, Pcp PCP - General Family Medicine 10/07/21 documented as of this encounter
--- OUTSIDE RECORDS SUMMARY | 2024-08-06 13:59 | XMS_ITS | Encounter Summary ---
Author Organization [facility] Address [address] [place] [address] Care Team Providers Care Nurse Office Name Role Phone Elsewhere, Pcp Primary Care Provider Unavailabl e Reason for Visit * Outpatient (Routine) - Closed Specialty Diagnoses / Procedures Referred By Nathalia colon Referred To Contact Orthopedic Surgery Steven Hui M.D. [address] [place] [phone] Phone: tel: fax: Hamzah Todd M.D. [address] [place] [phone] Phone: tel: fax: Referral ID Status Reason Start Date Expiration Date Visits Re quested Visits Authorized [id number] Closed 05/26/2024 2025 1 1 Encounter Details Date Type Department Care Team (Late st Contact Info) Description 05/29/2024 2:00 PM CDT Office Visit Department of Orthopedic Surgery in [place], [place] [address] [place] [phone] Hamzah Todd M.D. [address] [place] [phone] Instability Total Hip Arthroplasty Initial Right (HCC) (Primary Dx) Social History Tobacco Use Types Packs/Day Years Used Date Smoking Tobacco: Never Passive Smoke Exposure: Past Smokeless Tobacco: Never Passive Exposure Comments:Mo m & Dad Smoked growing up Alcohol Use Standard Drinks/Week Comments Yes 0 (1 standard drink = 0.6 oz pur e alcohol) [facility] Utilities Answer Date Recorded In [...] How often do you attend chur or oriental orthodox services? Never 09/29/2022 Do you belong to any clubs o r organizations such as protestant groups, unions, fraternal or athletic groups, or [...] Answer Date Recorded PHQ-2 Score 0 03/18/2022 [facility] - Occupational Stress Questionnaire Answer Date Recorded [...] your living situation today? I have a [facility] place to live 01/01/2024 Education Answer Date Recorded What is the highest level of school you have completed or the highest degree you have received? 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, SKEIN WASHER, CHERYL) 09/29/2022 Comments No Sex and Gender Information Value Date Recorded Sex Assigned at Female 12/17/2018 7:47 AM SUPERVISOR ELECTRON TUBE PROCESSING Legal Sex Female 3:34 PM SUPERVISOR ELECTRON TUBE PROCESSING Gender Identity Female 12/17/2018 7:47 AM SUPERVISOR ELECTRON TUBE PROCESSING Sexual Orientation Straight 12/17/2018 7: 47 AM SUPERVISOR ELECTRON TUBE PROCESSING documented as of this encounter Progress Notes [...] true dislocation requiring closed reduction under anesthesiain 2016. She had been doing very well until [...] Hamzah Todd M.D. CT CT Job ID: [id number] documented in this encounter Plan of Treatment Upcoming Encounters Date Type Department Care Team (Latest Contact Info) Description 09/06/2024 12:15 PM SUPERVISOR ELECTRON TUBE PROCESSING Clinical Communication Virtual Review in [address] [phone] 09/10/2024 11:00 AM SUPERVISOR ELECTRON TUBE PROCESSING Appointment Department of Laboratory Medicine and Pathology, [facility] in [address] [phone] Hamzah Todd M.D. [address] [place] [phone] 09/10/2024 1:00 PM SUPERVISOR ELECTRON TUBE PROCESSING Office Visit Department of Orthopedic Surgery in [address] [phone] Hamzah Todd M.D. [address] [place] [phone] 09/11/2024 8:00 AM SUPERVISOR ELECTRON TUBE PROCESSING Comprehensive Visit Preoperative Evaluation Center in [address] [phone] Hamzah Todd M.D. [address] [place] [phone] 09/16/2024 11:43 AM SUPERVISOR ELECTRON TUBE PROCESSING Hospital Encounter [facility] 02 4 AM ADMIT [address] [place] [phone] Hamzah Todd M.D. [address] [place] [phone] 09/16/2024 11:43 AM SUPERVISOR ELECTRON TUBE PROCESSING - 09/16/2024 3:15 PM SUPERVISOR ELECTRON TUBE PROCESSING Surgery [facility] MAIN OR [address] [place] [address] Hamzah Todd M.D. [address] [place] [address] ARTHROPLASTY REVISION HIP - ACETABULAR Scheduled Procedures Name Priority Associated Diagnoses Date/Ti me ARTHROPLASTY REVISION HIP Instability Total Hip Arthroplasty Subsequent Right 09/16/2024 11:43 AM SUPERVISOR ELECTRON TUBE PROCESSING documented as of this encounter Visit Diagnoses Diagnosis Instability Total Hip Arthroplasty Initial Right (HCC)- Primary Instability Total Hip Arthroplasty Subsequent Right documented in this encounter Additional Health Concerns Assessment Noted Time PHQ-9 Depression Total Score: 1 03/18/20 22 7:24 AM CDT documented as of this encounter Care Teams Nurse Office Relationship Specialty Start Date End Date Elsewhere, Pcp PCP - General Family Medicine 10/07/21 documented as of this encounter
--- OUTSIDE RECORDS SUMMARY | 2024-08-06 14:00 | XMS_ITS | Clinical Summary ---
Author Organization [facility] Address [address] [address] Care Team Providers Care Residential Building Inspector Name Role Phone Nilda Molina MD Primary Care Provider + [phone] Source Comments You are receiving this document [...] for each transition of care or referral. [facility] Allergies Active Allergy Reactions Criticality Noted Date [...] renal tumor 05/21/2014 Overview (05/20/2016): cryotherapy at [place] Squamous cell cancer of skin of forearm 05/21/20 14 Immunizations Name Administration Dates Next Due Influenza IIV4 (Quadrivalent) 0.5mL (16854) 02/2016,07/21/2015,06/11/2014 PPSV23 (Pneumovax) 02/22/2012 TDAP (BOOSTRIX) 04/13/2011 [...] Comments Blood Pressure 120/79 09/13/2021 4:57 PM SUPERINTENDENT TRACK Pulse 73 09/13/2021 4:57 PM SUPERINTENDENT TRACK Temperature 36.4 ??C (97.5 ??F) 04/26/2022 4:52 PM CD T Respiratory Rate 20 09/13/2021 4:57 PM SUPERINTENDENT TRACK Oxygen Saturation 97% 09/13/2021 4:57 PM SUPERINTENDENT TRACK Inhaled Oxygen Concentration - - Weight 101.6 [...] patient's age to complete this topic RSV Aged Out No longer eligi ble based on patient's age to complete this topic MCV4 Aged Out No longer eligi ble based on patient's age to complete this topic Care Teams Residential Building Inspector Relationship Specialty [place] [address] [place] [address] PCP - General Family Practice 06/07/21
--- OUTSIDE RECORDS SUMMARY | 2024-08-06 14:00 | XMS_ITS | Clinical Summary ---
Author Organization [facility] Address [place], [place] [address] Care Team Providers Care Sql Report Analyst Name Role Phone Christa Mortensen Primary Care Provider [phone] Allergies Active Allergy Reactions Criticality Noted Date [...] age to complete this topic Care Teams Sql Report Analyst Relationship Specialty Start Date End Date Christa Mortensen PCP - General 09/26/19
--- OUTSIDE RECORDS SUMMARY | 2024-08-06 14:00 | XMS_ITS | Encounter Summary ---
Author Organization [facility] Address [address] [place] [address] Care Team Providers Care White Sugar Syrup Operator Name Role Phone Elsewhere, Pcp Primary Care Provider Unavailabl e Encounter Details Date Type Department Care Team (Late st Contact Info) Description 04/08/2024 CPAP Download Remote Patient Monitoring [facility] [address] [place] [address] [facility], Provider, Social History Tobacco Use Types Packs/Day Years Used Date Smoking Tobacco: Never Passive Smoke Exposure: Past Smokeless Tobacco: Never Passive Exposure Comments:Mo m & Dad Smoked growing up Alcohol Use Standard Drinks/Week Comments Yes 0 (1 standard drink = 0.6 oz pur e alcohol) [facility] Utilities Answer Date Recorded In the past 12 months has e electric, gas, oil, or water [employer] threatened to shut off services in your [...] often do you attend chur ch or jewish services? Never 09/29/2022 Do you belong to any clubs o r organizations such as hinduism groups, unions, fraternal or athletic groups, or [...] Answer Date Recorded PHQ-2 Score 0 03/18/2022 [facility] - Occupational [...] your living situation today? I have a [facility] place to live 01/01/2024 Education Answer Date Recorded What is the highest level of school you have completed or the highest degree you have received? 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, HOT SHOT, CHERYL) 09/29/2022 Comments No Sex and Gender Information Value Date Recorded Sex Assigned at Female 12/17/2018 7:47 AM SENIOR MORTGAGE UNDERWRITER Legal Sex Female 3:34 PM SENIOR MORTGAGE UNDERWRITER Gender Identity Female 12/17/2018 7:47 AM SENIOR MORTGAGE UNDERWRITER Sexual Orientation Straight 12/17/2018 7: 47 AM SENIOR MORTGAGE UNDERWRITER documented as of this encounter Plan of Treatment Upcoming Encounters Date Type Department Care Team (Latest Contact Info) Description 09/06/2024 12:15 PM SENIOR MORTGAGE UNDERWRITER Clinical Communication Virtual Review in [place], [place] 200 [place] [address] 09/10/2024 11:00 AM SENIOR MORTGAGE UNDERWRITER Appointment Department of Laboratory Medicine and Pathology, [facility], in [place], [place] [address] [place] [phone] Hamzah Todd M.D. [address] [place] [phone] 09/10/2024 1:00 PM SENIOR MORTGAGE UNDERWRITER Office Visit Department of Orthopedic Surgery in [place], [place] [address] [place] [phone] Hamzah Todd M.D. [address] [place] [phone] 09/11/2024 8:00 AM SENIOR MORTGAGE UNDERWRITER Comprehensive Visit Preoperative Evaluation Center in [place], [place] [address] [place] [phone] Hamzah Todd M.D. [address] [place] [phone] 09/16/2024 11:43 AM SENIOR MORTGAGE UNDERWRITER Hospital Encounter [facility] 02 4 AM ADMIT [address] [place] [phone] Hamzah Todd M.D. [address] [place] [phone] 09/16/2024 11:43 AM SENIOR MORTGAGE UNDERWRITER - 09/16/2024 3:15 PM SENIOR MORTGAGE UNDERWRITER Surgery RST RO MAIN OR [address] [place] [address] Hamzah Todd M.D. [address] [place] [phone] ARTHROPLASTY REVISION HIP - ACETABULAR Scheduled Procedures Name Priority Associated Diagnoses Date/Ti me ARTHROPLASTY REVISION HIP Instability Total Hip Arthroplasty Subsequent Right 09/16/2024 11:43 AM SENIOR MORTGAGE UNDERWRITER documented as of this encounter Visit Diagnoses Not on filedocumented in this encounter Additional Health Concerns Assessment Noted Time PHQ-9 Depression Total Score: 1 03/18/20 22 7:24 AM CDT documented as of this encounter Care Teams White Sugar Syrup Operator Relationship Specialty Start Date End Date Elsewhere, Pcp PCP - General Family Medicine 10/07/21 documented as of this encounter
--- OUTSIDE RECORDS SUMMARY | 2024-08-06 14:00 | XMS_ITS | Encounter Summary ---
Author Organization [facility] Address [address] [place] [address] Care Team Providers Care Biometrics Experimentalist Name Role Phone Elsewhere, Pcp Primary Care Provider Unavailabl e Encounter Details Date Type Department Care Team (Late st Contact Info) Description 11/01/2013 Historical Ophthalmology [facility] Brad Hodges M.D. [facility] [place] [address] Social History Tobacco Use Types Packs/Day Years Used Date Smoking Tobacco: Never Assessed Comments Unknown Sex and Gender Information Value Date Recorded Sex Assigned at Female 12/17/2018 7:47 AM CONDITIONING MACHINE OPERATOR Legal Sex Female 3:34 PM CONDITIONING MACHINE OPERATOR Gender Identity Female 12/17/2018 7:47 AM CONDITIONING MACHINE OPERATOR Sexual Orientation Straight 12/17/2018 7: 47 AM CONDITIONING MACHINE OPERATOR documented as of this encounter [...] distribution, RIGHT CDM Reports - EYEGEN Id: [id number] Status: Fnl documented in this encounter Plan of Treatment Upcoming Encounters Date Type Department Care Team (Latest Contact Info) Description 09/06/2024 12:15 PM CONDITIONING MACHINE OPERATOR Clinical Communication Virtual Review in [place], [place] 200 [place] [address] 09/10/2024 11:00 AM CONDITIONING MACHINE OPERATOR Appointment Department of Laboratory Medicine and Pathology, [facility], in [place], [place] [address] [place] [phone] Hamzah Todd M.D. [address] [place] [phone] 09/10/2024 1:00 PM CONDITIONING MACHINE OPERATOR Office Visit Department of Orthopedic Surgery in [place], [place] [address] [place] [phone] Hamzah Todd M.D. [address] [place] [phone] 09/11/2024 8:00 AM CONDITIONING MACHINE OPERATOR Comprehensive Visit Preoperative Evaluation Center in [place], [place] [address] [place] [phone] Hamzah Todd M.D. [address] [place] [phone] 09/16/2024 11:43 AM CONDITIONING MACHINE OPERATOR Hospital Encounter RST RO 02 4 AM ADMIT [address] [place] [phone] Hamzah Todd M.D. [address] [place] [phone] 09/16/2024 11:43 AM CONDITIONING MACHINE OPERATOR - 09/16/2024 3:15 PM CONDITIONING MACHINE OPERATOR Surgery RST [facility] MAIN OR [address] [place] [address] Hamzah Todd M.D. [address] [place] [phone] ARTHROPLASTY REVISION HIP - ACETABULAR Scheduled Procedures Name Priority Associated Diagnoses Date/Ti me ARTHROPLASTY REVISION HIP Instability Total Hip Arthroplasty Subsequent Right 09/16/2024 11:43 AM CONDITIONING MACHINE OPERATOR documented as of this encounter Visit Diagnoses Not on filedocumented in this encounter Care Teams Biometrics Experimentalist Relationship Specialty Start Date End Date Elsewhere, Pcp PCP - General Family Medicine 10/07/21 documented as of this encounter
--- OUTSIDE RECORDS SUMMARY | 2024-08-06 14:00 | XMS_ITS | Encounter Summary ---
Author Organization [facility] Address [address] [place] [address] Care Team Providers Care Inbound Customer Service Agent Name Role Phone Elsewhere, Pcp Primary Care Provider Unavailabl e Encounter Details Date Type Department Care Team (Late st Contact Info) Description 08/06/2007 Historical Ophthalmology [facility] Felicitas Flores M.D. Social History Tobacco Use Types Packs/Day Years Used Date Smoking Tobacco: Never Assessed Comments Unknown Sex and Gender Information Value Date Recorded Sex Assigned at Female 12/17/2018 7:47 AM SALES TEAM RECRUITER Legal Sex Female 3:34 PM SALES TEAM RECRUITER Gender Identity Female 12/17/2018 7:47 AM SALES TEAM RECRUITER Sexual Orientation Straight 12/17/2018 7: 47 AM SALES TEAM RECRUITER documented as of this encounter Progress Notes [...] ocular findings. CDM Reports - EYEGEN Id: [id number] Status: Fnl documented in this encounter Plan of Treatment Upcoming Encounters Date Type Department Care Team (Latest Contact Info) Description 09/06/2024 12:15 PM SALES TEAM RECRUITER Clinical Communication Virtual Review in [place], [place] 200 [place] [address] 09/10/2024 11:00 AM SALES TEAM RECRUITER Appointment Department of Laboratory Medicine and Pathology, [facility], in [address] [phone] Hamzah Todd M.D. [address] [place] [phone] 09/10/2024 1:00 PM SALES TEAM RECRUITER Office Visit Department of Orthopedic Surgery in [address] [phone] Hamzah Todd M.D. [address] [place] [phone] 09/11/2024 8:00 AM SALES TEAM RECRUITER Comprehensive Visit Preoperative Evaluation Center in [address] [phone] Hamzah Todd M.D. [address] [place] [phone] 09/16/2024 11:43 AM SALES TEAM RECRUITER Hospital Encounter [facility] 02 4 AM ADMIT [address] [place] [phone] Hamzah Todd M.D. [address] [place] [address] 09/16/2024 11:43 AM SALES TEAM RECRUITER - 09/16/2024 3:15 PM SALES TEAM RECRUITER Surgery [facility] MAIN OR [address] [place] [address] Hamzah Todd M.D. [address] [place] [address] ARTHROPLASTY REVISION HIP - ACETABULAR Scheduled Procedures Name Priority Associated Diagnoses Date/Ti me ARTHROPLASTY REVISION HIP Instability Total Hip Arthroplasty Subsequent Right 09/16/2024 11:43 AM SALES TEAM RECRUITER documented as of this encounter Visit Diagnoses Not on filedocumented in this encounter Care Teams Inbound Customer Service Agent Relationship Specialty Start Date End Date Elsewhere, Pcp PCP - General Family Medicine 10/07/21 documented as of this encounter
--- OUTSIDE RECORDS SUMMARY | 2024-08-06 14:00 | XMS_ITS | Encounter Summary ---
Author Organization [facility] Address [address] [place] [address] Care Team Providers Care Injection Machine Operator Name Role Phone Elsewhere, Pcp Primary Care Provider Unavailabl e Encounter Details Date Type Department Care Team (Late st Contact Info) Description 05/09/2024 CPAP Download Remote Patient Monitoring [facility] [address] [place] [address] [facility], Provider, Social History Tobacco Use Types Packs/Day Years Used Date Smoking Tobacco: Never Passive Smoke Exposure: Past Smokeless Tobacco: Never Passive Exposure Comments:Mo m & Dad Smoked growing up Alcohol Use Standard Drinks/Week Comments Yes 0 (1 standard drink = 0.6 oz pur e alcohol) [facility] Utilities Answer Date Recorded In the past 12 months has e electric, gas, oil, or water [employer] threatened to shut off services in your [...] any clubs o r organizations such as adventism groups, unions, fraternal or athletic groups, or [...] Answer Date Recorded PHQ-2 Score 0 03/18/2022 [facility] - Occupational [...] your living situation today? I have a [facility] place to live 01/01/2024 Education Answer Date Recorded What is the highest level of school you have completed or the highest degree you have received? 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, CONSTRUCTION SKILLS TEACHER, CHERYL) 09/29/2022 Comments No Sex and Gender Information Value Date Recorded Sex Assigned at Female 12/17/2018 7:47 AM COMPUTER FORENSIC SPECIALIST Legal Sex Female 3:34 PM COMPUTER FORENSIC SPECIALIST Gender Identity Female 12/17/2018 7:47 AM COMPUTER FORENSIC SPECIALIST Sexual Orientation Straight 12/17/2018 7: 47 AM COMPUTER FORENSIC SPECIALIST documented as of this encounter Plan of Treatment Upcoming Encounters Date Type Department Care Team (Latest Contact Info) Description 09/06/2024 12:15 PM COMPUTER FORENSIC SPECIALIST Clinical Communication Virtual Review in [place], [place] 200 [place] [address] 09/10/2024 11:00 AM COMPUTER FORENSIC SPECIALIST Appointment Department of Laboratory Medicine and Pathology, [facility], in [place], [place] [address] [place] [phone] Hamzah Todd M.D. [address] [place] [phone] 09/10/2024 1:00 PM COMPUTER FORENSIC SPECIALIST Office Visit Department of Orthopedic Surgery in [place], [place] [address] [place] [phone] Hamzah Todd M.D. [address] [place] [phone] 09/11/2024 8:00 AM COMPUTER FORENSIC SPECIALIST Comprehensive Visit Preoperative Evaluation Center in [place], [place] [address] [place] [phone] Hamzah Todd M.D. [address] [place] [phone] 09/16/2024 11:43 AM COMPUTER FORENSIC SPECIALIST Hospital Encounter [facility] 02 4 AM ADMIT [address] [place] [phone] Hamzah Todd M.D. [address] [place] [phone] 09/16/2024 11:43 AM COMPUTER FORENSIC SPECIALIST - 09/16/2024 3:15 PM COMPUTER FORENSIC SPECIALIST Surgery RST RO MAIN OR [address] [place] [address] Hamzah Todd M.D. [address] [place] [phone] ARTHROPLASTY REVISION HIP - ACETABULAR Scheduled Procedures Name Priority Associated Diagnoses Date/Ti me ARTHROPLASTY REVISION HIP Instability Total Hip Arthroplasty Subsequent Right 09/16/2024 11:43 AM COMPUTER FORENSIC SPECIALIST documented as of this encounter Visit Diagnoses Not on filedocumented in this encounter Additional Health Concerns Assessment Noted Time PHQ-9 Depression Total Score: 1 03/18/20 22 7:24 AM CDT documented as of this encounter Care Teams Injection Machine Operator Relationship Specialty Start Date End Date Elsewhere, Pcp PCP - General Family Medicine 10/07/21 documented as of this encounter
--- OUTSIDE RECORDS SUMMARY | 2024-08-06 14:00 | XMS_ITS | Encounter Summary ---
Author Organization [facility] Address [address] [place] [address] Care Team Providers Care Wood Machinist Apprentice Name Role Phone Elsewhere, Pcp Primary Care Provider Unavailabl e Encounter Details Date Type Department Care Team (Late st Contact Info) Description 11/13/2013 Historical Ophthalmology [facility] Brad Hodges M.D. [facility] [place] [address] Social History Tobacco Use Types Packs/Day Years Used Date Smoking Tobacco: Never Assessed Comments Unknown Sex and Gender Information Value Date Recorded Sex Assigned at Female 12/17/2018 7:47 AM CABINETMAKER APPRENTICE Legal Sex Female 3:34 PM CABINETMAKER APPRENTICE Gender Identity Female 12/17/2018 7:47 AM CABINETMAKER APPRENTICE Sexual Orientation Straight 12/17/2018 7: 47 AM CABINETMAKER APPRENTICE documented as of this encounter Progress Notes [...] syndrome, bilateral CDM Reports - EYEGEN Id: [id number] Status: Fnl documented in this encounter Plan of Treatment Upcoming Encounters Date Type Department Care Team (Latest Contact Info) Description 09/06/2024 12:15 PM CABINETMAKER APPRENTICE Clinical Communication Virtual Review in [place], [place] 200 [place] [address] 09/10/2024 11:00 AM CABINETMAKER APPRENTICE Appointment Department of Laboratory Medicine and Pathology, [facility], in [address] [address] Hamzah Todd M.D. [address] [place] [phone] 09/10/2024 1:00 PM CABINETMAKER APPRENTICE Office Visit Department of Orthopedic Surgery in [address] [address] Hamzah Todd M.D. [address] [place] [phone] 09/11/2024 8:00 AM CABINETMAKER APPRENTICE Comprehensive Visit Preoperative Evaluation Center in [address] [phone] Hamzah Todd M.D. [address] [place] [phone] 09/16/2024 11:43 AM CABINETMAKER APPRENTICE Hospital Encounter RST RO 02 4 AM ADMIT [address] [place] [phone] Hamzah Todd M.D. [address] [place] [phone] 09/16/2024 11:43 AM CABINETMAKER APPRENTICE - 09/16/2024 3:15 PM CABINETMAKER APPRENTICE Surgery [facility] MAIN OR [address] [place] [address] Hamzah Todd M.D. [address] [place] [address] ARTHROPLASTY REVISION HIP - ACETABULAR Scheduled Procedures Name Priority Associated Diagnoses Date/Ti me ARTHROPLASTY REVISION HIP Instability Total Hip Arthroplasty Subsequent Right 09/16/2024 11:43 AM CABINETMAKER APPRENTICE documented as of this encounter Visit Diagnoses Not on filedocumented in this encounter Care Teams Wood Machinist Apprentice Relationship Specialty Start Date End Date Elsewhere, Pcp PCP - General Family Medicine 10/07/21 documented as of this encounter
== END 2024-08-06 13:55 | disposition home or self-care (01) ==
PROVIDERS: PCP Emergency Medicine; Visit Provider Emergency Medicine
DX: R10.9 Unspecified abdominal pain (principal)
CPT/HCPCS: 80076; 83690; 87086

== ENCOUNTER 2024-08-07 10:44 | Outpatient (CLI) | payer OTHER, SELFPAY ==
--- OUTSIDE RECORDS SUMMARY | 2024-08-07 10:56 | XMS_ITS | Clinical Summary ---
Author Organization [facility] Address [address] [place] [address] Care Team Providers Care Cable Tower Operator Name Role Phone Lennie Mortensenanne Primary Care Provider [phone] Allergies Active Allergy Reactions Criticality Noted Date Comments Amoxicillin 12/03/2013 Ampicillin 12/03/2013 Iodinated Contrast Media Swelling,Rash,Cough Low Lip Swelling Sulfa Antibiotics 12/03/2013 Medications Venlafaxine HCl (EFFEXOR PO) Take 75 mg by mouth daily Active LEVOTHYROXINE SODIUM PO Take 75 mcg by mouth daily Active Simvastatin (ZOCOR PO) Take 20 mg by mouth At Bedtime Active HYDROcodone-conrado taminophen (NORCO) 5-325 MG per tablet Take 1 [...] of skin 02/13/2015 Benign renal tumor 05/21/2014 Overview (07/11/2017): Overview: cryotherapy at [facility] Chronic insomnia 05/21/2014 Fibromyalgia 05/21/2014 Hyperlipidemia 05/21/2014 Menopause present 05/21/2014 AAKASH on CPAP 05/21/2014 Pulmonary embolism 05/21/2014 Overview (07/11/2017): Overview: on BCP. Seasonal allergies 05/21/2014 Squamous cell cancer of skin of forearm 05/21/20 14 Vaginal atrophy 05/21/2014 Encounters Date Type Department Care Team Description 05/23/2024 5:48 PM CDT - 05/23/2024 11:06 PM CDT Emergency [facility] Emergency Dept [address] [place] [address] Rober Hernandez MD Closed dislocation of right hip, initial encounter (H) (Primary Dx); Right hip pain; S/P total right hip arthroplasty Discharge Disposition: Home or Self Care 05/23/2024 Travel from Last 3 Months Social History Tobacco Use Types Packs/Day Years Used Date Smoking Tobacco: Never Assessed Adolescent Education Answer Date Record ed Getting School Help Needed Not on file 05/23 Comments No Sex and Gender Information Value Date Recorded Sex Assigned at Not on file Legal Sex Female 11:44 AM CDT Gender Identity Not on file Sexual Orientation [...] calendar year) 2023 MAMMO SCREENING 01/14/2024 01/13/2022, 0310/2021, 01/13/2022, Additional history exists COVID-19 Vaccine ( [...] PELVIS AND HIP RIGHT 1 VIEW LOCATION: [facility] DATE: 05/23/2024 INDICATION: assess dislocation reduction COMPARISON: None. Procedure Note Dwain Jones MD - 05/23/2024 EXAM: XR PELVIS AND HIP RIGHT 1 VIEW LOCATION: [facility] DATE: 05/23/2024 INDICATION: assess dislocation reduction COMPARISON: None. IMPRESSION: No comparisons/prereduction film is available. Postoperativechanges of bilateral total hip arthroplasty. Components appear well-seatedon this examination and there is no dislocation. Pelvis negative forfracture. Degenerative change at the SI joints bilaterally. oRber Hernandez MD IMG DIAGNOSTIC IMAGING ORDER LEBRON Final Result * Sedation (05/23/2024 8:15 PM CDT) Narrative Rober Hernandez MD - 05/23/2024 8:15 PM CDT Rober Hernandez MD ? 05/23/2024 11:05 PM [facility] Procedure: Sedation Date/Time: 05/23/2024 8:15 PM [...] procedure a time out was called ?? [place] Protocol: the Joint Commission [place] Protocol was followed ?? Preparation: Patient was prepped and draped in usual sterile fashion ?? SEDATION Patient Sedated: Yes ?? Sedation: ??Propofol Vital signs: Vital signs monitored during sedation ?? PROCEDURE Patient Tolerance: ??Patient tolerated the procedure well with no immediate complications Length of time physician/provider present for 1:1 monitoring during sedation: 5 Rober Hernandez MD PROCEDURE/MINOR SURGICAL ORD ERABLES Final Result from Last 3 Months Insurance [facility] [place] [id number] [facility] Care Teams Cable Tower Operator Relationship Specialty Start Date End Date Christa Mortensen PCP - General Internal Medicine 07/11/17
--- OUTSIDE RECORDS SUMMARY | 2024-08-07 10:56 | XMS_ITS | Encounter Summary ---
Author Organization [facility] Address [address] [place] [address]. [place] [address] Care Team Providers Care Weather Observer Name Role Phone FestusChrista sterling Primary Care Provider Reason for Visit * Reason Comments Hip Pain Dislocation Encounter Details Date Type Department Care Team (Late st Contact Info) Description 05/23/2024 5:48 PM CDT - 05/23/2024 11:[address] [facility] Emergency Dept [address] [place] [address] Rober Hernandez MD [facility] [address] [place], [place] [id number] Closed dislocation of right hip, initial encounter [...] sent through Care Everywhere. * Hip Dislocation (Mauritanian) documented in this encounter Medications at Time of Discharge HYDROcodone-aceta minophen (NORCO) 5-325 MG per tablet Take 1 [...] had hip replacement 2013 and hip dislocation [id number]. Pt was leaning over in chair and [...] -- -- -- 97 % -- -- 05/23/245 128/88 -- -- 84 -- -- -- -- 05/23/247 -- -- -- -- -- 100 % -- -- 05/23/242231 136/85 -- -- 77 -- -- -- -- 05/23/249 127/89 -- -- 80 -- 97 % [...] -- 77 13 93 % -- -- 05/23/241818 -- -- -- -- -- 98 % [...] mg/mL vial (100 mg Intravenous $Given 05/23/242005) Procedures [facility] Procedure: Sedation Date/Time: 05/23/2024 8:15 PM Performed [...] the procedure a time out was called [place] Protocol: the Joint Commission [place] Protocol was followed Preparation: Patient was prepped [...] attempts, and need to go to [place] Protocol: [place] protocol was followed and time out conducted [...] as of 05/23/24 2305 Maria May 23, 2024 175 I obtained history and examined the patient as noted above 185 XR Pelvis w Hip Right 1 View I independently interpreted the patient's pelvis and hip x-ray; notable for hip dislocation. 2302 XR Pelvis w Hip Right 1 View I independently interpreted the patient's pelvis and right hip x-ray; successful reduction of dislocation. Medical Decision Making / Diagnosis [facility] Diagnoses: None MIPS None MDM Patient presenting [...] medications on file Rober Hernandez MD 05/23/24 4211 documented in this encounter Plan of Treatment [...] PELVIS AND HIP RIGHT 1 VIEW LOCATION: [facility] DATE: 05/23/2024 INDICATION: assess dislocation reduction COMPARISON: None. Procedure Note Block, Dwain López, MD - 05/23/2024 EXAM: XR PELVIS AND HIP RIGHT 1 VIEW LOCATION: [facility] DATE: 05/23/2024 INDICATION: assess dislocation reduction COMPARISON: None. IMPRESSION: No comparisons/prereduction film is available. Postoperativechanges of bilateral total hip arthroplasty. Components appear well-seatedon this examination and there is no dislocation. Pelvis negative forfracture. Degenerative change at the SI joints bilaterally. Rober Hernandez MD IMG DIAGNOSTIC IMAGING ORDER LEBRON Final Result * Sedation (05/23/2024 8:15 PM CDT) Narrative Rober Hernandez MD - 05/23/2024 8:15 PM CDT Rober Hernandez MD ? 05/23/2024 11:05 PM [facility] Procedure: Sedation Date/Time: 05/23/2024 8:15 PM Performed [...] procedure a time out was called ?? [place] Protocol: the Joint Commission [place] Protocol was followed ?? Preparation: Patient was prepped and draped in usual sterile fashion ?? SEDATION Patient Sedated: Yes ?? Sedation: ??Propofol Vital signs: Vital signs monitored during sedation ?? PROCEDURE Patient Tolerance: ??Patient tolerated the procedure well with no immediate complications Length of time physician/provider present for 1:1 monitoring during sedation: 5 us Rober Hernandez MD PROCEDURE/MINOR SURGICAL ORD ERABLES Final Result * XR Pelvis w Hip Right 1 [...] PELVIS AND HIP RIGHT 1 VIEW LOCATION: [facility] DATE: 05/23/2024 INDICATION: cncern for dislocatin COMPARISON: None. Procedure Note Dwain Jones MD - 05/24/2024 EXAM: XR PELVIS AND HIP RIGHT 1 VIEW LOCATION: [facility] DATE: 05/23/2024 INDICATION: cncern for dislocatin COMPARISON: None. IMPRESSION: Postoperative changes bilateral total hip arthroplasty.Superolateral dislocation of the right hip. No evidence for fracture butrepeat films following reduction recommended. Pelvis negative forfracture. Degenerative change at the SI joint bilaterally. us Rober Hernandez MD IMG DIAGNOSTIC IMAGING ORDER LEBRON Final Result documented in this encounter Visit [...] minutes as needed, up to 3 doses. 1812 ($Given - Provi caroline: Barbara Milton RN)1922 [...] order) documented in this encounter Care Teams Weather Observer Relationship Specialty Start Date End Date Christa Mortensen PCP - General Internal Medicine 07/11/17 documented as of this encounter
--- OUTSIDE RECORDS SUMMARY | 2024-08-07 10:56 | XMS_ITS | Referral Summary ---
Author Organization [facility] Address [address] [place] [address] Care Team Providers Care Croze Cutter Name Role Phone Festus Christa Primary Care Provider Encounters Date Type Department Care Team Description 05/23/2024 Travel 05/23/2024 5:48 PM CDT - 05/23/2024 11:06 PM CDT Emergency [facility] Emergency Dept [address] [place] [id number] [phone] Rober Hernandez MD Closed dislocation of right [...] tumor 05/21/2014 Overview (07/11/2017): Overview: cryotherapy at [facility] Chronic insomnia 05/21/2014 Fibromyalgia 05/21/2014 Hyperlipidemia 05/21/2014 [...] PELVIS AND HIP RIGHT 1 VIEW LOCATION: [facility] DATE: 05/23/2024 INDICATION: assess dislocation reduction COMPARISON: None. Procedure Note Dwain Jones MD - 05/23/2024 EXAM: XR PELVIS AND HIP RIGHT 1 VIEW LOCATION: [facility] DATE: 05/23/2024 INDICATION: assess dislocation reduction [...] Rober Hernandez MD ? 05/23/2024 11:05 PM [facility] Procedure: Sedation Date/Time: 05/23/2024 8:15 PM [...] procedure a time out was called ?? [place] Protocol: the Joint Commission [place] Protocol was followed ?? Preparation: Patient was [...] Final Result from Last 3 Months Insurance [facility] Care Teams Croze Cutter Relationship Specialty Start Date End Date Christa Mortensen PCP - General Internal Medicine 07/11/17
--- OUTSIDE RECORDS SUMMARY | 2024-08-07 10:56 | XMS_ITS | Encounter Summary ---
Author Organization [facility] Address [address] [place] [address]. [place] [address] Care Team Providers Care Medical Administrative Specialist Name Role Phone Christa Mortensen Primary Care Provider [phone] Encounter Details Date Type Department Care Team [...] filedocumented in this encounter Care Teams Medical Administrative Specialist Relationship Specialty Start Date End Date Christa Mortensen PCP - General Internal Medicine 07/11/17 documented as of this encounter
--- OUTSIDE RECORDS SUMMARY | 2024-08-07 10:56 | XMS_ITS | Clinical Summary ---
Author Organization [facility] Address [address] [place] [address] Care Team Providers Care Divorce Lawyer Name Role Phone Elsewhere, Pcp Primary Care Provider Unavailabl e Source Comments Patient records contain information from all sites at [facility]. For routine questions regarding patient records, call [phone] during business hours, M-F 8:00 AM - 5:00 PM Central Time. Record requests for emergency care only can be directed to [phone] at any time.[facility] Allergies Active Allergy Reactions Criticality Noted [...] 12/19/2018 Overview (12/19/2018): Overview: Overview: cryotherapy at [employer] Keratosis Seborrheic 04/20/2012 019 Encounters Date Type Department Care Team Description 07/10/2024 CPAP Download Remote Patient Monitoring [facility] [address] [place] [address] [facility], Provider, 06/09/2024 CPAP Download Remote Patient Monitoring [facility] [address] [place] [address] [facility], ProviderMD 05/29/2024 2:00 PM CDT Office Visit Department of Orthopedic Surgery in [address] [address] Hamzah Todd M.D. Instability Total Hip Arthroplasty Initial Right (HCC) (Primary Dx) 05/29/2024 12:45 PM CDT - 05/29/2024 11:59 PM CDT Hospital Encounter Department of Radiology, [facility], in [address] [address] Steven Hui M.D. Arthroplasty Total Hip Replacement Status Post Right Discharge Disposition: Home or Self Care 05/28/2024 10:30 AM CDT Clinical Communication Virtual Review in [address] [address] Pre-visit Intake 05/24/2024 Clinical Communication Department of Orthopedic Surgery in [address] [address] Hamzah Todd M.D. Return Call Request 05/23/2024 1:00 PM CDT Clinical Support Department of Dermatology in [address] [address] Nabila Guerrero MPAS, P.A.-Vanda Raines, R.NJuan A Keratosis [facility] Discharge Disposition: Home or Self Care 05/09/2024 CPAP Download Remote Patient Monitoring [facility] [address] [place] [phone] [facility], ProviderMD from Last 3 Months Immunizations Name Administration Dates Next Due H1N1 All Forms 12/07/2009 Influenza Split 07/16/2017, 6,06/16/2015,2013,07/16/2013,07/16/2011,08/11/2010,0 06/19/2009,08/27/2003,08/16/2002, 996 Influenza, Injectable, Mdck, Preservative Free, Quadrivalent 07/11/2022,07/19/2017 Influenza, Seasonal, Injectable 07/18/20 13,08/06/2007,09/14/2006,2002,08/16/2002,10/16/1995 Influenza, Unspecified 07/28/2021,2014,06/11/2014,2010,08/11/2010,06/19/2009 PPSV23 02/22/2012 RZV (SHINGRIX) 04/01/2019, 9,12/19/2018(Deferr ed: Not available from elevator erector helper) SARS-COV-2 (COVID-19) - MODERNA(Discontinued) 01/04/2021 Td (Adult), [...] Comments Father Tyrel Fitterer Maternal Grandfather Du [place] Maternal Grandmother Ingrid Honken Mother Ambreen Fitterer Paternal Grandfather Manoj Fitterer Paternal Grandmother Vane Blanchard Sister Bladder cancer Social History Tobacco Use Types Packs/Day Years Used Date Smoking Tobacco: Never Passive Smoke Exposure: Past Smokeless Tobacco: Never Passive Exposure Comments:Mo m & Dad Smoked growing up Alcohol Use Standard Drinks/Week Comments Yes 0 (1 standard drink = 0.6 oz pur e alcohol) [facility] Utilities Answer Date Recorded In the [...] How often do you attend chur or druze services? Never 09/29/2022 Do you belong to any clubs o r organizations such as sabianist groups, unions, fraternal or athletic groups, or [...] Answer Date Recorded PHQ-2 Score 0 03/18/2022 [facility] - Occupational [...] 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, SOLAR POOL HEATING INSTALLER, CHERYL) 09/29/2022 Comments No Sex and Gender Information Value Date Recorded Sex Assigned at Female 12/17/2018 7:47 AM DIAGNOSTIC TECHNOLOGIST Legal Sex Female 3:34 PM DIAGNOSTIC TECHNOLOGIST Gender Identity Female 12/17/2018 7:47 AM DIAGNOSTIC TECHNOLOGIST Sexual Orientation Straight 12/17/2018 7: 47 AM DIAGNOSTIC TECHNOLOGIST Last Filed Vital Signs Vital Sign Reading [...] (Latest Contact Info) Description 09/06/2024 12:15 PM DIAGNOSTIC TECHNOLOGIST Clinical Communication Virtual Review in [address] [address] 09/10/2024 11:00 AM DIAGNOSTIC TECHNOLOGIST Appointment Department of Laboratory Medicine and Pathology, [facility], in [address] [address] Hamzah Todd M.D. [address] [place] [phone] 09/10/2024 1:00 PM DIAGNOSTIC TECHNOLOGIST Office Visit Department of Orthopedic Surgery in [address] [address] Hamzah Todd M.D. [address] [place] [phone] 09/11/2024 8:00 AM DIAGNOSTIC TECHNOLOGIST Comprehensive Visit Preoperative Evaluation Center in [place], [place] [address] [place] [address] Hamzah Todd M.D. [address] [place] [phone] 09/16/2024 11:43 AM DIAGNOSTIC TECHNOLOGIST Hospital Encounter RST RO 02 4 AM ADMIT [address] [place] [address] Hamzah Todd M.D. [address] [place] [phone] 09/16/2024 11:43 AM DIAGNOSTIC TECHNOLOGIST - 09/16/2024 3:15 PM DIAGNOSTIC TECHNOLOGIST Surgery RST [facility] MAIN OR [address] [place] [address] Hamzah Todd M.D. [address] [place] [address] ARTHROPLASTY REVISION HIP - ACETABULAR Scheduled Procedures Name Priority Associated Diagnoses Date/Ti me ARTHROPLASTY REVISION HIP Instability Total Hip Arthroplasty Subsequent Right 09/16/2024 11:43 AM DIAGNOSTIC TECHNOLOGIST Health Maintenance Due Date Last Done Comments [...] 12/16, 12/19/2018 Medical Devices Implanted Type Area Finish Carpenter Device Identifier Shelf Expiration Date Model / Serial / Lot Hardware E.G. Pins/Screws/Ro ds Hardware e.g. pins/screws/ rods Neck Description:Clips present af ter thyroid removal. Guide Wire-Ball Tip 3 X 800 - Orr [id number] Implanted:Qty: 1 on 05/07/2013 Hardware e.g. pins/screws/ rods Ivelisse Description:Device Manufactu rer - Ivelisse Bandar.. Device Status Text - HARDWARE- 96536. [facility] Data - [id number]. [place] Screw 2 Canc 6.5 X 20 - Orr [id number] Implanted:Qty: 1 on 05/07/2013 Hardware e.g. pins/screws/ rods [employer] Description:Device Manufactu rer - [employer]. Device Status Text - HARDWARE-82815. [place] Screw 2 Canc 6.5 X 25 - Orr [id number] Implanted:Qty: 1 on 05/07/2013 Hardware e.g. pins/screws/ rods [employer] Description:Device Manufactu rer - J [employer]. Device Status Text - HARDWARE-43108. [place] Screw 2 Canc 6.5 X 15 - Orr [id number] Implanted:Qty: 2 on 05/07/2013 Hardware e.g. pins/screws/ rods [employer]im [employer] Description:Device Manufactu rer - J [employer] J [employer]o. Device Status Text - HARDWARE-55058. Guide Wire-Ball Tip 3 X 800 - Orr [id number] Implanted:Qty: 1 on 10/22/2013 Hardware e.g. pins/screws/ rods Ivelisse Description:Device Manufactu rer - Ivelisse Bandar.. Device Status Text - HARDWARE- 97584. [facility] Data - [id number]. Rome Screw 2 Canc 6.5 X 15 - Orr [id number] Implanted:Qty: 1 on 10/22/2013 Hardware e.g. pins/screws/ rods [employer] Description:Device Manufactu rer - J [employer]. Device Status Text - HARDWARE-82389. Rome Screw 2 Canc 6.5 X 25 - Orr [id number] Implanted:Qty: 2 on 10/22/2013 Hardware e.g. pins/screws/ rods InnoPad [employer] Description:Device Manufactu rer - J [employer]. Device Status Text - HARDWARE-17557. Rome Liner Altrx +4 Neut 32x48 - Orr [id number] Implanted:Qty: 1 on 05/07/2013 Hip Implant Other/Legacy - See Implant Description In[employer]Pad [employer] Description:Device Manufactu Ecwid - [employer]. Body Location - Other. Left. Device Status Text - HIP IMP-314907. Rome Shell Multi 2 48mm - Orr [id number] Implanted:Qty: 1 on 05/07/2013 Hip Implant Other/Legacy - See Implant Description In[employer]Pad [employer] Description:Device Manufactu Ecwid - [employer]. Body Location - Other. Left. Device Status Text - HIP IMP-[id number]. Warwick-Stem [place] 3 Hi - Orr [id number] Implanted:Qty: 1 on 05/07/2013 Hip Implant Other/Legacy - See Implant Description In[employer]Pad [employer] Description:Device Manufactu rer - J [employer]. Body Location - Other. Left. Device Status Text - HIP IMP-163936. Delta-Head Ceramic 32mm +1 - Orr [id number] Implanted:Qty: 1 on 05/07/2013 Hip Implant Other/Legacy - See Implant Description Nasim [employer] Description:Device Manufactu rer - J [employer]. Body Location - Other. Left. Device Status Text - HIP IMP-[id number]. Delta-Head Ceramic 32mm +1 - Orr [id number] Implanted:Qty: 1 on 10/22/2013 Hip Implant Other/Legacy - See Implant Description Nasim [employer] Description:Device Manufactu rer - J [employer]. Body Location - Other. Right. Device Status Text - HIP IMP-[id number]. Stem Warwick 3x Hi 135 - Orr [id number] Implanted:Qty: 1 on 10/22/2013 Hip Implant Other/Legacy - See Implant Description [employer] Description:Device Manufactu rer - J [employer]. Body Location - Other. Right. Device Status Text - HIP IMP-388403. Rome Shell Multi 2 48mm - Orr [id number] Implanted:Qty: 1 on 10/22/2013 Hip Implant Other/Legacy - See Implant Description In[employer]Pad [employer] Description:Device Manufactu rer - J [employer]. Body Location - Other. Right. Device Status Text - HIP IMP-[id number]. Rome Liner Altrx +4 Neut 32x48 - Orr [id number] Implanted:Qty: 1 on 10/22/2013 Hip Implant Other/Legacy - See Implant Description Nasim [employer] Description:Device Manufactu rer - J [employer]. Body Location - Other. Right. Device Status Text - HIP IMP-[id number]. Mitralclip-10/16 Implanted:10/2016 (Quantity not on file) Mitralclip [...] Provider Not In System IMG DIAGNOSTIC IMAGING LA OCEDURES Final Result [facility] NA * (ABNORMAL) Lipid Panel (06/09/2022 [...] M.S.N. LAB BLO OD ADD-ON Final Result [facility] [address] [place] [address], [facility] [address] [place] [address] * Cologuard-Sent Out Lab (02/08/2022 1:00 PM [...] (Tori Pham al, N Engl J Med 2014;370(14):4717-5051) The normal value (reference range) for this assay is negative. COLOGUARD RE-SCREENING RECOMMENDATION: Periodic colorectal cancer screening is an important part of preventive healthcare for asymptomatic individuals at average risk for colorectal cancer. ??Following a negative Cologuard result, the [place] Cancer Society and U.S. Multi-Society Task Force screening guidelines recommend a Cologuard re-screening interval of 3 years. References: [place] Cancer Society Guideline for Colorectal Cancer Screening: https://www.cancer.org/cancer/kjgpa-yntxep-pwqvnc/detection- diagnosis-staging/acs-recommendations.html.; Regis DK, Hoang RICKETTS, Melina SolorioK, Colorectal Cancer Screening: Recommendations for Physicians and Patients from the U.S. Multi-Society Task Force on Colorectal Cancer Screening , Am J Gastroenterology 2017; 112:7167-1244. TEST DESCRIPTION: Composite algorithmic analysis of stool [...] (Tori Pham al, N Engl J Med 2014;370(14):2545-7545.) Cologuard may produce a false negative or false positive result (no colorectal cancer or precancerous polyp present at colonoscopy follow up). A negative Cologuard test result does not guarantee the absence of CRC or advanced adenoma (pre-cancer). The current Cologuard screening interval is every 3 years. ([place] Cancer Society and U.S. Multi-Society Task Force). Cologuard performance data in a 10,000 patient pivotal study using colonoscopy as the reference method can be accessed at the following location: www.[employer]versense/results. Additional description of the Cologuard test process, warnings and precautions can be found at www.cologuard.com. Stool (Stool) 02/08/2022 1:0 0 PM CDT 02/09/2022 1:22 PM CDT Isrrael Kaiser APRN N.Darius., M.S.N. LAB BODY FLUIDS AND STOOLS ORDERABLES Final Result [address] [place] [address] [employer] [address] [place] [address], [address] [place] [address] * BI Breast Screening Bilateral with Tomosynthesis [...] M.S.N. LAB BLO OD ADD-ON Final Result [facility] [address] [place] [address], [facility] [address] [place] [address] * (ABNORMAL) Basic Metabolic Panel (01/13/2022 9:44 [...] the 2009 CKD_EPI creatinine equation. eGFR-Black/Afri can Singaporean 65 >=60 mL/min/BSA 01/13/2022 11:01 AM CDT [...] M.S.N. LAB BLO [place] [address], [facility] [place] [address] * ThinPrep w/HPV Co-Test Screen (04/02/2020 1:26 [...] PATHDX ORDERABLES Final Result Performing Organization Address City/[facility]/ZIP Co de Phone Number [facility] [address] DTL [facility] 200 [place] [address] * Bone Donor 6 Month Screen Test Set (05/09/2014 9:32 AM CDT) Donor HBcore Antibody Negative [facility] HCV Ab Screen Donor Negative [facility] HX Hiv-1/-2, Plus O Ab Screen Donor Negative [facility] 05/09/2014 9:32 AM CDT 05/09/2014 9:32 AM CDT Girish Bradford M.D. LAB BLOOD NON ADD-ON Final Re sult Performing Organization Address City/[facility]/ZIP Co de Phone Number [facility] [address] from Last 3 Months or Most Recently Relevant to Health Maintenance Insurance [facility] Care Teams Divorce Lawyer Relationship Specialty Start Date End Date Elsewhere, Pcp PCP - General Family Medicine 10/07/21
--- OUTSIDE RECORDS SUMMARY | 2024-08-07 10:57 | XMS_ITS | Encounter Summary ---
Author Organization [facility] Address [address] [place] [address] Care Team Providers Care Television Operator Name Role Phone Elsewhere, Pcp Primary Care Provider Unavailabl e Encounter Details Date Type Department Care Team (Late st Contact Info) Description 08/06/2007 Historical Ophthalmology [facility] Felicitas Flores M.D. Social History Tobacco Use Types Packs/Day Years Used Date Smoking Tobacco: Never Assessed Comments Unknown Sex and Gender Information Value Date Recorded Sex Assigned at Female 12/17/2018 7:47 AM CAKE INSPECTOR Legal Sex Female 3:34 PM CAKE INSPECTOR Gender Identity Female 12/17/2018 7:47 AM CAKE INSPECTOR Sexual Orientation Straight 12/17/2018 7: 47 AM CAKE INSPECTOR documented as of this encounter Progress Notes [...] ocular findings. CDM Reports - EYEGEN Id: [id number] Status: Fnl documented in this encounter Plan of Treatment Upcoming Encounters Date Type Department Care Team (Latest Contact Info) Description 09/06/2024 12:15 PM CAKE INSPECTOR Clinical Communication Virtual Review in [place], [place] [address] [place] [address] 09/10/2024 11:00 AM CAKE INSPECTOR Appointment Department of Laboratory Medicine and Pathology, [facility], in [address] [address] Hamzah Todd M.D. [address] [place] [phone] 09/10/2024 1:00 PM CAKE INSPECTOR Office Visit Department of Orthopedic Surgery in [address] [address] Hamzah Todd M.D. [address] [place] [phone] 09/11/2024 8:00 AM CAKE INSPECTOR Comprehensive Visit Preoperative Evaluation Center in [address] [address] Hamzah Todd M.D. [address] [place] [phone] 09/16/2024 11:43 AM CAKE INSPECTOR Hospital Encounter [facility]ST [facility] 02 4 AM ADMIT [address] [place] [phone] Hamzah Todd M.D. [address] [place] [address] 09/16/2024 11:43 AM CAKE INSPECTOR - 09/16/2024 3:15 PM CAKE INSPECTOR Surgery [facility]ST [facility] MAIN OR [address] [place] [address] Hamzah Todd M.D. [address] [place] [address] ARTHROPLASTY REVISION HIP - ACETABULAR Scheduled Procedures Name Priority Associated Diagnoses Date/Ti me ARTHROPLASTY REVISION HIP Instability Total Hip Arthroplasty Subsequent Right 09/16/2024 11:43 AM CAKE INSPECTOR documented as of this encounter Visit Diagnoses Not on filedocumented in this encounter Care Teams Television Operator Relationship Specialty Start Date End Date Elsewhere, Pcp PCP - General Family Medicine 10/07/21 documented as of this encounter
--- OUTSIDE RECORDS SUMMARY | 2024-08-07 10:57 | XMS_ITS | Encounter Summary ---
Author Organization [facility] Address [address] [place] [address] Care Team Providers Care Blockmason Name Role Phone Elsewhere, Pcp Primary Care Provider Unavailabl e Encounter Details Date Type Department Care Team (Late st Contact Info) Description 04/08/2024 CPAP Download Remote Patient Monitoring [facility] [address] [place] [address] [facility], Provider, Social History Tobacco Use Types Packs/Day Years Used Date Smoking Tobacco: Never Passive Smoke Exposure: Past Smokeless Tobacco: Never Passive Exposure Comments:Mo m & Dad Smoked growing up Alcohol Use Standard Drinks/Week Comments Yes 0 (1 standard drink = 0.6 oz pur e alcohol) [facility] Utilities Answer Date Recorded In the past 12 months has e electric, gas, oil, or water [employer] threatened to shut off services in your [...] any clubs o r organizations such as yazidism groups, unions, fraternal or athletic groups, or [...] Answer Date Recorded PHQ-2 Score 0 03/18/2022 [facility] - [...] your living situation today? I have [facility] place to live 01/01/2024 Education Answer Date Recorded What is the highest level of school you have completed or the highest degree you have received? 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, BACK PANEL PADDER, CHERYL) 09/29/2022 Comments No Sex and Gender Information Value Date Recorded Sex Assigned at Female 12/17/2018 7:47 AM ETHNOLOGY TEACHER Legal Sex Female 3:34 PM ETHNOLOGY TEACHER Gender Identity Female 12/17/2018 7:47 AM ETHNOLOGY TEACHER Sexual Orientation Straight 12/17/2018 7: 47 AM ETHNOLOGY TEACHER documented as of this encounter Plan of Treatment Upcoming Encounters Date Type Department Care Team (Latest Contact Info) Description 09/06/2024 12:15 PM ETHNOLOGY TEACHER Clinical Communication Virtual Review in [place], [place] [address] [place] [address] 09/10/2024 11:00 AM ETHNOLOGY TEACHER Appointment Department of Laboratory Medicine and Pathology, [facility], in [place], [place] [address] [place] [phone] Hamzah Todd M.D. [address] [place] [phone] 09/10/2024 1:00 PM ETHNOLOGY TEACHER Office Visit Department of Orthopedic Surgery in [place], [place] [address] [place] [phone] Hamzah Todd M.D. [address] [place] [phone] 09/11/2024 8:00 AM ETHNOLOGY TEACHER Comprehensive Visit Preoperative Evaluation Center in [place], [place] [address] [place] [phone] Hamzah Todd M.D. [address] [place] [phone] 09/16/2024 11:43 AM ETHNOLOGY TEACHER Hospital Encounter RST [facility] 02 4 AM ADMIT [address] [place] [phone] Hamzah Todd M.D. [address] [place] [phone] 09/16/2024 11:43 AM ETHNOLOGY TEACHER - 09/16/2024 3:15 PM ETHNOLOGY TEACHER Surgery RST RO MAIN OR [address] [place] [address] Hamzah Todd M.D. [address] [place] [phone] ARTHROPLASTY REVISION HIP - ACETABULAR Scheduled Procedures Name Priority Associated Diagnoses Date/Ti me ARTHROPLASTY REVISION HIP Instability Total Hip Arthroplasty Subsequent Right 09/16/2024 11:43 AM ETHNOLOGY TEACHER documented as of this encounter Visit Diagnoses Not on filedocumented in this encounter Additional Health Concerns Assessment Noted Time PHQ-9 Depression Total Score: 1 03/18/20 22 7:24 AM CDT documented as of this encounter Care Teams Blockmason Relationship Specialty Start Date End Date Elsewhere, Pcp PCP - General Family Medicine 10/07/21 documented as of this encounter
--- OUTSIDE RECORDS SUMMARY | 2024-08-07 10:57 | XMS_ITS | Encounter Summary ---
Author Organization [facility] Address [address] [place] [address] Care Team Providers Care Digital Controls Technical Officer Name Role Phone Elsewhere, Pcp Primary Care Provider Unavailabl e Encounter Details Date Type Department Care Team (Late st Contact Info) Description 07/10/2024 CPAP Download Remote Patient Monitoring [facility] 5 [address] [place] [address] [facility], Provider, Social History Tobacco Use Types Packs/Day Years Used Date Smoking Tobacco: Never Passive Smoke Exposure: Past Smokeless Tobacco: Never Passive Exposure Comments:Mo m & Dad Smoked growing up Alcohol Use Standard Drinks/Week Comments Yes 0 (1 standard drink = 0.6 oz pur e alcohol) [facility] Utilities Answer Date Recorded In the past 12 months has e electric, gas, oil, or water [employer] threatened to shut off services in your [...] often do you attend chur ch or latter day services? Never 09/29/2022 Do you belong to any clubs o r organizations such as buddhist groups, unions, fraternal or athletic groups, or [...] PHQ-2 Score 0 03/18/2022 [facility] of Occupat ional Health - Occupational Stress [...] your living situation today? I have a [facility] place to live 01/01/2024 Education Answer Date Recorded What is the highest level of school you have completed or the highest degree you have received? 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, APPRENTICE, CHERYL) 09/29/2022 Comments No Sex and Gender Information Value Date Recorded Sex Assigned at Female 12/17/2018 7:47 AM REGISTERED OCCUPATIONAL THERAPIST Legal Sex Female 3:34 PM REGISTERED OCCUPATIONAL THERAPIST Gender Identity Female 12/17/2018 7:47 AM REGISTERED OCCUPATIONAL THERAPIST Sexual Orientation Straight 12/17/2018 7: 47 AM REGISTERED OCCUPATIONAL THERAPIST documented as of this encounter Plan of Treatment Upcoming Encounters Date Type Department Care Team (Latest Contact Info) Description 09/06/2024 12:15 PM REGISTERED OCCUPATIONAL THERAPIST Clinical Communication Virtual Review in [place], [place] [address] [place] [address] 09/10/2024 11:00 AM REGISTERED OCCUPATIONAL THERAPIST Appointment Department of Laboratory Medicine and Pathology, [facility], in [place], [place] [address] [place] [phone] Hamzah Todd M.D. [address] [place] [phone] 09/10/2024 1:00 PM REGISTERED OCCUPATIONAL THERAPIST Office Visit Department of Orthopedic Surgery in [place], [place] [address] [place] [phone] Hamzah Todd M.D. [address] [place] [phone] 09/11/2024 8:00 AM REGISTERED OCCUPATIONAL THERAPIST Comprehensive Visit Preoperative Evaluation Center in [place], [place] [address] [place] [phone] Hamzah Todd M.D. [address] [place] [phone] 09/16/2024 11:43 AM REGISTERED OCCUPATIONAL THERAPIST Hospital Encounter [facility]I 02 4 AM ADMIT [address] [place] [phone] Hamzah Todd M.D. [address] [place] [phone] 09/16/2024 11:43 AM REGISTERED OCCUPATIONAL THERAPIST - 09/16/2024 3:15 PM REGISTERED OCCUPATIONAL THERAPIST Surgery RST RO MAIN OR [address] [place] [address] Hamzah Todd M.D. [address] [place] [phone] ARTHROPLASTY REVISION HIP - ACETABULAR Scheduled Procedures Name Priority Associated Diagnoses Date/Ti me ARTHROPLASTY REVISION HIP Instability Total Hip Arthroplasty Subsequent Right 09/16/2024 11:43 AM REGISTERED OCCUPATIONAL THERAPIST documented as of this encounter Visit Diagnoses Not on filedocumented in this encounter Additional Health Concerns Assessment Noted Time PHQ-9 Depression Total Score: 1 03/18/20 22 7:24 AM CDT documented as of this encounter Care Teams Digital Controls Technical Officer Relationship Specialty Start Date End Date Elsewhere, Pcp PCP - General Family Medicine 10/07/21 documented as of this encounter
--- OUTSIDE RECORDS SUMMARY | 2024-08-07 10:57 | XMS_ITS | Referral Summary ---
Author Organization [facility] Address [address] [place] [address] Care Team Providers Care Academic Assistant Name Role Phone Elsewhere, Pcp Primary Care Provider Unavailabl e Source Comments Patient records contain information from all sites at [facility]. For routine questions regarding patient records, call [phone] during business hours, M-F 8:00 AM - 5:00 PM Central Time. Record requests for emergency care only can be directed to [phone] at any time.[facility] Encounters Date Type Department Care Team Description 07/10/2024 CPAP Download Remote Patient Monitoring [facility] [address] [place] [phone] [facility], ProviderMD 06/09/2024 CPAP Download Remote Patient Monitoring [facility] [address] [place] [phone] [facility], ProviderMD 05/29/2024 12:45 PM CDT - 05/29/2024 11:59 PM CDT Hospital Encounter Department of Radiology, [facility], in [address] [phone] Steven Hui M.D. Arthroplasty Total Hip Replacement Status Post Right Discharge Disposition: Home or Self Care 05/29/2024 2:00 PM CDT Office Visit Department of Orthopedic Surgery in [address] [phone] Hamzah Todd M.D. Instability Total Hip Arthroplasty Initial Right (HCC) (Primary Dx) 05/28/2024 10:30 AM CDT Clinical Communication Virtual Review in [address] [phone] Pre-visit Intake 05/24/2024 Clinical Communication Department of Orthopedic Surgery in [place], [place] [address] [place] [address] Hamzah Todd M.D. Return Call Request 05/23/2024 1:00 PM CDT Clinical Support Department of Dermatology in [place], [place] [address] [place] [address] Nabila Guerrero MPAS, P.A.-C. Vanda Finley R.N. Keratosis Actinic Discharge Disposition: Home or Self Care 05/09/2024 CPAP Download Remote Patient Monitoring [facility] [address] [place] [address] [facility], ProviderMD from Last 3 Months Allergies Active [...] 12/19/2018 Overview (12/19/2018): Overview: Overview: cryotherapy at [facility] Keratosis Seborrheic 04/20/2012 019 Immunizations Name Administration Dates Next Due H1N1 All Forms 12/07/2009 Influenza Split 07/16/2017, 6,06/16/2015,2013,07/16/2013,07/16/2011,08/11/2010,0 06/19/2009,08/27/2003,08/16/2002, 996 Influenza, Injectable, Mdck, Preservative Free, Quadrivalent 07/11/2022,07/19/2017 Influenza, Seasonal, Injectable 07/18/20 13,08/06/2007,09/14/2006,2002,08/16/2002,10/16/1995 Influenza, Unspecified 07/28/2021,2014,06/11/2014,2010,08/11/2010,06/19/2009 PPSV23 02/22/2012 RZV (SHINGRIX) 04/01/2019, 9,12/19/2018(Deferr ed: Not available from shaper operator) SARS-COV-2 (COVID-19) - MODERNA(Discontinued) 01/04/2021 Td (Adult), [...] drink = 0.6 oz pur e alcohol) [facility] Utilities Answer Date Recorded In the past 12 months has e [employer], gas, oil, or water [employer] threatened to shut off services in your [...] any clubs o r organizations such as synagogue groups, unions, fraternal or athletic groups, or [...] Score 0 03/18/2022 [facility] [place] of Occupat ional Health - Occupational Stress [...] your living situation today? I have a [facility] place to live 01/01/2024 Education Answer Date Recorded What is the highest level of school you have completed or the highest degree you have received? 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, RESPIRATORY THERAPIST ASSISTANT, CHERYL) 09/29/2022 Comments No Sex and Gender Information Value Date Recorded Sex Assigned at Female 12/17/2018 7:47 AM CIRCULAR RIPSAW OPERATOR Legal Sex Female 3:34 PM CIRCULAR RIPSAW OPERATOR Gender Identity Female 12/17/2018 7:47 AM CIRCULAR RIPSAW OPERATOR Sexual Orientation Straight 12/17/2018 7: 47 AM CIRCULAR RIPSAW OPERATOR Last Filed Vital Signs Vital Sign [...] (Latest Contact Info) Description 09/06/2024 12:15 PM CIRCULAR RIPSAW OPERATOR Clinical Communication Virtual Review in [place], [place] 200 [place] [address] 09/10/2024 11:00 AM CIRCULAR RIPSAW OPERATOR Appointment Department of Laboratory Medicine and Pathology, [facility], in [address] [address] Hamzah Todd M.D. [address] [place] [phone] 09/10/2024 1:00 PM CIRCULAR RIPSAW OPERATOR Office Visit Department of Orthopedic Surgery in [address] [phone] Hamzah Todd M.D. [address] [place] [phone] 09/11/2024 8:00 AM CIRCULAR RIPSAW OPERATOR Comprehensive Visit Preoperative Evaluation Center in [address] [phone] Hamzah Todd M.D. [address] [place] [phone] 09/16/2024 11:43 AM CIRCULAR RIPSAW OPERATOR Hospital Encounter RST ROE[facility] 02 4 AM ADMIT [address] [place] [phone] Hamzah Todd M.D. [address] [place] [phone] 09/16/2024 11:43 AM CIRCULAR RIPSAW OPERATOR - 09/16/2024 3:15 PM CIRCULAR RIPSAW OPERATOR Surgery [facility]ST [facility] MAIN OR [address] [place] [address] Hamzah Todd M.D. [address] [place] [address] ARTHROPLASTY REVISION HIP - ACETABULAR Scheduled Procedures Name Priority Associated Diagnoses Date/Ti me ARTHROPLASTY REVISION HIP Instability Total Hip Arthroplasty Subsequent Right 09/16/2024 11:43 AM CIRCULAR RIPSAW OPERATOR Medical Devices Implanted Type Area Concrete Floater Device Identifier Shelf Expiration Date Model / Serial / Lot Hardware E.G. Pins/Screws/Ro ds Hardware e.g. pins/screws/ rods Neck Description:Clips present af ter thyroid removal. Guide Wire-Ball Tip 3 X 800 - Orr [id number] Implanted:Qty: 1 on 05/07/2013 Hardware e.g. pins/screws/ rods Ivelisse Description:Device Manufactu rer - [place] Bandar.. Device Status Text - HARDWARE- 23117. [facility] Data - [id number]. [place] Screw 2 Canc 6.5 X 20 - Orr [id number] Implanted:Qty: 1 on 05/07/2013 Hardware e.g. pins/screws/ rods [employer] Description:Device Manufactu rer - J [employer] J [employer]. Device Status Text - HARDWARE-25312. [place] Screw 2 Canc 6.5 X 25 - Orr [id number] Implanted:Qty: 1 on 05/07/2013 Hardware e.g. pins/screws/ rods [employer] Description:Device Manufactu rer - J [employer] J Ortho. Device Status Text - HARDWARE-14775. [place] Screw 2 Canc 6.5 X 15 - Orr [id number] Implanted:Qty: 2 on 05/07/2013 Hardware e.g. pins/screws/ rods [employer] Description:Device Manufactu rer - J & J Ortho. Device Status Text - HARDWARE-71475. Guide Wire-Ball Tip 3 X 800 - Orr [id number] Implanted:Qty: 1 on 10/22/2013 Hardware e.g. pins/screws/ rods [place] Description:Device Manufactu rer - [place] [employer].. Device Status Text - HARDWARE- 87213. [facility] Data - [id number]. [place] Screw 2 Canc 6.5 X 15 - Orr [id number] Implanted:Qty: 1 on 10/22/2013 Hardware e.g. pins/screws/ rods [employer] Description:Device Manufactu rer - J & J Ortho. Device Status Text - HARDWARE-41458. [place] Screw 2 Canc 6.5 X 25 - Orr [id number] Implanted:Qty: 2 on 10/22/2013 Hardware e.g. pins/screws/ rods [employer] Description:Device Manufactu rer - J [employer] J Orth[employer]. Device Status Text - HARDWARE-84230. [place] Liner Altrx +4 Neut 32x48 - Orr [id number] Implanted:Qty: 1 on 05/07/2013 Hip Implant Other/Legacy - See Implant Description [employer]Cast Inc Description:Device Manufactu MedHab - J & [employer]. Body Location - Other. Left. Device Status Text - HIP IMP-380399. [place] Shell Multi 2 48mm - Orr [id number] Implanted:Qty: 1 on 05/07/2013 Hip Implant Other/Legacy - See Implant Description [employer] Inc Description:Device Manufactu MedHab - [employer] & [employer]. Body Location - Other. Left. Device Status Text - HIP IMP-[id number]. [place]-Stem [place] 3 Hi - Orr [id number] Implanted:Qty: 1 on 05/07/2013 Hip Implant Other/Legacy - See Implant Description [employer] & [employer] Description:Device Manufactu MedHab - J & [employer]. Body Location - Other. Left. Device Status Text - HIP [id number]. Delta-Head Ceramic 32mm +1 - Orr [id number] Implanted:Qty: 1 on 05/07/2013 Hip Implant Other/Legacy - See Implant Description Nasim [employer] Description:Device Manufactu MedHab - J & [employer]. Body Location - Other. Left. Device Status Text - HIP IMP-112852. Delta-Head Ceramic 32mm +1 - Orr [id number] Implanted:Qty: 1 on 10/22/2013 Hip Implant Other/Legacy - See Implant Description Bandwave Systems Description:Device Manufactu rer - J & J Healthcare. Body Location - Other. Right. Device Status Text - HIP [id number]. Stem [place] 3x Hi 135 - Orr [id number] Implanted:Qty: 1 on 10/22/2013 Hip Implant Other/Legacy - See Implant Description [employer] & [employer] Description:Device Manufactu rer - J [employer] J [employer]. Body Location - Other. Right. Device Status Text - HIP IMP-394834. [place] Shell Multi 2 48mm - Orr [id number] Implanted:Qty: 1 on 10/22/2013 Hip Implant Other/Legacy - See Implant Description [employer] & [employer] Description:Device Manufactu rer - J [employer] J [employer]. Body Location - Other. Right. Device Status Text - HIP [id number]. [place] Liner Altrx +4 Neut 32x48 - Orr [id number] Implanted:Qty: 1 on 10/22/2013 Hip Implant Other/Legacy - See Implant Description [employer] Systems Description:Device Manufactu rer - J & J Healthcare. Body Location - Other. Right. Device Status Text - HIP IMP-032284. Mitralclip-10/16 Implanted:10/2016 (Quantity not on file) Mitralclip [...] Provider Not In System IMG DIAGNOSTIC IMAGING MT OCEDURES Final Result IIMS NA * (ABNORMAL) [...] M.S.N. LAB BLO OD ADD-ON Final Result [facility] [place] [address] [place] [address], [facility] [address] [place] [address] * Cologuard-Sent Out Lab (02/08/2022 1:00 PM [...] T. et al, N Engl J Med 2014;370(14):3568-2848) The normal value (reference range) for this assay is negative. COLOGUARD RE-SCREENING RECOMMENDATION: Periodic colorectal cancer screening is an important part of preventive healthcare for asymptomatic individuals at average risk for colorectal cancer. ??Following a negative Cologuard result, the [place] Cancer Society and U.S. Multi-Society Task Force screening guidelines recommend a Cologuard re-screening interval of 3 years. References: [place] Cancer Society Guideline for Colorectal Cancer Screening: https://www.cancer.org/cancer/mmswf-tencfq-fdbtgm/detection- diagnosis-staging/acs-recommendations.html.; Regis ALLISON, Hoang RICKETTS, Melina CHAN, Colorectal Cancer Screening: Recommendations for Physicians and Patients from the U.S. Multi-Society Task Force on Colorectal Cancer Screening , Am J Gastroenterology 2017; 112:9791-6206. TEST DESCRIPTION: Composite algorithmic analysis of stool [...] Meraz et al, N Engl J Med 2014;370(14):8354-7408.) Cologuard may produce a false negative or false positive result (no colorectal cancer or precancerous polyp present at colonoscopy follow up). A negative Cologuard test result does not guarantee the absence of CRC or advanced adenoma (pre-cancer). The current Cologuard screening interval is every 3 years. ([place] Cancer Society and U.S. Multi-Society Task Force). Cologuard performance data in a 10,000 patient pivotal study using colonoscopy as the reference method can be accessed at the following location: www.[employer]results. Additional description of the Cologuard test process, warnings and precautions can be found at www.Snocaprd.com. Stool (Stool) 02/08/2022 1:0 0 PM CDT 02/09/2022 1:22 PM CDT Mariely Kaiser APRN. N.P., M.S.N. LAB BODY FLUIDS AND STOOLS ORDERABLES Final Result [address] [place] [address] [employer] [address] [facility], [address] [place] [address] * BI Breast Screening Bilateral with Tomosynthesis [...] AM CDT 01/13/2022 10:41 AM CDT Cammy Tatyana Grider APRN, C.N.P., M.S.N. LAB BLO OD ADD-ON Final Result [facility] [place] [address] [place] [address], [facility] [address] [place] [address] * (ABNORMAL) Basic Metabolic Panel (01/13/2022 9:44 [...] the 2009 CKD_EPI creatinine equation. eGFR-Black/Afri can Iranian 65 >=60 mL/min/BSA 01/13/2022 11:01 AM CDT [...] M.S.N. LAB BLO OD ADD-ON Final Result [facility] [place] [address] [place] [address], [facility] [address] [place] [address] * ThinPrep w/HPV Co-Test Screen (04/02/2020 1:26 [...] PATHDX ORDERABLES Final Result Performing Organization Address [facility]/ZIP Co de Phone Number [facility] [place] [address] DTL [facility] 200 [place] [address] * Bone Donor 6 Month Screen Test Set (05/09/2014 9:32 AM CDT) Donor HBcore Antibody Negative [facility] [place] HCV Ab Screen Donor Negative [facility] [place] HX Hiv-1/-2, Plus O Ab Screen Donor Negative [facility] [place] 05/09/2014 9:32 AM CDT 05/09/2014 9:32 AM CDT Girish Bradford M.D. LAB BLOOD NON ADD-ON Final Re sult Performing Organization Address City/[facility]/ZIP Co de Phone Number [facility] [place] [address] from Last 3 Months or Most Recently Relevant to Health Maintenance Insurance [employer] [facility] Care Teams Academic Assistant Relationship Specialty Start Date End Date Elsewhere, Pcp PCP - General Family Medicine 10/07/21
--- OUTSIDE RECORDS SUMMARY | 2024-08-07 10:57 | XMS_ITS | Encounter Summary ---
Author Organization [facility] Address [address] [place] [address] Care Team Providers Care Green Promotions Specialist Name Role Phone Elsewhere, Pcp Primary Care Provider Unavailabl e Reason for Visit * Reason Onset Date Comments Pre-visit Intake 05/28/2024 Encounter Details Date Type Department Care Team (Latest Contact Info) Description 05/28/2024 10:30 AM CDT Clinical Communication Virtual Review in [place], [place] 200 [place] [address] Pre-visit Intake Social History Tobacco Use Types Packs/Day Years Used Date Smoking Tobacco: Never Passive Smoke Exposure: Past Smokeless Tobacco: Never Passive Exposure Comments:Mo m & Dad Smoked growing up Alcohol Use Standard Drinks/Week Comments Yes 0 (1 standard drink = 0.6 oz pur e alcohol) [facility] Utilities Answer Date Recorded In the past 12 months has [facility] [employer], gas, oil, or water [employer] threatened to shut off services in your [...] often do you attend chur ch or episcopalian services? Never 09/29/2022 Do you belong to [...] Answer Date Recorded PHQ-2 Score 0 03/18/2022 [facility] Questionnaire Answer Date [...] your living situation today? I have a [facility] place to live 01/01/2024 Education Answer Date Recorded What is the highest level of school you have completed or the highest degree you have received? 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, TROUT FARMER, CHERYL) 09/29/2022 Comments No Sex and Gender Information Value Date Recorded Sex Assigned at Female 12/17/2018 7:47 AM MANNEQUIN DECORATOR Legal Sex Female 3:34 PM MANNEQUIN DECORATOR Gender Identity Female 12/17/2018 7:47 AM MANNEQUIN DECORATOR Sexual Orientation Straight 12/17/2018 7: 47 AM MANNEQUIN DECORATOR documented as of this encounter Plan of Treatment Upcoming Encounters Date Type Department Care Team (Latest Contact Info) Description 09/06/2024 12:15 PM MANNEQUIN DECORATOR Clinical Communication Virtual Review in [place], [place] [address] [place] [address] 09/10/2024 11:00 AM MANNEQUIN DECORATOR Appointment Department of Laboratory Medicine and Pathology, [facility], in [place], [place] [address] [place] [phone] Hamzah Todd M.D. [address] [place] [phone] 09/10/2024 1:00 PM MANNEQUIN DECORATOR Office Visit Department of Orthopedic Surgery in [place], [place] [address] [place] [phone] Hamzah Todd M.D. [address] [place] [phone] 09/11/2024 8:00 AM MANNEQUIN DECORATOR Comprehensive Visit Preoperative Evaluation Center in [place], [place] [address] [place] [phone] Hamzah Todd M.D. [address] [place] [phone] 09/16/2024 11:43 AM MANNEQUIN DECORATOR Hospital Encounter RST RO 02 4 AM ADMIT [address] [place] [phone] Hamzah Todd M.D. [address] [place] [phone] 09/16/2024 11:43 AM MANNEQUIN DECORATOR - 09/16/2024 3:15 PM MANNEQUIN DECORATOR Surgery RST RO MAIN OR [address] [place] [address] Hamzah Todd M.D. [address] [place] [phone] ARTHROPLASTY REVISION HIP - ACETABULAR Scheduled Procedures Name Priority Associated Diagnoses Date/Ti me ARTHROPLASTY REVISION HIP Instability Total Hip Arthroplasty Subsequent Right 09/16/2024 11:43 AM MANNEQUIN DECORATOR documented as of this encounter Visit Diagnoses Not on filedocumented in this encounter Additional Health Concerns Assessment Noted Time PHQ-9 Depression Total Score: 1 03/18/20 22 7:24 AM CDT documented as of this encounter Care Teams Green Promotions Specialist Relationship Specialty Start Date End Date Elsewhere, Pcp PCP - General Family Medicine 10/07/21 documented as of this encounter
--- OUTSIDE RECORDS SUMMARY | 2024-08-07 10:57 | XMS_ITS | Encounter Summary ---
Author Organization [facility] Address [address] [place] [address] Care Team Providers Care Bull Float Finisher Name Role Phone Elsewhere, Pcp Primary Care Provider Unavailabl e Reason for Visit * Outpatient (Routine) - Closed Specialty Diagnoses / Procedures Referred By Contmaite t Referred To Contact Dermatology Diagnoses Keratosis Actinic Procedures MAGGI JESSIKA-U/ ALA (PDT) Nabila Guerrero MPAS, P.A.-C. [facility] Referral ID Status Reason Start Date Expiration Date Visits Re quested Visits Authorized [id number] Closed 01/03/2024 01/02/2025 1 1 Encounter Details Date Type Department Care Team (Latest Contact Info) Description 05/23/2024 1:00 PM CDT Clinical Support Department of Dermatology in [place], [place] [address] [place] [phone] Nabila Guerrero MPAS, P.A.-CVanda Rodríguez, R.NJuan A [address] [place] [phone] Keratosis Actinic Discharge Disposition: Home or Self Care Social History Tobacco Use Types Packs/Day Years Used Date Smoking Tobacco: Never Passive Smoke Exposure: Past Smokeless Tobacco: Never Passive Exposure Comments:Mo m & Dad Smoked growing up Alcohol Use Standard Drinks/Week Comments Yes 0 (1 standard drink = 0.6 oz pur e alcohol) [facility] Utilities Answer Date Recorded In the past 12 months has [employer] electric, gas, oil, or water company threatened [...] often do you attend [facility] or latter-day services? Never 09/29/2022 Do you belong to any clubs o r organizations such as scientologist groups, unions, fraternal or athletic groups, or [...] Answer Date Recorded PHQ-2 Score 0 03/18/2022 [facility] - Occupational [...] living situation today? I have a [facility] place to live 01/01/2024 Education Answer Date Recorded What is the highest level of school you have completed or the highest degree you have received? 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, POLLUTION CONTROL TECHNICIAN, CHERYL) 09/29/2022 Comments No Sex and Gender Information Value Date Recorded Sex Assigned at Female 12/17/2018 7:47 AM RADIO COMMUNICATIONS MECHANICIAN Legal Sex Female 3:34 PM RADIO COMMUNICATIONS MECHANICIAN Gender Identity Female 12/17/2018 7:47 AM RADIO COMMUNICATIONS MECHANICIAN Sexual Orientation Straight 12/17/2018 7: 47 AM RADIO COMMUNICATIONS MECHANICIAN documented as of this encounter Plan of Treatment Upcoming Encounters Date Type Department Care Team (Latest Contact Info) Description 09/06/2024 12:15 PM RADIO COMMUNICATIONS MECHANICIAN Clinical Communication Virtual Review in [place], [place] [address] [place] [address] 09/10/2024 11:00 AM RADIO COMMUNICATIONS MECHANICIAN Appointment Department of Laboratory Medicine and Pathology, [facility], in [place], [place] [address] [place] [phone] Hamzah Todd M.D. [address] [place] [phone] 09/10/2024 1:00 PM RADIO COMMUNICATIONS MECHANICIAN Office Visit Department of Orthopedic Surgery in [place], [place] [address] [place] [phone] Hamzah Todd M.D. [address] [place] [phone] 09/11/2024 8:00 AM RADIO COMMUNICATIONS MECHANICIAN Comprehensive Visit Preoperative Evaluation Center in [place], [place] [address] [place] [phone] Hamzah Todd M.D. [address] [place] [phone] 09/16/2024 11:43 AM RADIO COMMUNICATIONS MECHANICIAN Hospital Encounter [facility] 02 4 AM ADMIT [address] [place] [phone] Hamzah Todd M.D. [address] [place] [phone] 09/16/2024 11:43 AM RADIO COMMUNICATIONS MECHANICIAN - 09/16/2024 3:15 PM RADIO COMMUNICATIONS MECHANICIAN Surgery [facility] MAIN OR [address] [place] [address] Hamzah Todd M.D. [address] [place] [phone] ARTHROPLASTY REVISION HIP - ACETABULAR Scheduled Procedures Name Priority Associated Diagnoses Date/Ti me ARTHROPLASTY REVISION HIP Instability Total Hip Arthroplasty Subsequent Right 09/16/2024 11:43 AM RADIO COMMUNICATIONS MECHANICIAN documented as of this encounter Visit Diagnoses [...] documented as of this encounter Care Teams Bull Float Finisher Relationship Specialty Start Date End Date Elsewhere, Pcp PCP - General Family Medicine 10/07/21 documented as of this encounter
--- OUTSIDE RECORDS SUMMARY | 2024-08-07 10:57 | XMS_ITS | Encounter Summary ---
Author Organization [facility] Address [address] [place] [address] Care Team Providers Care Quality Review Specialist Name Role Phone Elsewhere, Pcp Primary Care Provider Unavailabl e Encounter Details Date Type Department Care Team (Late st Contact Info) Description 11/01/2013 Historical Ophthalmology RST OPH Brad Hodges M.D. [facility] [place] [address] Social History Tobacco Use Types Packs/Day Years Used Date Smoking Tobacco: Never Assessed Comments Unknown Sex and Gender Information Value Date Recorded Sex Assigned at Female 12/17/2018 7:47 AM FIELD CROP HARVEST WORKER Legal Sex Female 3:34 PM FIELD CROP HARVEST WORKER Gender Identity Female 12/17/2018 7:47 AM FIELD CROP HARVEST WORKER Sexual Orientation Straight 12/17/2018 7: 47 AM FIELD CROP HARVEST WORKER documented as of this encounter Progress Notes [...] distribution, RIGHT CDM Reports - EYEGEN Id: [id number] Status: Fnl documented in this encounter Plan of Treatment Upcoming Encounters Date Type Department Care Team (Latest Contact Info) Description 09/06/2024 12:15 PM FIELD CROP HARVEST WORKER Clinical Communication Virtual Review in [place], [place] 200 [place] [phone] 09/10/2024 11:00 AM FIELD CROP HARVEST WORKER Appointment Department of Laboratory Medicine and Pathology, [facility], in [place], [place] [address] [place] [phone] Hamzah Todd M.D. [address] [place] [phone] 09/10/2024 1:00 PM FIELD CROP HARVEST WORKER Office Visit Department of Orthopedic Surgery in [place], [place] [address] [place] [phone] Hamzah Todd M.D. [address] [place] [phone] 09/11/2024 8:00 AM FIELD CROP HARVEST WORKER Comprehensive Visit Preoperative Evaluation Center in [place], [place] [address] [place] [phone] Hamzah Todd M.D. [address] [place] [phone] 09/16/2024 11:43 AM FIELD CROP HARVEST WORKER Hospital Encounter RST RO 02 4 AM ADMIT [address] [place] [phone] Hamzah Todd M.D. [address] [place] [phone] 09/16/2024 11:43 AM FIELD CROP HARVEST WORKER - 09/16/2024 3:15 PM FIELD CROP HARVEST WORKER Surgery RST [facility] MAIN OR [address] [place] [address] Hamzah Todd M.D. [address] [place] [phone] ARTHROPLASTY REVISION HIP - ACETABULAR Scheduled Procedures Name Priority Associated Diagnoses Date/Ti me ARTHROPLASTY REVISION HIP Instability Total Hip Arthroplasty Subsequent Right 09/16/2024 11:43 AM FIELD CROP HARVEST WORKER documented as of this encounter Visit Diagnoses Not on filedocumented in this encounter Care Teams Quality Review Specialist Relationship Specialty Start Date End Date Elsewhere, Pcp PCP - General Family Medicine 10/07/21 documented as of this encounter
--- OUTSIDE RECORDS SUMMARY | 2024-08-07 10:57 | XMS_ITS | Encounter Summary ---
Author Organization [facility] Address [address] [place] [address] Care Team Providers Care Quality Control Name Role Phone Elsewhere, Pcp Primary Care Provider Unavailabl e Encounter Details Date Type Department Care Team (Late st Contact Info) Description 05/09/2024 CPAP Download Remote Patient Monitoring [facility] [address] [place] [address] [facility], Provider, Social History Tobacco Use Types Packs/Day Years Used Date Smoking Tobacco: Never Passive Smoke Exposure: Past Smokeless Tobacco: Never Passive Exposure Comments:Mo m & Dad Smoked growing up Alcohol Use Standard Drinks/Week Comments Yes 0 (1 standard drink = 0.6 oz pur e alcohol) [facility] Utilities Answer Date Recorded In the past 12 months has e electric, gas, oil, or water [employer] threatened to shut off services in your [...] often do you attend chur ch or christian services? Never 09/29/2022 Do you belong to any clubs o r organizations such as yarsani groups, unions, fraternal or athletic groups, or [...] your living situation today? I have a [facility] place to live 01/01/2024 Education Answer Date Recorded What is the highest level of school you have completed or the highest degree you have received? 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, TEXTILE DESIGNS SALES REPRESENTATIVE, CHERYL) 09/29/2022 Comments No Sex and Gender Information Value Date Recorded Sex Assigned at Female 12/17/2018 7:47 AM MECHANICAL DESIGN ENGINEER Legal Sex Female 3:34 PM MECHANICAL DESIGN ENGINEER Gender Identity Female 12/17/2018 7:47 AM MECHANICAL DESIGN ENGINEER Sexual Orientation Straight 12/17/2018 7: 47 AM MECHANICAL DESIGN ENGINEER documented as of this encounter Plan of Treatment Upcoming Encounters Date Type Department Care Team (Latest Contact Info) Description 09/06/2024 12:15 PM MECHANICAL DESIGN ENGINEER Clinical Communication Virtual Review in [place], [place] 200 [place] [address] 09/10/2024 11:00 AM MECHANICAL DESIGN ENGINEER Appointment Department of Laboratory Medicine and Pathology, [facility], in [place], [place] [address] [place] [phone] Hamzah Todd M.D. [address] [place] [phone] 09/10/2024 1:00 PM MECHANICAL DESIGN ENGINEER Office Visit Department of Orthopedic Surgery in [place], [place] [address] [place] [phone] Hamzah Todd M.D. [address] [place] [phone] 09/11/2024 8:00 AM MECHANICAL DESIGN ENGINEER Comprehensive Visit Preoperative Evaluation Center in [place], [place] [address] [place] [phone] Hamzah Todd M.D. [address] [place] [phone] 09/16/2024 11:43 AM MECHANICAL DESIGN ENGINEER Hospital Encounter [facility]ST [facility] 02 4 AM ADMIT [address] [place] [phone] Hamzah Todd M.D. [address] [place] [phone] 09/16/2024 11:43 AM MECHANICAL DESIGN ENGINEER - 09/16/2024 3:15 PM MECHANICAL DESIGN ENGINEER Surgery RST RO MAIN OR [address] [place] [address] Hamzah Todd M.D. [address] [place] [phone] ARTHROPLASTY REVISION HIP - ACETABULAR Scheduled Procedures Name Priority Associated Diagnoses Date/Ti me ARTHROPLASTY REVISION HIP Instability Total Hip Arthroplasty Subsequent Right 09/16/2024 11:43 AM MECHANICAL DESIGN ENGINEER documented as of this encounter Visit Diagnoses Not on filedocumented in this encounter Additional Health Concerns Assessment Noted Time PHQ-9 Depression Total Score: 1 03/18/20 22 7:24 AM CDT documented as of this encounter Care Teams Quality Control Relationship Specialty Start Date End Date Elsewhere, Pcp PCP - General Family Medicine 10/07/21 documented as of this encounter
--- OUTSIDE RECORDS SUMMARY | 2024-08-07 10:57 | XMS_ITS | Encounter Summary ---
Author Organization [facility] Address 200 [place] [address] Care Team Providers Care Oven Technician Name Role Phone Elsewhere, Pcp Primary Care Provider Unavailabl e Reason for Referral * Outpatient (Routine) - Closed Specialty Diagnoses / Procedures Referred By Nathalia colon Referred To Contact Diagnoses Arthroplasty Total Hip Replacement Status Post Right Procedures DX Hip And Pelvis Right 2-3 Views DX Hip And Pelvis Right 4+ Views Steven Hui M.D. 200 [place] [address] Phone: tel: fax: [facility] Referral ID Status Reason Start Date Expiration Date Visits Re quested Visits Authorized [id number] Closed 05/26/2024 05/26/2025 1 1 Reason for Visit * Outpatient (Routine) - Closed Specialty Diagnoses / Procedures Referred By Nathalia colon Referred To Contact Diagnoses Arthroplasty Total Hip Replacement Status Post Right Procedures DX Hip And Pelvis Right 2-3 Views DX Hip And Pelvis Right 4+ Views Steven Hui M.D. 200 [place] [address] Phone: tel: fax: [facility] Referral ID Status Reason Start Date Expiration Date Visits Re quested Visits Authorized [id number] Closed 05/26/2024 05/26/2025 1 1 Encounter Details Date Type Department Care Team (Latest Contact Info) Description 05/29/2024 12:45 PM CDT - 05/29/2024 11:59 PM CDT Hospital Encounter Department of Radiology, [facility], in [place], [place] [address] [place] [address] Steven Hui M.D. [address] [place] [address] Arthroplasty Total Hip Replacement Status Post Right Discharge Disposition: Home or Self Care Social History Tobacco Use Types Packs/Day Years Used Date Smoking Tobacco: Never Passive Smoke Exposure: Past Smokeless Tobacco: Never Passive Exposure Comments:Mo m & Dad Smoked growing up Alcohol Use Standard Drinks/Week Comments Yes 0 (1 standard drink = 0.6 oz pur e alcohol) [facility] Utilities Answer Date Recorded In the past 12 months has e electric, gas, oil, or water [employer] threatened to shut off services in your [...] often do you attend chur ch or restorationist services? Never 09/29/2022 Do you belong to any clubs o r organizations such as scientology groups, unions, fraternal or athletic groups, or [...] Answer Date Recorded PHQ-2 Score 0 03/18/2022 [facility] ional Health - [...] your living situation today? I have a [facility] place to live 01/01/2024 Education Answer Date Recorded What is the highest level of school you have completed or the highest degree you have received? 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, BELT PUNCHER, CHERYL) 09/29/2022 Comments No Sex and Gender Information Value Date Recorded Sex Assigned at Female 12/17/2018 7:47 AM DIRECTOR OF CARDIAC REHABILITATION Legal Sex Female 3:34 PM DIRECTOR OF CARDIAC REHABILITATION Gender Identity Female 12/17/2018 7:47 AM DIRECTOR OF CARDIAC REHABILITATION Sexual Orientation Straight 12/17/2018 7: 47 AM DIRECTOR OF CARDIAC REHABILITATION documented as of this encounter Medications at [...] (Latest Contact Info) Description 09/06/2024 12:15 PM DIRECTOR OF CARDIAC REHABILITATION Clinical Communication Virtual Review in [place], [place] [address] [place] [address] 09/10/2024 11:00 AM DIRECTOR OF CARDIAC REHABILITATION Appointment Department of Laboratory Medicine and Pathology, [facility], in [place], [place] [address] [place] [phone] Hamzah Todd M.D. [address] [place] [phone] 09/10/2024 1:00 PM DIRECTOR OF CARDIAC REHABILITATION Office Visit Department of Orthopedic Surgery in [place], [place] [address] [place] [phone] Hamzah Todd M.D. [address] [place] [phone] 09/11/2024 8:00 AM DIRECTOR OF CARDIAC REHABILITATION Comprehensive Visit Preoperative Evaluation Center in [place], [place] [address] [place] [phone] Hamzah Todd M.D. [address] [place] [phone] 09/16/2024 11:43 AM DIRECTOR OF CARDIAC REHABILITATION Hospital Encounter RST RO 02 4 AM ADMIT [address] [place] [phone] Hamzah Todd M.D. [address] [place] [phone] 09/16/2024 11:43 AM DIRECTOR OF CARDIAC REHABILITATION - 09/16/2024 3:15 PM DIRECTOR OF CARDIAC REHABILITATION Surgery RST RO MAIN OR [address] [place] [address] Hamzah Todd M.D. [address] [place] [phone] ARTHROPLASTY REVISION HIP - ACETABULAR Scheduled Procedures Name Priority Associated Diagnoses Date/Ti me ARTHROPLASTY REVISION HIP Instability Total Hip Arthroplasty Subsequent Right 09/16/2024 11:43 AM DIRECTOR OF CARDIAC REHABILITATION documented as of this encounter Procedures Procedure [...] documented as of this encounter Care Teams Oven Technician Relationship Specialty Start Date End Date Elsewhere, Pcp PCP - General Family Medicine 10/07/21 documented as of this encounter
--- OUTSIDE RECORDS SUMMARY | 2024-08-07 10:57 | XMS_ITS ---
Author Organization [facility] Address [address] [place] [address] Care Team Providers Care Math Instructor Name Role Phone Unavailable Unavailable Unavailable Surgery Details Not on file Complications Check Surgery Details section. Procedure Estimated Blood Loss Check Surgery Details section. Procedure Findings Check Surgery Details section. Procedure Specimens Taken Check Surgery Details section.
--- OUTSIDE RECORDS SUMMARY | 2024-08-07 10:57 | XMS_ITS | Encounter Summary ---
Author Organization [facility] Address [address] [place] [address] Care Team Providers Care Registrar College Or University Name Role Phone Elsewhere, Pcp Primary Care Provider Unavailabl e Encounter Details Date Type Department Care Team (Late st Contact Info) Description 11/13/2013 Historical Ophthalmology RST OPH Brad Hodges M.D. [facility] [place] [address] Social History Tobacco Use Types Packs/Day Years Used Date Smoking Tobacco: Never Assessed Comments Unknown Sex and Gender Information Value Date Recorded Sex Assigned at Female 12/17/2018 7:47 AM WATERPROOF COATING MACHINE TENDER Legal Sex Female 3:34 PM WATERPROOF COATING MACHINE TENDER Gender Identity Female 12/17/2018 7:47 AM WATERPROOF COATING MACHINE TENDER Sexual Orientation Straight 12/17/2018 7: 47 AM WATERPROOF COATING MACHINE TENDER documented as of this encounter Progress Notes [...] syndrome, bilateral CDM Reports - EYEGEN Id: [id number] Status: Fnl documented in this encounter Plan of Treatment Upcoming Encounters Date Type Department Care Team (Latest Contact Info) Description 09/06/2024 12:15 PM WATERPROOF COATING MACHINE TENDER Clinical Communication Virtual Review in [place], [place] 200 [place] [address] 09/10/2024 11:00 AM WATERPROOF COATING MACHINE TENDER Appointment Department of Laboratory Medicine and Pathology, [facility], in [address] [phone] Hamzah Todd M.D. [address] [place] [phone] 09/10/2024 1:00 PM WATERPROOF COATING MACHINE TENDER Office Visit Department of Orthopedic Surgery in [address] [phone] Hamzah Todd M.D. [address] [place] [phone] 09/11/2024 8:00 AM WATERPROOF COATING MACHINE TENDER Comprehensive Visit Preoperative Evaluation Center in [address] [phone] Hamzah Todd M.D. [address] [place] [phone] 09/16/2024 11:43 AM WATERPROOF COATING MACHINE TENDER Hospital Encounter RST RO 02 4 AM ADMIT [address] [place] [phone] Hamzah Todd M.D. [address] [place] [phone] 09/16/2024 11:43 AM WATERPROOF COATING MACHINE TENDER - 09/16/2024 3:15 PM WATERPROOF COATING MACHINE TENDER Surgery [facility] MAIN OR [address] [place] [address] Hamzah Todd M.D. [address] [place] [address] ARTHROPLASTY REVISION HIP - ACETABULAR Scheduled Procedures Name Priority Associated Diagnoses Date/Ti me ARTHROPLASTY REVISION HIP Instability Total Hip Arthroplasty Subsequent Right 09/16/2024 11:43 AM WATERPROOF COATING MACHINE TENDER documented as of this encounter Visit Diagnoses Not on filedocumented in this encounter Care Teams Registrar College Or University Relationship Specialty Start Date End Date Elsewhere, Pcp PCP - General Family Medicine 10/07/21 documented as of this encounter
--- OUTSIDE RECORDS SUMMARY | 2024-08-07 10:57 | XMS_ITS | Encounter Summary ---
Author Organization [facility] Address [address] [place] [address] Care Team Providers Care Thermoforming Machine Operator Name Role Phone Elsewhere, Pcp Primary Care Provider Unavailabl e Encounter Details Date Type Department Care Team (Late st Contact Info) Description 06/09/2024 CPAP Download Remote Patient Monitoring [facility] [address] [place] [phone] [facility], Provider, Social History Tobacco Use Types Packs/Day Years Used Date Smoking Tobacco: Never Passive Smoke Exposure: Past Smokeless Tobacco: Never Passive Exposure Comments:Mo m & Dad Smoked growing up Alcohol Use Standard Drinks/Week Comments Yes 0 (1 standard drink = 0.6 oz pur e alcohol) [facility] Utilities Answer Date Recorded In the past 12 months has e electric, gas, oil, or water [employer] threatened to shut off services in your [...] often do you attend chur ch or mu-ism services? Never 09/29/2022 Do you belong to [...] your living situation today? I have a [facility] place to live 01/01/2024 Education Answer Date Recorded What is the highest level of school you have completed or the highest degree you have received? 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, DRIVER STARTING GATE, CHERYL) 09/29/2022 Comments No Sex and Gender Information Value Date Recorded Sex Assigned at Female 12/17/2018 7:47 AM DIGITAL MEDIA REPRESENTATIVE Legal Sex Female 3:34 PM DIGITAL MEDIA REPRESENTATIVE Gender Identity Female 12/17/2018 7:47 AM DIGITAL MEDIA REPRESENTATIVE Sexual Orientation Straight 12/17/2018 7: 47 AM DIGITAL MEDIA REPRESENTATIVE documented as of this encounter Plan of Treatment Upcoming Encounters Date Type Department Care Team (Latest Contact Info) Description 09/06/2024 12:15 PM DIGITAL MEDIA REPRESENTATIVE Clinical Communication Virtual Review in [place], [place] 200 [place] [address] 09/10/2024 11:00 AM DIGITAL MEDIA REPRESENTATIVE Appointment Department of Laboratory Medicine and Pathology, [facility], in [place], [place] [address] [place] [phone] Hamzah Todd M.D. [address] [place] [phone] 09/10/2024 1:00 PM DIGITAL MEDIA REPRESENTATIVE Office Visit Department of Orthopedic Surgery in [place], [place] [address] [place] [phone] Hamzah Todd M.D. [address] [place] [phone] 09/11/2024 8:00 AM DIGITAL MEDIA REPRESENTATIVE Comprehensive Visit Preoperative Evaluation Center in [place], [place] [address] [place] [phone] Hamzah Todd M.D. [address] [place] [phone] 09/16/2024 11:43 AM DIGITAL MEDIA REPRESENTATIVE Hospital Encounter [facility]ST [facility] 02 4 AM ADMIT [address] [place] [phone] Hamzah Todd M.D. [address] [place] [phone] 09/16/2024 11:43 AM DIGITAL MEDIA REPRESENTATIVE - 09/16/2024 3:15 PM DIGITAL MEDIA REPRESENTATIVE Surgery RST RO MAIN OR [address] [place] [address] Hamzah Todd M.D. [address] [place] [phone] ARTHROPLASTY REVISION HIP - ACETABULAR Scheduled Procedures Name Priority Associated Diagnoses Date/Ti me ARTHROPLASTY REVISION HIP Instability Total Hip Arthroplasty Subsequent Right 09/16/2024 11:43 AM DIGITAL MEDIA REPRESENTATIVE documented as of this encounter Visit Diagnoses Not on filedocumented in this encounter Additional Health Concerns Assessment Noted Time PHQ-9 Depression Total Score: 1 03/18/20 22 7:24 AM CDT documented as of this encounter Care Teams Thermoforming Machine Operator Relationship Specialty Start Date End Date Elsewhere, Pcp PCP - General Family Medicine 10/07/21 documented as of this encounter
--- OUTSIDE RECORDS SUMMARY | 2024-08-07 10:57 | XMS_ITS | Encounter Summary ---
Author Organization [facility] Address [address] [place] [phone] Care Team Providers Care Sample Tailor Name Role Phone Elsewhere, Pcp Primary Care Provider Unavailabl e Reason for Visit * Outpatient (Routine) - Closed Specialty Diagnoses / Procedures Referred By Nathalia colon Referred To Contact Orthopedic Surgery Steven Hui M.D. [address] [place] [phone] Phone: tel: fax: Hamzah Todd M.D. [address] [place] [phone] Phone: tel: fax: Referral ID Status Reason Start Date Expiration Date Visits Re quested Visits Authorized [id number] Closed 05/26/2024 2025 1 1 Encounter Details Date Type Department Care Team (Late st Contact Info) Description 05/29/2024 2:00 PM CDT Office Visit Department of Orthopedic Surgery in [place], [place] [address] [place] [phone] Hamzah Todd M.D. [address] [place] [phone] Instability Total Hip Arthroplasty Initial Right (HCC) (Primary Dx) Social History Tobacco Use Types Packs/Day Years Used Date Smoking Tobacco: Never Passive Smoke Exposure: Past Smokeless Tobacco: Never Passive Exposure Comments:Mo m & Dad Smoked growing up Alcohol Use Standard Drinks/Week Comments Yes 0 (1 standard drink = 0.6 oz pur e alcohol) [facility] Utilities Answer Date Recorded In the past [...] How often do you attend chur or sabianist services? Never 09/29/2022 Do you [...] Score 0 03/18/2022 [facility] - Occupational Stress Questionnaire Answer Date [...] your living situation today? I have a [facility] place to live 01/01/2024 Education Answer Date Recorded What is the highest level of school you have completed or the highest degree you have received? 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 CT CT Job ID: [id number] documented in this encounter Plan of Treatment Upcoming Encounters Date Type Department Care Team (Latest Contact Info) Description 09/06/2024 12:15 PM BUSINESS CONTINUITY SPECIALIST Clinical Communication Virtual Review in [address] [phone] 09/10/2024 11:00 AM BUSINESS CONTINUITY SPECIALIST Appointment Department of Laboratory Medicine and Pathology, [facility] in [address] [phone] Hamzah Todd M.D. [address] [place] [phone] 09/10/2024 1:00 PM BUSINESS CONTINUITY SPECIALIST Office Visit Department of Orthopedic Surgery in [address] [phone] Hamzah Todd M.D. [address] [place] [phone] 09/11/2024 8:00 AM BUSINESS CONTINUITY SPECIALIST Comprehensive Visit Preoperative Evaluation Center in [address] [phone] Hamzah Todd M.D. [address] [place] [phone] 09/16/2024 11:43 AM BUSINESS CONTINUITY SPECIALIST Hospital Encounter [facility] 02 4 AM ADMIT [address] [place] [phone] Hamzah Todd M.D. [address] [place] [phone] 09/16/2024 11:43 AM BUSINESS CONTINUITY SPECIALIST - 09/16/2024 3:15 PM BUSINESS CONTINUITY SPECIALIST Surgery [facility] MAIN OR [address] [place] [address] Hamzah Todd M.D. [address] [place] [address] ARTHROPLASTY REVISION HIP - ACETABULAR Scheduled Procedures Name Priority Associated Diagnoses Date/Ti me ARTHROPLASTY REVISION HIP Instability Total Hip Arthroplasty Subsequent Right 09/16/2024 11:43 AM BUSINESS CONTINUITY SPECIALIST documented as of this encounter Visit Diagnoses Diagnosis Instability Total Hip Arthroplasty Initial Right (HCC)- Primary Instability Total Hip Arthroplasty Subsequent Right documented in this encounter Additional Health Concerns Assessment Noted Time PHQ-9 Depression Total Score: 1 03/18/20 22 7:24 AM CDT documented as of this encounter Care Teams Sample Tailor Relationship Specialty Start Date End Date Elsewhere, Pcp PCP - General Family Medicine 10/07/21 documented as of this encounter
--- OUTSIDE RECORDS SUMMARY | 2024-08-07 10:57 | XMS_ITS | Clinical Summary ---
Author Organization [employer] [facility] Address [place], [place] [address] Care Team Providers Care Food Stand Manager Name Role Phone Christa Mortensen Primary Care Provider [phone] Allergies Active Allergy Reactions Criticality Noted Date [...] age to complete this topic Care Teams Food Stand Manager Relationship Specialty Start Date End Date Christa Mortensen PCP - General 09/26/19
--- OUTSIDE RECORDS SUMMARY | 2024-08-07 10:57 | XMS_ITS | Encounter Summary ---
Author Organization [facility] Address [address] [place] [address] Care Team Providers Care Box Truck Owner Operator Name Role Phone Elsewhere, Pcp Primary Care Provider Unavailabl e Reason for Referral * Outpatient (Routine) - Closed Specialty Diagnoses / Procedures Referred By Lauraac t Referred To Contact Diagnoses Arthroplasty Total Hip Replacement Status Post Right Procedures DX Hip And Pelvis Right 2-3 Views DX Hip And Pelvis Right 4+ Views Steven Hui M.D. 200 [place] [phone] Phone: tel: fax: [facility] Referral ID Status Reason Start Date Expiration Date Visits Re quested Visits Authorized [id number] Closed 05/26/2024 05/26/2025 1 1 * Outpatient (Routine) - Closed Specialty Diagnoses / Procedures Referred By Contmaite t Referred To Contact Orthopedic Surgery Steven Hui M.D. 200 [place] [address] Phone: tel: fax: Hamzah Todd M.D. [address] [place] [phone] Phone: tel: fax: Referral ID Status Reason Start Date Expiration Date Visits Re quested Visits Authorized [id number] Closed 05/26/2024 2025 1 1 Reason for Visit * Reason Onset Date Comments Return Call Request 05/24/2024 Encounter Details Date Type Department Care Team (Latest Contact Info) Description 05/24/2024 Clinical Communication Department of Orthopedic Surgery in [place], [place] [address] [place] [address] Hamzah Todd M.D. [address] [place] [phone] Return Call Request Social History Tobacco Use Types Packs/Day Years Used Date Smoking Tobacco: Never Passive Smoke Exposure: Past Smokeless Tobacco: Never Passive Exposure Comments:Mo m & Dad Smoked growing up Alcohol Use Standard Drinks/Week Comments Yes 0 (1 standard drink = 0.6 oz pur e alcohol) [facility] Utilities Answer Date Recorded In the past 12 months has [place], gas, oil, or water [employer] threatened to shut off services in your [...] week 09/29/2022 How often do you attend [facility] or yarsanism services? Never 09/29/2022 Do you belong to any clubs o r organizations such as jainism groups, unions, fraternal or athletic groups, or [...] Answer Date Recorded PHQ-2 Score 0 03/18/2022 [facility] - Occupational Stress Questionnaire Answer Date Recorded [...] your living situation today? I have a [facility] place to live 01/01/2024 Education Answer Date Recorded What is the highest level of school you have completed or the highest degree you have received? 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, RESIDENTIAL DIRECTOR, CHERYL) 09/29/2022 Comments No Sex and Gender Information Value Date Recorded Sex Assigned at Female 12/17/2018 7:47 AM TOBACCO DRUMMER Legal Sex Female 3:34 PM TOBACCO DRUMMER Gender Identity Female 12/17/2018 7:47 AM TOBACCO DRUMMER Sexual Orientation Straight 12/17/2018 7: 47 AM TOBACCO DRUMMER documented as of this encounter Miscellaneous Notes [...] 05/23/24. This was successfully close reduced in [place] [facility]. Since that time she has remained [...] (Latest Contact Info) Description 09/06/2024 12:15 PM TOBACCO DRUMMER Clinical Communication Virtual Review in [address] [phone] 09/10/2024 11:00 AM TOBACCO DRUMMER Appointment Department of Laboratory Medicine and Pathology, [facility], in [address] [phone] Hamzah Todd M.D. [address] [place] [phone] 09/10/2024 1:00 PM TOBACCO DRUMMER Office Visit Department of Orthopedic Surgery in [address] [phone] Hamzah Todd M.D. [address] [place] [phone] 09/11/2024 8:00 AM TOBACCO DRUMMER Comprehensive Visit Preoperative Evaluation Center in [address] [phone] Hamzah Todd M.D. [address] [place] [phone] 09/16/2024 11:43 AM TOBACCO DRUMMER Hospital Encounter [facility] 02 4 AM [address]MIT [address] [place] [phone] Hamzah Todd M.D. [address] [place] [phone] 09/16/2024 11:43 AM TOBACCO DRUMMER - 09/16/2024 3:15 PM TOBACCO DRUMMER Surgery [facility] MAIN OR [address] [place] [address] Hazmah Todd M.D. [address] [place] [address] ARTHROPLASTY REVISION HIP - ACETABULAR Scheduled Procedures Name Priority Associated Diagnoses Date/Ti me ARTHROPLASTY REVISION HIP Instability Total Hip Arthroplasty Subsequent Right 09/16/2024 11:43 AM TOBACCO DRUMMER Scheduled Referrals Name Type Priority Associated Diagnoses [...] documented as of this encounter Care Teams Box Truck Owner Operator Relationship Specialty Start Date End Date Elsewhere, Pcp PCP - General Family Medicine 10/07/21 documented as of this encounter
--- OUTSIDE RECORDS SUMMARY | 2024-08-07 10:57 | XMS_ITS | Clinical Summary ---
Author Organization [facility] Address [address], [place] [address] Care Team Providers Care Forestry Technician Name Role Phone Nilda Molina MD Primary Care Provider [phone] Source Comments You are receiving this document [...] for each transition of care or referral. 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 Overview (05/20/2016): cryotherapy at [place] Squamous cell cancer of skin of forearm 05/21/20 14 Immunizations Name Administration Dates Next Due Influenza IIV4 (Quadrivalent) 0.5mL (13012) 02/2016,07/21/2015,06/11/2014 PPSV23 (Pneumovax) 02/22/2012 TDAP (BOOSTRIX) 04/13/2011 [...] Comments Blood Pressure 120/79 09/13/2021 4:57 PM GREASE WORKER Pulse 73 09/13/2021 4:57 PM GREASE WORKER Temperature 36.4 ??C (97.5 ??F) 04/26/2022 4:52 PM CD T Respiratory Rate 20 09/13/2021 4:57 PM GREASE WORKER Oxygen Saturation 97% 09/13/2021 4:57 PM GREASE WORKER Inhaled Oxygen Concentration - - Weight 101.6 [...] age to complete this topic Care Teams Forestry Technician Relationship Specialty [place] [address] [place] [address] PCP - General Family Practice 06/07/21
--- NOTE | 2024-08-07 11:15 | CRLHL7_ITS ---
For Patients: As a result of the Century Cures Act, medical imaging exams and procedure reports are released immediately into your electronic medical record. You may view this report before your referring provider. If you have questions, please contact your health care provider. INDICATION: Abdominal pain TECHNIQUE: Ultrasound abdomen limited. Sonographic images of the right upper quadrant were obtained using ontiveros-scale and color Doppler images. COMPARISON: None. FINDINGS: Liver: The liver is normal in size with mild hepatic steatosis. Demonstration of multiple simple and complex cysts within the liver. The largest within the right liver lobe measuring 2.7 x 2.4 x 3.0 centimeters with internal septations and calcification. Gallbladder: No evidence of shadowing calculus. No sign of gallbladder wall thickening or pericholecystic fluid. Common bile duct: 4 mm. Pancreas: Partially visualized. Right kidney: Normal in size. Normal echotexture and cortex. No masses, stones, or hydronephrosis. Vasculature: Proximal abdominal aorta and IVC are normal. IMPRESSION: Mild hepatic steatosis with multiple simple and complex cysts within the liver the largest in the right liver lobe measuring 3 centimeters with calcified internal septation. If there remains persistent clinical concern, follow-up with liver protocol cross-sectional study on an outpatient basis. Dictated by Larry Macdonald MD @ 08/07/2024 12:11:45 PM (Electronically Signed)
== END 2024-08-07 10:45 | disposition home or self-care (01) ==
PROVIDERS: PCP Emergency Medicine; Visit Provider Emergency Medicine
DX: R10.9 Unspecified abdominal pain (principal); K76.0 Fatty (change of) liver, not elsewhere classified; K76.89 Other specified diseases of liver
CPT/HCPCS: 76705

== ENCOUNTER 2025-07-16 14:39 | Outpatient (CLI) | payer MEDICARE, BC, SELFPAY ==
--- NOTE | 2025-07-16 14:40 | CRLHL7_ITS ---
For Patients: As a result of the Century Cures Act, medical imaging exams and procedure reports are released immediately into your electronic medical record. You may view this report before your referring provider. If you have questions, please contact your health care provider. INDICATION: BILATERAL SCREENING MAMMOGRAM, ASYMPTOMATIC 64 Y/O FEMALE COMPARISON: 06/25/2024, 06/20/2023, 01/13/2022 TECHNIQUE: Digital mammogram in CC and MLO projections including computer-aided detection (CAD) and tomosynthesis. BREAST COMPOSITION: There are scattered areas of fibroglandular density. FINDINGS: No suspicious findings. ASSESSMENT: BI-RADS 1 Negative RECOMMENDATION: Annual screening mammogram. A lay language report of this examination will be provided to the patient. Dictated by: López Johnston MD @ 07/17/2025 09:22:59 (Electronically Signed)
== END 2025-07-16 14:40 | disposition home or self-care (01) ==
LOC: MAMMO 14:40
PROVIDERS: PCP Emergency Medicine; Visit Provider Emergency Medicine
DX: Z12.31 Encounter for screening mammogram for malignant neoplasm of breast (principal)
CPT/HCPCS: 77063; 77067

== ENCOUNTER 2025-07-21 07:06 | Outpatient (CLI) | payer MEDICARE, BC, SELFPAY | END 2025-07-21 07:07 | disposition home or self-care (01) | PROVIDERS: PCP Emergency Medicine; Visit Provider Family Medicine | DX: E03.9 Hypothyroidism, unspecified (principal); E78.1 Pure hyperglyceridemia; K76.0 Fatty (change of) liver, not elsewhere classified; R73.03 Prediabetes; R79.82 Elevated C-reactive protein (CRP) | CPT/HCPCS: 80053; 80061; 84443; 86140; 86803 ==

== ENCOUNTER 2025-10-02 12:36 | Outpatient (CLI) | payer MEDICARE, BC, SELFPAY ==
--- NOTE | 2025-10-02 13:00 | CRLHL7_ITS ---
For Patients: As a result of the Century Cures Act, medical imaging exams and procedure reports are released immediately into your electronic medical record. You may view this report before your referring provider. If you have questions, please contact your health care provider. Indication: Calculus of kidney Technique: Noncontrast CT abdomen and pelvis Please note that all CT scans at this facility use dose modulation, iterative reconstruction, and/or weight-based dosing when appropriate to reduce radiation dose to as low as reasonably achievable. Comparison: Ultrasound 08/07/2024 Findings: The lung bases are clear. Multiple benign intrahepatic cysts are present which measure up to 2.7 cm. The gallbladder is within normal limits. Normal adrenal glands. Spleen is normal. Incidental splenule. Normal pancreas. Vascular calcifications are present. Normal bladder. Uterus normal. Normal ovaries. Sigmoid diverticulosis. No diverticulitis. No bowel obstruction or free air. No free fluid. No abscess. Normal appendix. 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 Adjacent cortical calcification measures 5 millimeters. No hydronephrosis. Normal ureters. No vertebral body compression fracture. Bilateral hip replacement hardware. Incidental umbilical hernia containing fat measures 2.5 cm. Impression: Posttreatment changes to the upper pole of the right kidney with adjacent 5 millimeter calcification. No hydronephrosis. Normal ureters and bladder. Please note that all CT scans at this facility use dose modulation, iterative reconstruction, and/or weight-based dosing when appropriate to reduce radiation dose to as low as reasonably achievable. Dictated by López Johnston MD @ 10/02/2025 3:54:02 PM (Electronically Signed)
== END 2025-10-02 12:37 | disposition home or self-care (01) ==
LOC: CT 12:36
PROVIDERS: PCP Family Medicine; Visit Provider Family Medicine
DX: N20.0 Calculus of kidney (principal)
CPT/HCPCS: 74176